=== PATIENT | male | born 1965 | race Caucasian/White ===

== ENCOUNTER → 2018-11-16 09:09 | Outpatient (CLI) | payer OTHER, SELFPAY ==
[2018-03-30 14:26] VITALS: BMI 29.9
[2018-11-16 12:28] LABS: Absolute Lymphocyte Count 1.32 X10^3/uL (0.83-4.51); Absolute Neutrophil Count 2.7 X10^3/uL (2.0-7.7); Basophil# 0.06 X10^3/uL; Basophil% 1.2 % (0-1); Eosinophil# 0.43 X10^3/uL; Eosinophils% 8.7 % (0-5); Hematocrit 48.2 % (40-54); Hemoglobin 16.5 g/dL (13.0-16.5); Lymphocyte # 1.32 X10^3/ul (4.0); Lymphocyte % 26.8 % (19-41); Mean Corp Hgb Conc 34.2 g/dL (32-36); Mean Corpuscular Hgb 32.6 pg (27.0-32.0); Mean Corpuscular Volume 95.3 fL (80-94); Mean Platelet Vol. 9.6 fl (6.2-12.0); Monocyte# 0.44 X10^3/uL; Monocyte% 8.9 % (0-10); NRBC Flagged by Analyzer 0 % (0-5); Neutrophil # 2.66 X10^3/uL (2.7-7.7); Platelet Count 208 K/mm3 (150-450); RBC Distribution Width CV 11.5 % (11.6-14.6); RBC Distribution Width SD 40.2 fl (35.1-43.9); Red Blood Count 5.06 M/mm3 (4.6-6.2); White Blood Count 4.9 K/mm3 (4.4-11.0)
[2018-11-16 12:52] LABS: Microalbumin,Random Urine < 5.0 mg/L (NO RANGE EST.)
[2018-11-16 13:14] LABS: Thyroid Stim Hormone (TSH) 3.45 uIU/mL (0.358-3.74)
[2018-11-16 13:16] LABS: Hemoglobin A1c 5.1 % (4.2-6.3)
[2018-11-18 12:09] LABS: CHOLESTEROL TOTAL 207 mg/dL (100-199); HDL-C 53 mg/dL (>39); HDL-P TOTAL 36.6 umol/L (>=30.5); SMALL LDL-P 1015 nmol/L (<=527); TRIGLYCERIDES 92 mg/dL (0-149)
[2018-11-23 13:03] LABS: INSULIN RESISTANCE SCORE 54 (<=45); LDL SIZE 20.7 nm (>20.5); LDL-C 136 mg/dL (0-99); LDL-P 1866 nmol/L (<1000)
== END ==
PROVIDERS: Family Provider Internal Medicine; PCP Internal Medicine; Referring Provider Internal Medicine; Visit Provider Internal Medicine
DX: R73.01 Impaired fasting glucose (principal)
CPT/HCPCS: 36415; 80061; 82043; 82570; 83036; 83704; 84443; 85025

== ENCOUNTER → 2019-02-22 09:27 | Outpatient (CLI) | payer OTHER, SELFPAY ==
[2018-03-30 14:26] VITALS: BMI 29.9
[2019-02-22 12:43] LABS: Vitamin D,25 Hydroxy 47.4 ng/mL (29.95-100.01)
[2019-02-22 13:06] LABS: PSA,Total - Annual Screen 2.88 ng/mL (0.00-4.00); Phosphorus 2.3 mg/dL (2.5-4.9)
[2019-02-23 16:07] LABS: LDL, Direct 120295 110 mg/dL (0-99)
== END ==
PROVIDERS: Family Provider Internal Medicine; PCP Internal Medicine; Referring Provider Internal Medicine; Visit Provider Internal Medicine
DX: E78.5 Hyperlipidemia, unspecified (principal); E83.30 Disorder of phosphorus metabolism, unspecified; Z12.5 Encounter for screening for malignant neoplasm of prostate
CPT/HCPCS: 36415; 82306; 82330; 83721; 84100; 84153; G0103

== ENCOUNTER → 2019-02-24 07:50 | Outpatient (CLI) | payer OTHER, SELFPAY ==
[2018-03-30 14:26] VITALS: BMI 29.9
== END ==
PROVIDERS: Family Provider Internal Medicine; PCP Internal Medicine; Referring Provider Internal Medicine; Visit Provider Internal Medicine
DX: E78.5 Hyperlipidemia, unspecified (principal); Z12.5 Encounter for screening for malignant neoplasm of prostate; E83.30 Disorder of phosphorus metabolism, unspecified
CPT/HCPCS: 81050

== ENCOUNTER → 2019-02-26 08:46 | Outpatient (CLI) | payer OTHER, SELFPAY ==
[2018-03-30 14:26] VITALS: BMI 29.9
--- NOTE | 2019-02-26 08:47 | CDU_ITS ---
Reason For Study: Dizziness Rt. Velocities/BP Lt. Velocities/BP Prox CCA 94.9/17.6 cm/sec. Prox CCA 92.5/16.3 cm/sec. Mid CCA 109.7/18.8 cm/sec. Mid CCA 119.3/26.1 cm/sec. Dist CCA 104.8/22.5 cm/sec. Dist CCA 110.1/27.9 cm/sec. Prox ICA 68.4/19 cm/sec. Prox ICA 82.7/21.2 cm/sec. Mid ICA 72.8/25.6 cm/sec. Mid ICA 70.4/27.4 cm/sec. Dist ICA 86/31.1 cm/sec. Dist ICA 75.3/32.3 cm/sec. Rt. ICA/CCA = 0.8. Lt. ICA/CCA = 0.8. Prox ECA 114.8/18.2 cm/sec. Prox ECA 102.8/20.6 cm/sec. Rt. Vert. 81.7/14.6 cm/sec. Lt. Vert. 46.6/18.2 cm/sec. Right Extracranial There is intimal thickening but no significant atherosclerotic plaque noted in the right common carotid artery. There is intimal thickening but no significant atherosclerotic plaque noted in the right internal carotid artery. There is no significant atherosclerotic plaque noted in the right external carotid artery. Antegrade flow is noted in the right vertebral artery. Left Extracranial There is intimal thickening but no significant atherosclerotic plaque noted in the left common carotid artery. There is intimal thickening but no significant atherosclerotic plaque noted in the left internal carotid artery. There is no significant atherosclerotic plaque noted in the left external carotid artery. Antegrade flow is noted in the left vertebral artery. Procedure Carotid Duplex [id number]. Exam performed in department. Interpretation Summary No significant atherosclerotic plaque or stenosis noted in the internal carotid arteries bilaterally. Flow within the vertebral arteries is antegrade bilaterally. Ordering Physician: Betty Abarca Referring Physician: Betty Abarca Performed By: Jeimy Cedillo RVT
== END ==
PROVIDERS: Family Provider Internal Medicine; PCP Internal Medicine; Referring Provider Internal Medicine; Visit Provider Internal Medicine
DX: R42 Dizziness and giddiness (principal)
CPT/HCPCS: 93880

== ENCOUNTER 2021-05-07 09:39 | Outpatient (RCR) | payer OTHER, SELFPAY | END 2021-05-07 23:59 | disposition home or self-care (01) | LOC: EMPH 09:39 | PROVIDERS: PCP Internal Medicine; Referring Provider Family Medicine Geriatric Medicine; Visit Provider Family Medicine Geriatric Medicine | DX: Z03.818 Encounter for observation for suspected exposure to other biological agents ruled out (principal) | CPT/HCPCS: 87426 ==

== ENCOUNTER 2022-02-04 08:18 | Day surgery (SDC) | payer OTHER, SELFPAY ==
[2022-02-04] VITALS (7 sets, daily range): BP systolic 90–114; BP diastolic 65–89; PULSE 52–78; RESP 16–17; TEMP 36.2–36.3; O2SAT 93–100; BMI 29.5
--- NOTE | 2022-02-04 08:33 | PCM.HP.STD ---
[facility] - General General Date of Admission: 02/04/22 Date of Service: 02/04/22 Chief Complaint: Screening colonoscopy HPI Narrative KEYLA BREAUX, is a 56 M who presents today for screening colonoscopy. He is not having any problems with his bowels. He is not have any nausea, vomiting or diarrhea. He is not having abdominal pain or bloating. He does not take any medicines on daily basis except for vitamin C, flaxseed oil and lisinopril along with a multivitamin. He has no known drug allergies. He has no bowel surgeries. He denies any chest pain shortness of breath. Overall he is in very good health. [facility] Medical History Alcohol use Back pain Benign prostatic hyperplasia without lower urinary tract symptoms Chronic neck and back pain Colon polyp Essential (primary) hypertension Heartburn Hyperlipidemia, unspecified Non-smoker Raynauds syndrome Right orbital fracture Home Medications Flaxseed Oil [place]-3 Liquid 1 dose PO DAILY 02/05/16 [History Last Taken 03/08/15 08:00] ascorbic acid (vitamin C) 1,000 mg tablet 1,000 mg PO DAILY 02/05/16 [History Last Taken 03/08/15 08:00] multivitamin with folic acid 400 mcg tablet 1 tab PO DAILY 02/05/16 [History Last Taken 03/08/15 08:00] lisinopril 10 mg tablet 10 mg PO DAILY 07/18/20 [History Last Taken Unknown] Allergy/AdvReac Type Severity Reaction Status Date / Time No Known Allergies Allergy Verified 01/28/22 14:36 Family History (Updated 11/29/21 @ 11:44 by Karla Randall) Mother Hypertension PVD (peripheral vascular disease) Father Cancer of kidney Thyroid cancer Hypertension Surgical History History of Achilles tendon repair History of colonoscopy Hx of elbow surgery Hx of hernia repair Social History (Updated 11/29/21 @ 11:28 by Karla Randall) current occupational status: employed current occupation: Physical Therapist Smoking Status: Never smoker ROS Review of Systems ROS Unobtainable: other Constitutional Constitutional: Denies fatigue, fever(s), poor appetite, weight gain or weight loss ENT HEENT: Denies mouth lesions Cardiovascular Cardiovascular: Denies abdominal bloating, abdominal edema or abdominal pain Respiratory/Chest Respiratory/Chest: Denies change in mental status, change in phlegm color, chest congestion or chest tightness Gastrointestinal Gastrointestinal: Denies belching, bloating, change in bowel habits, change in stool character, chewing difficulty, coffee ground emesis, constipation, cramping, diarrhea, dyspepsia, dysphagia, early satiety, excessive flatus, fecal incontinence, heartburn, hematemesis, hematochezia, hemorrhoids, loose stools, melena, nausea, odynophagia, rectal bleeding, tenesmus, vomiting or weight changes Genitourinary Genitourinary: Denies abdominal discomfort, burning urination or itching Musculoskeletal Musculoskeletal: Reports as per HPI; Denies muscle weakness or myalgias Integumentary Integumentary: Denies jaundice Neurologic Neurologic: Denies lack of coordination or weakness Psychiatric Psychiatric: Denies confusion, depression, memory loss, mood swings, paranoia or suicidal ideation Endocrine Endocrinology: Denies systems reviewed and no addt'l complaints, except as documented Hematologic/Lymphatic Hematologic/Lymphatic: Denies anemia, easy bleeding, easy bruising or lymphadenopathy Allergic/Immunologic Allergic/Immunologic: Denies systems reviewed and no addt'l complaints, except as documented Physical Exam Const alert General Appearance: cooperative Orientation / Consciousness: oriented to person HEENT hearing grossly normal bilaterally Head and Scalp: normal to inspection Face and Sinus: face symmetric Nose: external nose normal Mouth: oral and palatal mucosa normal Eyes conjunctivae normal General Eye: normal appearance of both eyes Neck full ROM General: normal visual inspection Lymph Lymphatic: no lymphadenopathy noted Chest inspection of chest normal and palpation of chest normal Chest: symmetrical chest wall rise Resp normal respiratory effort Effort and Inspection: able to speak in complete sentences Cardio regular rate GI non-distended Percussion: normal to percussion Rectal Exam: deferred Neuro Speech: speech normal Gait (Neuro): normal gait Assessment & Plan Assessment/Plan (1) Encounter for screening for malignant neoplasm of colon: PLAN: 56-year-old gentleman will undergo screening colonoscopy. He was explained alternatives, risk, benefits including not withstanding bleeding, infection, sepsis, perforation, need for emergent turn to . He will have an ASA of 1.
[2022-02-04] MEDS: Lactated Ringers 1,000 ML 15 ML IV (08:35)
--- NOTE | 2022-02-04 09:30 | COLBX_PTH ---
PATIENT: KEYLA BREAUX LOC: [facility] U#:[id number] AGE/SX: 56/M ROOM: RE02/04/[address]: Dr. Artis Renee DO : 1965 BED: DIS: 02/04/2022 SPEC #: [id number] RECD: 02/04/22 11:29 STATUS: SHERRY REArsh #: [id number] SILVANO: 02/04/22 09:[address]: Artis Renee DEPT: SURGICAL PATHOLOGY RECD BY: Chelo Perdomo ENTERED: 02/04/22 12:27 SP TYPE: COLON BX OTHR DR: Dr. Betty Abarca, Tissues: Rectum, NOS Procedures: Surgery Specimen Level IV HEADER OPERATION: Colonoscopy ? open access (MAC) PRE-OP DIAGNOSIS: Screening TISSUE SUBMITTED: Rectum polyp biopsy MICROSCOPIC DIAGNOSIS Rectal polyp, biopsy: Polypoid fragment of benign colonic mucosa. See comment. AM:reggie 02/05/2022 COMMENT Neither hyperplastic nor adenomatous change is identified. Clinical correlation is suggested. MICROSCOPIC DESCRIPTION Slides are reviewed. GROSS DESCRIPTION Received in fixative is one container labeled with the patient's name and designated rectum polyp biopsy. The specimen consists of one irregular fragment of light salmon soft tissue that measures 0.3 x 0.2 x 0.1 cm. The specimen is totally submitted in one cassette. / SJ:reggie 02/04/2022 TC:5 CPT: 66212
--- NOTE | 2022-02-04 09:48 | OP.COLON_ITS ---
Patient Name: Johnnie Gutierrez Procedure Date: 02/04/2022 9:13 AM Date of : 1965 Age: 56 Procedure: Colonoscopy Indications: Screening for colorectal malignant neoplasm Providers: Artis Renee DO Referring MD: Betty Abarca Medicines: Monitored Anesthesia Care Patient Profile: Last Colonoscopy: date unknown. Complications: No immediate complications. Procedure: Pre-Anesthesia Assessment: - Prior to the procedure, a History and Physical was performed, and patient medications and allergies were reviewed. The risks and benefits of the procedure and the sedation options and risks were discussed with the patient. All questions were answered and informed consent was obtained. Patient identification and proposed procedure were verified by the physician in the pre-procedure area. Mental Status Examination: alert and oriented. Airway Examination: normal oropharyngeal airway and neck mobility. Respiratory Examination: clear to auscultation. CV Examination: normal. Prophylactic Antibiotics: The patient does not require prophylactic antibiotics. Prior Anticoagulants: The patient has taken no previous anticoagulant or antiplatelet agents. After reviewing the risks and benefits, the patient was deemed in satisfactory condition to undergo the procedure. The anesthesia plan was to use monitored anesthesia care (MAC). Immediately prior to administration of medications, the patient was re-assessed for adequacy to receive sedatives. The heart rate, respiratory rate, oxygen saturations, blood pressure, adequacy of pulmonary ventilation, and response to care were monitored throughout the procedure. The physical status of the patient was re-assessed after the procedure. After I obtained informed consent, the scope was passed under direct vision. Throughout the procedure, the patient's blood pressure, pulse, and oxygen saturations were monitored continuously. The colonoscope was introduced through the anus and advanced to the cecum, identified by appendiceal orifice and ileocecal valve. The colonoscopy was performed without difficulty. The patient tolerated the procedure well. The quality of the bowel preparation was good. Scope In: 9:28:21 AM Scope Withdrawal Time 0 hours 10 minutes 31 seconds Scope Out: 9:43:00 AM Total Procedure Duration Time 0 hours 14 minutes 39 seconds Findings: Hemorrhoids were found on perianal exam. A 5 mm polyp was found in the rectum. The polyp was sessile. The polyp was removed with a cold biopsy forceps. Resection and retrieval were complete. Verification of patient identification for the specimen was done. Estimated blood loss was minimal. Impression: - Hemorrhoids found on perianal exam. - One 5 mm polyp in the rectum, removed with a cold biopsy forceps. Resected and retrieved. Recommendation: - Repeat colonoscopy in 5 years for surveillance. - Continue present medications. Procedure Code(s): --- Professional --- 31261, Colonoscopy, flexible; with biopsy, single or multiple CPT copyright 2017 [employer]. All rights reserved. The codes documented in this report are preliminary and upon line manager review may be revised to meet current compliance requirements. Artis Renee DO 02/04/2022 9:47:48 AM This report has been signed electronically. Number of Addenda: 0 Note Initiated On: 02/04/2022 9:13 AM
--- NOTE | 2022-02-04 09:49 | OP.CCLET_ITS ---
02/04/2022 Betty Abarca [address] [place] [address] Re : Colonoscopy procedure for Johnnie Gutierrez Dear Dr. Abarca This procedure was performed on Friday, February 04, 2022. My impressions and recommendations are as follows: Impressions : - Hemorrhoids found on perianal exam. - One 5 mm polyp in the rectum, removed with a cold biopsy forceps. Resected and retrieved. Recommendations : - Repeat colonoscopy in 5 years for surveillance. - Continue present medications. My findings are described in the full procedure note, which is enclosed. If I can be of further assistance, please feel free to contact me at . Sincerely, Artis Renee, 02/04/2022 9:47:48 AM This report has been signed electronically.
== END 2022-02-04 10:47 | disposition home or self-care (01) ==
LOC: EN 08:20 → AC 08:20
PROVIDERS: PCP Internal Medicine; Referring Provider Internal Medicine; Visit Provider Internal Medicine Gastroenterology
PROC: 0DJD8ZZ Inspection of Lower Intestinal Tract, Via Natural or Artificial Opening Endoscopic (ICD-10-PCS; CPT 45378; principal; 2022-02-04 09:25)
DX: Z12.11 Encounter for screening for malignant neoplasm of colon (principal); K62.1 Rectal polyp; K64.9 Unspecified hemorrhoids; I10 Essential (primary) hypertension; Z79.899 Other long term (current) drug therapy
CPT/HCPCS: 45380; 88305; J7120; J2405

== ENCOUNTER → 2022-02-14 | Outpatient (CLI) | payer OTHER, SELFPAY ==
[2022-02-14 15:39] LABS: Hemoglobin A1c 5.3 % (3.8-5.6)
[2022-02-14 15:51] LABS: AST(SGOT) 28 U/L (15-37); Alanine Aminotransfer ALT/SGPT 47 U/L (16-61); Alkaline Phosphatase 73 U/L (45-117); Bilirubin, Direct 0.31 mg/dL (0.00-0.30); Globulin 2.8 g/dL (2.2-4.2); Protein, Total 6.8 g/dL (6.4-8.2); Thyroid Stim Hormone (TSH) 2.89 uIU/mL (0.358-3.74)
== END | disposition home or self-care (01) ==
LOC: MTLAB 13:07
PROVIDERS: PCP Internal Medicine; Referring Provider Internal Medicine; Visit Provider Internal Medicine
DX: R79.89 Other specified abnormal findings of blood chemistry (principal); R73.01 Impaired fasting glucose
CPT/HCPCS: 36415; 80076; 83036; 84443

== ENCOUNTER 2022-04-30 11:33 | Emergency (ER) | payer OTHER, SELFPAY ==
[2022-04-30 11:33] VITALS: BP 157/96; PULSE 67; RESP 14; TEMP 36.6; O2SAT 99; BMI 30.5
--- NOTE | 2022-04-30 11:39 | EKG12_ITS ---
Test Reason : HYPERTENSION Blood Pressure : / mmHG Vent. Rate : 065 BPM Atrial Rate : 065 BPM P-R Int : 178 ms QRS Dur : 084 ms QT Int : 386 ms P-R-T Axes : 010 018 -15 degrees QTc Int : 401 ms Normal sinus rhythm Possible Lateral infarct , age undetermined Inferior infarct , age undetermined Abnormal ECG Confirmed by MILLI GRIMES, DARLINE ([id number]), graphic editor RYANN MORAN ([id number]) on 05/01/2022 9:06:03 AM Referred By: DEB Confirmed By:DARLINE MORLEY MD
--- NOTE | 2022-04-30 12:51 | EKG12_ITS ---
Test Reason : HYPERTENSION Blood Pressure : / mmHG Vent. Rate : 061 BPM Atrial Rate : 061 BPM P-R Int : 188 ms QRS Dur : 088 ms QT Int : 384 ms P-R-T Axes : 014 015 -20 degrees QTc Int : 386 ms Normal sinus rhythm Lateral infarct , age undetermined , cannot be excluded Inferior infarct , age undetermined Abnormal ECG Confirmed by ELPIDIO GRIMES, SONJA ([id number]), electronic news gathering editor RYANN MORAN ([id number]) on 05/01/2022 8:48:44 AM Referred By: DEB Confirmed By:SONJA MAGALLANES MD
--- NOTE | 2022-04-30 12:51 | CT_ITS ---
STUDY: CTA HEAD AND NECK WITH CONTRAST REASON FOR EXAM: Male, 56 years old. History of Raynaud''s syndrome. Hypertension. Worsening dizziness. RADIATION DOSAGE (If Supplied By Facility): CTDIvol = ( 28.16 ) mGy, DLP = ( 1445.42 ) mGycm TECHNIQUE: CT angiography was performed with a multi-detector CT scanner. Data acquisition was obtained from the skull base through the vertex following intravenous administration of IV 100mL Isovue-370. MIP images were reconstructed from the axial data set. Post-processing of the angiographic images was performed, with multiplanar reformation and 3D reconstruction. Individualized dose optimization techniques were used for this CT. COMPARISON: No relevant priors. FINDINGS: Normal bilateral petrous carotid arteries. Normal right cavernous carotid artery with a normal supraclinoid bifurcation. Normal left cavernous carotid artery with a normal supraclinoid bifurcation. Normal right A1 segments of the anterior cerebral artery. Normal left A1 segments of the anterior cerebral artery. Normal intact anterior communicating artery (ACOM). Normal bilateral A2 segments of the anterior cerebral arteries. Normal right M1 and M2 segments of the middle cerebral arteries, with a normal M1 bifurcation. Normal left M1 and M2 segments of the middle cerebral arteries, with a normal M1 bifurcation. Normal right posterior communicating artery (PCOM). Normal left posterior communicating artery (PCOM). Normal bilateral vertebral arteries. Normal basilar artery with a normal basilar bifurcation. The visualized bilateral superior cerebellar (SCA) arteries are normal. Normal bilateral P1, P2 and visualized P3 segments of the posterior cerebral arteries. There is no demonstrated aneurysm of the [place] of [place]. There is no demonstrated abnormality of the visualized brain. AORTIC ARCH: Normal visualized aortic arch. Normal origins of the brachiocephalic, left common carotid, and left subclavian arteries. RIGHT CAROTID ARTERIES: Normal right common carotid artery (CCA). Normal right common carotid bulb. Normal origin of the right internal carotid (ICA) artery without a hemodynamically significant stenosis. Normal visualized cervical portion of the right internal carotid artery. Normal origin of the right external carotid artery (ECA). LEFT CAROTID ARTERIES: Normal left common carotid artery (CCA). Normal left common carotid bulb. Normal origin of the left internal carotid (ICA) artery without a hemodynamically significant stenosis. Normal visualized cervical portion of the left internal carotid artery. Normal origin of the left external carotid artery (ECA). VERTEBRAL ARTERIES: Normal bilateral vertebral arteries. CT/CTA Head AND Neck W/ Contrast IMPRESSION: Normal CTA Head and neck with contrast. Electronically Signed: Ryan Tavera MD at 14:45 EST ,
--- NOTE | 2022-04-30 12:53 | EDS_ITS ---
HPI History of Present Illness Chief Complaint: Dizziness Narrative Narrative: Patient presents with 2-day history of vertiginous symptoms, he gets paroxysms of vertigo when he turns his head a certain way. These paroxysms lasts just a few seconds. No vision changes, he does not feel off balance, no fever or chills. No cough or congestion. He does not have a headache. [facility] Medical History Alcohol use Back pain Benign prostatic hyperplasia without lower urinary tract symptoms Chronic neck and back pain Colon polyp Essential (primary) hypertension Heartburn Hyperlipidemia, unspecified Non-smoker Raynauds syndrome Right orbital fracture Home Medications Flaxseed Oil [place]-3 Liquid 1 dose PO DAILY 02/05/16 [History Last Taken 03/08/15 08:00] ascorbic acid (vitamin C) 1,000 mg tablet 1,000 mg PO DAILY 02/05/16 [History Last Taken 03/08/15 08:00] multivitamin with folic acid 400 mcg tablet 1 tab PO DAILY 02/05/16 [History Last Taken 03/08/15 08:00] lisinopril 10 mg tablet 10 mg PO DAILY 07/18/20 [History Last Taken Unknown] meclizine 25 mg tablet 25 mg PO 4X/DAY PRN PRN Dizziness #20 tabs 04/30/22 [Rx Last Taken Unknown] Allergy/AdvReac Type Severity Reaction Status Date / Time No Known Allergies Allergy Verified 01/28/22 14:36 Family History Mother Hypertension PVD (peripheral vascular disease) Father Cancer of kidney Thyroid cancer Hypertension Surgical History History of Achilles tendon repair History of colonoscopy Hx of elbow surgery Hx of hernia repair Social History current occupational status: employed current occupation: Physical Therapist Smoking Status: Never smoker ROS ROS ED ROS Narrative Past medical history: Reviewed Medications: Reviewed Social history: Noncontributory Review of systems: All systems negative except as indicated General: No fever Eyes: No visual changes ENT: No upper airway congestion, normal voice Neck: No neck pain Cardiovascular: No chest pain Respiratory: No shortness of breath or cough Gastrointestinal: No abdominal pain, nausea vomiting or diarrhea Genitourinary: No dysuria Musculoskeletal: Denies myalgias no difficulty with ambulation Skin: No rash Neurological: No memory loss, confusion or any focal weakness. Vertigo as in HPI EXAM Physical Exam Narrative Exam Narrative: Physical exam General: Well nourished, Well developed, No Acute Distress Head: Normocephalic, Atraumatic Eyes: Conjunctiva not pale. Pupils are 3 mm and reactive. He has bilateral nystagmus slightly worse on the right. He also has rightward saccade. ENT: Moist mucous membranes Neck: Supple, Nontender, No lymphadenopathy Cardiovascular: Regular rate, Regular rhythm Respiratory: No distress, CTA bilaterally Abdomen: Soft, Nontender, Nondistended Back: Nontender, Normal Inspection. Negative for: CVA tenderness Extremities: Nontender, No edema Skin: Normal color, No rash Neurological: Alert, Normal Strength, Normal Sensation. Normal cerebellar. Normal Romberg. Psychological: Normal affect Const Vital Signs: 04/30/22 11:33 04/30/22 12:45 04/30/22 14:00 Temperature 98 F Temperature Source Temporal Pulse Rate 67 67 Respiratory Rate 14 15 Respiratory Effort Normal Respiratory Pattern Normal Blood Pressure 157/96 H 121/72 H Blood Pressure Mean 116 88 Pulse Ox 99 100 Oxygen Delivery Method Room Air Room Air [facility] Lab Data Labs: Laboratory Results - last 24 hr 04/30/22 04/30/22 13:00 13:00 WBC 6.0 RBC 5.01 Hgb 16.2 Hct 48.0 MCV 95.8 H MCH 32.3 H MCHC 33.8 RDW Std Deviation 39.9 RDW Coeff of Pia 11.4 L Plt Count 236 MPV 9.1 Immature Gran % (Auto) 0.300 Neut % (Auto) 59.8 Lymph % (Auto) 24.7 Haines % (Auto) 9.6 Eos % (Auto) 4.6 Baso % (Auto) 1.0 Absolute Neuts (auto) 3.6 Absolute Lymphs (auto) 1.49 Nucleated RBC % 0 Sodium 138 Potassium 4.5 Chloride 106 Carbon Dioxide 27.0 Anion Gap 5 BUN 19 H Creatinine 1.08 Estim Creat Clear Calc 68.10 Est GFR (MDRD) Af Amer 91 Est GFR (MDRD) Non-Af 75 BUN/Creatinine Ratio 17.6 Glucose 108 H Calcium 9.7 Total Bilirubin 0.90 AST 23 ALT 45 Alkaline Phosphatase 83 Total Protein 7.6 Albumin 4.2 Globulin 3.4 Albumin/Globulin Ratio 1.2 Radiography Diagnostic Testing: Clinical Impression(s) from Imaging Studies Head/Neck CTA 04/30/22 12:51 IMPRESSION: Normal CTA Head and neck with contrast. Electronically Signed: Ryan Tavera MD at 14:45 EST , EKG Initial EKG: Comments: Sinus rhythm with a rate of 61. Normal ME interval. Normal QTc interval. Nonspecific ST changes throughout but no acute ischemic events. Interpreted by emergency doctor. Treatment and Re-Evaluation Narrative: A. Problems addressed My worry is for this for a possible central etiology of the vertigo, however based on physical and CT results I believe this is likely BPPV. He was given meclizine with improvement. He has a physical therapist at this hospital and has access to vertebral rehab. He can follow-up with that. Otherwise if anything changes patient is to return. Patient did improve with meclizine and I will give him some meclizine for home. B. Amount and/or complexity of the data 1. CBC and CMP were unremarkable 2. Independent interpretation of test Telemetry: Sinus rhythm with a rate in the 60s without ectopy C. Risk of complications and/or morbidity Differential diagnosis: Stroke, vertebrobasilar insufficiency, intracranial mass, meningitis,or found on physical and/or blood work or CT. Discharge Plan Triage Chief Complaint: Dizziness ED Provider: Sohan Santos Dx/Rx/DC Orders Clinical Impression: Vertigo, Benign paroxysmal positional vertigo Instructions: BPPV Prescriptions: New meclizine 25 mg tablet 25 mg PO 4X/DAY PRN PRN (Reason: Dizziness) Qty: 20 0RF No Action lisinopril 10 mg tablet 10 mg PO DAILY ascorbic acid (vitamin C) 1,000 MG tablet 1,000 mg PO DAILY multivitamin with folic acid 1 TABLET tablet 1 tab PO DAILY Flaxseed Oil [place]-3 Liquid 1 dose PO DAILY Primary Care Provider: Betty Abarca Referrals: Tevin,Betty, DO [Primary Care Provider] - 3-5 Days Disposition Disposition: Home, Self Care
[2022-04-30 13:07] LABS: Absolute Lymphocyte Count 1.49 X10^3/uL (0.83-4.51); Absolute Neutrophil Count 3.6 X10^3/uL (2.0-7.7); Basophil# 0.06 X10^3/uL; Eosinophil# 0.28 X10^3/uL; Eosinophils% 4.6 % (0-5); Hemoglobin 16.2 g/dL (13.0-16.5); Lymphocyte # 1.49 X10^3/ul (0.83-4.51); Lymphocyte % 24.7 % (19-41); Mean Corp Hgb Conc 33.8 g/dL (32-36); Mean Corpuscular Hgb 32.3 pg (27.0-32.0); Mean Corpuscular Volume 95.8 fL (80-94); Mean Platelet Vol. 9.1 fl (6.2-12.0); Monocyte# 0.58 X10^3/uL; Monocyte% 9.6 % (0-10); NRBC Flagged by Analyzer 0 % (0-5); Neutrophil % 59.8 % (47-70); Platelet Count 236 K/mm3 (150-450); RBC Distribution Width CV 11.4 % (11.6-14.6); RBC Distribution Width SD 39.9 fl (35.1-43.9); Red Blood Count 5.01 M/mm3 (4.6-6.2)
[2022-04-30] MEDS: Meclizine HCl 25 MG Tablet PO (13:08)
[2022-04-30 13:24] LABS: ALB/GLOB Ratio 1.2 RATIO (0.9-2.4); AST(SGOT) 23 U/L (15-37); Alanine Aminotransfer ALT/SGPT 45 U/L (16-61); Albumin, Serum 4.2 g/dL (3.2-5.0); Alkaline Phosphatase 83 U/L (45-117); Anion Gap 5 (5-15); BUN 19 mg/dL (7-18); BUN/Creat Ratio 17.6 RATIO (10-20); Calcium,Total 9.7 mg/dL (8.5-10.1); Chloride 106 mmol/L (98-107); Creatinine, Serum 1.08 mg/dL (0.70-1.30); EST Glomerular Filtration Rate 75 mL/min (>60); Est Glom Filt Rate - Afr Amer 91 mL/min (>60); Globulin 3.4 g/dL (2.2-4.2); Glucose 108 mg/dL (74-106); Potassium 4.5 mmol/L (3.5-5.1); Protein, Total 7.6 g/dL (6.4-8.2); Sodium Level 138 mmol/L (136-145)
[2022-04-30 14:00] VITALS: BP 121/72; PULSE 67; RESP 15; O2SAT 100
[2022-04-30 15:10] VITALS: BP 110/82; PULSE 69; RESP 15; O2SAT 99
== END 2022-04-30 15:38 | disposition home or self-care (01) ==
PROVIDERS: Emergency Provider Emergency Medicine; PCP Internal Medicine; Visit Provider Emergency Medicine
DX: H81.10 Benign paroxysmal vertigo, unspecified ear (principal); E78.5 Hyperlipidemia, unspecified; I10 Essential (primary) hypertension
CPT/HCPCS: 70496; 70498; 80053; 85025; 93005; 99284; Q9967; A4216

== ENCOUNTER → 2022-11-15 | Outpatient (CLI) | payer OTHER, SELFPAY ==
[2022-11-15 11:30] LABS: Bacteria 0 SEEN /hpf (None Seen); Mucous, Urine 0 SEEN /hpf (<or=2+); Red Blood Cells-Urine 0 SEEN /hpf (0-5); Squamous Epithelial Cells - UA 0 SEEN /hpf (0-5); White Blood Cells 0 SEEN /hpf (0-5)
[2022-11-15 12:14] LABS: Absolute Lymphocyte Count 1.44 X10^3/uL (0.83-4.51); Basophil# 0.06 X10^3/uL; Basophil% 1.1 % (0-1); Eosinophil# 0.35 X10^3/uL; Eosinophils% 6.5 % (0-5); Hematocrit 46.1 % (40-54); Hemoglobin 15.8 g/dL (13.0-16.5); Lymphocyte # 1.44 X10^3/ul (0.83-4.51); Lymphocyte % 26.7 % (19-41); Mean Corp Hgb Conc 34.3 g/dL (32-36); Mean Corpuscular Hgb 32.6 pg (27.0-32.0); Mean Corpuscular Volume 95.2 fL (80-94); Mean Platelet Vol. 9.7 fl (6.2-12.0); Monocyte# 0.51 X10^3/uL; Monocyte% 9.4 % (0-10); NRBC Flagged by Analyzer 0 % (0-5); Neutrophil # 3.02 X10^3/uL (2.7-7.7); Neutrophil % 55.9 % (47-70); Platelet Count 245 K/mm3 (150-450); RBC Distribution Width CV 11.4 % (11.6-14.6); RBC Distribution Width SD 39.3 fl (35.1-43.9); Red Blood Count 4.84 M/mm3 (4.6-6.2); White Blood Count 5.4 K/mm3 (4.4-11.0)
[2022-11-15 12:58] LABS: Microalbumin,Random Urine 6.8 mg/L (NO RANGE EST.); Microalbumin:Creatinine Ratio 4.4 mg/g CRE (<30 mg/g CRE)
[2022-11-15 13:04] LABS: Cholesterol 172 mg/dL (200); High Density Lipoprotein 57 mg/dL; PSA,Total - Annual Screen 2.35 ng/mL (0.00-4.00); Triglycerides 92 mg/dL; Very Low Density Lipoprotein 18 mg/dL (5-40)
[2022-11-15 18:34] LABS: Color, Urine Yellow (Yellow); Glucose, Dipstick Normal (Normal); Ketone-Dipstick Negative (Negative); Leukocyte Esterase-Dipstick Negative /ul (Negative); Nitrite-Dipstick Negative (Negative); Occult Blood-Urine Negative /ul (Negative); Protein-Dipstick Negative (Negative); Urine Bilirubin Dipstick Negative (Negative); Urine Clarity Clear (Clear); Urine Urobilinogen Normal (Normal)
== END | disposition home or self-care (01) ==
LOC: MTLAB 11:17
PROVIDERS: PCP Internal Medicine; Referring Provider Internal Medicine; Visit Provider Internal Medicine
DX: I10 Essential (primary) hypertension (principal); E78.5 Hyperlipidemia, unspecified; R73.01 Impaired fasting glucose; Z12.5 Encounter for screening for malignant neoplasm of prostate
CPT/HCPCS: 36415; 80061; 81001; 82043; 82570; 83036; 84153; 84443; 85025; G0103

== ENCOUNTER → 2024-05-19 | Outpatient (CLI) | payer OTHER, SELFPAY ==
[2024-05-19 12:27] LABS: Erythrocyte Sedimentation Rate < 1 mm/hr (0-20)
[2024-05-19 13:13] LABS: PSA,Total - Annual Screen 1.96 ng/mL (0.02-4.00); Vitamin B12 562 pg/mL (180-914)
[2024-05-19 13:24] LABS: CRP < 3.00 mg/L (0.0-3.0)
[2024-05-19 13:43] LABS: Hemoglobin A1c 5.5 % (<=5.6)
[2024-05-20 10:08] LABS: ANTINUCLEAR ANTIBODIES DIRECT Negative (Negative)
== END | disposition home or self-care (01) ==
LOC: MTLAB 10:12
PROVIDERS: PCP Internal Medicine; Referring Provider Internal Medicine; Visit Provider Internal Medicine
DX: R53.83 Other fatigue (principal); Z12.5 Encounter for screening for malignant neoplasm of prostate
CPT/HCPCS: 36415; 82607; 82746; 83036; 84153; 84443; 85652; 86038; 86140; G0103

== ENCOUNTER → 2024-05-28 | Outpatient (CLI) | payer OTHER, SELFPAY ==
--- NOTE | 2024-05-28 16:27 | US_ITS ---
PROCEDURE: THYROID 05/28/2024 REASON FOR EXAM: THYROMEGALY, IODINE-DEFICIENCY RELATED DIFFUSE (ENDEMIC) GOITER TECHNIQUE: Thyroid ultrasound FINDINGS: Right thyroid lobe measures 4.0 x 1.1 x 1.8 cm Left thyroid lobe measures 3.2 x 1.3 x 1 cm. Isthmus thickness is2.2 mm. The right and left lobes of the thyroid appear homogeneous and isoechoic. No nodule or focal lesion identified. No lymphadenopathy identified. US/Thyroid IMPRESSION: Thyroid ultrasound as above Reading Location: [id number]
== END | disposition home or self-care (01) ==
LOC: OPUS 16:20
PROVIDERS: PCP Internal Medicine; Referring Provider Internal Medicine; Visit Provider Internal Medicine
DX: E01.0 Iodine-deficiency related diffuse (endemic) goiter (principal)
CPT/HCPCS: 76536

== ENCOUNTER → 2024-07-02 | Outpatient (CLI) | payer OTHER, SELFPAY ==
[2024-07-02 18:25] LABS: Thyroid Stim Hormone (TSH) 0.143 uIU/mL (0.300-4.200)
== END | disposition home or self-care (01) ==
LOC: MTLAB 16:12
PROVIDERS: PCP Internal Medicine; Referring Provider Internal Medicine; Visit Provider Internal Medicine
DX: R79.89 Other specified abnormal findings of blood chemistry (principal)
CPT/HCPCS: 36415; 84443

== ENCOUNTER → 2024-08-23 | Outpatient (CLI) | payer OTHER, SELFPAY ==
--- NOTE | 2024-08-23 06:49 | CT_ITS ---
PROCEDURE: LIMITED CHEST CT CARDIAC ONLY 08/23/2024 REASON FOR EXAM: CAD SCREENING TECHNIQUE: LIMITED CHEST CT CARDIAC ONLY One or more dose reduction techniques were used (e.g., Automated exposure control, adjustment of the mA and/or kV according to patient size, use of iterative reconstruction technique). RADIATION DOSE SUMMARY: CTDlvol: 12.19 mGy DLP: 195.04 mGycm COMPARISON: None FINDINGS: There is evidence of coronary artery calcification. The heart is nonenlarged. Minimal linear scarring at the lung bases. CT/Limited Chest CT Cardiac Only IMPRESSION: Coronary artery calcification. Reading Location: [facility]
--- OUTSIDE RECORDS SUMMARY | 2024-08-23 06:49 | XMS RPT_ITS | CCD ---
Author Organization [facility] CliniSymo Care Team Providers Care Student Ambassador Name Role Phone Betty Abarca Unavailable Howard Steele Unavailable Marisol Alberto Unavailable Unavailable Gravius, Enedina Unavailable Unavailable Carlos Ceja Unavailable Unavailable Barbara Saenz L Unavailable Unavailable Gena Valdes Unavailable Gravius, Enedina Unavailable Unavailable Messenger, Marisol Unavailable Unavailable Barbara Saenz L Unavailable Unavailable Unavailable Unavailable Betty Abarca DO Unavailable Dr. Howard Steele Unavailable Gravius THU, Enedina Unavailable Unavailable Messenger RNMarisol Unavailable Unavailable Barbara Saenz RN Unavailable Unavailable Unavailable Unavailable Mell Shannon MA Unavailable Unavailable Betty Abarca DO Unavailable [phone] Friend, Dr. Wisdom Unavailable Dr. Betty Abarca Primary Care Provider [phone] Karla Randall Attending Provider Unavailable Dr. Betty Abarca Referring Provider [phone] FriendDr[address] Wisdom Attending Provider FriendDr. Wisdom Other Provider [phone] Betty Abarca Primary Care Provider Lily ANDINO, Kayela Unavailable Unavailable Tran Ackerman MA Unavailable Unavailable Betty Abarca DO Attending Unavailable Gena Valdes MD Referring Unavailable Betty Aabrca DO Consulting Unavailable Dick Reynolds MD Unavailable Markos BLOCK PRESS OPERATOR, Cristian Unavailable Unavailable TIFFANIE Ochoa LPN Unavailable Unavailable Dr. Betty Abarca DO Primary Care Provider Tevin PRATT, Dr. Hernández Attending Provider [phone] Tevin PRATT, Dr. Hernández Referring Provider [phone] Betty Abarca Primary Care Unavailable Assessment, Health Risk Attending Unavaila ble Assessment, Health Risk Referring Unavaila ble Tevin, Betty Primary Care Unavailable Tevin, Betty Attending Unavailable Tevin, Betty Referring Unavailable Tevin, Betty Primary Care Unavailable Tevin, Betty Attending Unavailable Tevin, Betty Referring Unavailable Tevin, Betty Primary Care Unavailable Tevin, Betty Attending Unavailable Tevin, Betty Referring Unavailable Tevin, Betty Referring Unavailable Tevin, Betty Primary Care Unavailable Ronan Liu Attending Unavailable Medications Current Medications Medication Drug Class(es) Dates Sig (Normalized) Sig (Original) ascorbic acid 1000 mg oral tablet (20 sources) Vitamin C Start: 02-05-2016 take 1 tablet by mouth once daily Ascorbic Acid (Vitamin C) 1,000 MG tablet Active 1000 mg PO DAILY February 05, 2016 1:00am VITAMIN C (PO Ta b) for 0 days Refills: 0 Ordered: 12-Dec-2008 TIFFANIE Ochoa LPN Active VITAMIN C (PO Ta b) for 0 days Refills: 0 Ordered: 12-Dec-2008 TIFFANIE Ochoa Active doxycycline monohydrate 100 mg oral capsule (3 sources) Tetracycline-class Drug Start: 08-05-2023 take 2 capsules by mouth once Doxycycline Monohydrate 100 mg capsule Active 200 mg PO ONCE 2 August 05, 2023 12:00am Flaxseed Oil Gipsy-3 Liquid (7 sources) Start: 02-05-2016 Flaxseed Oil Gipsy-3 Liquid Active 1 NMA PO DAILY February 05, 2016 1:00am Start: 02-05-2016 take 1 dose by mouth once neal y Flaxseed Oil Gipsy-3 Liquid Active 1 DOSE PO DAILY February 05, 2016 1:00am Start: 02-05-2016 take 1 dose by mouth once neal y Flaxseed Oil Gipsy-3 Liquid Active 1 DOSE PO DAILY February 05, 2016 12:00am meclizine hydrochloride 25 mg oral tablet (5 sources) Antiemetic Start: 04-30-2022 take 1 tablet by mouth four times daily as needed for dizziness Meclizine 25 mg tablet Active 25 mg PO 4 TIMES DAILY NEEDED as needed for Dizziness April 30, 2022 1:00am Multivitamin With Folic Acid (4 sources) Start: 02-05-2016 take 1 tablet by mouth once daily Multivitamin With Folic Acid Active 1 TABLET PO DAILY February 05, 2016 1:00am Start: 02-05-2016 take 1 tablet by paddy th once daily Multivitamin With Folic Acid Active 1 TABLET PO DAILY February 05, 2016 12:00am Multivitamin With Folic Acid 1 TABLET tablet (3 sources) Start: 02-05-2016 take 1 tablet by mouth once daily Multivitamin With Folic Acid 1 TABLET tablet Active 1 {tbl} PO DAILY February 05, 2016 1:00am Completed/Discontinued Medications Medication Drug Class(es) Dates Sig (Normalized) Sig (Original) amLODIPine 5 mg oral tablet (20 sources) Dihydropyridine Calcium Channel Zohra Start: 04-01-2019 End: 04-01-2019 take 1 tablet by mouth once daily Norvasc 5 MG Oral Tablet 1 (one) Tablet qd for 0 days Quantity: 30 {Tablet} Refills: 2 Ordered: 01-Apr-2019 Betty Abarca DO, DO, Kathleen Start : 01-Apr-2019 End : 01-Apr-2019 Discontinued Comments: would rather just take one med Comment on above: would rather just ta ke one med azithromycin 250 mg oral tablet (20 sources) Macrolide Antimicrobial Start: 02-15-2016 End: 10-28-2016 take 1 tablet by mouth once daily Zithromax Z-John 250 MG Oral Tablet tad Tablet qd for 0 days Quantity: 1 {Package} Refills: 0 Ordered: 28-Oct-2016 Marisol Alberto RN Start : 15-Feb-2016 End : 28-Oct-2016 Inactive chondroitin sulfates 400 mg / glucosamine hydrochloride 500 mg oral capsule (20 sources) End: 11-27-2018 GLUCOSAMINE CHONDROITIN (PO Tab) for 0 days Refills: 0 Ordered: 27-Nov-2018 Barbara Saenz RN End : 27-Nov-2018 Discontinued Comments: This order discontinued per [facility]. End: 11-27-2018 GLUCOSAMINE CHONDROITIN (PO Tab) for 0 days Refills: 0 Ordered: 27-Nov-2018 Barbara Saenz RN End : 27-Nov-2018 Discontinued Comments: This order discontinued per [facility]. End: 11-27-2018 GLUCOSAMINE CHONDROITIN (PO Tab) for 0 days Refills: 0 Ordered: 27-Nov-2018 Dany JUÁREZaBrbara End : 27-Nov-2018 Discontinued Comments: This order discontinued per [facility]. GLUCOSAMINE EVIE DROITIN (PO Tab) for 0 days Refills: 0 Ordered: 12-Dec-2008 TIFFANIE Ochoa Active Comment on above: This order discontin ued per [facility]. Fish Oils (20 sources) FISH OIL (Oil) f or 0 days Refills: 0 Ordered: 12-Dec-2008 TIFFANIE Ochoa LPN Active FISH OIL (Oil) f or 0 days Refills: 0 Ordered: 12-Dec-2008 TIFFANIE Ochoa Active linseed oil 1000 mg oral capsule (20 sources) FLAX SEED OIL, 1000MG (Oral Capsule) for 0 days Refills: 0 Ordered: 12-Dec-2008 TIFFANIE Ochoa LPN Active lisinopril 10 mg oral tablet (20 sources) Angiotensin Converting Enzyme Inhibitor Start: 12-12-2022 take 1 tablet by mouth once daily lisinopriL 10 mg oral tablet 1 (one) Tablet qd for 0 days Quantity: 90 {Tablet} Refills: 3 Ordered: 12-Dec-2022 Betty Abarca DO, DO, Kathleen Start : 12-Dec-2022 Active Start: 09-19-2022 take 1 tablet by paddy th once daily lisinopriL 10 mg oral tablet 1 (one) Tablet qd for 0 days Quantity: 30 {Tablet} Refills: 6 Ordered: 19-Sep-2022 Betty Abarca DO, DO, Kathleen Start : 19-Sep-2022 Active Start: 05-29-2022 take 1 tablet by paddy th once daily lisinopriL 10 mg oral tablet 1 (one) Tablet qd for 0 days Quantity: 30 {Tablet} Refills: 6 Ordered: 29-May-2022 Betty Abarca DO, DO, Kathleen Start : 29-May-2022 Active Start: 07-05-2020 take 1 tablet by paddy th once daily Lisinopril 10 mg tablet Active 10 mg PO DAILY July 18, 2020 12:00am Start: 02-23-2020 take 1 tablet by paddy th once daily Lisinopril 10 MG Oral Tablet 1 (one) Tablet qd for 0 days Quantity: 30 {Tablet} Refills: 3 Ordered: 23-Feb-2020 Tevin PRATT Betty Abarca DO Betty Start : 23-Feb-2020 Active Start: 05-31-2019 take 1 tablet by paddy th once daily Lisinopril 10 MG Oral Tablet 1 (one) Tablet qd for 0 days Quantity: 30 {Tablet} Refills: 3 Ordered: 31-May-2019 Tevin PRATT Betty Tevin PRATT Betty Start : 31-May-2019 Active Multivitamin preparation (20 sources) MULTIVITAMIN (Or al Liquid) for 0 days Refills: 0 Ordered: 29-Nov-2021 Gravius SLIDE FASTENERS INSPECTOR, Enedina Active MULTIVITAMIN (Or al Liquid) for 0 days Refills: 0 Ordered: 08-Dec-2020 Mell Shannon MA Active MULTIVITAMIN (Or al Liquid) for 0 days Refills: 0 Ordered: 25-Oct-2019 Gravius THU, Enedina Active MULTIVITAMIN (Or al Liquid) for 0 days Refills: 0 Ordered: 27-Nov-2018 Barbara Saenz LPN Active MULTIVITAMIN (Or al Liquid) for 0 days Refills: 0 Ordered: 07-May-2018 Carlos Ceja Active MULTIVITAMIN (Or al Liquid) for 0 days Refills: 0 Ordered: 24-Nov-2017 Marisol Alberto LPN Active vitamin b12 0.25 mg oral tablet (20 sources) Vitamin B12 End: 11-23-2012 B-12, 250MCG (Oral Tablet) for 0 days Refills: 0 Ordered: 23-Nov-2012 TIFFANIE Ochoa LPN End : 23-Nov-2012 Inactive Problems Active Problems Problem Classification Problem Date Documented Date Episodic/Chronic Adjustment disorders (14 sources) Grief finding; Translations: [Grieving] 09-19-2022 Chronic Comment on above: support and enc give n Blindness and vision defects (20 sources) Visual disturbance; Translations: [Unspecified visual disturbance] Onset: 03-10-2008 Resolved: 10-28-2016 10-28-2016 Episodic Comment on above: Torn Left retina at 9 yo.saw retinal specialit then. Conditions associated with dizziness or vertigo (20 sources) Dizziness; Translations: [Dizzy] 10-25-2019 Episodic Coronary atherosclerosis and other heart disease (20 sources) Coronary atherosclerosis and other heart disease Diabetes mellitus without complication (20 sources) Impaired fasting glucose; Translations: [Impaired fasting glycaemia] 11-24-2017 Episodic Diseases of white blood cells (20 sources) Leukopenia; Translations: [Eosinophilia] Resolved: 11-20-2015 11-24-2017 Chronic Comment on above: HAD COLONOSCOPY 2017 - REPEAT 5YR POLYPNO DIARRHEA NO H/O ASTHMA OR SX ADDISIONS-- LAST YR ELEVATED AND REPEAT PRACTIVALLY NORMALIZED Disorders of lipid metabolism (20 sources) Hyperlipidemia; Translations: [Mild hyperlipidemia] 11-27-2018 Chronic Comment on above: reveiwed with patien t and ldl drawn at same time not equall will look into. but NMR show small LDL and he is eating more red meat so will decrease and check direct LDL E Codes: Natural/environment (3 sources) Tick bite; Translations: [Bitten or stung by nonvenomous insect and other nonvenomous arthropods, initial encounter] 08-05-2023 Episodic Esophageal disorders (14 sources) Gastroesophageal reflux disease; Translations: [Chronic GERD] 09-19-2022 Chronic Comment on above: stop energy drinks a nd caffeine- stop eating 4hr before bedpepcid prn Essential hypertension (20 sources) Benign hypertension; Translations: [HTN (hypertension), benign] 10-25-2019 Chronic Comment on above: new dx Headache; including migraine (20 sources) Headache; Translations: [Headache] 10-25-2019 Episodic Hyperplasia of prostate (20 sources) Benign prostatic hypertrophy without outflow obstruction; Translations: [BPH without urinary obstruction] 11-24-2017 Chronic Comment on above: on saw [employer] drink alot wtih work out. drink alot at night. talk about limit because up at night Immunizations and screening for infectious disease (20 sources) Patient encounter status; Translations: [Encounter for hepatitis C virus screening test for high risk patient] Resolved: 11-24-2017 10-25-2019 Episodic Comment on above: filledout paper Influenza (7 sources) Influenza due to Influenza A virus; Translations: [Influenza due to other identified influenza virus with other respiratory manifestations] 03-30-2018 Episodic Malaise and fatigue (1 source) Other fatigue; Translations: [Other fatigue] Onset: 05-28-2024 Episodic Other circulatory disease (20 sources) Raynaud's phenomenon ; Translations: [Raynaud's syndrome] 11-24-2017 Chronic Comment on above: talk about no other signs and symptoms Other circulatory disease (20 sources) Raynaud's syndrome Chronic Other hematologic conditions (12 sources) Macrocytosis; Translations: [Macrocytosis] 12-12-2022 Chronic Other hematologic conditions (20 sources) Other abnormality of red blood cells; Translations: [NONSPECIFIC FINDINGS ON EXAMINATION OF BLOOD, OTHER ABNORMALITY OF RED BLOOD CELLS] 11-24-2017 Episodic Comment on above: macrocytosis-- will recheck thyroid and detailed breakdown. 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] 10-25-2019 Chronic Comment on above: taking phosphorus beavers pplement Other nutritional; endocrine; and metabolic disorders (12 sources) Body mass index 25-29 - overweight; Translations: [BMI 27.0-27.9,adult] Resolved: 05-31-2019 10-25-2019 Chronic Other nutritional; endocrine; and metabolic disorders (20 sources) Body mass index 30+ - obesity; Translations: [Body mass index 30.0-30.9, adult] Resolved: 12-12-2022 11-29-2021 Chronic Other nutritional; endocrine; and metabolic disorders (20 sources) Body mass index 25-29 - overweight; Translations: [BMI 27.0-27.9,adult] Resolved: 11-29-2021 10-25-2019 Episodic Other nutritional; endocrine; and metabolic disorders (20 sources) Weight gain; Translations: [Weight gain] Resolved: 12-12-2022 11-29-2021 Episodic Comment on above: had surgery so didnt exercise for awhile Other nutritional; endocrine; and metabolic disorders (20 sources) Overweight in adulthood with body mass index of 25 or more but less than 30; Translations: [BMI 29.0-29.9,adult] Resolved: 11-29-2021 11-29-2021 Episodic Other screening for suspected conditions (not mental disorders or infectious disease) (20 sources) Viral screening status; Translations: [Full blood count abnormal] Onset: 07-06-2024 11-24-2017 Episodic Other upper respiratory disease (15 sources) Pain in throat Episodic Other upper respiratory infections (20 sources) Sore throat symptom; Translations: [Sore throat] 11-24-2017 Episodic Residual codes; unclassified (20 sources) Requires diphtheria, tetanus and pertussis vaccination; Translations: [Need for Tdap vaccination (Renamed from Need for goeoblajna-lqtfyij-lgj tussis (Tdap) vaccine, adult/adolescent)] 11-27-2018 Episodic Residual codes; unclassified (20 sources) FH: Cardiac disorder; Translations: [Family history of heart disease] 10-25-2019 Episodic Comment on above: mom at age 70 needin g cabg Residual codes; unclassified (20 sources) Requires varicella vaccination; Translations: [Need for shingles vaccine] 04-22-2019 Episodic Residual codes; unclassified (20 sources) Family history of malignant neoplasm of thyroid; Translations: [Family history of thyroid cancer] 10-25-2019 Episodic Residual codes; unclassified (20 sources) Non-smoker; Translations: [Non-smoker] 10-25-2019 Episodic Thyroid disorders (1 source) Iodine-deficiency related diffuse (endemic) goiter; Translations: [Iodine-deficiency related diffuse (endemic) goiter] Onset: 06-04-2024 Chronic Unclassified (20 sources) Unclassified (20 sources) Patient encounter status; Translations: [Encounter for general adult medical examination with abnormal findings] Resolved: 11-24-2017 11-24-2017 Comment on above: filledout paper rectal psa 10-10 use evan quintanilla had colnoscopy at 50 polyp removed due 5 years. talk about vaccine tetanus due talk about shingles vaccine Unclassified (20 sources) Non-smoker; Translations: [Non-smoker] 05-07-2018 Unclassified (20 sources) Disorder, phosphorus metabolism (275.3) Unclassified (20 sources) BMI 29.0-29.9,adult Unclassified (20 sources) Screening for prostate cancer Unclassified (20 sources) BPH without urinary obstruction Unclassified (12 sources) Need for Tdap vaccination (Renamed from Need for vrerwrhfxd-hbclisf-ola tussis (Tdap) vaccine, adult/adolescent) Unclassified (20 sources) HTN (hypertension), benign Unclassified (17 sources) BMI 27.0-27.9,adult Past or Other Problems Problem Classification Problem Date Documented Da te Episodic/Chronic Headache; including migraine (20 sources) Headache; including migraine Residual codes; unclassified (7 sources) Increased body mass index; Translations: [BMI 29.0-29.9,adult] 05-07-2018 Episodic Unclassified (20 sources) Abnormal CBC Unclassified (20 sources) Well Male Exam (V70.0) Unclassified (20 sources) BPH without Urin. Obst (600.00) Unclassified (20 sources) NONSPECIFIC FINDINGS ON EXAMINATION OF BLOOD, OTHER ABNORMALITY OF RED BLOOD CELLS (790.09) Unclassified (20 sources) Screening status; Translations: [Encounter for screening for malignant neoplasm of colon (Renamed from Special screening for malignant neoplasms, colon)] 11-24-2017 Unclassified (20 sources) Work Physical (V70.5) Unclassified (15 sources) Encounter for hepatitis C virus screening test for high risk patient Unclassified (15 sources) Annual physical exam Unclassified (15 sources) Encounter for well adult exam with abnormal findings (Renamed from Encounter for general adult medical examination with abnormal findings) Unclassified (15 sources) SCREENING FOR CANCER OF THE PROSTATE (V76.44) Unclassified (8 sources) Physical exam WITHOUT abnormal findings (Renamed from Encounter for routine adult health examination without abnormal findings) Unclassified (8 sources) Family history of heart disease Unclassified (16 sources) Need for shingles vaccine Unclassified (8 sources) BMI 28.0-28.9,adult Unclassified (8 sources) Phosphorus metabolic disorder Unclassified (8 sources) Dizzy Unclassified (8 sources) Family history of thyroid cancer Unclassified (1 source) Encounter for general adult medical examination without abnormal findings Results Test Name Value Interpretation Reference Range Facility TSH DL <= 0.005 mIU/L QnOrde red By: Betty Abarca on 07-02-2024 Thyroid Stimulating Hormone (TSH) 0.143 uIU/mL Low 0.300-4.20 0 [facility] Thyroid Stim Hormone (TSH)on 07-02-2024 TSH 0.143 uIU/mL Low 0.300-4.20 0 [facility] Comment on above: Performed By: #### L 943.0773 #### [facility] [address] [place], [address] Thyroidon 05-28-[address] [facility] Imaging Services [address] [place] [address] Thyroid MR#: [id number] Acct: [id number] Name: KEYLA BREAUX Rep #: [id number] : 1965 M 58 From: Darek Duffy MD PCP: Dr. Betty Abarca DO Status: REG CLI Study: Thyroid Date of Exam: 05/28/24 Exam# [id number] Ordering Dr: Betty Abarca DO PROCEDURE: THYROID 05/28/2024 REASON FOR EXAM: THYROMEGALY, IODINE-DEFICIENCY RELATED DIFFUSE (ENDEMIC) GOITER TECHNIQUE: Thyroid ultrasound FINDINGS: Right thyroid lobe measures 4.0 x 1.1 x 1.8 cm Left thyroid lobe measures 3.2 x 1.3 x 1 cm. Isthmus thickness is2.2 mm. The right and left lobes of the thyroid appear homogeneous and isoechoic. No nodule or focal lesion identified. No lymphadenopathy identified. US/Thyroid IMPRESSION: Thyroid ultrasound as above Reading Location: [facility] CC: Dr. Betty Abarca DO Silk Screen Printing Racker: Signed Normal [facility] ANTINUCLEAR ANTIBODIES DIREC Ton 05-20-2024 DESMOND,DIRECT Negative Normal Negative [facility] Comment on above: Result Comment: Perf ormed at: - [facility] [address] [id number] Web Pressman: Howard Ramesh PhD, Phone: [phone] Performed By: #### L 503.0106, L3100.3601, L501.9910, L506.0200, L101.9900, L501.8810, L501.1585, L501.6153 #### [facility] [address] [place], [place], [id number] DESMOND serumOrdered By: Jeanne Abarca on 05-19-2024 Anti-Nuclear Antibody Screen Negative Negative [facility] Comment on above: Performed at: [facility], [place] [id number] Director: Howard Ramesh PhD, Phone: [phone] CRPon 05-19-2024 C-REACTIVE PROT < 3.00 Normal 0.0-3.0 [facility] Comment on above: Performed By: #### L 503.0106, L3100.5475, L501.9910, L506.0200, L101.9900, L501.6710, L501.9985, L501.9520 #### [facility] [address] [place], [address] CRP [Mass/Vol]Ordered By: Jimmie Abarca on 05-19-2024 C-Reactive Protein Extended Range < 3.00 mg/L 0.0-3.0 [facility] Erythrocyte Sed Rateon 05-19 SED RATE < 1 Normal 0-20 [facility] Comment on above: Performed By: #### L 503.0106, L3100.5475, L501.9910, L506.0200, L101.9900, L501.6710, L501.9985, L501.9520 #### [facility] [address] [place], [address] Erythrocyte sedimentation ra teOrdered By: Betty Abarca on 05-19-2024 ESR (Bld) [Velocity] mm/h 0-20 [facility] FOLATES,SERUM (FOLIC ACID)on 05-19-2024 FOLATES,SERUM 35.20 ng/mL High 4.60-34.80 [facility] Comment on above: Order Comment: N Result Comment: Hemo lysis, Results will be affected, Requires Recollection. Performed By: #### L 503.0106, L3100.5475, L501.9910, L506.0200, L101.9900, L501.6710, L501.9985, L501.9520 #### [facility] [address] [place], [address] Folate [Mass/Vol]Ordered By: Betty Abarca on 05-19-2024 Serum Folate 35.20 ng/mL High 4.60-34.80 [facility] Comment on above: Hemolysis, Results w ill be affected, Requires Recollection. Hemoglobin A1con 05-19-2024 HbA1c (Bld) [Mass fraction] 5.5 % Low <=5.6 [facility] Comment on above: Performed By: #### L 503.0106, L3100.5475, L501.9910, L506.0200, L101.9900, L501.6710, L501.9985, L501.9520 #### [facility] [address] [place], [address] Hemoglobin A1c percentageOrd ered By: Betty Abarca on 05-19-2024 HbA1c (Bld) [Mass fraction] 5.5 % Low >5.7 [facility] L503.0106on 05-19-2024 Cobalamin (Vitamin B12) [Mass/Vol] 562 pg/mL Normal 180-914 [facility] Comment on above: Performed By: #### L 503.0106, L3100.5475, L501.9910, L506.0200, L101.9900, L501.6710, L501.9985, L501.9520 #### [facility] [address] [place], [address] PSA, total screeningOrdered By: Betty Abarca on 05-19-2024 Prostate Specific Antigen Screen 1.96 ng/mL 0.02-4.00 [facility] Comment on above: This test was perfor med using the [employer] tPSA method. Measured values of a patient sample can vary depending on the testing procedure used. PSA values determined on patient samples by different testing procedures cannot be used interchangeably. If there is a change in PSA assays while monitoring therapy, sequential testing should be performed to confirm baseline values. PSA,Total - Annual Screenon 05-19-2024 PSA,TOT SCREEN 1.96 ng/mL Normal 0.02-4.00 [facility] Comment on above: Result Comment: This test was performed using the [employer] tPSA method. Measured values of a patient??sample can vary depending on the testing procedure used. PSA values determined on patient samples by different testing procedures cannot be used interchangeably. If there is a change in PSA assays while monitoring therapy, sequential testing should be performed to confirm baseline values. Performed By: #### L 503.0106, L3100.5475, L501.9910, L506.0200, L101.9900, L501.6710, L501.9985, L501.9520 #### [facility] [address] [place], [place], [id number] TSH DL <= 0.005 mIU/L QnOrde red By: Betty Abarca on 05-19-2024 Thyroid Stimulating Hormone (TSH) 5.010 uIU/mL High 0.300-4.20 0 [facility] Thyroid Stim Hormone (TSH)on 05-19-2024 TSH 5.010 uIU/mL High 0.300-4.20 0 [facility] Comment on above: Performed By: #### L 503.0106, L3100.5475, L501.9910, L506.0200, L101.9900, L501.6710, L501.9985, L501.9520 #### [facility] [address] [place], [place], [id number] Vitamin B12 ser/plasOrdered By: Betty Abarca on 05-19-2024 Cobalamin (Vitamin B12) [Mass/Vol] 562 pg/mL 180-914 [facility] CBC, Employeeon 12-08-2023 Absolute Lymph 1.38 X10 3/uL Normal 0.83-4.51 [facility] Comment on above: Performed By: #### L 503.0106, L3100.5475, L501.9910, L506.0200, L101.9900, L501.6710, L501.9985, L501.9520 #### [facility] [address] [place], [place], [id number] (589) Absolute Neut 3.5 X10 3/uL Normal 2.0-7.7 [facility] Comment on above: Performed By: #### L 503.0106, L3100.5475, L501.9910, L506.0200, L101.9900, L501.6710, L501.9985, L501.9520 #### [facility] [address] [place], [address] Basophils/100 WBC (Bld) 1.3 % High 0-1 [facility] Comment on above: Performed By: #### L 503.0106, L3100.5475, L501.9910, L506.0200, L101.9900, L501.6710, L501.9985, L501.9520 #### [facility] [address] [place], [address] Eosinophils/100 WBC (Bld) 6.0 % High 0-5 [facility] Comment on above: Performed By: #### L 503.0106, L3100.5475, L501.9910, L506.0200, L101.9900, L501.6710, L501.9985, L501.9520 #### [facility] [address] [place], [address] Erythrocyte distribution width (RBC) [Ratio] 11.5 % Low 11.6-14.6 [facility] Comment on above: Performed By: #### L 503.0106, L3100.5475, L501.9910, L506.0200, L101.9900, L501.6710, L501.9985, L501.9520 #### [facility] [address] [place], [address] Hematocrit (Bld) [Volume fraction] 45.5 % Normal 40-54 [facility] Comment on above: Performed By: #### L 503.0106, L3100.5475, L501.9910, L506.0200, L101.9900, L501.6710, L501.9985, L501.9520 #### [facility] [address] [place], [address] Hemoglobin (Bld) [Mass/Vol] 15.9 g/dL Normal 13.0-16.5 [facility] Comment on above: Performed By: #### L 503.0106, L3100.5475, L501.9910, L506.0200, L101.9900, L501.6710, L501.9985, L501.9520 #### [facility] [address] [place], [address] Lymphocytes/100 WBC (Bld) 22.8 % Normal 19-41 [facility] Comment on above: Performed By: #### L 503.0106, L3100.5475, L501.9910, L506.0200, L101.9900, L501.6710, L501.9985, L501.9520 #### [facility] [address] [place], [address] MCH (RBC) [Entitic mass] 31.8 pg Normal 27.0-32.0 [facility] Comment on above: Performed By: #### L 503.0106, L3100.5475, L501.9910, L506.0200, L101.9900, L501.6710, L501.9985, L501.9520 #### [facility] [address] [place], [address] MCHC (RBC) [Mass/Vol] 34.9 g/dL Normal 32-36 [facility] Comment on above: Performed By: #### L 503.0106, L3100.5475, L501.9910, L506.0200, L101.9900, L501.6710, L501.9985, L501.9520 #### [facility] [address] [place], [address] MCV (RBC) [Entitic vol] 91.0 fL Normal 80-94 [facility] Comment on above: Performed By: #### L 503.0106, L3100.5475, L501.9910, L506.0200, L101.9900, L501.6710, L501.9985, L501.9520 #### [facility] [address] [place], [address] Monocytes/100 WBC (Bld) 11.7 % High 0-10 [facility] Comment on above: Performed By: #### L 503.0106, L3100.5475, L501.9910, L506.0200, L101.9900, L501.6710, L501.9985, L501.9520 #### [facility] [address] [place], [address] Neutrophils/100 WBC (Bld) 57.7 % Normal 47-70 [facility] Comment on above: Performed By: #### L 503.0106, L3100.5475, L501.9910, L506.0200, L101.9900, L501.6710, L501.9985, L501.9520 #### [facility] [address] [place], [address] NRBC # 0.00 10 3/uL Normal 0-5 [facility] Comment on above: Performed By: #### L 503.0106, L3100.5475, L501.9910, L506.0200, L101.9900, L501.6710, L501.9985, L501.9520 #### [facility] [address] [place], [address] Nucleated RBC (Bld) [#/Vol] 0 10*3/uL Normal 0-5 [facility] Comment on above: Performed By: #### L 503.0106, L3100.5475, L501.9910, L506.0200, L101.9900, L501.6710, L501.9985, L501.9520 #### [facility] [address] [place], [address] Platelet mean volume (Bld) [Entitic vol] 9.1 fL Normal 6.2-12.0 [facility] Comment on above: Performed By: #### L 503.0106, L3100.5475, L501.9910, L506.0200, L101.9900, L501.6710, L501.9985, L501.9520 #### [facility] [address] [place], [address] Platelets (Bld) [#/Vol] 260 10*3/uL Normal 150-450 [facility] Comment on above: Performed By: #### L 503.0106, L3100.5475, L501.9910, L506.0200, L101.9900, L501.6710, L501.9985, L501.9520 #### [facility] [address] [place], [address] RBC (Bld) [#/Vol] 5.00 10*6/uL Normal 4.6-6.2 [facility] Comment on above: Performed By: #### L 503.0106, L3100.5475, L501.9910, L506.0200, L101.9900, L501.6710, L501.9985, L501.9520 #### [facility] [address] [place], [address] RDW SD 38.1 fl Normal 35.1-43.9 [facility] Comment on above: Performed By: #### L 503.0106, L3100.5475, L501.9910, L506.0200, L101.9900, L501.6710, L501.9985, L501.9520 #### [facility] [address] [place], [address] WBC (Bld) [#/Vol] 6.1 10*3/uL Normal 4.4-11.0 [facility] Comment on above: Performed By: #### L 503.0106, L3100.5475, L501.9910, L506.0200, L101.9900, L501.6710, L501.9985, L501.9520 #### [facility] [address] [place], [address] [employer] 4 Albumin [Mass/Vol] 3.9 g/dL Normal 3.2-5.0 [facility] Comment on above: Performed By: #### L 503.0106, L3100.5475, L501.9910, L506.0200, L101.9900, L501.6710, L501.9985, L501.9520 #### [facility] [address] [place], [address] Albumin/Globulin [Mass ratio] 1.1 {ratio} Normal 0.9-2.4 [facility] Comment on above: Performed By: #### L 503.0106, L3100.5475, L501.9910, L506.0200, L101.9900, L501.6710, L501.9985, L501.9520 #### [facility] [address] [place], [address] ALK P 93 U/L Normal 45-117 [facility] Comment on above: Performed By: #### L 503.0106, L3100.5475, L501.9910, L506.0200, L101.9900, L501.6710, L501.9985, L501.9520 #### [facility] [address] [place], [address] ALT [Catalytic activity/Vol] 40 U/L Normal 16-61 [facility] Comment on above: Performed By: #### L 503.0106, L3100.5475, L501.9910, L506.0200, L101.9900, L501.6710, L501.9985, L501.9520 #### [facility] [address] [place], [address] AST [Catalytic activity/Vol] 24 U/L Normal 15-37 [facility] Comment on above: Performed By: #### L 503.0106, L3100.5475, L501.9910, L506.0200, L101.9900, L501.6710, L501.9985, L501.9520 #### [facility] [address] [place], [address] Bilirubin [Mass/Vol] 1.20 mg/dL High 0.20-1.00 [facility] Comment on above: Result Comment: For patients on eltrombopag therapy, use of Dimension [place] TBIL is not recommended. Performed By: #### L 503.0106, L3100.5475, L501.9910, L506.0200, L101.9900, L501.6710, L501.9985, L501.9520 #### [facility] [address] [place], [address] Bilirubin.direct [Mass/Vol] 0.20 mg/dL Normal 0.00-0.30 [facility] Comment on above: Performed By: #### L 503.0106, L3100.5475, L501.9910, L506.0200, L101.9900, L501.6710, L501.9985, L501.9520 #### [facility] [address] [place], [address] BUN/CRE 14.4 RATIO Normal 10-20 [facility] Comment on above: Performed By: #### L 503.0106, L3100.5475, L501.9910, L506.0200, L101.9900, L501.6710, L501.9985, L501.9520 #### [facility] [address] [place], [address] CA,Total 9.2 mg/dL Normal 8.5-10.1 [facility] Comment on above: Performed By: #### L 503.0106, L3100.5475, L501.9910, L506.0200, L101.9900, L501.6710, L501.9985, L501.9520 #### [facility] [address] [place], [address] Chloride [Moles/Vol] 103 mmol/L Normal 98-107 [facility] Comment on above: Performed By: #### L 503.0106, L3100.5475, L501.9910, L506.0200, L101.9900, L501.6710, L501.9985, L501.9520 #### [facility] [address] [place], [address] CHOL:HDL 3.10 Normal [facility] Comment on above: Performed By: #### L 503.0106, L3100.5475, L501.9910, L506.0200, L101.9900, L501.6710, L501.9985, L501.9520 #### [facility] [address] [place], [address] Cholesterol [Mass/Vol] 169 mg/dL Normal 200 [facility] Comment on above: Result Comment: <200 mg/dL Desirable 200-240 mg/dL Borderline >240 mg/dL High Risk Performed By: #### L 503.0106, L3100.5475, L501.9910, L506.0200, L101.9900, L501.6710, L501.9985, L501.9520 #### [facility] [address] [place], [address] Cholesterol in HDL [Mass/Vol] 54 mg/dL Normal [facility] Comment on above: Result Comment: The drugs N-Acetylcysteine and Metamizole may falsely depress this assay. Reference Range HDL <40 mg/dL Low HDL Cholesterol HDL >or= 60 mg/dL High HDL Cholesterol Performed By: #### L 503.0106, L3100.5475, L501.9910, L506.0200, L101.9900, L501.6710, L501.9985, L501.9520 #### [facility] [address] [place], [address] Cholesterol in LDL [Mass/Vol] 103 mg/dL Normal 0-130 [facility] Comment on above: Performed By: #### L 503.0106, L3100.5475, L501.9910, L506.0200, L101.9900, L501.6710, L501.9985, L501.9520 #### [facility] [address] [place], [address] Cholesterol in VLDL [Mass/Vol] 12 mg/dL Normal 5-40 [facility] Comment on above: Performed By: #### L 503.0106, L3100.5475, L501.9910, L506.0200, L101.9900, L501.6710, L501.9985, L501.9520 #### [facility] [address] [place], [address] CO2 [Moles/Vol] 25.0 mmol/L Normal 21.0-32.0 [facility] Comment on above: Performed By: #### L 503.0106, L3100.5475, L501.9910, L506.0200, L101.9900, L501.6710, L501.9985, L501.9520 #### [facility] [address] [place], [address] Creatinine [Mass/Vol] 1.11 mg/dL Normal 0.70-1.30 [facility] Comment on above: Result Comment: The validity of the calculated GFR GFRAA in patients over 70 years has not been determined. Clinical correlation is essential. Performed By: #### L 503.0106, L3100.5475, L501.9910, L506.0200, L101.9900, L501.6710, L501.9985, L501.9520 #### [facility] [address] [place], [place], [id number] (148) EST GFR - AA 87 mL/min Normal >60 [facility] Comment on above: Result Comment: Afri can Faroese GFR Calc Performed By: #### L 503.0106, L3100.5475, L501.9910, L506.0200, L101.9900, L501.6710, L501.9985, L501.9520 #### [facility] [address] [place], [place], [phone] (342) GAP 7 Normal 5-15 [facility] Comment on above: Performed By: #### L 503.0106, L3100.5475, L501.9910, L506.0200, L101.9900, L501.6710, L501.9985, L501.9520 #### [facility] [address] [place], [place], [phone] (978 GFR/1.73 sq M.predicted among non-blacks MDRD (S/P/Bld) [Vol rate/Area] 72 mL/min/{1.73_m2} Normal >60 [facility] Comment on above: Result Comment: Non- GFR Calc Performed By: #### L 503.0106, L3100.5475, L501.9910, L506.0200, L101.9900, L501.6710, L501.9985, L501.9520 #### [facility] [address] [place], [place], [phone] (367) Globulin (S) [Mass/Vol] 3.5 g/dL Normal 2.2-4.2 [facility] Comment on above: Performed By: #### L 503.0106, L3100.5475, L501.9910, L506.0200, L101.9900, L501.6710, L501.9985, L501.9520 #### [facility] [address] [place], [address] Glucose [Mass/Vol] 94 mg/dL Normal 74-106 [facility] Comment on above: Performed By: #### L 503.0106, L3100.5475, L501.9910, L506.0200, L101.9900, L501.6710, L501.9985, L501.9520 #### [facility] [address] [place], [address] LDH 186 U/L Normal 87-241 [facility] Comment on above: Performed By: #### L 503.0106, L3100.5475, L501.9910, L506.0200, L101.9900, L501.6710, L501.9985, L501.9520 #### [facility] [address] [place], [address] Phosphate [Mass/Vol] 2.5 mg/dL Normal 2.5-4.9 [facility] Comment on above: Performed By: #### L 503.0106, L3100.5475, L501.9910, L506.0200, L101.9900, L501.6710, L501.9985, L501.9520 #### [facility] [address] [place], [address] Potassium [Moles/Vol] 4.3 mmol/L Normal 3.5-5.1 [facility] Comment on above: Performed By: #### L 503.0106, L3100.5475, L501.9910, L506.0200, L101.9900, L501.6710, L501.9985, L501.9520 #### [facility] [address] [place], [place], [address] Sodium [Moles/Vol] 135 mmol/L Low 136-145 [facility] Comment on above: Performed By: #### L 503.0106, L3100.5475, L501.9910, L506.0200, L101.9900, L501.6710, L501.9985, L501.9520 #### [facility] [address] [place], [place], [phone] (606) T PROT 7.4 g/dL Normal 6.4-8.2 [facility] Comment on above: Performed By: #### L 503.0106, L3100.5475, L501.9910, L506.0200, L101.9900, L501.6710, L501.9985, L501.9520 #### [facility] [address] [place], [place], [address] Triglyceride [Mass/Vol] 60 mg/dL Normal [facility] Comment on above: Result Comment: The drugs N-Acetylcysteine and Metamizole may falsely depress this assay. Serum Triglycerides Reference Interval Normal <150 mg/dL Borderline high 150 - 199 mg/dL High 200 - 499 mg/dL Very High > or = 500 mg/dL Performed By: #### L 503.0106, L3100.5475, L501.9910, L506.0200, L101.9900, L501.6710, L501.9985, L501.9520 #### [facility] [address] [place], [place], [id number] Urea nitrogen [Mass/Vol] 16 mg/dL Normal 7-18 [facility] Comment on above: Performed By: #### L 503.0106, L3100.5475, L501.9910, L506.0200, L101.9900, L501.6710, L501.9985, L501.9520 #### [facility] [address] [place], [place], [id number] URIC 5.2 mg/dL Normal 3.5-7.2 [facility] Comment on above: Result Comment: The drugs N-Acetylcysteine and Metamizole may falsely depress this assay. Performed By: #### L 503.0106, L3100.5475, L501.9910, L506.0200, L101.9900, L501.6710, L501.9985, L501.9520 #### [facility] [address] [place], [place], [address] Urinalysis, Employeeon 12-07 BILIRUBIN URINE Negative Normal Negative [facility] Comment on above: Order Comment: CLEAN CATCH Performed By: #### L 503.0106, L3100.5475, L501.9910, L506.0200, L101.9900, L501.6710, L501.9985, L501.9520 #### [facility] [address] [place], [place], [id number] Clarity (U) Clear Normal Clear [facility] Comment on above: Order Comment: CLEAN CATCH Performed By: #### L 503.0106, L3100.5475, L501.9910, L506.0200, L101.9900, L501.6710, L501.9985, L501.9520 #### [facility] [address] [place], [place], [address] Color (U) Yellow Normal Yellow [facility] Comment on above: Order Comment: CLEAN CATCH Performed By: #### L 503.0106, L3100.5475, L501.9910, L506.0200, L101.9900, L501.6710, L501.9985, L501.9520 #### [facility] [address] [place], [place], [id number] GLUCOSE, UR Normal Normal Normal [facility] Comment on above: Order Comment: CLEAN CATCH Performed By: #### L 503.0106, L3100.5475, L501.9910, L506.0200, L101.9900, L501.6710, L501.9985, L501.9520 #### [facility] [address] [place], [address] KETONE UR Negative Normal Negative [facility] Comment on above: Order Comment: CLEAN CATCH Performed By: #### L 503.0106, L3100.5475, L501.9910, L506.0200, L101.9900, L501.6710, L501.9985, L501.9520 #### [facility] [address] [place], [place], [address] LEUK ESTERASE Negative Normal Negative [facility] Comment on above: Order Comment: CLEAN CATCH Performed By: #### L 503.0106, L3100.5475, L501.9910, L506.0200, L101.9900, L501.6710, L501.9985, L501.9520 #### [facility] [address] [place], [place], [id number] Nitrite Ql (U) Negative Normal Negative [facility] Comment on above: Order Comment: CLEAN CATCH Performed By: #### L 503.0106, L3100.5475, L501.9910, L506.0200, L101.9900, L501.6710, L501.9985, L501.9520 #### [facility] [address] [place], [place], [id number] OCCULT BLOOD-UR Negative Normal Negative [facility] Comment on above: Order Comment: CLEAN CATCH Performed By: #### L 503.0106, L3100.5475, L501.9910, L506.0200, L101.9900, L501.6710, L501.9985, L501.9520 #### [facility] [address] [place], [place], [id number] pH UR 7.0 Normal 5.0 - 8.0 [facility] Comment on above: Order Comment: CLEAN CATCH Performed By: #### L 503.0106, L3100.5475, L501.9910, L506.0200, L101.9900, L501.6710, L501.9985, L501.9520 #### [facility] [address] [place], [place], [id number] PROT DIPSTX Negative Normal Negative [facility] Comment on above: Order Comment: CLEAN CATCH Performed By: #### L 503.0106, L3100.5475, L501.9910, L506.0200, L101.9900, L501.6710, L501.9985, L501.9520 #### [facility] [address] [place], [place], [id number] SP.GR. DIPSTX 1.010 Normal 1.002-1.03 0 [facility] Comment on above: Order Comment: CLEAN CATCH Performed By: #### L 503.0106, L3100.5475, L501.9910, L506.0200, L101.9900, L501.6710, L501.9985, L501.9520 #### [facility] [address] [place], [place], [id number] UROBILI Normal Normal Normal [facility] Comment on above: Order Comment: CLEAN CATCH Performed By: #### L 503.0106, L3100.5475, L501.9910, L506.0200, L101.9900, L501.6710, L501.9985, L501.9520 #### [facility] [address] [place], [place], [id number] Urgent Care Visit Reporton 0 08-05-2023 Urgent Care Visit Report [facility] [address], [address] [place], [place] [address] OFFICE VISIT Date of Service: 08/05/23 MR#: [id number] Acct: [id number] Name: ANDKEYLA AWAD Rep #: [id number] : 1965 Provider: MADELIN Hdez Age/Sex: 57/M Location: [facility] Status: Signed Intake Vital Signs 04/30/22 11:33 08/05/23 11:24 Height 5 ft 6 in BP 134/82 H Blood Pressure Location Lt brachial Position Sitting Pulse 98 Pulse Source Monitor Temp 98.2 F Temp Source Temporal Pulse Oximetry (%) 96 Oxygen Delivery Method room air 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 Radiology Required: No Accompanied by: Self Is patient in pain?: No Allergies No Known Allergies Allergy (Verified 08/05/23 11:25) Medications ???Medication ???Instructions ???Recorded ???Confirmed ???Type Flaxseed Oil Gipsy-3 Liquid 1 dose PO DAILY 02/05/16 08/05/23 History ascorbic acid (vitamin C) 1,000 mg 1,000 mg PO DAILY 02/05/16 08/05/23 History tablet multivitamin with folic acid 400 1 tab PO DAILY 02/05/16 08/05/23 History mcg tablet lisinopril 10 mg tablet 10 mg PO DAILY 07/18/20 08/05/23 History meclizine 25 mg tablet 25 mg PO 4X/DAY PRN PRN Dizziness 04/30/22 08/05/23 Rx #20 tabs doxycycline monohydrate 100 mg 200 mg (2 x 100 mg) PO ONCE #2 caps 08/05/23 08/05/23 Rx capsule PFSH Medical History (Updated 08/05/23 @ 11:56 by Ronan YUSUF, MADELIN) Tick bite Alcohol use Back pain Heartburn Non-smoker Colon polyp Right orbital fracture Hyperlipidemia, unspecified Essential (primary) hypertension Raynauds syndrome Benign prostatic hyperplasia without lower urinary tract symptoms Chronic neck and back pain Surgical History Hx of elbow surgery History of colonoscopy History of Achilles tendon repair Hx of hernia repair Family History Mother Hypertension PVD (peripheral vascular disease) Father Cancer of kidney Thyroid cancer Hypertension Social History current occupational status: employed current occupation: Physical Therapist Smoking Status: Never smoker HPI HPI Details: KEYLA BREAUX, is a 57 M who presents to the office today for initial evaluation here at the now clinic status post tick bite to left medial thigh appreciated on 07/29/2023. Patient notes upon discovering the tick he removed manually with his fingers and applied Neosporin ointment and dressing to the same thereafter. Localized pinpoint erythema circumferential to the wound site appreciated therefore here for initial evaluation. No complaints of fever, chills, sweats, lightheadedness/dizziness , nausea/vomiting. No complaints of chest pain/shortness of breath/dyspnea on exertion. No hxot-boi-vjsgjpe products taken to assist. No other associated symptoms and no other alleviating/aggravating factors. ROS Const Constitutional: No other (as above) Exam Const General: cooperative, healthy appearing and no acute distress Orientation: alert and awake Resp Effort Inspection: normal respiratory effort and able to speak in complete sentences Cardio Rate: regular rate Pulses: radial pulses present Skin General: no rashes or lesions noted Other: Left medial thigh puncture wound site with eschar with trace circumferential erythema; no erythema migrans appreciated upon inspection. Pinpoint eschar lifted with 18-gauge needle revealing no foreign body retention or deep structural damage therefore site recleansed and bacitracin ointment/2 x 2/Band-Aid applied to the same which patient tolerated well. Neuro General: patient alert and patient awake Cognition: normal cognition Speech: speech normal Extrem General: normal to inspection (Except as noted in skin exam above) Psych Appearance: grossly normal Mental Status: mental status grossly normal Mood: congruent mood Affect: normal affect Speech and Movement: speech and movement normal Attitude: cooperative Coding Level of Care Code Off vis,new,level 3 Diagnoses Tick bite W57.XXXA Assessment and Plan Assessment and Plan (1) Tick bite: Status: Acute Plan: - by history Doxycycline 200 mg p.o. x 1 as prescribed today. Wound care as instructed today. Supportive measures as instructed today, including continuing to monitor for erythema migrans tomorrow 1 month post tick bite. Follow-up with PCP with any further concerns. Patient states acknowledging understanding all the above. This note was generated with [employer] software. It may contain incorrect words, spelling, and punctuation that were not noted in checking the note before signing. Medications: New (more content not included)... Normal [facility] Absolute lymphocyte countOrd ered By: Betty Abarca on 11-15-2022 Lymphocytes Auto (Unsp spec) [#/Vol] 1.44 10*3/uL 0.83-4.51 [facility] Basophil percentageOrdered B y: Betty Abarca on 11-15-2022 Basophil percentage 0 SEEN /hpf 0-5 [facility] Basophils/100 WBC (Bld) 1.1 % 0-1 [facility] Cholesterol [Mass/Vol] 172 mg/dL <200 [facility] Comment on above: <200 mg/dL Desirable 200-240 mg/dL Borderline >240 mg/dL High Risk Eosinophils/100 WBC (Bld) 6.5 % 0-5 [facility] Neutrophils (Bld) [#/Vol] 3.0 10*3/uL 2.0-7.7 [facility] Neutrophils/100 WBC (Bld) 55.9 % 47-70 [facility] Triglyceride [Mass/Vol] 92 mg/dL <199 [facility] Comment on above: The drugs N-Acetylcy steine and Metamizole may falsely depress this assay.Serum Triglycerides Reference Interval Normal <150 mg/dL Borderline high 150 - 199 mg/dL High 200 - 499 mg/dL Very High > or = 500 mg/dL WBC (Bld) [#/Vol] 5.4 10*3/uL 4.4-11.0 [facility] Bilirubin Test strip Ql (U)O rdered By: Betty Abarca on 11-15-2022 Bilirubin Ql (U) Negative Negative [facility] Blood erythrocytes count (nu mber/volume)Ordered By: Betty Abarca on 11-15-2022 RBC (Bld) [#/Vol] 4.84 10*6/uL 4.6-6.2 [facility] Blood hemoglobin measurement (mass/volume)Ordered By: Betty Abarca on 11-15-2022 Hemoglobin (Bld) [Mass/Vol] 15.8 g/dL 13.0-16.5 [facility] [facility] Blood lymphocytes/100 leukoc ytesOrdered By: Betty Abarca on 11-15-2022 Lymphocytes/100 WBC (Bld) 26.7 % 19-41 [facility] Blood monocytes/100 leukocyt esOrdered By: Betty Abarca on 11-15-2022 Monocytes/100 WBC (Bld) 9.4 % 0-10 [facility] Blood platelet mean volumeOr dered By: Betty Abarca on 11-15-2022 Platelet mean volume (Bld) [Entitic vol] 9.7 fL 6.2-12.0 [facility] Determination of erythrocyte mean corpuscular volume (MCV)Ordered By: Betty Abarca on 11-15-2022 MCV (RBC) [Entitic vol] 95.2 fL 80-94 [facility] Hematocrit Auto (Bld) [Volum e fraction]Ordered By: Betty Abarca on 11-15-2022 Hematocrit (Bld) [Volume fraction] 46.1 % 40-54 [facility] Ketones Test strip Ql (U)Ord ered By: Betty Abarca on 11-15-2022 Ketones Ql (U) Negative Negative [facility] Laboratory - Hematology and Cell countsOrdered By: Betty Abarca on 11-15-2022 Erythrocyte distribution width (RBC) [Entitic vol] 39.3 fL 35.1-43.9 [facility] Erythrocyte distribution width (RBC) [Ratio] 11.4 % 11.6-14.6 [facility] Immature granulocytes/100 WBC (Bld) 0.400 % 0.0-0.9 [facility] Comment on above: IG% - Immature Granu locytes (promyelocytes, myelocytes and metamyelocytes) > 1% indicates that a LEFT SHIFT is Present. MCH (RBC) [Entitic mass] 32.6 pg 27.0-32.0 [facility] Nucleated RBC/100 WBC (Bld) [Ratio] 0 % 0-5 [facility] MCHC Auto (RBC) [Mass/Vol]Or dered By: Betty Abarca on 11-15-2022 MCHC (RBC) [Mass/Vol] 34.3 g/dL 32-36 [facility] Mucus LM Ql (Urine sed)Order ed By: Betty Abarca on 11-15-2022 Mucus Ql (Urine sed) 0 SEEN /hpf [facility] Nitrite Test strip Ql (U)Ord ered By: Betty Abarca on 11-15-2022 Nitrite Ql (U) Negative Negative [facility] No Panel InformationOrdered By: Betty Abarca on 11-15-2022 Prostate Specific Antigen Screen 2.35 ng/mL 0.00-4.00 [facility] Comment on above: This test was perfor med using the TPSA assay method for theiSpecimen chemistry system. Values obtained with differentassay methods cannot be used interchangably.When changing PSA assays in the course of monitoring apatient, additional sequential testing should be carriedout to confirm baseline values. Thyroid Stimulating Hormone (TSH) 3.60 uIU/mL 0.358-3.74 [facility] Urine Microalbumin/Creatini ne Ratio 4.4 mg/g CRE <30 [facility] Platelets bldOrdered By: Shelly Abarca on 11-15-2022 Platelets (Bld) [#/Vol] 245 10*3/uL 150-450 [facility] Protein Test strip Ql (U)Ord ered By: Betty Abarca on 11-15-2022 Protein Ql (U) Negative Negative [facility] Serum or plasma cholesterol in HDL measurement (mass/volume)Ordered By: Betty Abarca on 11-15-2022 Cholesterol in HDL [Mass/Vol] 57 mg/dL >40 [facility] Comment on above: The drugs N-Acetylcy steine and Metamizole may falsely depress this assay. Reference Range HDL <40 mg/dL Low HDL Cholesterol HDL >or= 60 mg/dL High HDL Cholesterol Serum or plasma cholesterol in VLDL measurement (mass/volume)Ordered By: Betty Abarca on 11-15-2022 Cholesterol in VLDL [Mass/Vol] 18 mg/dL 5-40 [facility] Serum or plasma low density lipoprotein (LDL) cholesterol measurement (mass/volume)Ordered By: Betty Abarca on 11-15-2022 Cholesterol in LDL [Mass/Vol] 97 mg/dL 0-130 [facility] Squamous epithelial cells de tection in urine sediment by light microscopyOrdered By: Betty Abarca on 11-15-2022 Epithelial cells.squamous LM Ql (Urine sed) 0 SEEN /hpf 0-5 [facility] Thin prep Papanicolaou smear with manual screeningOrdered By: Betty Abarca on 11-15-2022 Thin prep Papanicolaou smear with manual screening 6.8 mg/L NO RANGE EST. [facility] Urine blood detectionOrdered By: Betty Abarca on 11-15-2022 RBC Ql (U) Negative Negative [facility] RBC Ql (U) 0 SEEN /hpf 0-5 [facility] Urine clarityOrdered By: Shelly Abarca on 11-15-2022 Clarity (U) Clear Clear [facility] Urine color determinationOrd ered By: Betty Abarca on 11-15-2022 Color (U) Yellow Yellow [facility] Urine creatinine measurement (mass/volume)Ordered By: Betty Abarca on 11-15-2022 Creatinine (U) [Mass/Vol] 153.00 mg/dL NO RANGE EST. [facility] Urine glucose detectionOrder ed By: Betty Abarca on 11-15-2022 Glucose Ql (U) Normal mg/dl Normal [facility] Urine leukocyte esterase det ection by dipstickOrdered By: Betty Abarca on 11-15-2022 Leukocyte esterase Test strip Ql (U) Negative Negative [facility] Urine pHOrdered By: Betty Abarca on 11-15-2022 pH (U) 5.0 [pH] 5.0 - 8.0 [facility] Urine sediment bacteria coun t by microscopy (number/high power field)Ordered By: eBtty Abarca on 11-15-2022 Bacteria LM.HPF (Urine sed) [#/Area] 0 /[HPF] None Seen [facility] Urine specific gravity measu rementOrdered By: Betty Abarca on 11-15-2022 Specific gravity (U) [Rel density] 1.020 1.002-1.03 0 [facility] Urobilinogen Auto test strip Ql (U)Ordered By: Betty Abarca on 11-15-2022 Urobilinogen Ql (U) Normal mg/dl Normal [facility] Whole blood hemoglobin A1c/t otal hemoglobin ratio (mass fraction)Ordered By: Betty Aabrca on 11-15-2022 HbA1c (Bld) [Mass fraction] 5.0 % 3.8-5.6 [facility] Comment on above: Normal < 5.7 % Predi abetic 5.7 - 6.4 % Diabetic >or= 6.5 % Please note range changes. Absolute lymphocyte countOrd ered By: Dr. Santos on 04-30-2022 Lymphocytes Auto (Unsp spec) [#/Vol] 1.49 10*3/uL 0.83-4.51 [facility] Basophil percentageOrdered B y: Dr. Santos on 04-30-2022 Basophils/100 WBC (Bld) 1.0 % 0-1 [facility] Bilirubin [Mass/Vol] 0.90 mg/dL 0.20-1.00 [facility] Comment on above: For patients on eltr ombopag therapy, use of Dimension [place] TBIL is not recommended. Chloride [Moles/Vol] 106 mmol/L 98-107 [facility] Eosinophils/100 WBC (Bld) 4.6 % 0-5 [facility] Glucose [Mass/Vol] 108 mg/dL 74-106 [facility] Comment on above: Fasting Glucose resu lt from 100 to 125 mg/dL suggests IMPAIRED HOMEOSTASIS per A.D.A. criteria. Neutrophils (Bld) [#/Vol] 3.6 10*3/uL 2.0-7.7 [facility] Neutrophils/100 WBC (Bld) 59.8 % 47-70 [facility] Potassium [Moles/Vol] 4.5 mmol/L 3.5-5.1 [facility] Protein [Mass/Vol] 7.6 g/dL 6.4-8.2 [facility] Sodium [Moles/Vol] 138 mmol/L 136-145 [facility] WBC (Bld) [#/Vol] 6.0 10*3/uL 4.4-11.0 [facility] Blood erythrocytes count (nu mber/volume)Ordered By: Dr. Santos on 04-30-2022 RBC (Bld) [#/Vol] 5.01 10*6/uL 4.6-6.2 [facility] Blood hemoglobin measurement (mass/volume)Ordered By: Dr. Santos on 04-30-2022 Hemoglobin (Bld) [Mass/Vol] 16.2 g/dL 13.0-16.5 [facility] Blood lymphocytes/100 leukoc ytesOrdered By: Dr. Santos on 04-30-2022 Lymphocytes/100 WBC (Bld) 24.7 % 19-41 [facility] Blood monocytes/100 leukocyt esOrdered By: Dr. Santos on 04-30-2022 Monocytes/100 WBC (Bld) 9.6 % 0-10 [facility] Blood platelet mean volumeOr dered By: Dr. Santos on 04-30-2022 Platelet mean volume (Bld) [Entitic vol] 9.1 fL 6.2-12.0 [facility] Determination of erythrocyte mean corpuscular volume (MCV)Ordered By: Dr. Santos on 04-30-2022 MCV (RBC) [Entitic vol] 95.8 fL 80-94 [facility] Hematocrit Auto (Bld) [Volum e fraction]Ordered By: Dr. Santos on 04-30-2022 Hematocrit (Bld) [Volume fraction] 48.0 % 40-54 [facility] Laboratory - Chemistry and C hemistry - challengeOrdered By: Dr. Santos on 04-30-2022 ALP [Catalytic activity/Vol] 83 U/L 45-117 [facility] ALT [Catalytic activity/Vol] 45 U/L 16-61 [facility] CO2 [Moles/Vol] 27.0 mmol/L 21.0-32.0 [facility] Globulin (S) [Mass/Vol] 3.4 g/dL 2.2-4.2 [facility] Urea nitrogen/Creatinine [Mass ratio] 17.6 mg/mg 10-20 [facility] Laboratory - Hematology and Cell countsOrdered By: Dr. Santos on 04-30-2022 Erythrocyte distribution width (RBC) [Entitic vol] 39.9 fL 35.1-43.9 [facility] Erythrocyte distribution width (RBC) [Ratio] 11.4 % 11.6-14.6 [facility] Immature granulocytes/100 WBC (Bld) 0.300 % 0.0-0.9 [facility] Comment on above: IG% - Immature Granu locytes (promyelocytes, myelocytes and metamyelocytes) > 1% indicates that a LEFT SHIFT is Present. MCH (RBC) [Entitic mass] 32.3 pg 27.0-32.0 [facility] Nucleated RBC/100 WBC (Bld) [Ratio] 0 % 0-5 [facility] [Mass/Vol]Or dered By: Dr. Santos on 04-30-2022 MCHC (RBC) [Mass/Vol] 33.8 g/dL 32-36 [facility] No Panel InformationOrdered By: Dr. Santos on 04-30-2022 Estimated Creatinine Clearance Calc 68.10 ml/min [facility] Estimated GFR (MDRD) Amer 91 mL/min >60 [facility] Comment on above: GFR Calc Estimated GFR (MDRD) Non-Af Amer 75 mL/min >60 [facility] Comment on above: Non- GFR Calc Platelets bldOrdered By: Dr. Santos on 04-30-2022 Platelets (Bld) [#/Vol] 236 10*3/uL 150-450 [facility] Serum or plasma albumin francisco j urement (mass/volume)Ordered By: Dr. Santos on 04-30-2022 Albumin [Mass/Vol] 4.2 g/dL 3.2-5.0 [facility] Serum or plasma albumin/glob ulin mass ratioOrdered By: Dr. Santos on 04-30-2022 Albumin/Globulin [Mass ratio] 1.2 {ratio} 0.9-2.4 [facility] Serum or plasma calcium francisco j urement (mass/volume)Ordered By: Dr. Santos on 04-30-2022 Calcium [Mass/Vol] 9.7 mg/dL 8.5-10.1 [facility] Serum or plasma creatinine m easurement (mass/volume)Ordered By: Dr. Santos on 04-30-2022 Creatinine [Mass/Vol] 1.08 mg/dL 0.70-1.30 [facility] Comment on above: The validity of the calculated GFR & GFRAA in patients over 70 years has not been determined. Clinical correlation is essential. Serum or plasma urea nitroge n measurement (mass/volume)Ordered By: Dr. Santos on 04-30-2022 Urea nitrogen [Mass/Vol] 19 mg/dL 7-18 [facility] Thin prep Papanicolaou smear with manual screeningOrdered By: Dr. Santos on 04-30-2022 Thin prep Papanicolaou smear with manual screening 23 U/L 15-37 [facility] Thin prep Papanicolaou smear with manual screening 5 5-15 [facility] Basophil percentageOrdered B y: Dr. Abarca on 02-14-2022 Bilirubin [Mass/Vol] 1.10 mg/dL 0.20-1.00 [facility] Comment on above: For patients on eltr ombopag therapy, use of Dimension [place] TBIL is not recommended. Protein [Mass/Vol] 6.8 g/dL 6.4-8.2 [facility] Direct bilirubinOrdered By: Dr. Abarca on 02-14-2022 Bilirubin.direct [Mass/Vol] 0.31 mg/dL 0.00-0.30 [facility] Laboratory - Chemistry and C hemistry - challengeOrdered By: Dr. Abarca on 02-14-2022 ALP [Catalytic activity/Vol] 73 U/L 45-117 [facility] ALT [Catalytic activity/Vol] 47 U/L 16-61 [facility] Globulin (S) [Mass/Vol] 2.8 g/dL 2.2-4.2 [facility] No Panel InformationOrdered By: Dr. Abarca on 02-14-2022 Thyroid Stimulating Hormone (TSH) 2.89 uIU/mL 0.358-3.74 [facility] Serum or plasma albumin francisco j urement (mass/volume)Ordered By: Dr. Abarca on 02-14-2022 Albumin [Mass/Vol] 4.0 g/dL 3.2-5.0 [facility] Thin prep Papanicolaou smear with manual screeningOrdered By: Dr. Abarca on 02-14-2022 Thin prep Papanicolaou smear with manual screening 28 U/L 1537 [facility] Whole blood hemoglobin A1c/t otal hemoglobin ratio (mass fraction)Ordered By: Dr. Abarca on 02-14-2022 HbA1c (Bld) [Mass fraction] 5.3 % 3.8-5.6 [facility] Comment on above: Normal < 5.7 % Predi abetic 5.7 - 6.4 % Diabetic >or= 6.5 % Please note range changes. Absolute lymphocyte counton 11-26-2021 Lymphocytes Auto (Unsp spec) [#/Vol] 1.39 10*3/uL 0.83-4.51 [facility] Work Phone: Absolute reticulocyte counto n 11-26-2021 Reticulocytes (Bld) [#/Vol] 0.00 10*3/uL 0-5 [facility] Work Phone: Basophil percentageon 2021 Basophil percentage 3.0 mg/dL 2.5-4.9 [facility] Work Phone: Bilirubin [Mass/Vol] 0.80 mg/dL 0.20-1.00 [facility] Work Phone: Comment on above: For patients on eltr ombopag therapy, use of Dimension [place] TBIL is not recommended. Chloride [Moles/Vol] 102 mmol/L 98-107 [facility] Work Phone: Cholesterol [Mass/Vol] 182 mg/dL <200 [facility] Work Phone: Comment on above: <200 mg/dL Desirable 200-240 mg/dL Borderline >240 mg/dL High Risk Glucose [Mass/Vol] 95 mg/dL 74-106 [facility] Work Phone: Neutrophils (Bld) [#/Vol] 3.8 10*3/uL 2.0-7.7 [facility] Work Phone: Potassium [Moles/Vol] 3.9 mmol/L 3.5-5.1 [facility] Work Phone: Protein [Mass/Vol] 7.2 g/dL 6.4-8.2 [facility] Work Phone: Sodium [Moles/Vol] 136 mmol/L 136-145 [facility] Work Phone: Triglyceride [Mass/Vol] 76 mg/dL <199 [facility] Work Phone: Comment on above: The drugs N-Acetylcy steine and Metamizole may falsely depress this assay.Serum Triglycerides Reference Interval Normal <150 mg/dL Borderline high 150 - 199 mg/dL High 200 - 499 mg/dL Very High > or = 500 mg/dL WBC (Bld) [#/Vol] 6.4 10*3/uL 4.4-11.0 [facility] Work Phone: Bilirubin Test strip Ql (U)o n 11-26-2021 Bilirubin Ql (U) Negative Negative [facility] Work Phone: Blood erythrocytes count (nu mber/volume)on 11-26-2021 RBC (Bld) [#/Vol] 4.87 10*6/uL 4.6-6.2 [facility] Work Phone: Blood hemoglobin measurement (mass/volume)on 11-26-2021 Hemoglobin (Bld) [Mass/Vol] 16.2 g/dL 13.0-16.5 [facility] Work Phone: Blood platelet mean volumeon 11-26-2021 Platelet mean volume (Bld) [Entitic vol] 9.3 fL 6.2-12.0 [facility] Work Phone: Determination of erythrocyte mean corpuscular volume (MCV)on 11-26-2021 MCV (RBC) [Entitic vol] 95.1 fL 80-94 [facility] Work Phone: Direct bilirubinon Bilirubin.direct [Mass/Vol] 0.22 mg/dL 0.00-0.30 [facility] Work Phone: Hematocrit Auto (Bld) [Volum e fraction]on 11-26-2021 Hematocrit (Bld) [Volume fraction] 46.3 % 40-54 [facility] Work Phone: Ketones Test strip Ql (U)on 11-26-2021 Ketones Ql (U) Negative Negative [facility] Work Phone: Laboratory - Chemistry and C hemistry - challengeon 11-26-2021 ALP [Catalytic activity/Vol] 89 U/L 45-117 [facility] Work Phone: ALT [Catalytic activity/Vol] 65 U/L 16-61 [facility] Work Phone: Cholesterol.total/Cho lesterol in HDL [Mass ratio] 3.00 {ratio} [facility] Work Phone: CO2 [Moles/Vol] 26.0 mmol/L 21.0-32.0 [facility] Work Phone: Globulin (S) [Mass/Vol] 3.4 g/dL 2.2-4.2 [facility] Work Phone: Urea nitrogen/Creatinine [Mass ratio] 16.7 mg/mg 10-20 [facility] Work Phone: Laboratory - Hematology and Cell countson 11-26-2021 Erythrocyte distribution width (RBC) [Entitic vol] 39.9 fL 35.1-43.9 [facility] Work Phone: Erythrocyte distribution width (RBC) [Ratio] 11.5 % 11.6-14.6 [facility] Work Phone: MCH (RBC) [Entitic mass] 33.3 pg 27.0-32.0 [facility] Work Phone: Nucleated RBC/100 WBC (Bld) [Ratio] 0 % 0-5 [facility] Work Phone: MCHC Auto (RBC) [Mass/Vol]on 11-26-2021 MCHC (RBC) [Mass/Vol] 35.0 g/dL 32-[address] [facility] Work Phone: Nitrite Test strip Ql (U)on 11-26-2021 Nitrite Ql (U) Negative Negative [facility] Work Phone: No Panel Informationon 11-26 Estimated GFR (MDRD) Amer 97 mL/min >60 [facility] Work Phone: Comment on above: GFR Calc Estimated GFR (MDRD) Non-Af Amer 80 mL/min >60 [facility] Work Phone: Comment on above: Non- GFR Calc Platelets bldon 11-26-2021 Platelets (Bld) [#/Vol] 255 10*3/uL 150-450 [facility] Work Phone: Protein Test strip Ql (U)on 11-26-2021 Protein Ql (U) Negative Negative [facility] Work Phone: Segmented neutrophils/100 WB C Auto (Bld)on 11-26-2021 Segmented neutrophils/100 WBC (Bld) 60.3 % 47-70 [facility] Work Phone: Serum or plasma albumin francisco j urement (mass/volume)on 11-26-2021 Albumin [Mass/Vol] 3.8 g/dL 3.2-5.0 [facility] Work Phone: Serum or plasma albumin/glob ulin mass ratioon 11-26-2021 Albumin/Globulin [Mass ratio] 1.1 {ratio} 0.9-2.4 [facility] Work Phone: Serum or plasma calcium francisco j urement (mass/volume)on 11-26-2021 Calcium [Mass/Vol] 9.5 mg/dL 8.5-10.1 [facility] Work Phone: Serum or plasma cholesterol in HDL measurement (mass/volume)on 11-26-2021 Cholesterol in HDL [Mass/Vol] 60 mg/dL >40 [facility] Work Phone: Comment on above: The drugs N-Acetylcy steine and Metamizole may falsely depress this assay. Reference Range HDL <40 mg/dL Low HDL Cholesterol HDL >or= 60 mg/dL High HDL Cholesterol Serum or plasma cholesterol in VLDL measurement (mass/volume)on 11-26-2021 Cholesterol in VLDL [Mass/Vol] 15 mg/dL 5-40 [facility] Work Phone: Serum or plasma creatinine m easurement (mass/volume)on 11-26-2021 Creatinine [Mass/Vol] 1.02 mg/dL 0.70-1.30 [facility] Work Phone: Comment on above: The validity of the calculated GFR & GFRAA in patients over 70 years has not been determined. Clinical correlation is essential. Serum or plasma low density lipoprotein (LDL) cholesterol measurement (mass/volume)on 11-26-2021 Cholesterol in LDL [Mass/Vol] 107 mg/dL 0-130 [facility] Work Phone: Serum or plasma urea nitroge n measurement (mass/volume)on 11-26-2021 Urea nitrogen [Mass/Vol] 17 mg/dL 7-18 [facility] Work Phone: Serum or plasma uric acid me asurement (mass/volume)on 11-26-2021 Urate [Mass/Vol] 4.6 mg/dL 3.5-7.2 [facility] Work Phone: Comment on above: The drugs N-Acetylcy steine and Metamizole may falsely depress this assay. Thin prep Papanicolaou smear with manual screeningon 11-26-2021 Thin prep Papanicolaou smear with manual screening 60 U/L 15-37 [facility] Work Phone: Thin prep Papanicolaou smear with manual screening 8 5-15 [facility] Work Phone: Thin prep Papanicolaou smear with manual screening 218 U/L 87-241 [facility] Work Phone: Urine blood detectionon 11-08 RBC Ql (U) Negative Negative [facility] Work Phone: Urine clarityon 11-26-2021 Clarity (U) Clear Clear [facility] Work Phone: Urine color determinationon 11-26-2021 Color (U) Yellow Yellow [facility] Work Phone: Urine glucose detectionon Glucose Ql (U) Normal mg/dl Normal [facility] Work Phone: Urine leukocyte esterase det ection by dipstickon 11-26-2021 Leukocyte esterase Test strip Ql (U) Negative Negative [facility] Work Phone: Urine pHon 11-26-2021 pH (U) 6.0 [pH] 5.0 - 8.0 [facility] Work Phone: Urine specific gravity measu rementon 11-26-2021 Specific gravity (U) [Rel density] 1.015 1.002-1.03 0 [facility] Work Phone: Urobilinogen Auto test strip Ql (U)on 11-26-2021 Urobilinogen Ql (U) Normal mg/dl Normal [facility] Work Phone: ELBOW COMP MIN 3 VWS RTon ELBOW COMP MIN 3 VWS RT ELBOW COMP MIN 3 VWS RT Ordering Physician: Rodrick Carreon MD 07/15/2020 7:19 PM LEFT ELBOW FOUR VIEWS Clinical Statement: Pain status post injury. FINDINGS: There is an avulsion fracture of olecranon enthesophyte with approximately 13 mm distraction. Associated soft tissue swelling. No other fracture or dislocation identified. Mineralization at the medial and lateral epicondylar region appears chronic. IMPRESSION: Avulsion fracture olecranon enthesophyte with moderate distraction and associated soft tissue swelling. ---- Electronic Signature on File ---- Signed By: Rusty Paul MD [email or web address] Dictated: 07/16/2020 7:37 AM Signed: 07/16/2020 7:39 AM Reported By: RUSTY PAUL M.D. Signed By: RUSTY PAUL M.D. [facility] 07-15-2020 [facility] [place] [facility] [place]: 07/15/2020 CHIEF COMPLAINT: Right elbow pain. HISTORY OF PRESENT ILLNESS: A 54-year-old male patient presenting here. He was at the gym doing workout, was doing pullups and felt a pop in his right elbow. Since then it had been hurting. DRUG ALLERGIES: None. MEDICATIONS: 1. Lisinopril. 2. Aleve. PHYSICAL EXAMINATION: Blood pressure is 121/63, pulse is 80, respiratory rate is 20, temperature 97.7, pulse oximetry 98%. Pain is 2/10. Exam of the right elbow shows swelling, pain at the olecranon. Flexion and extension cause pain in the triceps. X-ray done shows an avulsion fracture at the olecranon. ASSESSMENT: Right elbow avulsion fracture at the olecranon. PLAN: Discussed with patient treatments and plan. I referred him to orthopaedics. Tylenol or Motrin as needed for pain. Ice for the swelling. [facility] PATIENT NAME: KEYLA BREAUX [address] MEDICAL REC #: [id number] [place] [address] [facility] Treatments and plan thoroughly discussed. Rodrick Carreon MD [id number] [employer] File#: [id number] END OF DOCUMENT / CHANGE LOG FOLLOWS Last Edited By Elec. Signed By Rodrick Carreon MD, Thang N MD #DANTH on 07/19/2020 16:27 ET on 07/19/2020 16:27 ET Revision Number - 2 Verified/Reviewed by 07/19/20 1627 [facility] PATIENT NAME: KEYLA BREAUX [address] [facility] [address] [place] MEDICAL REC #: [id number] [place] [address] [facility] Normal [facility] CBC W/AUTO DIFF WBC (34365)O rdered By: Erp Project Manager on 05-26-2019 Basophils (Bld) [#/Vol] 0.1 {x10E3/uL} Normal 0.0-0.2 [facility] Work Phone: Comment on above: Test(s) [id number]-RBU-F ; 098495-GYS-C; 530915-DSW-I; [id number]-Jbkcsmfmdgzaq; 869706-Dzohaalpmil, Total; 719004-RZQ-F (Total);556646-Rsvwf LDL-P; 689949-BXY Size; 473599-YR-CY Scorewas developed and its performance characteristics determinedby [employer]. It has not been cleared or approved by the Foodand Drug Administration.PATIENT WAS FASTINGPERFORMED BY: [employer] [facility] [id number] BY: [employer] [place] [id number] Basophils (Bld) [#/Vol] 0.1 10*3/uL Normal 0.0-0.2 [facility]; [facility] Work Phone: Comment on above: Test(s) [id number]-BFW-X ; 142391-EYD-X; 707864-ONG-T; 370720-Iipkyjvgmvqqs; 005595-Gnivmhcdnik, Total; 028570-ELT-X (Total);355898-Niuqh LDL-P; 395366-NSA Size; 148403-CF-MG Scorewas developed and its performance characteristics determinedby [employer]. It has not been cleared or approved by the Foodand Drug Administration.PATIENT WAS FASTINGPERFORMED BY: [employer] [facility] [id number] BY: [employer] [facility] [id number] Basophils/100 WBC (Bld) 1 % Normal [facility] Work Phone: Comment on above: Test(s) [id number]-LUD-M ; 459050-TEO-R; 142937-MWI-L; 694028-Mypwehvaiscwn; 398960-Ltyxyquqisw, Total; 382350-UFN-S (Total);254849-Yfgdv LDL-P; 387793-EKN Size; 616156-DY-VE Scorewas developed and its performance characteristics determinedby [employer]. It has not been cleared or approved by the Foodand Drug Administration.PATIENT WAS FASTINGPERFORMED BY: [employer] [address] [id number] BY: [employer]70 [facility] [id number] Eosinophils (Bld) [#/Vol] 0.5 {x10E3/uL} Abnormal 0.0-0.4 [facility] Work Phone: Comment on above: Test(s) 607159-GAM-X ; 897004-DQW-K; 521122-OVW-S; 886129-Omaewdbysogcd; 015165-Xbtkslzilhx, Total; 083953-AED-B (Total);526166-Kzmni LDL-P; 459420-CNC Size; 312732-UF-EW Scorewas developed and its performance characteristics determinedby [employer]. It has not been cleared or approved by the Foodand Drug Administration.PATIENT WAS FASTINGPERFORMED BY: [employer] [address] [id number] BY: [employer]6370 [facility] [id number] Eosinophils (Bld) [#/Vol] 0.5 10*3/uL Abnormal 0.0-0.4 [facility]; [facility] Work Phone: Comment on above: Test(s) 221094-FRE-V ; 588380-BHQ-O; 195173-BHC-P; 296116-Bpzakpxcdyqat; 205577-Jnseocchvqu, Total; 016435-GNJ-I (Total);043756-Udqqg LDL-P; 566428-BNF Size; 547975-RC-RI Scorewas developed and its performance characteristics determinedby [employer]. It has not been cleared or approved by the Foodand Drug Administration.PATIENT WAS FASTINGPERFORMED BY: [employer] [address] [id number] BY: [facility] Micro DevicesHoly Cross HospitalFddenc4015 [facility] [id number] Eosinophils/100 WBC (Bld) 10 % Normal [facility] Work Phone: Comment on above: Test(s) 047015-ALB-D ; 060390-UDD-H; 212828-QXH-M; 135235-Epinhwfwlzaxl; 977045-Zfxubewtvhu, Total; 008246-YLT-T (Total);677021-Olybl LDL-P; 653361-EBV Size; 649187-XX-GG Scorewas developed and its performance characteristics determinedby [employer]. It has not been cleared or approved by the Foodand Drug Administration.PATIENT WAS FASTINGPERFORMED BY: [employer] [address] [id number] BY: [employer]6370 [facility] [id number] Erythrocyte distribution width (RBC) [Ratio] 11.9 % Normal 11.6-15.4 [facility] Work Phone: Comment on above: Test(s) 593327-PAU-H ; 127080-SZD-D; 237526-IQP-L; 245213-Mjvaaqaexmwac; 626276-Ffgwausyhuw, Total; 591025-ANO-M (Total);405441-Wolyy LDL-P; 004070-RSL Size; 995852-YY-XC Scorewas developed and its performance characteristics determinedby [employer]. It has not been cleared or approved by the Foodand Drug Administration.PATIENT WAS FASTINGPERFORMED BY: [employer] [address] [id number] BY: [employer] Kbgkhu5632 [facility] [id number] Hematocrit (Bld) [Volume fraction] 46.5 % Normal 37.5-51.0 [facility] Work Phone: Comment on above: Test(s) 485296-SLX-E ; 024197-TEN-D; 469570-QGD-J; 688840-Fkpieukytuwun; 519534-Raxaasjyjyx, Total; 852177-BXS-G (Total);944807-Tqmft LDL-P; 427063-HWM Size; 171150-UP-LR Scorewas developed and its performance characteristics determinedby [employer]. It has not been cleared or approved by the Foodand Drug Administration.PATIENT WAS FASTINGPERFORMED BY: [employer] [address] [id number] BY: [employer]70 [facility] [id number] Hemoglobin (Bld) [Mass/Vol] 15.8 g/dL Normal 13.0-17.7 [facility] Work Phone: Comment on above: Test(s) 691371-AHP-F ; 419598-BSV-T; 833132-UHC-G; 100087-Dulsmcgepqwlq; 626435-Gvyzunqxpcq, Total; 960586-SRM-H (Total);381717-Zgdqb LDL-P; 619703-AXD Size; 060188-RL-CX Scorewas developed and its performance characteristics determinedby [employer]. It has not been cleared or approved by the Foodand Drug Administration.PATIENT WAS FASTINGPERFORMED BY: [employer] [address] [id number] BY: [employer] Jzcttf7669 [facility] [id number] Immature granulocytes (Bld) [#/Vol] 0.0 {x10E3/uL} Normal 0.0-0.1 [facility] Work Phone: Comment on above: Test(s) 226790-QIQ-I ; 279804-OJI-B; 066297-RYE-G; 658848-Qoazssgkoszdr; 128366-Jjeqwgmkbae, Total; 977869-EBY-Q (Total);011422-Aofgo LDL-P; 848079-AFN Size; 995190-PK-TW Scorewas developed and its performance characteristics determinedby [employer]. It has not been cleared or approved by the Foodand Drug Administration.PATIENT WAS FASTINGPERFORMED BY: [employer] [id number] BY: [facility] Micro DevicesHoly Cross HospitalFgdsjj3449 [facility] [id number] Immature granulocytes (Bld) [#/Vol] 0.0 10*3/uL Normal 0.0-0.1 [facility]; [facility] Work Phone: Comment on above: Test(s) 490401-GGI-K ; 872473-DCE-K; 295784-EUV-P; 661492-Bttiwhhupaumq; 048429-Kyjdjkketvp, Total; 203841-TRS-W (Total);731725-Muxsp LDL-P; 622878-YRM Size; 352227-MY-VR Scorewas developed and its performance characteristics determinedby [employer]. It has not been cleared or approved by the Foodand Drug Administration.PATIENT WAS FASTINGPERFORMED BY: [employer] [id number] BY: [employer] Jkedzg5746 [facility] [id number] Immature granulocytes/100 WBC (Bld) 0 % Normal [facility] Internal Medicine Work Phone: Comment on above: Test(s) 002922-QUB-L ; 151519-FTZ-O; 600979-SNE-N; 103586-Xxtcubafamxlu; 979032-Gsrepkuehys, Total; 254234-WHH-C (Total);904991-Mlego LDL-P; 305034-EUF Size; 041477-NV-KB Scorewas developed and its performance characteristics determinedby [employer]. It has not been cleared or approved by the Foodand Drug Administration.PATIENT WAS FASTINGPERFORMED BY: [employer] [id number] BY: [employer] Micro DevicesAtlantic Rehabilitation InstituteGylwvc0241 [facility] [id number] Lymphocytes (Bld) [#/Vol] 1.5 {x10E3/uL} Normal 0.7-3.1 [facility] Work Phone: Comment on above: Test(s) 616871-ECC-A ; 436324-YZY-Y; 591996-WTQ-H; 543369-Rpqsqkrlgjqhn; 141844-Qzngltjxnjm, Total; 980680-DEB-L (Total);958374-Yodqs LDL-P; 299223-DXX Size; 954897-VB-KG Scorewas developed and its performance characteristics determinedby [employer]. It has not been cleared or approved by the Foodand Drug Administration.PATIENT WAS FASTINGPERFORMED BY: Tid[employer]DotCo[address] [id number] BY: Enuygun.comDuke Health [id number] Lymphocytes (Bld) [#/Vol] 1.5 10*3/uL Normal 0.7-3.1 [facility]; [facility] Work Phone: Comment on above: Test(s) 145225-IVJ-R ; 765394-QFC-P; 323863-PVE-T; 770328-Lpjcnuarzgmie; 971821-Lupzzmtkfsj, Total; 081491-GPT-P (Total);105276-Cicur LDL-P; 407974-ZAP Size; 323110-BI-GZ Scorewas developed and its performance characteristics determinedby [employer]. It has not been cleared or approved by the Foodand Drug Administration.PATIENT WAS FASTINGPERFORMED BY: TidbitDotCo[address] [id number] BY: [employer]6[address] [place] On[facility] TechnologiesDuke Health [id number] Lymphocytes/100 WBC (Bld) 30 % Normal [facility] Work Phone: Comment on above: Test(s) 208399-NKA-G ; 120940-EIB-Z; 960515-ZPZ-U; 078463-Akeskxnwzeidf; 171341-Euoocmbokfi, Total; 407661-GDT-O (Total);819007-Nbolw LDL-P; 525237-YEC Size; 210207-IV-BY Scorewas developed and its performance characteristics determinedby [employer]. It has not been cleared or approved by the Foodand Drug Administration.PATIENT WAS FASTINGPERFORMED BY: [employer] [address] [id number] BY: [employer] Zgllyy2647 [facility] [id number] MCH (RBC) [Entitic mass] 32.7 pg Normal 26.6-33.0 [facility] Internal Medicine Work Phone: Comment on above: Test(s) 578105-VEY-I ; 317620-DGR-Q; 952625-LXH-U; 298495-Alszepylfjndk; 153780-Ligqyuyxbyh, Total; 384085-TJU-G (Total);452369-Nkeji LDL-P; 032154-BDY Size; 577293-DO-UQ Scorewas developed and its performance characteristics determinedby [employer]. It has not been cleared or approved by the Foodand Drug Administration.PATIENT WAS FASTINGPERFORMED BY: [employer] [address] [id number] BY: [employer]6370 [facility] [id number] MCHC (RBC) [Mass/Vol] 34.0 g/dL Normal 31.5-35.7 [facility] Internal Medicine Work Phone: Comment on above: Test(s) 215145-VAD-M ; 494058-HPD-V; 052245-CTS-V; 547202-Zzeuylaxngbmb; 065985-Mqqpweazfqd, Total; 200292-HRQ-M (Total);142016-Nfngw LDL-P; 359395-PCP Size; 181016-FJ-AI Scorewas developed and its performance characteristics determinedby [employer]. It has not been cleared or approved by the Foodand Drug Administration.PATIENT WAS FASTINGPERFORMED BY: [employer] [address] [id number] BY: [employer] Kbrwkn6326 [facility] [id number] MCV (RBC) [Entitic vol] 96 fL Normal 79-97 [facility] Internal Medicine Work Phone: Comment on above: Test(s) 323621-NUR-B ; 597785-XVM-R; 031970-APM-V; 815389-Nvthfcecsdlhr; 432802-Alvtjnjugfm, Total; 060943-EJP-M (Total);661911-Lqrew LDL-P; 418757-HMW Size; 699373-QJ-SF Scorewas developed and its performance characteristics determinedby [employer]. It has not been cleared or approved by the Foodand Drug Administration.PATIENT WAS FASTINGPERFORMED BY: [employer] [address] [id number] BY: [employer] Bpheuz2398 [facility] [id number] Monocytes (Bld) [#/Vol] 0.5 {x10E3/uL} Normal 0.1-0.9 [facility] Work Phone: Comment on above: Test(s) 396729-CWA-Z ; 605559-RPT-V; 199550-XHC-Q; 189129-Rmugsssmfaziy; 018708-Nyvbaqmxdjj, Total; 199639-IRU-L (Total);775434-Oznec LDL-P; 898779-QXN Size; 968869-IF-YC Scorewas developed and its performance characteristics determinedby [employer]. It has not been cleared or approved by the Foodand Drug Administration.PATIENT WAS FASTINGPERFORMED BY: [employer] [address] [id number] BY: [employer] Gagpxu5255 [facility] [id number] Monocytes (Bld) [#/Vol] 0.5 10*3/uL Normal 0.1-0.9 [facility]; [facility] Work Phone: Comment on above: Test(s) 870988-PDH-K ; 108933-DSG-C; 958486-WKP-J; 248975-Hotywjhdbbpaz; 856313-Xafdfpkmsgs, Total; 101811-SUR-H (Total);835025-Mnnwq LDL-P; 841965-BBC Size; 010867-LZ-KN Scorewas developed and its performance characteristics determinedby [employer]. It has not been cleared or approved by the Foodand Drug Administration.PATIENT WAS FASTINGPERFORMED BY: [employer] [address] [id number] BY: [facility] Micro DevicesHoly Cross HospitalNknokn3938 [facility] [id number] Monocytes/100 WBC (Bld) 10 % Normal [facility] Work Phone: Comment on above: Test(s) 833647-KWE-S ; 414188-EBT-A; 144230-QPW-G; 462293-Uypqgwpfrygtg; 418364-Nzucoqdrdbc, Total; 727432-GGX-Z (Total);800167-Dipuo LDL-P; 973624-VSJ Size; 424892-YR-PF Scorewas developed and its performance characteristics determinedby [employer]. It has not been cleared or approved by the Foodand Drug Administration.PATIENT WAS FASTINGPERFORMED BY: [employer] [address] [id number] BY: [employer] Pidith4263 [facility] [id number] Neutrophils (Bld) [#/Vol] 2.4 {x10E3/uL} Normal 1.4-7.0 [facility] Internal Medicine Work Phone: Comment on above: Test(s) 375744-PTV-V ; 875926-HES-O; 285071-SUN-G; 662539-Jomdiarlprczm; 530398-Cukpwbgqrvh, Total; 905089-CSF-I (Total);212979-Genuc LDL-P; 449569-UBD Size; 849477-LM-KC Scorewas developed and its performance characteristics determinedby [employer]. It has not been cleared or approved by the Foodand Drug Administration.PATIENT WAS FASTINGPERFORMED BY: [employer] [address] [id number] BY: [facility] Micro DevicesAtlantic Rehabilitation InstituteOwxgce3460 [facility] [id number] Neutrophils (Bld) [#/Vol] 2.4 10*3/uL Normal 1.4-7.0 [facility]; [facility] Internal Medicine Work Phone: Comment on above: Test(s) 581455-RLD-H ; 625079-DLJ-C; 012863-NWB-N; 883328-Oedapafmbkheh; 613563-Cyjsdyngkou, Total; 094370-PVO-T (Total);939530-Suurj LDL-P; 631786-RCD Size; 771160-QS-DP Scorewas developed and its performance characteristics determinedby [employer]. It has not been cleared or approved by the Foodand Drug Administration.PATIENT WAS FASTINGPERFORMED BY: [employer] [address] [id number] BY: JobsterDuke Health [id number] Neutrophils/100 WBC (Bld) 49 % Normal [facility] Work Phone: Comment on above: Test(s) 960339-QLT-A ; 678250-BPK-M; 635633-SKU-X; 300281-Rqtfxafnkqzhb; 065325-Yfivwmavaoe, Total; 123261-SWV-D (Total);567394-Ahlpf LDL-P; 416412-LXF Size; 285955-ZD-ZF Scorewas developed and its performance characteristics determinedby [employer]. It has not been cleared or approved by the Foodand Drug Administration.PATIENT WAS FASTINGPERFORMED BY: [employer] [address] [id number] BY: [employer]70 [facility] [id number] Platelets (Bld) [#/Vol] 224 {x10E3/uL} Normal 150-450 [facility] Work Phone: Comment on above: Test(s) 220823-KZA-B ; 050859-TIE-A; 236627-TNN-Y; 676210-Lcjsobcjkwltp; 525398-Oecrkzuwxga, Total; 789660-JUB-F (Total);522786-Vgxkj LDL-P; 137962-ITI Size; 794759-RA-VB Scorewas developed and its performance characteristics determinedby [facility]. It has not been cleared or approved by the Foodand Drug Administration.PATIENT WAS FASTINGPERFORMED BY: [employer] [facility] [address] [id number] BY: [facility] Mixztd7113 [facility] [id number] Platelets (Bld) [#/Vol] 224 10*3/uL Normal 150-450 [facility]; [facility] Internal Medicine Work Phone: Comment on above: Test(s) 723727-ZJA-P ; 768034-IJX-M; 522541-UYD-L; 649778-Orerpxwqmgcoi; 010525-Nypvhdbevzb, Total; 045222-OTO-V (Total);648600-Mupiv LDL-P; 530373-TZG Size; 501867-XN-ML Scorewas developed and its performance characteristics determinedby [facility]. It has not been cleared or approved by the Foodand Drug Administration.PATIENT WAS FASTINGPERFORMED BY: [employer] [facility] Venamlasjx[address] [id number] BY: LabToolmeetrp Asgaxl0488 [facility] [id number] RBC (Bld) [#/Vol] 4.83 {x10E6/uL} Normal 4.14-5.80 [facility] Internal Medicine Work Phone: Comment on above: Test(s) 943624-HCF-R ; 214420-AIQ-N; 299977-NLO-J; 546772-Ysycnymdggzej; 027120-Htblnkcahia, Total; 027383-YQP-Q (Total);721640-Ffjfj LDL-P; 146313-FNS Size; 684036-LV-VV Scorewas developed and its performance characteristics determinedby [facility]. It has not been cleared or approved by the Foodand Drug Administration.PATIENT WAS FASTINGPERFORMED BY: [employer] [facility] [address] [id number] BY: [facility] Eqsxly8504 [facility] [id number] RBC (Bld) [#/Vol] 4.83 10*6/uL Normal 4.14-5.80 [facility]; [facility] Work Phone: Comment on above: Test(s) 518201-UKQ-T ; 748477-LCN-Q; 952288-RRD-R; 263903-Apmbvdecfipfr; 121085-Rzeqtnkscoo, Total; 763449-ZPL-T (Total);102363-Nielb LDL-P; 823768-VLO Size; 564060-EL-TL Scorewas developed and its performance characteristics determinedby [employer]. It has not been cleared or approved by the Foodand Drug Administration.PATIENT WAS FASTINGPERFORMED BY: [employer] [id number] BY: [employer]70 [facility] [id number] WBC (Bld) [#/Vol] 5.0 {x10E3/uL} Normal 3.4-10.8 [facility] Internal Medicine Work Phone: Comment on above: Test(s) 977510-HHG-W ; 976058-SIW-S; 059056-CRS-M; 307519-Owhxswdtwultv; 687276-Xwuzyohqojn, Total; 048684-FZV-U (Total);637678-Yqgct LDL-P; 589081-IHT Size; 872814-VU-WX Scorewas developed and its performance characteristics determinedby [employer]. It has not been cleared or approved by the Foodand Drug Administration.PATIENT WAS FASTINGPERFORMED BY: [employer] [id number] BY: [employer]6370 [facility] [id number] WBC (Bld) [#/Vol] 5.0 10*3/uL Normal 3.4-10.8 [facility] Internal Medicine; [facility] Work Phone: Comment on above: Test(s) 415982-IWQ-L ; 933459-MVT-G; 076019-JZG-M; 541284-Jiuudvpkaphfb; 471526-Ysvkkwnivdn, Total; 409553-ORX-E (Total);899051-Ozmjw LDL-P; 422238-YQK Size; 335526-KQ-PT Scorewas developed and its performance characteristics determinedby [employer]. It has not been cleared or approved by the Foodand Drug Administration.PATIENT WAS FASTINGPERFORMED BY: [employer] [address] [id number] BY: [employer] Jocjxi7116 [facility] [id number] HGB A1C (01324)Ordered By: S ystem Director Cardiac on 05-26-2019 HbA1c (Bld) [Mass fraction] 5.1 % Normal 4.8-5.6 [facility] Work Phone: Comment on above: . Prediabetes: 5.7 - 6.4 Diabetes: >6.4 Glycemic control for adults with diabetes: <7.0 Test(s) 295011-CQK-C ; 744839-UTM-X; 480691-JNJ-P; 581216-Vdibuqssjbptx; 249342-Lxrxpkatliw, Total; 687233-LII-E (Total);179145-Qzvso LDL-P; 808110-PLG Size; 047911-HC-NN Scorewas developed and its performance characteristics determinedby [employer]. It has not been cleared or approved by the Foodand Drug Administration.PATIENT WAS FASTINGPERFORMED BY: [employer] [address] [id number] BY: [employer] Kyonau7836 [facility] [id number] METABOLIC PANEL, COMPREHENSI VE (20529)Ordered By: Erp Project Manager on 05-26-2019 Albumin [Mass/Vol] 4.9 g/dL Normal 3.8-4.9 [facility] Internal Medicine Work Phone: Comment on above: Test(s) 474219-CNU-Q ; 494774-LKQ-Z; 713266-WRM-Z; 896950-Cbbkhqmznrauv; 214100-Ulaijjdatxp, Total; 211153-EST-C (Total);898289-Yduto LDL-P; 172881-JNB Size; 776402-FJ-BW Scorewas developed and its performance characteristics determinedby [employer]. It has not been cleared or approved by the Foodand Drug Administration.PATIENT WAS FASTINGPERFORMED BY: [employer] [address] [id number] BY: [facility] Micro DevicesAtlantic Rehabilitation InstituteCggtcd0441 [facility] [id number] Albumin/Globulin [Mass ratio] 2.3 {ratio} Abnormal 1.2-2.2 [facility] Work Phone: Comment on above: Test(s) 754859-BNG-J ; 111424-ZXV-O; 265351-ZXB-Y; 508634-Ucgqozbkhjiiz; 641241-Esnxomjojid, Total; 519353-PKY-S (Total);264920-Kslgu LDL-P; 241959-NUZ Size; 235107-DQ-UH Scorewas developed and its performance characteristics determinedby [employer]. It has not been cleared or approved by the Foodand Drug Administration.PATIENT WAS FASTINGPERFORMED BY: [employer] [address] [id number] BY: FireHostHoly Cross HospitalYnqavw2306 [facility] [id number] ALP [Catalytic activity/Vol] 94 [iU]/L Normal 39-117 [facility] Work Phone: Comment on above: Test(s) 332156-CUB-U ; 434378-YYL-W; 792954-GTV-Q; 244775-Nihkeoeckukbf; 909247-Llhvxvwdahe, Total; 015100-FXY-Y (Total);812962-Uivih LDL-P; 390062-UHW Size; 959356-KU-ED Scorewas developed and its performance characteristics determinedby [employer]. It has not been cleared or approved by the Foodand Drug Administration.PATIENT WAS FASTINGPERFORMED BY: streamOnce[address] [id number] BY: [facility] Micro DevicesAtlantic Rehabilitation InstituteYibxhv1197 [facility] [id number] ALP [Catalytic activity/Vol] 94 U/L Normal 39-117 [facility]; [facility] Work Phone: Comment on above: Test(s) 898866-LPV-H ; 944384-ZKA-Q; 940492-OGO-D; 599330-Zuvheexuiuwhr; 579877-Nxbpvexsifn, Total; 378468-TZD-F (Total);729877-Kwjwq LDL-P; 987080-KJQ Size; 229346-QO-IS Scorewas developed and its performance characteristics determinedby [employer]. It has not been cleared or approved by the Foodand Drug Administration.PATIENT WAS FASTINGPERFORMED BY: [employer] [id number] BY: [facility] Micro DevicesAtlantic Rehabilitation InstituteKotrme1059 [facility] [id number] ALT [Catalytic activity/Vol] 26 [iU]/L Normal 0-44 [facility] Internal Medicine Work Phone: Comment on above: Test(s) 973297-DWW-H ; 181794-LFC-K; 866540-KNI-I; 008779-Toebbwaiiiuko; 273226-Mvrulqkdrxu, Total; 203658-ITY-C (Total);468102-Lwfnv LDL-P; 204274-TOP Size; 040243-ED-RY Scorewas developed and its performance characteristics determinedby [employer]. It has not been cleared or approved by the Foodand Drug Administration.PATIENT WAS FASTINGPERFORMED BY: [employer] [id number] BY: [facility] DevicesAtlantic Rehabilitation InstituteIowgbn3470 [facility] [id number] ALT [Catalytic activity/Vol] 26 U/L Normal 0-44 [facility]; [facility] Work Phone: Comment on above: Test(s) 648036-SEP-P ; 157629-IMM-Z; 447928-XIO-I; 241654-Wliyceyqfugjz; 509797-Djkisqqrfkg, Total; 468097-NNE-H (Total);886196-Iyqrt LDL-P; 453739-NEL Size; 987097-QA-MQ Scorewas developed and its performance characteristics determinedby [employer]. It has not been cleared or approved by the Foodand Drug Administration.PATIENT WAS FASTINGPERFORMED BY: streamOnce[address] [id number] BY: [employer] Vwsbsn6792 [facility] [id number] AST [Catalytic activity/Vol] 25 [iU]/L Normal 0-40 [facility] Work Phone: Comment on above: Test(s) 151649-JOL-F ; 983702-BZG-Q; 375166-IHS-J; 476390-Vhwsjkwfrytwu; 429939-Gnrqclputzd, Total; 055366-XWD-B (Total);921945-Tdaqb LDL-P; 881793-PUI Size; 691787-GK-IH Scorewas developed and its performance characteristics determinedby [employer]. It has not been cleared or approved by the Foodand Drug Administration.PATIENT WAS FASTINGPERFORMED BY: [employer] [address] [id number] BY: [employer]6370 [facility] [id number] AST [Catalytic activity/Vol] 25 U/L Normal 0-40 [facility]; [facility] Work Phone: Comment on above: Test(s) 181730-GUM-B ; 897257-YTS-G; 383855-FPY-H; 798289-Wffufyenflqwl; 944711-Qprzttqtvlv, Total; 740923-IXI-J (Total);054428-Qvzqn LDL-P; 357323-QRB Size; 003438-EW-OV Scorewas developed and its performance characteristics determinedby [employer]. It has not been cleared or approved by the Foodand Drug Administration.PATIENT WAS FASTINGPERFORMED BY: streamOnce[address] [id number] BY: FireHostAtlantic Rehabilitation InstituteVozelz1288 [facility] [id number] Bilirubin [Mass/Vol] 0.9 mg/dL Normal 0.0-1.2 [facility] Internal Medicine Work Phone: Comment on above: Test(s) 426838-IWX-V ; 871035-UHL-A; 258238-MBS-T; 338930-Makdwigwssncm; 126884-Tyhalghjlzj, Total; 636734-SYE-I (Total);500485-Vlplb LDL-P; 217780-PVK Size; 901443-YU-LX Scorewas developed and its performance characteristics determinedby [employer]. It has not been cleared or approved by the Foodand Drug Administration.PATIENT WAS FASTINGPERFORMED BY: TidbitDotCo[address] [id number] BY: [employer]70 [facility] [id number] Calcium [Mass/Vol] 9.5 mg/dL Normal 8.7-10.2 [facility] Internal Medicine Work Phone: Comment on above: Test(s) 363246-LBK-M ; 483363-SEW-I; 245715-GBJ-B; 689657-Kdwkesneevhzt; 644843-Wcgdbvytzhk, Total; 298160-JLM-X (Total);537257-Zilpl LDL-P; 844406-RYJ Size; 641268-FZ-PW Scorewas developed and its performance characteristics determinedby [employer]. It has not been cleared or approved by the Foodand Drug Administration.PATIENT WAS FASTINGPERFORMED BY: [employer] [address] [id number] BY: [employer] Iootpw9140 [facility] [id number] Chloride [Moles/Vol] 99 mmol/L Normal 96-106 [facility] Internal Medicine Work Phone: Comment on above: Test(s) 318278-DIB-Z ; 360097-EWP-V; 166705-IAM-M; 210962-Mrgybqfoalpcw; 333576-Qedlmaoxcfw, Total; 802151-DXT-K (Total);685219-Tjbha LDL-P; 291763-OHU Size; 042993-KB-GF Scorewas developed and its performance characteristics determinedby [employer]. It has not been cleared or approved by the Foodand Drug Administration.PATIENT WAS FASTINGPERFORMED BY: TidbitDotCo[address] [id number] BY: [employer]6370 [facility] [id number] CO2 [Moles/Vol] 23 mmol/L Normal 20-29 [facility] Internal Medicine Work Phone: Comment on above: Test(s) 490223-HGQ-F ; 696341-JCK-A; 679251-CAF-K; 784482-Qqkdtfusaigsa; 299092-Rabhvhclpkg, Total; 913837-VES-O (Total);248356-Oishf LDL-P; 397189-CKJ Size; 626050-TT-OJ Scorewas developed and its performance characteristics determinedby [employer]. It has not been cleared or approved by the Foodand Drug Administration.PATIENT WAS FASTINGPERFORMED BY: TidbitDotCo[address] [id number] BY: [employer]6370 [facility] [id number] Creatinine [Mass/Vol] 1.08 mg/dL Normal 0.76-1.27 [facility] Internal Medicine Work Phone: Comment on above: Test(s) 269333-JHM-O ; 445601-KGB-F; 517924-ITQ-W; 825640-Rfpjavvguslns; 133261-Ozsxakwfpdp, Total; 310075-IWE-R (Total);931111-Ydufs LDL-P; 243837-ASP Size; 999464-YD-JQ Scorewas developed and its performance characteristics determinedby [employer]. It has not been cleared or approved by the Foodand Drug Administration.PATIENT WAS FASTINGPERFORMED BY: [employer] [address] [id number] BY: [employer]6370 [facility] [id number] GFR/1.73 sq M predicted among blacks CKD-EPI (S/P/Bld) [Vol rate/Area] 89 mL/min/1.73 Normal [facility] Internal Medicine Work Phone: Comment on above: Test(s) 021894-VFA-M ; 983235-EPD-U; 531754-UMC-B; 254970-Nmgixjmdoxlwx; 184362-Ezuodjoduch, Total; 607926-XDZ-M (Total);809302-Scthu LDL-P; 588433-VVO Size; 137839-RE-UB Scorewas developed and its performance characteristics determinedby [employer]. It has not been cleared or approved by the Foodand Drug Administration.PATIENT WAS FASTINGPERFORMED BY: [employer] [id number] BY: [employer] Uhfpld5270 [facility] [id number] GFR/1.73 sq M predicted among non-blacks CKD-EPI (S/P/Bld) [Vol rate/Area] 77 mL/min/1.73 Normal [facility] Work Phone: Comment on above: Test(s) 736598-GZS-D ; 876280-RCV-Y; 978448-WCB-N; 105322-Zmghfsedduhix; 507319-Zntuysdhzif, Total; 882059-IZK-D (Total);109540-Eqzyw LDL-P; 071541-NSK Size; 079808-NS-YK Scorewas developed and its performance characteristics determinedby [employer]. It has not been cleared or approved by the Foodand Drug Administration.PATIENT WAS FASTINGPERFORMED BY: [employer] [id number] BY: [employer] DevicesAtlantic Rehabilitation InstituteBxeoxw2408 [facility] [id number] Globulin (S) [Mass/Vol] 2.1 g/dL Normal 1.5-4.5 [facility] Work Phone: Comment on above: Test(s) 446128-HHK-U ; 026948-YMD-B; 004983-UJG-U; 012318-Tvswkjsiyxkln; 254848-Qlqxnzzdczu, Total; 893419-ZLC-P (Total);628040-Rqlxe LDL-P; 041622-WRY Size; 862367-AD-SV Scorewas developed and its performance characteristics determinedby [employer]. It has not been cleared or approved by the Foodand Drug Administration.PATIENT WAS FASTINGPERFORMED BY: [employer] [address] [id number] BY: [employer] Egojij8655 [facility]kLodgeD[facility] [id number] Glucose [Mass/Vol] 85 mg/dL Normal 65-99 [facility] Internal Medicine Work Phone: Comment on above: Test(s) 930879-XPD-S ; 645762-CBY-N; 623422-RDC-J; 073046-Vrutephwvjwld; 904237-Vhyinbtvdhx, Total; 570523-KMS-I (Total);072444-Ajuva LDL-P; 305667-KMS Size; 815053-GS-PU Scorewas developed and its performance characteristics determinedby [employer]. It has not been cleared or approved by the Foodand Drug Administration.PATIENT WAS FASTINGPERFORMED BY: TidbitDotCo[address] [id number] BY: [employer]70 [place] MelbossD[facility] [id number] Potassium [Moles/Vol] 4.1 mmol/L Normal 3.5-5.2 [facility] Internal Medicine Work Phone: Comment on above: Test(s) 317063-XRE-X ; 992933-HWA-G; 641831-ZNL-C; 848568-Inyohcgzfcjkv; 415515-Sgeiwmpyics, Total; 618048-CGL-X (Total);866417-Yfgzc LDL-P; 113925-KTA Size; 543042-EI-GD Scorewas developed and its performance characteristics determinedby [employer]. It has not been cleared or approved by the Foodand Drug Administration.PATIENT WAS FASTINGPERFORMED BY: [employer] [address] [id number] BY: [employer]6370 [facility] [id number] Protein [Mass/Vol] 7.0 g/dL Normal 6.0-8.5 [facility] Internal Medicine Work Phone: Comment on above: Test(s) 214320-YFZ-L ; 939023-TGP-Y; 920160-VJV-S; 795793-Itgkbxrfwlibq; 818047-Geinlkfnnqz, Total; 217097-QHB-F (Total);574141-Sgtaf LDL-P; 456582-DBY Size; 207570-JR-VM Scorewas developed and its performance characteristics determinedby [employer]. It has not been cleared or approved by the Foodand Drug Administration.PATIENT WAS FASTINGPERFORMED BY: [employer] [address] [id number] BY: [employer] Iwxueg5784 [facility] [id number] Sodium [Moles/Vol] 138 mmol/L Normal 134-144 [facility] Internal Medicine Work Phone: Comment on above: Test(s) 517178-TZJ-Z ; 323221-MQX-G; 815570-PWS-U; 629257-Xcniznxyqxsks; 472400-Hzyytldzewl, Total; 577587-LIZ-H (Total);725179-Cbqgu LDL-P; 732924-YHO Size; 097798-MP-NJ Scorewas developed and its performance characteristics determinedby [employer]. It has not been cleared or approved by the Foodand Drug Administration.PATIENT WAS FASTINGPERFORMED BY: [employer] [address] [id number] BY: [employer]6370 [facility] [id number] Urea nitrogen [Mass/Vol] 18 mg/dL Normal 6-24 [facility] Internal Medicine Work Phone: Comment on above: Test(s) 949757-WOA-A ; 377027-NFR-K; 610200-GQA-J; 684111-Zxnxdlmbbipzx; 960537-Czywcmvbzdn, Total; 102349-AQL-L (Total);212252-Hhknz LDL-P; 622884-KIA Size; 210844-FA-XQ Scorewas developed and its performance characteristics determinedby [employer]. It has not been cleared or approved by the Foodand Drug Administration.PATIENT WAS FASTINGPERFORMED BY: [employer] [address] [id number] BY: [employer]6370 DeskLodgeD[facility] [id number] Urea nitrogen/Creatinine [Mass ratio] 17 mg/mg Normal 9-20 [facility] Work Phone: Comment on above: Test(s) 992052-HKL-B ; 607224-GXE-M; 574755-OOO-G; 768324-Gnorinwqnmgay; 431199-Vgjtlemaast, Total; 719109-YSH-J (Total);975290-Pmfyy LDL-P; 176650-LNK Size; 780947-XT-FV Scorewas developed and its performance characteristics determinedby [employer]. It has not been cleared or approved by the Foodand Drug Administration.PATIENT WAS FASTINGPERFORMED BY: [employer] [address] [id number] BY: [employer]70 DeskLodgeDuke Health [id number] MICROALBUMINOrdered By: Syst em Director Cardiac on 05-26-2019 Albumin DL <= 20 mg/L (U) [Mass/Vol] mg/dL Normal [facility] Work Phone: Comment on above: Test(s) 327515-RMX-I ; 492861-NWO-R; 974384-MDO-S; 202095-Vrwstncrzjvds; 455984-Wgncqkpoeeb, Total; 254315-CAR-H (Total);279129-Mrqqa LDL-P; 871612-KZV Size; 949184-JY-TH Scorewas developed and its performance characteristics determinedby [employer]. It has not been cleared or approved by the Foodand Drug Administration.PATIENT WAS FASTINGPERFORMED BY: [employer] [address] [id number] BY: [employer]70 Cooking.comDuke Health [id number] Albumin DL <= 20 mg/L (U) [Mass/Vol] mg/dL Normal [facility]; [facility] Work Phone: Comment on above: Test(s) 252452-HVY-H ; 404549-QEJ-T; 604315-BAH-J; 523608-Ynecklqdmyyeg; 490038-Oasbqnufalu, Total; 163996-FVQ-T (Total);418780-Kdqhz LDL-P; 472819-KZD Size; 501338-UU-BB Scorewas developed and its performance characteristics determinedby [employer]. It has not been cleared or approved by the Foodand Drug Administration.PATIENT WAS FASTINGPERFORMED BY: [employer] [address] [id number] BY: [employer] Lmuyen1205 [facility] [id number] Albumin/Creatinine (U) [Mass ratio] <3 Normal 0-29 [facility] Work Phone: Comment on above: Normal: 0 - 29 Moder ately increased: 30 - 300 Severely increased: >300 Please note reference interval change Test(s) 133547-AYS-G ; 769745-GPC-R; 243232-OGA-V; 742883-Llncuvqpnmxay; 483376-Emzfajtxztg, Total; 658035-NIK-E (Total);316064-Mpooh LDL-P; 040965-OCE Size; 125078-QU-UN Scorewas developed and its performance characteristics determinedby [employer]. It has not been cleared or approved by the [address]Edgewood [address] Drug Administration.PATIENT WAS FASTINGPERFORMED BY: [employer] [address] [id number] BY: [employer]6370 [facility] [id number] Creatinine (U) [Mass/Vol] 93.1 mg/dL Normal [facility] Work Phone: Comment on above: Test(s) 815277-RYR-Y ; 606636-WBN-Z; 060228-RBY-Z; 276264-Tyokllyshrgaw; 166156-Rzjegvoywjn, Total; 877891-MYD-D (Total);582687-Hnsfe LDL-P; 228999-QOV Size; 515922-YQ-XE Scorewas developed and its performance characteristics determinedby [employer]. It has not been cleared or approved by the Foodand Drug Administration.PATIENT WAS FASTINGPERFORMED BY: TidbitDotCo[address] [id number] BY: [employer] Aiqezt5178 [place] OnPath TechnologiesDuke Health [id number] NMR Profile (14759)Ordered B y: Erp Project Manager on 05-26-2019 Cholesterol [Mass/Vol] 147 mg/dL Normal 100-199 [facility] Work Phone: Comment on above: Test(s) 676990-RQO-Y ; 742811-WML-O; 212744-PUD-Y; 994171-Dlkjqmguaxujt; 030038-Cjyekzrqfqo, Total; 202066-LBK-J (Total);455889-Ipmmt LDL-P; 187369-NUY Size; 903273-TE-EP Scorewas developed and its performance characteristics determinedby [employer]. It has not been cleared or approved by the Foodand Drug Administration.PATIENT WAS FASTINGPERFORMED BY: TidbitDotCo[address] [id number] BY: [employer]70 [place] OnPath TechnologiesDuke Health [id number] Lipoprotein.alpha [Moles/Vol] 33.9 umol/L Normal [facility] Work Phone: Comment on above: Test(s) 814740-AZU-J ; 195527-ZKJ-N; 073195-TXK-I; 124565-Pcvcirmeflphp; 504640-Uwxonvbsnhq, Total; 553178-SIM-R (Total);727079-Vziis LDL-P; 172995-CMF Size; 969463-XR-VQ Scorewas developed and its performance characteristics determinedby [employer]. It has not been cleared or approved by the Foodand Drug Administration.PATIENT WAS FASTINGPERFORMED BY: TidbitDotCo[address] [id number] BY: [employer] Solutionslin6370 [facility] [id number] Lipoprotein.beta.subp article [Entitic length] 20.4 nm Abnormal [facility] Work Phone: Comment on above: INTERPRETATIVE INFORMATION PARTICLE CONCENTRATION AND SIZE <--Lower CVD Risk Higher CVD Risk--> LDL AND HDL PARTICLES Percentile in Reference Population HDL-P (total) High 75th 50th 25th Low >34.9 34.9 30.5 26.7 <26.7 . Small LDL-P Low 25th 50th 75th High <117 117 527 839 >839 . LDL Size <-Large (Pattern A)-> <-Small (Pattern B)-> 23.0 20.6 20.5 19.0 Small LDL-P and LDL Size are associated with CVD risk, but not afterLDL-P is taken into account. Test(s) 930191-PPQ-B ; 918617-WYO-T; 622985-MGD-Z; 873021-Yqlkebizydmcq; 721371-Uefatxkpuyp, Total; 360160-HTL-V (Total);575663-Xliqa LDL-P; 926822-LPJ Size; 305327-TJ-VY Scorewas developed and its performance characteristics determinedby [employer]. It has not been cleared or approved by the Foodand Drug Administration.PATIENT WAS FASTINGPERFORMED BY: [employer] [id number] BY: LabCoAtlantic Rehabilitation InstituteGalalt1187 [facility] [id number] Lipoprotein.beta.subp article [Moles/Vol] 1090 nmol/L Abnormal Comprehensiv e Internal Medicine Work Phone: Comment on above: Low < 1000 Moderate 1000 - 1299 Borderline-High 1300 - 1599 High 1600 - 2000 Very High > 2000 Test(s) 605949-GFA-W ; 834571-VWE-C; 817163-OGH-Q; 033444-Mhmcbdfakiyxc; 057901-Nvpxrmyccnx, Total; 260246-KGG-O (Total);558634-Mxcoy LDL-P; 609926-VVT Size; 603810-AT-MH Scorewas developed and its performance characteristics determinedby [employer]. It has not been cleared or approved by the Foodand Drug Administration.PATIENT WAS FASTINGPERFORMED BY: [employer] [address] [id number] BY: [employer]70 [facility] [id number] Lipoprotein.beta.subp article.small [Moles/Vol] 646 nmol/L Abnormal [facility] Work Phone: Comment on above: Test(s) 638494-PNZ-Q ; 389196-MLL-P; 056544-YKR-Y; 817536-Uqxthuzgtxrng; 167768-Olsdvupzboz, Total; 809938-XXR-Q (Total);374052-Nzula LDL-P; 877429-UFD Size; 708204-BC-XG Scorewas developed and its performance characteristics determinedby [employer]. It has not been cleared or approved by the [address] Drug Administration.PATIENT WAS FASTINGPERFORMED BY: [employer] [address] [id number] BY: [employer]70 [facility] [id number] Triglyceride [Mass/Vol] 53 mg/dL Normal 0-149 [facility] Work Phone: Comment on above: Test(s) 943502-NYC-I ; 017527-KCP-S; 795747-UAB-W; 150486-Esxcuqjxjjlyc; 586766-Bzfexfzwohh, Total; 050594-YZD-C (Total);015910-Zjeut LDL-P; 311565-KGI Size; 089097-MN-PA Scorewas developed and its performance characteristics determinedby [employer]. It has not been cleared or approved by the Foodand Drug Administration.PATIENT WAS FASTINGPERFORMED BY: [employer] [address] [id number] BY: [employer]70 DeskLodgeDuke Health [id number] NMR Profile (98098) 54 mg/dL Normal [facility] Internal Medicine Work Phone: Comment on above: Test(s) 877791-QSO-L ; 218894-NNU-S; 123248-QKG-C; 491338-Dixlflocoyrfn; 209218-Ptnoaoyeleo, Total; 957405-COZ-N (Total);421293-Vdibk LDL-P; 265221-MBY Size; 922300-WC-OM Scorewas developed and its performance characteristics determinedby [employer]. It has not been cleared or approved by the Foodand Drug Administration.PATIENT WAS FASTINGPERFORMED BY: [employer] [address] [id number] BY: [employer]6370 DeskLodgeDuke Health [id number] NMR Profile (77137) 82 mg/dL Normal 0-99 [facility] Internal Medicine Work Phone: Comment on above: . Optimal < 100 Abov e optimal 100 - 129 Borderline 130 - 159 High 160 - 189 Very high > 189 .LDL-C is inaccurate if patient is non-fasting. Test(s) 087626-RQE-H ; 543496-LCD-N; 604841-SPW-B; 226266-Mnpayudgfcsmy; 484120-Eswbovnjvrk, Total; 829971-ADX-U (Total);386035-Jvret LDL-P; 608025-PDW Size; 556422-JS-GG Scorewas developed and its performance characteristics determinedby [employer]. It has not been cleared or approved by the [address] Drug Administration.PATIENT WAS FASTINGPERFORMED BY: [employer] [address] [id number] BY: [employer]70 DeskLodgeDuke Health [id number] URINALYSIS, W/ MICRO (35379) Ordered By: Erp Project Manager on 05-26-2019 Appearance (U) Clear Normal Comprehens estevan Internal Medicine Work Phone: Comment on above: Test(s) 573827-VJN-Y ; 070926-SZV-S; 819935-NHW-X; 895824-Ilvgpexbklgwg; 275007-Hjngljxagxd, Total; 248613-WCS-K (Total);305864-Bodxw LDL-P; 267189-ZZS Size; 394084-SO-JV Scorewas developed and its performance characteristics determinedby [employer]. It has not been cleared or approved by the Foodand Drug Administration.PATIENT WAS FASTINGPERFORMED BY: [employer] [address] [id number] BY: [employer] Deaocj7892 [facility] [id number] Bilirubin Ql (U) Negative Normal Comprehe nsive Internal Medicine Work Phone: Comment on above: Test(s) 423018-IWS-T ; 675189-RLU-N; 463577-NQX-W; 653821-Ttigzwboraers; 448529-Habedmgxjsf, Total; 840264-MWR-P (Total);274256-Ojrpr LDL-P; 937404-HMC Size; 831445-XU-OL Scorewas developed and its performance characteristics determinedby [employer]. It has not been cleared or approved by the Foodand Drug Administration.PATIENT WAS FASTINGPERFORMED BY: [employer] [address] [id number] BY: [employer] Giuhhy3993 [facility] [id number] Bilirubin Ql (U) Negative Normal Comprehe nsive Internal Medicine; [facility] Work Phone: Comment on above: Test(s) 710625-PBG-G ; 450790-NMM-O; 976716-QAL-W; 611759-Nuiwmxgogpgmq; 971330-Nawznprniaz, Total; 380555-VRU-A (Total);989621-Lxgme LDL-P; 891680-MAJ Size; 564819-LD-TC Scorewas developed and its performance characteristics determinedby [employer]. It has not been cleared or approved by the Foodand Drug Administration.PATIENT WAS FASTINGPERFORMED BY: [employer] [address] [id number] BY: [employer] Erkyrb4330 [facility] [id number] Color (U) Yellow Normal [facility] Work Phone: Comment on above: Test(s) 196468-YBS-Y ; 391545-AAC-M; 594158-OYE-U; 372185-Afsikdwjhqscp; 857337-Vgieoprvpyt, Total; 654598-CWU-D (Total);443239-Popbz LDL-P; 361623-LAR Size; 019277-IB-UQ Scorewas developed and its performance characteristics determinedby [employer]. It has not been cleared or approved by the Foodand Drug Administration.PATIENT WAS FASTINGPERFORMED BY: TidbitDotCo[address] [id number] BY: [employer]6370 [facility] [id number] Glucose Ql (U) Negative Normal Comprehens estevan Internal Medicine Work Phone: Comment on above: Test(s) 729694-UKG-G ; 599625-LUE-A; 690665-PJD-J; 762575-Doxkvuwbkgxeh; 798725-Dlcxmwnfmwf, Total; 076996-SWO-Y (Total);565020-Rvqpm LDL-P; 511679-JUZ Size; 535439-MN-QR Scorewas developed and its performance characteristics determinedby [employer]. It has not been cleared or approved by the Foodand Drug Administration.PATIENT WAS FASTINGPERFORMED BY: [employer] [address] [id number] BY: FireHostAtlantic Rehabilitation InstituteIvtcjg3768 [facility] [id number] Glucose Ql (U) Negative Normal Comprehens estevan Internal Medicine; [facility] Work Phone: Comment on above: Test(s) 569000-JYP-J ; 424415-WYJ-Q; 575459-WQA-O; 067999-Dvmvuirowjoyv; 652368-Fqkmqnzbxbc, Total; 506719-ORV-R (Total);455094-Unqxz LDL-P; 613686-TDJ Size; 531725-HR-LG Scorewas developed and its performance characteristics determinedby [employer]. It has not been cleared or approved by the Foodand Drug Administration.PATIENT WAS FASTINGPERFORMED BY: streamOnce[address] [id number] BY: [employer] Micro DevicesAtlantic Rehabilitation InstitutePpctgn1054 [facility] [id number] Hemoglobin Ql (U) Negative Normal Compreh ensive Internal Medicine Work Phone: Comment on above: Test(s) 149727-UMV-J ; 864886-DHY-T; 619371-EDI-B; 503338-Ldvepjgpcekjr; 458704-Mpvsbslohnk, Total; 862640-CMY-Q (Total);403995-Yxgza LDL-P; 291057-ACG Size; 252202-VB-BS Scorewas developed and its performance characteristics determinedby [employer]. It has not been cleared or approved by the Foodand Drug Administration.PATIENT WAS FASTINGPERFORMED BY: [employer] [address] [id number] BY: [employer] Ryuifx4730 [facility] [id number] Hemoglobin Ql (U) Negative Normal Compreh ensive Internal Medicine; [facility] Work Phone: Comment on above: Test(s) 168226-EDD-W ; 532111-NVS-F; 954380-RKN-G; 703655-Vcskhvkeovsqb; 575911-Okmaolgmhqd, Total; 297930-HPV-W (Total);575179-Gccni LDL-P; 171773-BCN Size; 434040-WZ-PQ Scorewas developed and its performance characteristics determinedby [employer]. It has not been cleared or approved by the Foodand Drug Administration.PATIENT WAS FASTINGPERFORMED BY: [employer] [address] [id number] BY: [employer] Micro DevicesAtlantic Rehabilitation InstituteNqarxi4216 [facility] [id number] Ketones Ql (U) Negative Normal Comprehens estevan Internal Medicine Work Phone: Comment on above: Test(s) 382456-BZA-X ; 886804-XDR-H; 753763-SYV-C; 126473-Ekxwzlsepfcbm; 938516-Mphxktmegih, Total; 973713-PFS-Z (Total);875132-Wogot LDL-P; 952911-NEL Size; 612650-HT-QK Scorewas developed and its performance characteristics determinedby [employer]. It has not been cleared or approved by the Foodand Drug Administration.PATIENT WAS FASTINGPERFORMED BY: TidbitDotCo[address] [id number] BY: [employer]70 [facility] [id number] Ketones Ql (U) Negative Normal [facility] Internal [facility]; [facility] Work Phone: Comment on above: Test(s) 838478-AAY-T ; 862424-IRU-B; 838985-FHV-A; 464430-Celearjjbwmgh; 083725-Bpwofjndopg, Total; 043970-VPG-H (Total);052923-Ybene LDL-P; 986533-JDN Size; 464494-OV-WH Scorewas developed and its performance characteristics determinedby [employer]. It has not been cleared or approved by the Foodand Drug Administration.PATIENT WAS FASTINGPERFORMED BY: TidbitDotCo[address] [id number] BY: [employer]6370 [facility] [id number] Leukocyte esterase Test strip Ql (U) Negative Normal [facility] Work Phone: Comment on above: Test(s) 287929-GGP-B ; 014667-SLB-N; 987996-VPQ-T; 907459-Qljnvabnkuqho; 662940-Alfgzrwykuz, Total; 322033-USO-T (Total);213748-Bwpfm LDL-P; 193229-OZA Size; 993630-VH-DD Scorewas developed and its performance characteristics determinedby [employer]. It has not been cleared or approved by the Foodand Drug Administration.PATIENT WAS FASTINGPERFORMED BY: TidbitDotCoton1447 [facility] [id number] BY: [employer]6370 [facility] [id number] Leukocyte esterase Test strip Ql (U) Negative Normal [facility]; [facility] Work Phone: Comment on above: Test(s) 782561-IWA-C ; 164502-FJJ-U; 065759-VGJ-N; 221065-Gtvqdiyaouiws; 421337-Udoxqyupyom, Total; 345727-LGI-I (Total);919200-Oxdlk LDL-P; 922959-ZMH Size; 646414-AM-OS Scorewas developed and its performance characteristics determinedby [employer]. It has not been cleared or approved by the Foodand Drug Administration.PATIENT WAS FASTINGPERFORMED BY: TidbitDotCo[address] [id number] BY: [employer]6370 DeskLodgeDuke Health [id number] Microscopic observation LM Nom (Urine sed) MICRON Normal [facility] Work Phone: Comment on above: Microscopic follows if indicated. Test(s) 924311-PTJ-A ; 125411-WZY-J; 498621-DSD-J; 492255-Obkkwjekqzlni; 149162-Jhfmnsuvzen, Total; 405774-NUC-G (Total);767572-Ihvef LDL-P; 911969-IJZ Size; 293716-EN-NM Scorewas developed and its performance characteristics determinedby [employer]. It has not been cleared or approved by the Foodand Drug Administration.PATIENT WAS FASTINGPERFORMED BY: [employer] [address] [id number] BY: Unique Solutionslin6370 [facility] [id number] Microscopic observation LM Nom (Urine sed) See below: Normal [facility] Work Phone: Comment on above: Microscopic was jessy cated and was performed. Test(s) 243299-ZQT-E ; 194424-WJO-P; 171086-PDH-R; 988394-Hilqpkmqkqdqe; 982528-Pzgmiikaslt, Total; 693209-SYV-X (Total);795201-Bcwro LDL-P; 260230-LBK Size; 403197-RK-WT Scorewas developed and its performance characteristics determinedby [employer]. It has not been cleared or approved by the Foodand Drug Administration.PATIENT WAS FASTINGPERFORMED BY: streamOnce[address] [id number] BY: [employer] Panivd[address] MelbossDuke Health [id number] Nitrite Ql (U) Negative Normal Comprehens estevan Internal Medicine Work Phone: Comment on above: Test(s) 732257-FLV-P ; 421687-CJY-U; 753987-SZG-M; 138349-Ptyccnkwlicqz; 563250-Sugtcwagqjk, Total; 555686-WVF-K (Total);328589-Nawcg LDL-P; 991782-RZU Size; 932758-DN-LJ Scorewas developed and its performance characteristics determinedby [employer]. It has not been cleared or approved by the Foodand Drug Administration.PATIENT WAS FASTINGPERFORMED BY: [employer] [address] [id number] BY: [employer]70 Cooking.comDuke Health [id number] Nitrite Ql (U) Negative Normal Comprehens estevan Internal Medicine; [facility] Work Phone: Comment on above: Test(s) 915074-PDJ-I ; 668003-YJK-D; 235791-RIF-W; 042851-Jczjqoxkkpuvd; 017413-Lozyczkfilk, Total; 570658-XCW-U (Total);024519-Iycek LDL-P; 409307-YDZ Size; 754337-LZ-AW Scorewas developed and its performance characteristics determinedby [employer]. It has not been cleared or approved by the Foodand Drug Administration.PATIENT WAS FASTINGPERFORMED BY: [employer] [address] [id number] BY: [employer] Mnbnsc1995 Cooking.comDuke Health [id number] pH (U) 5.5 [pH] Normal 5.0-7.5 [facility] Work Phone: Comment on above: Test(s) 396880-YKX-S ; 242697-KSG-L; 791233-CXB-T; 237248-Norstpisvvwbm; 765021-Knmfgpnrbis, Total; 908410-CVP-U (Total);087896-Rrrov LDL-P; 185964-RAT Size; 056426-RD-PZ Scorewas developed and its performance characteristics determinedby [employer]. It has not been cleared or approved by the Foodand Drug Administration.PATIENT WAS FASTINGPERFORMED BY: [employer] [address] [id number] BY: [employer]70 [facility]aco[facility] [id number] Protein Ql (U) Negative Normal Comprehens [facility] Internal Medicine Work Phone: Comment on above: Test(s) 416166-WIX-O ; 688631-AQX-L; 935375-XPE-J; 749898-Mxetbohxaymuu; 845572-Fekoytxwypz, Total; 351693-WYO-J (Total);805808-Pefso LDL-P; 867677-XLN Size; 407483-PU-GC Scorewas developed and its performance characteristics determinedby [employer]. It has not been cleared or approved by the Foodand Drug Administration.PATIENT WAS FASTINGPERFORMED BY: [employer] [address] [id number] BY: [employer] Trmejd2102 [facility] [id number] Protein Ql (U) Negative Normal Comprehens estevan Internal Medicine; [facility] Work Phone: Comment on above: Test(s) 589257-XSV-O ; 817325-PSZ-R; 585859-WPQ-A; 783428-Qhcrrrcrlqxow; 892094-Kwrnntczmpj, Total; 570416-CLQ-U (Total);081520-Gbvtj LDL-P; 748578-YHX Size; 898599-RR-EN Scorewas developed and its performance characteristics determinedby [employer]. It has not been cleared or approved by the Foodand Drug Administration.PATIENT WAS FASTINGPERFORMED BY: TidbitDotCo[address] [id number] BY: [employer]70 DeskLodgeDuke Health [id number] Specific gravity (U) [Rel density] 1.015 1 Normal 1.005-1.03 0 [facility] Internal Medicine Work Phone: Comment on above: Test(s) 507337-QNX-P ; 326828-DPM-H; 529371-KRG-C; 958911-Hjdkfkfresiju; 728348-Ekhmrrikstv, Total; 342283-FJK-O (Total);679015-Mbsey LDL-P; 365547-CAD Size; 008304-JG-MH Scorewas developed and its performance characteristics determinedby [employer]. It has not been cleared or approved by the Foodand Drug Administration.PATIENT WAS FASTINGPERFORMED BY: TidbitDotCo[address] [id number] BY: [employer]70 DeskLodgeDuke Health [id number] Urobilinogen (U) [Mass/Vol] 0.2 mg/dL Normal 0.2-1.0 [facility] Work Phone: Comment on above: Test(s) 307256-MNT-U ; 105395-IDF-U; 995525-ZWC-B; 341473-Pouqancmbsvgc; 666072-Stujeuvdimc, Total; 083517-RFT-G (Total);684538-Cprtq LDL-P; 331868-VRR Size; 300424-CG-OL Scorewas developed and its performance characteristics determinedby [employer]. It has not been cleared or approved by the Foodand Drug Administration.PATIENT WAS FASTINGPERFORMED BY: TidbitDotCo[address] [id number] BY: [employer] OnPath TechnologiesDuke Health [id number] Urobilinogen Test strip (U) [Mass/Vol] 0.2 mg/dL Normal 0.2-1.0 [facility] Internal Medicine Work Phone: Comment on above: Test(s) 731592-GOO-O ; 395866-MEF-V; 471311-ASK-H; 452422-Tamidsrzwvupy; 914251-Yfyxihjgxls, Total; 417064-XKW-L (Total);363480-Ibfcy LDL-P; 983948-CZO Size; 124712-HW-UF Scorewas developed and its performance characteristics determinedby USIS HOLDINGSI[facility]. It has not been cleared or approved by the Foodand Drug Administration.PATIENT WAS FASTINGPERFORMED BY: [address] [id number] BY: [address] [id number] PHOSPHORUS ([id number])Ordered By : Erp Project Manager on 03-01-2019 Phosphate [Mass/Vol] 3.0 mg/dL Normal 2.5-4.5 Comp rehensive Internal Medicine Work Phone: Comment on above: PATIENT NOT FASTINGP ERFORMED BY: [place] 5[address]3070 [facility] [id number] Request Problemon 05-07-2018 Request Problem Comprehen [facility] Internal Medicine Work Phone: Comment on above: A duplicate report h as been generated due to demographic updates.PATIENT NOT FASTINGPERFORMED BY: [address] [id number] Information: SRC:UR [id number] TV=RANDOM Request Problem Comprehen [facility] Internal Medicine Work Phone: Comment on above: A duplicate report h as been generated due to demographic updates.PATIENT NOT FASTINGPERFORMED BY: [facility]6370 [facility] [id number] Information: SRC:UR [id number] TV=RANDOM CBC W/AUTO DIFF WBC (19956)O rdered By: Erp Project Manager on 11-24-2017 Basophils #/vol (Bld) 0.0 {x10E3/uL} Normal 0.0-0.2 [facility] Work Phone: Comment on above: PATIENT NOT FASTINGP ERFORMED BY: MERNA [facility] Lntmld80[address] RoadFormerly [facility] Hospitalin [place] [id number] Basophils (Bld) [#/Vol] 0.0 10*3/uL Normal 0.0-0.2 [facility]; [facility] Work Phone: Comment on above: PATIENT NOT FASTINGP ERFORMED BY: CB [facility] Pedxtt6710 [address] RoadFormerly [facility]in [place] [id number] Basophils/100 WBC (Bld) 1 % Normal [facility] Work Phone: Comment on above: PATIENT NOT FASTINGP ERFORMED BY: CB [facility] Wnyfco2660 [address] RoadFormerly [facility] Hospitalin [place] [id number] Eosinophils #/vol (Bld) 0.5 {x10E3/uL} Abnormal 0.0-0.4 [facility] Work Phone: Comment on above: PATIENT NOT FASTINGP ERFORMED BY: MERNA [facility] Spdawe9097 [address] RoadDuke Health [id number] Eosinophils (Bld) [#/Vol] 0.5 10*3/uL Abnormal 0.0-0.4 [facility]; [facility] Work Phone: Comment on above: PATIENT NOT FASTINGP ERFORMED BY: MERNA [facility] Liywjz9743 [address] [facility] [id number] Eosinophils/100 WBC (Bld) 10 % Normal [facility] Work Phone: Comment on above: PATIENT NOT FASTINGP ERFORMED BY: MERNA [facility] Ijhgol6563 [address] [facility] [id number] Erythrocyte distribution width Ratio (RBC) 12.7 % Normal 12.3-15.4 [facility] Work Phone: Comment on above: PATIENT NOT FASTINGP ERFORMED BY: CB [facility] Fktwsf3916 [address] [facility] [id number] Hematocrit Volume Fraction (Bld) 46.8 % Normal 37.5-51.0 [facility] Work Phone: Comment on above: PATIENT NOT FASTINGP ERFORMED BY: MERNA [facility] Kukhei1598 [address] RoadDublin [place] [id number] Hemoglobin mass conc (Bld) 15.9 g/dL Normal 13.0-17.7 [facility] Work Phone: Comment on above: PATIENT NOT FASTINGP ERFORMED BY: MERNA Carr Wrkmhl1643 [facility] [id number] Immature granulocytes #/vol (Bld) 0.0 {x10E3/uL} Normal 0.0-0.1 [facility] Work Phone: Comment on above: PATIENT NOT FASTINGP ERFORMED BY: [address] [id number] Immature granulocytes (Bld) [#/Vol] 0.0 10*3/uL Normal 0.0-0.1 [facility]; [facility] Work Phone: Comment on above: PATIENT NOT FASTINGP ERFORMED BY: [facility] Dnnnty[address] [id number] Immature granulocytes/100 WBC (Bld) 0 % Normal [facility] Work Phone: Comment on above: PATIENT NOT FASTINGP ERFORMED BY: [facility] Qvzkwf5142 [facility] [id number] Lymphocytes #/vol (Bld) 1.6 {x10E3/uL} Normal 0.7-3.1 [facility] Work Phone: Comment on above: PATIENT NOT FASTINGP ERFORMED BY: [place] 5823070 [facility] [id number] Lymphocytes (Bld) [#/Vol] 1.6 10*3/uL Normal 0.7-3.1 [facility]; [facility] Work Phone: Comment on above: PATIENT NOT FASTINGP ERFORMED BY: [facility] Thufni1473 [facility] [id number] Lymphocytes/100 WBC (Bld) 34 % Normal [facility] Work Phone: Comment on above: PATIENT NOT FASTINGP ERFORMED BY: MERNA LabJohn Ville 1860370 [place] [place] [id number] MCH Entitic mass (RBC) 31.8 pg Normal 26.6-33.0 [facility] Work Phone: Comment on above: PATIENT NOT FASTINGP ERFORMED BY: MERNA Gileslin6370 [address] Roadblin [place] [id number] MCHC mass conc (RBC) 34.0 g/dL Normal 31.5-35.7 [facility] Internal Medicine Work Phone: Comment on above: PATIENT NOT FASTINGP ERFORMED BY: MERNA [facility] Zybqbg1766 [address] [facility] [id number] MCV Entitic volume (RBC) 94 fL Normal 79-97 [facility] Work Phone: Comment on above: PATIENT NOT FASTINGP ERFORMED BY: MERNA [employer]iCo Jsrfta5994 [address] [facility] [id number] Monocytes #/vol (Bld) 0.4 {x10E3/uL} Normal 0.1-0.9 [facility] Work Phone: Comment on above: PATIENT NOT FASTINGP ERFORMED BY: MERNA [facility] Exhgxd0689 [address] [facility] [place] [id number] Monocytes (Bld) [#/Vol] 0.4 10*3/uL Normal 0.1-0.9 [facility]; [facility] Work Phone: Comment on above: PATIENT NOT FASTINGP ERFORMED BY: CB [facility] Avutlu7418 [address] [facility] [place] [id number] Monocytes/100 WBC (Bld) 8 % Normal [facility] Work Phone: Comment on above: PATIENT NOT FASTINGP ERFORMED BY: MERNA [facility] Aqhzhy8753 [address] [facility] Centerblin [place] [id number] Neutrophils #/vol (Bld) 2.1 {x10E3/uL} Normal 1.4-7.0 [facility] Work Phone: Comment on above: PATIENT NOT FASTINGP ERFORMED BY: CB [facility] Arpqzl5129 [address] [facility] [id number] Neutrophils (Bld) [#/Vol] 2.1 10*3/uL Normal 1.4-7.0 [facility]; [facility] Work Phone: Comment on above: PATIENT NOT FASTINGP ERFORMED BY: MERNA KrauseCoandry FranciscoYcchqx1617 [address] RoadDublin [place] [id number] Neutrophils/100 WBC (Bld) 47 % Normal [facility] Work Phone: Comment on above: PATIENT NOT FASTINGP ERFORMED BY: CB [facility] Uomrcq9315 [address] RoadDublin [place] [id number] Platelets #/vol (Bld) 250 {x10E3/uL} Normal 150-379 [facility] Work Phone: Comment on above: PATIENT NOT FASTINGP ERFORMED BY: MERNA JimiCoandry FranciscoOqfcmc8036 [address] RoadDublin [place] [id number] Platelets (Bld) [#/Vol] 250 10*3/uL Normal 150-379 [facility]; [facility] Work Phone: Comment on above: PATIENT NOT FASTINGP ERFORMED BY: CB [facility] Sjvqch0991 [address] RoadCiprianoblin [place] [id number] RBC #/vol (Bld) 5.00 {x10E6/uL} Normal 4.14-5.80 Comp [facility] hospitalensive [facility] Work Phone: Comment on above: PATIENT NOT FASTINGP ERFORMED BY: CB [facility] Jlidsc5506 [address] Roadblin [place] [id number] RBC (Bld) [#/Vol] 5.00 10*6/uL Normal 4.14-5.80 Compr ensive Internal Medicine; [facility] Work Phone: Comment on above: PATIENT NOT FASTINGP ERFORMED BY: CB [facility] Ekipsi8089 [address] RoadDublin [place] [id number] WBC #/vol (Bld) 4.6 {x10E3/uL} Normal 3.4-10.8 Compr ensive Internal Medicine Work Phone: Comment on above: PATIENT NOT FASTINGP ERFORMED BY: CB LabAsp[facility]tonagon Hospital6370 [facility] [id number] WBC (Bld) [#/Vol] 4.6 10*3/uL Normal 3.4-10.8 [facility] Internal Medicine; [facility] Work Phone: Comment on above: PATIENT NOT FASTINGP ERFORMED BY: USIS HOLDINGSAspirus Ontonagon Hospital6370 [facility] [id number] HEPATITIS C ANTIBODY (48395) Ordered By: Erp Project Manager on 11-24-2017 HCV Ab Signal/Cutoff [place] [Rel units/Vol] {ratio} Normal 0.0-0.9 [facility]; [facility] Work Phone: Comment on above: Negative: < 0.8 Inde terminate: 0.8 - 0.9 Positive: > 0.9 . The CDC recommends that a positive HCV antibody result be followed up with a HCV Nucleic Acid Amplification test (284306). PATIENT NOT FASTINGP ERFORMED BY: USIS HOLDINGSAspirus Ontonagon Hospital6370 [facility] [id number] HCV Ab Signal/Cutoff [place] RelACnc {ratio} Normal 0.0-0.9 [facility] Work Phone: Comment on above: Negative: < 0.8 Inde terminate: 0.8 - 0.9 Positive: > 0.9 . The CDC recommends that a positive HCV antibody result be followed up with a HCV Nucleic Acid Amplification test (483023). PATIENT NOT FASTINGP ERFORMED BY: USIS HOLDINGSAspirus [facility]tonagon Hospital6370 [facility] [id number] PSA (PROSTATE SPECIFIC ANTIG EN) (V76.44)Ordered By: Erp Project Manager on 11-24-2017 Prostate specific Ag mass conc 1.3 ng/mL Normal 0.0-4.0 [facility] Work Phone: Comment on above: Cecil ECLIA methodol ogy. .According to the [place] [employer], Serum PSA shoulddecrease and remain at undetectable levels after radicalprostatectomy. The AUA defines biochemical recurrence as an initialPSA value 0.2 ng/mL or greater followed by a subsequent confirmatoryPSA value 0.2 ng/mL or greater.Values obtained with different assay methods or kits cannot be usedinterchangeably. Results cannot be interpreted as absolute evidenceof the presence or absence of malignant disease. PATIENT NOT FASTINGP ERFORMED BY: LabCoHoly Cross HospitalTcngrg8889 [place] [id number] CBC, EmployeeOrdered By: Abril tem Director Cardiac on 11-17-2017 Basophils/100 WBC (Bld) 1.0 % Normal 0-1 [facility] Work Phone: Comment on above: [facility] [address]ls[address] [place], [address] Eosinophils/100 WBC (Bld) 16.5 % Abnormal 0-5 [facility] Work Phone: Comment on above: [facility] [address]jlmec[address] [place], [place], [phone]) Erythrocyte distribution width Ratio (RBC) 12.2 % Normal 11.6-14.6 [facility] Work Phone: Comment on above: [facility] J[address]oksxalid[address] [place], [place], [phone]) Hematocrit Volume Fraction (Bld) 47.6 % Normal 40-54 [facility] Work Phone: Comment on above: [facility] J[address]dfvtv[address] [place], [address] Hemoglobin mass conc (Bld) 15.8 g/dL Normal 13.0-16.5 [facility] Work Phone: Comment on above: [facility] Id[address]jfn[address] [place], [address] Lymphocytes/100 WBC (Bld) 22.1 % Normal 19-41 [facility] Work Phone: Comment on above: [facility] A[address]elle[address] [place], [address] MCH Entitic mass (RBC) 32.0 pg Normal 27.0-32.0 [facility] Work Phone: Comment on above: [facility] [address]urdlyfd[address] [place], [address] MCHC mass conc (RBC) 33.2 {g/gl} Normal 32-36 Com [facility] Internal [facility] Work Phone: Comment on above: [facility] [address] [place], [address] MCV Entitic volume (RBC) 96.4 fL Abnormal 80-94 [facility] Work Phone: Comment on above: [facility] [address] [place], [address] Monocytes/100 WBC (Bld) 12.3 % Abnormal 0-10 [facility] Work Phone: Comment on above: [facility] [address]ty[address] [place], [address] Neutrophils/100 WBC (Bld) 47.9 % Normal 47-70 [facility] Work Phone: Comment on above: [facility] [address] [place], [address] Platelet mean volume Entitic volume (Bld) 9.6 fL Normal 6.2-12.0 Comprehensi Internal Medicine Work Phone: Comment on above: [facility] [address] [place], [address] Platelets #/vol (Bld) 177 10*3/uL Normal 150-450 [facility] Internal Medicine Work Phone: Comment on above: [facility] [address]uc[address] [place], [address] RBC #/vol (Bld) 4.94 {M/mm3} Normal 4.6-6.2 Compreh ensive Internal Medicine Work Phone: Comment on above: [facility] [address]hrj[address] [place], [place], [address] WBC #/vol (Bld) 4.8 10*3/uL Normal 4.4-11.0 Comprehe nsive Internal Medicine Work Phone: Comment on above: [facility] F[address] [place], [place], [phone] CBC, Employee 42.5 fL Normal 35.1-43.9 Comprehensi ve Internal Medicine Work Phone: Comment on above: [facility] [address] [place], [place], [phone] CBC, Employee 2.3 {X10_3/uL} Normal 2.0-7.7 Compreh ensive Internal Medicine Work Phone: Comment on above: [facility] I[address] [place], [address] CBC, Employee 1.06 {X10_3/ul} Normal 0.83-4.51 Compre hensive Internal Medicine Work Phone: Comment on above: [facility] A[address]rec[address] [place], [address] Employee ProfileOrdered By: Erp Project Manager on 11-17-2017 Albumin mass conc 3.8 g/dL Normal 3.2-5.0 Compreh ensive Internal Medicine Work Phone: Comment on above: [facility] Pam[address]rxsh[address] [place], [address] Albumin/Globulin mass ratio 1.1 {RATIO} Normal 0.9-2.4 [facility] Work Phone: Comment on above: [facility] [address] [place], [address] ALT enzyme act/vol 51 U/L Normal 16-61 Compre hensive Internal Medicine Work Phone: Comment on above: [facility] N[address] [place], [address] AST enzyme act/vol 30 U/L Normal 15-37 Compre [facility] Internal Medicine Work Phone: Comment on above: [facility] Ly[address] [place], [place], [phone]) Bilirubin mass conc 0.50 mg/dL Normal 0.20-1.00 Compr ensive Internal Medicine Work Phone: Comment on above: [facility] [address] [place], [address] Bilirubin.direct mass conc 0.14 mg/dL Normal 0.00-0.30 [facility] Work Phone: Comment on above: [facility] [address] [place], [place], [phone] Calcium mass conc 8.8 mg/dL Normal 8.5-10.1 [facility] Internal Medicine Work Phone: Comment on above: [place] [address] [place], [address] Chloride molar conc 104 mmol/L Normal 98-107 [facility] Internal Medicine Work Phone: Comment on above: [facility] [address] [place], [address] Cholesterol in HDL mass conc 55 mg/dL Normal [facility] Work Phone: Comment on above: The drugs N-Acetylcy steine and Metamizole may falselydepress this assay. Reference Range HDL <40 mg/dL Low HDL Cholesterol HDL >or= 60 mg/dL High HDL Cholesterol [facility] [address] [place], [place], [phone]) Cholesterol in LDL mass conc 99 mg/dL Normal 0-130 [facility] Work Phone: Comment on above: [facility] [address] [place], [place], [phone] Cholesterol mass conc 170 mg/dL Normal [facility] Work Phone: Comment on above: <200 mg/dL Desirable 200-240 mg/dL Borderline >240 mg/dL High Risk [facility] [address] [place], [address] CO2 molar conc 26.0 mmol/L Normal 21.0-32.0 Comprehen sive Internal Medicine Work Phone: Comment on above: [facility] [address] [place], [address] Creatinine mass conc 1.11 mg/dL Normal 0.70-1.30 Comp rehensive Internal Medicine Work Phone: Comment on above: The validity of the calculated GFR AND GFRAA in patients over70 years has not been determined. Clinical correlation isessential. [facility] [address] [place], [place], [phone] GFR/1.73 sq M predicted among non-blacks MDRD vol rate/area (S/P/Bld) 74 mL/min/{1.73_m2} Normal Comprehe nsive Internal Medicine Work Phone: Comment on above: Non- GFR Calc [facility] [address] [place], [address] Glucose mass conc 91 mg/dL Normal 74-106 Compreh ensive Internal Medicine Work Phone: Comment on above: Please note revised GLUCOSE reference range uezzovdsy55/02/2018. [facility] [address] [place], [address] Potassium molar conc 4.5 mmol/L Normal 3.5-5.1 Comp rehensive Internal Medicine Work Phone: Comment on above: [facility] [address] [place], [address] Protein mass conc 7.3 g/dL Normal 6.4-8.2 Compreh ensive Internal Medicine Work Phone: Comment on above: [facility] [address] [place], [place], [address] Sodium molar conc 141 mmol/L Normal 136-145 Compreh ensive Internal Medicine Work Phone: Comment on above: [facility] [address] [place], [place], [phone] Triglyceride mass conc 81 mg/dL Normal [facility] Work Phone: Comment on above: The drugs N-Acetylcy steine and Metamizole may falselydepress this assay.Serum Triglycerides Reference Interval Normal <150 mg/dL Borderline high 150 - 199 mg/dL High 200 - 499 mg/dL Very High > or = 500 mg/dL [facility] [address] [place], [place], [phone] Urea nitrogen mass conc 18 mg/dL Normal 7-18 [facility] Work Phone: Comment on above: [facility] [address] [place], [place], [phone] Employee Profile 11 1 Normal 5-15 Comprehe nsive Internal Medicine Work Phone: Comment on above: [facility] [address] [place], [place], [address] Employee Profile 93 U/L Normal 45-117 Comprehe nsive Internal Medicine Work Phone: Comment on above: [facility] [address] [place], [place], [address] Employee Profile 2.5 mg/dL Normal 2.5-4.9 Comprehe nsive Internal Medicine Work Phone: Comment on above: [facility] [address] [place], [place], [address] Employee Profile 3.5 g/dL Normal 2.2-4.2 Comprehe nsive Internal Medicine Work Phone: Comment on above: [facility] [address] [place], [place], [address] Employee Profile 3.10 1 Normal Comprehe nsive Internal Medicine Work Phone: Comment on above: [facility] [address] [place], [place], [address] Employee Profile 3.7 mg/dL Normal 3.5-7.2 Comprehe nsive Internal Medicine Work Phone: Comment on above: The drugs N-Acetylcy steine and Metamizole may falselydepress this assay. [facility] [address] [place], [place], [address] Employee Profile 16.2 {RATIO} Normal 10-20 Compre hensive Internal Medicine Work Phone: Comment on above: [place] [address] [place], [place], [address] Employee Profile 89 mL/min Normal Comprehe nsive Internal Medicine Work Phone: Comment on above: GFR Calc [place] [address] [place], [place], [address] Employee Profile 16 mg/dL Normal 5-40 Comprehe nsive Internal Medicine Work Phone: Comment on above: [place] [address] [place], [place], [address] Employee Profile 187 U/L Normal 87-241 Comprehe nsive Internal Medicine Work Phone: Comment on above: [place] [address] [place], [place], [address] Employee Profile 7.3 g/dL Normal 6.4-8.2 Comprehe nsive Internal Medicine Work Phone: Comment on above: [place] [address] [place], [place], [phone] Nicotine Urine Drug ScreenOr dered By: Erp Project Manager on 11-17-2017 Nicotine Urine Drug Screen Negative Normal [facility] Work Phone: Comment on above: Cotinine is the firs t-stage metabolite of Nicotine. [place] [address] [place], [place], [address] Nicotine Urine Drug Screen Normal [facility] Work Phone: Comment on above: CONFIRMATORY TESTING FOR ALL POSITIVE URINE DRUG SCREENRESULTS WILL ONLY BE SENT OUT UPON PHYSICIAN ORDER.The results of Urine Drug Screen methods provide onlypreliminary analytical test results. A more specificalternate chemical method must be used in order to obtain aconfirmed analytical result. Gas chromatography/massspectrometery (GC/MS) is the preferred confirmatory method.Clinical consideration and professional judgement should beapplied to any drug of abuse test result, particularly whenpreliminary positive results are used. [facility] [address] [place], [place], [address] Urinalysis, EmployeeOrdered By: Erp Project Manager on 11-17-2017 Clarity Nom (U) Clear Normal Comprehen sive Internal Medicine Work Phone: Comment on above: [facility] [address] [place], [place], [address] Color Nom (U) Yellow Normal Comprehensi ve Internal Medicine Work Phone: Comment on above: [facility] [address] [place], [place], [address] Urinalysis, Employee Normal Normal Comp rehensive Internal Medicine Work Phone: Comment on above: [facility] [address] [place], [place], [address] Urinalysis, Employee 6.0 1 Normal 5.0 - 8.0 Comp rehensive Internal Medicine Work Phone: Comment on above: [facility] [address] [place], [place], [address] Urinalysis, Employee 1.015 1 Normal 1.002-1 .03 0 [facility] Work Phone: Comment on above: [facility] [address] [place], [place], [address] CBC WITH MANUAL DIFF ([id number]) Ordered By: Erp Project Manager on 11-18-2016 Basophils #/vol (Bld) 0.1 {x10E3/uL} Normal 0.0-0.2 [facility] Work Phone: Comment on above: PATIENT NOT FASTINGP ERFORMED BY: [facility] [address] [place] [id number] Basophils (Bld) [#/Vol] 0.1 10*3/uL Normal 0.0-0.2 [facility]; [facility] Work Phone: Comment on above: PATIENT NOT FASTINGP ERFORMED BY: [facility] Gbgclw[address]87 [address] [facility] [place] [id number] Basophils/100 WBC (Bld) 1 % Normal [facility] Work Phone: Comment on above: PATIENT NOT FASTINGP ERFORMED BY: [facility]Co[facility] Cross HospitalNlrelq6615 [address] [facility] [id number] Eosinophils #/vol (Bld) 0.6 {x10E3/uL} Abnormal 0.0-0.4 [facility] Work Phone: Comment on above: PATIENT NOT FASTINGP ERFORMED BY: [facility]CoHoly Cross HospitalDovako9747 [address] [facility] [id number] Eosinophils (Bld) [#/Vol] 0.6 10*3/uL Abnormal 0.0-0.4 [facility]; [facility] Work Phone: Comment on above: PATIENT NOT FASTINGP ERFORMED BY: CB [facility] Cbxhje0296 [address] [facility] [id number] Eosinophils/100 WBC (Bld) 10 % Normal [facility] Work Phone: Comment on above: PATIENT NOT FASTINGP ERFORMED BY: CB [facility] Uorzog[address]97 [address] [facility] [id number] Erythrocyte distribution width Ratio (RBC) 12.6 % Normal 12.3-15.4 [facility] Work Phone: Comment on above: PATIENT NOT FASTINGP ERFORMED BY: CB [facility] Vxgtwz5817 [address] [facility] [id number] Hematocrit Volume Fraction (Bld) 44.3 % Normal 37.5-51.0 [facility] Work Phone: Comment on above: PATIENT NOT FASTINGP ERFORMED BY: MERNA Francisco6370 [facility] [id number] Hemoglobin mass conc (Bld) 15.0 g/dL Normal 12.6-17.7 [facility] Work Phone: Comment on above: PATIENT NOT FASTINGP ERFORMED BY: MERNA Bruno Lmhfbe5790 [facility] [id number] Immature granulocytes #/vol (Bld) 0.0 {x10E3/uL} Normal 0.0-0.1 [facility] Work Phone: Comment on above: PATIENT NOT FASTINGP ERFORMED BY: MERNA Brunoandry GilesVjapxo8159 [facility] [id number] Immature granulocytes (Bld) [#/Vol] 0.0 10*3/uL Normal 0.0-0.1 [facility]; [facility] Work Phone: Comment on above: PATIENT NOT FASTINGP ERFORMED BY: MERNA Javon Gileslin6370 [facility] [id number] Immature granulocytes/100 WBC (Bld) 0 % Normal [facility] Work Phone: Comment on above: PATIENT NOT FASTINGP ERFORMED BY: MERNA Bruno Gvxnao6569 [facility] [id number] Lymphocytes #/vol (Bld) 1.7 {x10E3/uL} Normal 0.7-3.1 [facility] Work Phone: Comment on above: PATIENT NOT FASTINGP ERFORMED BY: MERNA Bruno Oqxyou8731 [facility] [id number] Lymphocytes (Bld) [#/Vol] 1.7 10*3/uL Normal 0.7-3.1 [facility]; [facility] Work Phone: Comment on above: PATIENT NOT FASTINGP ERFORMED BY: MERNA [facility] Kavrhf0306 [address] RoadDublin [place] [id number] Lymphocytes/100 WBC (Bld) 30 % Normal [facility] Work Phone: Comment on above: PATIENT NOT FASTINGP ERFORMED BY: CB [facility] Wadcja4971 [address] [place] [id number] MCH Entitic mass (RBC) 32.3 pg Normal 26.6-33.0 [facility] Work Phone: Comment on above: PATIENT NOT FASTINGP ERFORMED BY: [facility] Qotvtj5419 [address] RoadFormerly [facility]in [place] [id number] MCHC mass conc (RBC) 33.9 g/dL Normal 31.5-35.7 [facility] Internal Medicine Work Phone: Comment on above: PATIENT NOT FASTINGP ERFORMED BY: [facility] Ermwui1431 [address] [facility] [id number] MCV Entitic volume (RBC) 95 fL Normal 79-97 [facility] Work Phone: Comment on above: PATIENT NOT FASTINGP ERFORMED BY: [facility] Ebzukl3360 [address] RoadFormerly [facility]in [place] [id number] Monocytes #/vol (Bld) 0.5 {x10E3/uL} Normal 0.1-0.9 [facility] Work Phone: Comment on above: PATIENT NOT FASTINGP ERFORMED BY: [facility] Maloxe9425 [address]Formerly [facility]in [place] [id number] Monocytes (Bld) [#/Vol] 0.5 10*3/uL Normal 0.1-0.9 [facility]; [facility] Work Phone: Comment on above: PATIENT NOT FASTINGP ERFORMED BY: CB [facility] Yejjny3692 [address] [place] [id number] Monocytes/100 WBC (Bld) 8 % Normal [facility] Work Phone: Comment on above: PATIENT NOT FASTINGP ERFORMED BY: CB [facility] Pxpgxp3637 [address] RoadDublin [place] [id number] Neutrophils #/vol (Bld) 2.8 {x10E3/uL} Normal 1.4-7.0 [facility] Work Phone: Comment on above: PATIENT NOT FASTINGP ERFORMED BY: CB [facility] Itajic4154 [address] RoadDublin [place] [id number] Neutrophils (Bld) [#/Vol] 2.8 10*3/uL Normal 1.4-7.0 [facility]; [facility] Work Phone: Comment on above: PATIENT NOT FASTINGP ERFORMED BY: CB [facility] Cdenlh6238 [address] RoadDublin [place] [id number] Neutrophils/100 WBC (Bld) 51 % Normal [facility] Work Phone: Comment on above: PATIENT NOT FASTINGP ERFORMED BY: CB [facility] Uojthc9201 [address] RoadDublin [place] [id number] Platelets #/vol (Bld) 252 {x10E3/uL} Normal 150-379 [facility] Work Phone: Comment on above: PATIENT NOT FASTINGP ERFORMED BY: CB [facility] Wpmscz3603 [address] RoadDublin [place] [id number] Platelets (Bld) [#/Vol] 252 10*3/uL Normal 150-379 [facility]; [facility] Work Phone: Comment on above: PATIENT NOT FASTINGP ERFORMED BY: CB [facility] Jzwclg9231 [address] RoadDublin [place] [id number] RBC #/vol (Bld) 4.65 {x10E6/uL} Normal 4.14-5.80 Comp [facility] Internal [facility] Work Phone: Comment on above: PATIENT NOT FASTINGP ERFORMED BY: CB [facility] Ldbfyb3596 [address] RoadDublin [place] [id number] RBC (Bld) [#/Vol] 4.65 10*6/uL Normal 4.14-5.80 Compr ehensive Internal Medicine; [facility] Work Phone: Comment on above: PATIENT NOT FASTINGP ERFORMED BY: CB [facility] Igytut8958 [address] RoadDublin [place] [id number] WBC #/vol (Bld) 5.5 {x10E3/uL} Normal 3.4-10.8 Compr [facility] Internal Medicine Work Phone: Comment on above: PATIENT NOT FASTINGP ERFORMED BY: [facility]6370 [facility] [id number] WBC (Bld) [#/Vol] 5.5 10*3/uL Normal 3.4-10.8 Compre [facility] Internal Medicine; [facility] Work Phone: Comment on above: PATIENT NOT FASTINGP ERFORMED BY: [facility]6370 [facility] [id number] PSA (PROSTATE SPECIFIC ANTIG EN) ([id number])Ordered By: Erp Project Manager on 11-18-2016 Prostate specific Ag mass conc 1.5 ng/mL Normal 0.0-4.0 [facility] Work Phone: Comment on above: [employer] ECLIA methodol ogy. .According to the [place] [employer], Serum PSA shoulddecrease and remain at undetectable levels after radicalprostatectomy. The AUA defines biochemical recurrence as an initialPSA value 0.2 ng/mL or greater followed by a subsequent confirmatoryPSA value 0.2 ng/mL or greater.Values obtained with different assay methods or kits cannot be usedinterchangeably. Results cannot be interpreted as absolute evidenceof the presence or absence of malignant disease. PATIENT NOT FASTINGP ERFORMED BY: [facility]6370 [facility] [id number] CBC, EmployeeOrdered By: Sys tem Director Cardiac on 10-22-2016 Basophils/100 WBC (Bld) 1.0 % Normal 0-1 [facility] Work Phone: Comment on above: [facility] [address] [place], [address] Eosinophils/100 WBC (Bld) 16.8 % Abnormal 0-5 [facility] Work Phone: Comment on above: [facility] [address] [place], [place], [phone] Erythrocyte distribution width Ratio (RBC) 11.8 % Normal 11.6-14.6 [facility] Work Phone: Comment on above: [facility] [address] [place], [address] Hematocrit Volume Fraction (Bld) 44.3 % Normal 40-54 [facility] Work Phone: Comment on above: [facility] [address] [place], [address] Hemoglobin mass conc (Bld) 15.7 g/dL Normal 13.0-16.5 [facility] Work Phone: Comment on above: [facility] [address] [place], [address] Lymphocytes/100 WBC (Bld) 26.9 % Normal 19-41 [facility] Work Phone: Comment on above: [facility] [address] [place], [address] MCH Entitic mass (RBC) 33.5 pg Abnormal 27.0-32.0 [facility] Work Phone: Comment on above: [facility] [address] [place], [address] MCHC mass conc (RBC) 35.4 {g/gl} Normal 32-36 [facility] prehensive Internal Medicine Work Phone: Comment on above: [facility] [address] [place], [address] MCV Entitic volume (RBC) 94.5 fL Abnormal 80-94 [facility] Work Phone: Comment on above: [facility] [address] [place], [address] Monocytes/100 WBC (Bld) 9.6 % Normal 0-10 [facility] Work Phone: Comment on above: [facility] [address] [place], [place], [phone] Neutrophils/100 WBC (Bld) 45.5 % Abnormal 47-70 [facility] Work Phone: Comment on above: [facility] [address] [place], [place], [address] Platelet mean volume Entitic volume (Bld) 10.1 fL Normal 6.2-12.0 Comprehensi ve Internal Medicine Work Phone: Comment on above: [facility] [address] [place], [place], [address] Platelets #/vol (Bld) 217 10*3/uL Normal 150-450 Co mprehensive Internal Medicine Work Phone: Comment on above: [facility] [address] [place], [address] RBC #/vol (Bld) 4.69 {M/mm3} Normal 4.6-6.2 Compreh ensive Internal Medicine Work Phone: Comment on above: [facility] [address] [place], [address] WBC #/vol (Bld) 5.9 10*3/uL Normal 4.4-11.0 Comprehe nsive Internal Medicine Work Phone: Comment on above: [facility] [address] [place], [place], [address] CBC, Employee 1.59 {X10_3/ul} Normal 0.83-4.51 Compre hensive Internal Medicine Work Phone: Comment on above: [facility] [address] [place], [place], [address] CBC, Employee 39.8 fL Normal 35.1-43.9 Comprehensi ve Internal Medicine Work Phone: Comment on above: [facility] [address] [place], [place], [address] CBC, Employee 2.7 {X10_3/uL} Normal 2.0-7.7 Compreh ensive Internal Medicine Work Phone: Comment on above: [facility] [address] [place], [place], [address] Employee ProfileOrdered By: Erp Project Manager on 10-22-2016 Albumin mass conc 4.0 g/dL Normal 3.4-5.0 Compreh ensive Internal Medicine Work Phone: Comment on above: [facility] [address] [place], [place], [phone] Albumin/Globulin mass ratio 1.2 {RATIO} Normal 0.9-2.4 [facility] Work Phone: Comment on above: [facility] [address] [place], [address] ALT enzyme act/vol 47 U/L Normal 12-78 Compre [facility] Internal Medicine Work Phone: Comment on above: [facility] [address] [place], [address] AST enzyme act/vol 34 U/L Normal 15-37 Compre [facility] Internal Medicine Work Phone: Comment on above: [facility] [address] [place], [address] Bilirubin mass conc 1.00 mg/dL Normal 0.20-1.00 Compr [facility] Internal Medicine Work Phone: Comment on above: [facility] [address] [place], [place], [address] Bilirubin.direct mass conc 0.16 mg/dL Normal 0.00-0.30 [facility] Work Phone: Comment on above: [facility] [address] [place], [place], [phone] Calcium mass conc 8.9 mg/dL Normal 8.5-10.1 Compreh ensive Internal Medicine Work Phone: Comment on above: [facility] [address] [place], [address] Chloride molar conc 100 mmol/L Normal 98-107 Compr ensive Internal Medicine Work Phone: Comment on above: [facility] [address] [place], [address] Cholesterol in HDL mass conc 57 mg/dL Normal [facility] Work Phone: Comment on above: The drugs N-Acetylcy steine and Metamizole may falsely deressthis assay. Reference Range HDL <40 mg/dL Low HDL Cholesterol HDL >or= 60 mg/dL High HDL Cholesterol [facility] [address] [place], [place], [phone] Cholesterol in LDL mass conc 90 mg/dL Normal 0-130 [facility] Work Phone: Comment on above: [facility] [address] [place], [place], [phone] Cholesterol mass conc 163 mg/dL Normal [facility] Internal Medicine Work Phone: Comment on above: <200 mg/dL Desirable 200-240 mg/dL Borderline >240 mg/dL High Risk [facility] [address] [place], [address] CO2 molar conc 29.0 mmol/L Normal 21.0-32.0 Comprehen [facility] Internal Medicine Work Phone: Comment on above: [facility] [address] [place], [address] Creatinine mass conc 1.23 mg/dL Normal 0.70-1.30 [facility] Internal [facility] Work Phone: Comment on above: The validity of the calculated GFR AND GFRAA in patients over70 years has not been determined. Clinical correlation isessential. [facility] [address] [place], [address] GFR/1.73 sq M predicted among non-blacks MDRD vol rate/area (S/P/Bld) 66 mL/min/{1.73_m2} Normal Comprehe nsive Internal Medicine Work Phone: Comment on above: Non- GFR Calc [facility] [address] [place], [address] Globulin mass conc (S) 3.3 g/dL Normal 2.3-3.5 [facility] Work Phone: Comment on above: [facility] [address] [place], [place], [phone] Glucose mass conc 85 mg/dL Normal 70-110 Compreh ensive Internal Medicine Work Phone: Comment on above: [facility] [address] [place], [place], [address] Potassium molar conc 3.9 mmol/L Normal 3.5-5.1 Comp rehensive Internal Medicine Work Phone: Comment on above: [facility] [address] [place], [address] Protein mass conc 7.3 g/dL Normal 6.4-8.2 Compreh ensive Internal Medicine Work Phone: Comment on above: [facility] [address] [place], [address] Sodium molar conc 137 mmol/L Normal 136-145 Compreh ensive Internal Medicine Work Phone: Comment on above: [facility] [address] [place], [address] Triglyceride mass conc 79 mg/dL Normal [facility] Work Phone: Comment on above: The drugs N-Acetylcy steine and Metamizole may falsely deressthis assay.Serum Triglycerides Reference Interval Normal <150 mg/dL Borderline high 150 - 199 mg/dL High 200 - 499 mg/dL Very High > or = 500 mg/dL [facility] [address] [place], [address] Urea nitrogen mass conc 16 mg/dL Normal 7-18 [facility] Work Phone: Comment on above: [facility] [address] [place], [address] Employee Profile 4.8 mg/dL Normal 3.5-7.2 Comprehe nsive Internal Medicine Work Phone: Comment on above: The drugs N-Acetylcy steine and Metamizole may falsely deressthis assay. [facility] [address] [place], [place], [address] Employee Profile 216 U/L Normal 87-241 Comprehe nsive Internal Medicine Work Phone: Comment on above: [facility] [address] [place], [address] Employee Profile 16 mg/dL Normal 5-40 Comprehe nsive Internal Medicine Work Phone: Comment on above: [facility] [address] [place], [address] Employee Profile 2.90 1 Normal Comprehe nsive Internal Medicine Work Phone: Comment on above: [facility] [address] [place], [address] Employee Profile 8 1 Normal 5-15 Comprehe nsive Internal Medicine Work Phone: Comment on above: [facility] [address] [place], [place], [phone] Employee Profile 105 U/L Normal 45-117 Comprehe nsive Internal Medicine Work Phone: Comment on above: [facility] [address] [place], [address] Employee Profile 2.8 mg/dL Normal 2.5-4.9 Comprehe nsive Internal Medicine Work Phone: Comment on above: [facility] [address] [place], [place], [phone] Employee Profile 13.0 {RATIO} Normal 10-20 Compre hensive Internal Medicine Work Phone: Comment on above: [facility] [address] [place], [place], [id number] Employee Profile 80 mL/min Normal Comprehe nsive Internal Medicine Work Phone: Comment on above: GFR Calc [facility] [address] [place], [place], [address] Employee Profile 7.3 g/dL Normal 6.4-8.2 Comprehe nsive Internal Medicine Work Phone: Comment on above: [facility] [address] [place], [address] Employee Profile 3.3 g/dL Normal 2.3-3.5 Comprehe nsive Internal Medicine Work Phone: Comment on above: [facility] [address] [place], [address] Nicotine Urine Drug ScreenOr dered By: Erp Project Manager on 10-22-2016 Nicotine Urine Drug Screen Normal [facility] Work Phone: Comment on above: CONFIRMATORY TESTING FOR ALL POSITIVE URINE DRUG SCREENRESULTS WILL ONLY BE SENT OUT UPON PHYSICIAN ORDER.The results of Urine Drug Screen methods provide onlypreliminary analytical test results. A more specificalternate chemical method must be used in order to obtain aconfirmed analytical result. Gas chromatography/massspectrometery (GC/MS) is the preferred confirmatory method.Clinical consideration and professional judgement should beapplied to any drug of abuse test result, particularly whenpreliminary positive results are used. [facility] [address] [place], [place], [address] Urinalysis, EmployeeOrdered By: Erp Project Manager on 10-22-2016 Clarity Nom (U) Clear Normal Comprehen sive Internal Medicine Work Phone: Comment on above: [facility] [address] [place], [place], [phone] Color Nom (U) Yellow Normal Comprehensi ve Internal Medicine Work Phone: Comment on above: [facility] [address] [place], [place], [address] Urinalysis, Employee Normal Normal Comp rehensive Internal Medicine Work Phone: Comment on above: [facility] [address] [place], [place], [address] Urinalysis, Employee Negative Normal Comp rehensive Internal Medicine Work Phone: Comment on above: [facility] [address] [place], [place], [address] Cotinine is the firs t-stage metabolite of Nicotine. Urinalysis, Employee 7.0 1 Normal 5.0 - 8.0 Comp rehensive Internal Medicine Work Phone: Comment on above: [facility] [address] [place], [place], [address] Urinalysis, Employee 1.010 1 Normal 1.002-1 .03 0 [facility] Work Phone: Comment on above: [facility] [address] [place], [place], [address] Rapid Strep Test, Office ([phone])on 02-15-2016 S. pyogenes Ag EIA Ql (Throat) Negative Normal [facility]; [facility] Work Phone: Rapid Strep Test, Office [phone])Ordered By: Dustin Lama on 02-15-2016 S. pyogenes Ag IA Ql (Unsp spec) Negative Normal [facility] Work Phone: COLON BIOPSY (CHOOSE SITE)Or dered By: Erp Project Manager on 02-07-2016 COLON BIOPSY (CHOOSE SITE) See Note Normal [facility] Work Phone: Comment on above: Patient: ANDROSIK,JA MES : 1965 (50/M) Acct Num: [id number] Phys: Howard Steele Unit Num: [id number] Loc: EN Specimen: [id number] Received: 02/08/16917 Spec Type: COLON BX TISSUES TISSUES: GROSS DESCRIPTION Received is one container labeled with the patient's name and designated polyp,right colon. The specimen consists of one irregular fragment of light salmon softtissue that measures 0.8 x 0.2 x 0.2 cm. The specimen is totally submitted in one cassette. / AM: 02/08/16 TC:5 CPT: 69007 HEADER OPERATION: Colonoscopy with polypectomy PRE-OP DIAGNOSIS: Screening TISSUE SUBMITTED: Polyp right colon MICROSCOPIC DESCRIPTION Slides are reviewed. MICROSCOPIC DIAGNOSIS Right colon polyp, biopsy: Tubular adenoma. AM: 02/12/16 Signed [facility] 02/12/16 [facility] [address] [place], [address] CBC, EmployeeOrdered By: Abril tem Director Cardiac on 11-09-2015 Basophils/100 WBC (Bld) 0.8 % Normal 0-1 [facility] Work Phone: Comment on above: [facility] [address] [place], [address] Eosinophils/100 WBC (Bld) 8.7 % Abnormal 0-5 [facility] Work Phone: Comment on above: [facility] [address] [place], [address] Erythrocyte distribution width Ratio (RBC) 12.1 % Normal 11.6-14.6 [facility] Work Phone: Comment on above: [facility] [address] [place], [address] Hematocrit Volume Fraction (Bld) 45.1 % Normal 40-54 [facility] Work Phone: Comment on above: [facility] [address] [place], [address] Hemoglobin mass conc (Bld) 15.6 g/dL Normal 13.0-16.5 [facility] Work Phone: Comment on above: [facility] [address] [place], [address] Lymphocytes/100 WBC (Bld) 25.3 % Normal 19-41 [facility] Work Phone: Comment on above: [facility] [address] [place], [address] MCH Entitic mass (RBC) 32.7 pg Abnormal 27.0-32.0 [facility] Work Phone: Comment on above: [facility] [address] [place], [address] MCHC mass conc (RBC) 34.6 {g/gl} Normal 32-36 [facility] prehensive Internal Medicine Work Phone: Comment on above: [facility] [address] [place], [address] MCV Entitic volume (RBC) 94.5 fL Abnormal 80-94 [facility] Work Phone: Comment on above: [facility] [address] [place], [address] Monocytes/100 WBC (Bld) 10.7 % Abnormal 0-10 [facility] Work Phone: Comment on above: [facility] [address] [place], [address] Neutrophils/100 WBC (Bld) 54.3 % Normal 47-70 [facility] Work Phone: Comment on above: [facility] [address] [place], [address] Platelet mean volume Entitic volume (Bld) 9.9 fL Normal 6.2-12.0 Comprehensi ve Internal Medicine Work Phone: Comment on above: [facility] [address] [place], [place], [address] Platelets #/vol (Bld) 213 10*3/uL Normal 150-450 Co mprehensive Internal Medicine Work Phone: Comment on above: [facility] [address] [place], [place], [address] RBC #/vol (Bld) 4.77 {M/mm3} Normal 4.6-6.2 Compreh ensive Internal Medicine Work Phone: Comment on above: [facility] [address] [place], [address] WBC #/vol (Bld) 5.0 10*3/uL Normal 4.4-11.0 Comprehe nsive Internal Medicine Work Phone: Comment on above: [facility] [address] [place], [place], [address] CBC, Employee 1.25 {X10_3/ul} Normal 0.83-4.51 Compre hensive Internal Medicine Work Phone: Comment on above: [facility] [address] [place], [place], [address] CBC, Employee 41.6 fL Normal 35.1-43.9 Comprehensi ve Internal Medicine Work Phone: Comment on above: [facility] [address] [place], [address] CBC, Employee 2.7 {X10_3/uL} Normal 2.0-7.7 Compreh ensive Internal Medicine Work Phone: Comment on above: [facility] [address] [place], [address] Employee ProfileOrdered By: Erp Project Manager on 11-09-2015 Albumin mass conc 4.0 g/dL Normal 3.4-5.0 Compreh ensive Internal Medicine Work Phone: Comment on above: [facility] [address] [place], [place], [address] Albumin/Globulin mass ratio 1.3 {RATIO} Normal 0.9-2.4 [facility] Work Phone: Comment on above: [facility] [address] [place], [place], [phone] ALT enzyme act/vol 32 U/L Normal 12-78 Compre [facility] Internal Medicine Work Phone: Comment on above: [facility] [address] [place], [place], [phone] AST enzyme act/vol 21 U/L Normal 15-37 Compre [facility] Internal Medicine Work Phone: Comment on above: [facility] [address] [place], [place], [address] Bilirubin mass conc 1.10 mg/dL Abnormal 0.20-1.00 Compr ensive Internal Medicine Work Phone: Comment on above: [facility] [address] [place], [place], [phone] Bilirubin.direct mass conc 0.27 mg/dL Normal 0.00-0.30 [facility] Work Phone: Comment on above: [facility] [address] [place], [place], [address] Calcium mass conc 8.3 mg/dL Abnormal 8.5-10.1 Compreh ensive Internal Medicine Work Phone: Comment on above: [facility] [address] [place], [place], [phone] Chloride molar conc 104 mmol/L Normal 98-107 Compr ensive Internal Medicine Work Phone: Comment on above: [facility] [address] [place], [address] Cholesterol in HDL mass conc 59 mg/dL Normal [facility] Work Phone: Comment on above: The drugs N-Acetylcy steine and Metamizole may falsely deressthis assay. Reference Range HDL <40 mg/dL Low HDL Cholesterol HDL >or= 60 mg/dL High HDL Cholesterol [facility] [address] [place], [place], [phone] Cholesterol in LDL mass conc 76 mg/dL Normal 0-130 [facility] Work Phone: Comment on above: [facility] [address] [place], [place], [address] Cholesterol mass conc 147 mg/dL Normal Com prehensive Internal Medicine Work Phone: Comment on above: <200 mg/dL Desirable 200-240 mg/dL Borderline >240 mg/dL High Risk [facility] [address] [place], [place], [address] CO2 molar conc 29.0 mmol/L Normal 21.0-32.0 Comprehen [facility] Internal Medicine Work Phone: Comment on above: [place] [address] [place], [place], [address] Creatinine mass conc 1.04 mg/dL Normal 0.70-1.30 Comp rehensive Internal Medicine Work Phone: Comment on above: The validity of the calculated GFR AND GFRAA in patients over70 years has not been determined. Clinical correlation isessential. [facility] [address] [place], [place], [address] GFR/1.73 sq M predicted among non-blacks MDRD vol rate/area (S/P/Bld) 80 mL/min/{1.73_m2} Normal Comprehe [facility] Internal Medicine Work Phone: Comment on above: Non- GFR Calc [facility] [address] [place], [address] Globulin mass conc (S) 3.0 g/dL Normal 2.3-3.5 [facility] Work Phone: Comment on above: [facility] [address] [place], [address] Glucose mass conc 91 mg/dL Normal 70-110 Compreh ensive Internal Medicine Work Phone: Comment on above: [facility] [address] [place], [address] Potassium molar conc 3.7 mmol/L Normal 3.5-5.1 Comp rehensive Internal Medicine Work Phone: Comment on above: [place] [address] [place], [place], [phone] Protein mass conc 7.0 g/dL Normal 6.4-8.2 Compreh ensive Internal Medicine Work Phone: Comment on above: [place] [address] [place], [address] Sodium molar conc 137 mmol/L Normal 136-145 Compreh ensive Internal Medicine Work Phone: Comment on above: [place] [address] [place], [place], [phone] Triglyceride mass conc 62 mg/dL Normal [facility] Work Phone: Comment on above: The drugs N-Acetylcy steine and Metamizole may falsely deressthis assay.Serum Triglycerides Reference Interval Normal <150 mg/dL Borderline high 150 - 199 mg/dL High 200 - 499 mg/dL Very High > or = 500 mg/dL [facility] [address] [place], [address] Urea nitrogen mass conc 18 mg/dL Normal 7-18 [facility] Work Phone: Comment on above: [place] [address] [place], [place], [address] Employee Profile 2.1 mg/dL Abnormal 2.5-4.9 Comprehe nsive Internal Medicine Work Phone: Comment on above: [facility] [place], [place], [address] Employee Profile 83 U/L Normal 50-136 Comprehe nsive Internal Medicine Work Phone: Comment on above: [facility] [address] [place], [place], [address] Employee Profile 4 1 Abnormal 5-15 Comprehe nsive Internal Medicine Work Phone: Comment on above: [place] [address] [place], [place], [address] Employee Profile 2.50 1 Normal Comprehe nsive Internal Medicine Work Phone: Comment on above: [place] [address] [place], [place], [address] Employee Profile 164 U/L Normal 87-241 Comprehe nsive Internal Medicine Work Phone: Comment on above: [place] [address] [place], [place], [address] Employee Profile 97 mL/min Normal Comprehe nsive Internal Medicine Work Phone: Comment on above: GFR Calc [place] [address] [place], [place], [address] Employee Profile 17.3 {RATIO} Normal 10-20 Compre hensive Internal Medicine Work Phone: Comment on above: [place] [address] [place], [place], [address] Employee Profile 4.4 mg/dL Normal 3.5-7.2 Comprehe nsive Internal Medicine Work Phone: Comment on above: The drugs N-Acetylcy steine and Metamizole may falsely deressthis assay. [facility] [address] [place], [place], [address] Employee Profile 12 mg/dL Normal 5-40 Comprehe nsive Internal Medicine Work Phone: Comment on above: [facility] [address] [place], [place], [address] Employee Profile 3.0 g/dL Normal 2.3-3.5 Comprehe nsive Internal Medicine Work Phone: Comment on above: [facility] [address] [place], [place], [address] Employee Profile 7.0 g/dL Normal 6.4-8.2 Comprehe nsive Internal Medicine Work Phone: Comment on above: [facility] [address] [place], [place], [address] Nicotine Urine Drug ScreenOr dered By: Erp Project Manager on 11-09-2015 Nicotine Urine Drug Screen Normal [facility] Work Phone: Comment on above: CONFIRMATORY TESTING FOR ALL POSITIVE URINE DRUG SCREENRESULTS WILL ONLY BE SENT OUT UPON PHYSICIAN ORDER.The results of Urine Drug Screen methods provide onlypreliminary analytical test results. A more specificalternate chemical method must be used in order to obtain aconfirmed analytical result. Gas chromatography/massspectrometery (GC/MS) is the preferred confirmatory method.Clinical consideration and professional judgement should beapplied to any drug of abuse test result, particularly whenpreliminary positive results are used. [facility] [address] [place], [place], [address] Urinalysis, EmployeeOrdered By: Erp Project Manager on 11-09-2015 Clarity Nom (U) Clear Normal Comprehen sive Internal Medicine Work Phone: Comment on above: How was Urine Obtain ed? [facility]AN [facility] [address] [place], [place], [phone] Color Nom (U) Yellow Normal Comprehensi ve Internal Medicine Work Phone: Comment on above: How was Urine Obtain ed? CLEAN [facility] [address] [place], [place], [address] Urinalysis, Employee Normal Normal Comp rehensive Internal Medicine Work Phone: Comment on above: How was Urine Obtain ed? [facility] [address] [place], [place], [address] Urinalysis, Employee 7.0 1 Normal 5.0 - 8.0 Comp rehensive Internal Medicine Work Phone: Comment on above: How was Urine Obtain ed? [facility] [address] [place], [place], [address] Urinalysis, Employee Negative Normal Comp rehensive Internal Medicine Work Phone: Comment on above: How was Urine Obtain ed? [facility] [address] [place], [place], [address] Cotinine is the firs t-stage metabolite of Nicotine. [facility] [address] [place], [place], [address] Urinalysis, Employee 1.010 1 Normal 1.002-1 .03 0 [facility] Work Phone: Comment on above: How was Urine Obtain ed? [facility] [address] [place], [place], [address] HgA1C , Office ([phone])Ordere d By: Belgica Butler on 12-01-2014 Hemoglobin A1c/Hemoglobin.total mass fraction (Bld) 5.3 % Normal 4.6 - 7.1 Comprehensiv e Internal Medicine Work Phone: CBC, EmployeeOrdered By: Abril reyes Director Cardiac on 11-25-2014 Basophils/100 WBC (Bld) 1.5 % Abnormal 0-1 [facility] Work Phone: Comment on above: Test performed at:[facility] [address] [place], [place] [address] ; [address] Eosinophils/100 WBC (Bld) 12.2 % Abnormal 0-5 [facility] Work Phone: Comment on above: Test performed at:[facility] [address] [place] [phone] ; [address] Erythrocyte distribution width Ratio (RBC) 11.9 % Normal 11.6-14.6 [facility] Work Phone: Comment on above: Test performed at:[facility] [address] [place], [place] [address] ; [address] Hematocrit Volume Fraction (Bld) 44.3 % Normal 40-54 [facility] Work Phone: Comment on above: Test performed at:[facility] [address] [place], [place] [address] ; [address]15 Hemoglobin mass conc (Bld) 15.3 g/dL Normal 13.0-16.5 [facility] Work Phone: Comment on above: Test performed at:[facility] [address] [place], [place] [address] ; [address]15 Lymphocytes/100 WBC (Bld) 30.6 % Normal 19-41 [facility] Work Phone: Comment on above: Test performed at:[facility] [address] [place] [address] ; [address]15 MCH Entitic mass (RBC) 32.3 pg Abnormal 27.0-32.0 [facility] Work Phone: Comment on above: Test performed at:[facility] [address] [place], [place] [address] ; [address]-15 MCHC mass conc (RBC) 34.5 {g/gl} Normal 32-36 [facility] prehensive Internal Medicine Work Phone: Comment on above: Test performed at:[facility] [address] [place] [address] ; [address]15 MCV Entitic volume (RBC) 93.7 fL Normal 80-94 [facility] Work Phone: Comment on above: Test performed at:[facility] [address] [place] [address] ; [address]-15 Monocytes/100 WBC (Bld) 12.2 % Abnormal 0-10 [facility] Work Phone: Comment on above: Test performed at:[facility] [address] [place] [address] ; [address]15 Neutrophils/100 WBC (Bld) 43.2 % Abnormal 47-70 [facility] Work Phone: Comment on above: Test performed at:[facility] [address] [place] [address] ; [address]-15 Platelet mean volume Entitic volume (Bld) 9.6 fL Normal 6.2-12.0 Comprehensi ve Internal Medicine Work Phone: Comment on above: Test performed at:[facility] [address] [place] [address] ; [address] Platelets #/vol (Bld) 225 10*3/uL Normal 150-450 Co mprehensive Internal Medicine Work Phone: Comment on above: Test performed at:[facility] [address] [place] [address] ; [address] RBC #/vol (Bld) 4.73 {M/mm3} Normal 4.6-6.2 Compreh ensive Internal Medicine Work Phone: Comment on above: Test performed at:[facility] [address] [place] [address] ; [address] WBC #/vol (Bld) 4.0 10*3/uL Abnormal 4.4-11.0 Comprehe nsive Internal Medicine Work Phone: Comment on above: Test performed at:[facility] [address] [place] [address] ; [address] CBC, Employee 1.7 {X10_3/uL} Abnormal 2.0-7.7 Compreh ensive Internal Medicine Work Phone: Comment on above: Test performed at:[facility] [address] [place] [address] ; [address] CBC, Employee 1.21 {X10_3/ul} Normal 0.83-4.51 Compre hensive Internal Medicine Work Phone: Comment on above: Test performed at:[facility] [address] [place] [address] ; [address] 12-01-14 CBC, Employee 39.9 fL Normal 35.1-43.9 Comprehensi ve Internal Medicine Work Phone: Comment on above: Test performed at:[facility] [address] [place] [address] ; [address] Employee ProfileOrdered By: Erp Project Manager on 11-25-2014 Albumin mass conc 4.1 g/dL Normal 3.4-5.0 Compreh ensive Internal Medicine Work Phone: Comment on above: Test performed at:[facility] [address] [place] [address] Albumin/Globulin mass ratio 1.5 {RATIO} Normal 0.9-2.4 [facility] Work Phone: Comment on above: Test performed at:[facility] [address] [place] [address] ALT enzyme act/vol 35 U/L Normal 12-78 Compre hensive Internal Medicine Work Phone: Comment on above: Test performed at:[facility] [address] [place] [address] AST enzyme act/vol 18 U/L Normal 15-37 Comprssm [facility] Internal Medicine Work Phone: Comment on above: Test performed at:[facility] [address] [place] [address] Bilirubin mass conc 0.80 mg/dL Normal 0.20-1.00 Compr [facility] Internal Medicine Work Phone: Comment on above: Test performed at:[facility] [address] [place] [address] Bilirubin.direct mass conc 0.18 mg/dL Normal 0.00-0.30 [facility] Internal Medicine Work Phone: Comment on above: Test performed at:[facility] [address] [place] [address] Calcium mass conc 8.9 mg/dL Normal 8.5-10.1 Compre[facility] Internal Medicine Work Phone: Comment on above: Test performed at:[facility] [address] [place] [address] Chloride molar conc 104 mmol/L Normal 98-107 Compr [facility] Internal Medicine Work Phone: Comment on above: Test performed at:[facility] [address] [place] [address] Cholesterol in HDL mass conc 51 mg/dL Normal [facility] Work Phone: Comment on above: Reference Range HDL <40 mg/dL Low HDL Cholesterol HDL >or= 60 mg/dL High HDL Cholesterol Test performed at:[facility] [address] [place] [address] Cholesterol in LDL mass conc 90 mg/dL Normal 0-130 [facility] Work Phone: Comment on above: Test performed at:[facility] [address] [place] [address] Cholesterol mass conc 155 mg/dL Normal Com prehensive Internal Medicine Work Phone: Comment on above: <200 mg/dL Desirable 200-240 mg/dL Borderline >240 mg/dL High Risk Test performed at:[facility] [address] [place] [address] CO2 molar conc 28.0 mmol/L Normal 21.0-32.0 Comprehen sive Internal Medicine Work Phone: Comment on above: Test performed at:[facility] [address] [place] [address] Creatinine mass conc 1.11 mg/dL Normal 0.70-1.30 Comp rehensive Internal Medicine Work Phone: Comment on above: The validity of the calculated GFR AND GFRAA in patients over70 years has not been determined. Clinical correlation isessential. Test performed at:[facility] [address] [place] [address] GFR/1.73 sq M predicted among non-blacks MDRD vol rate/area (S/P/Bld) 75 mL/min/{1.73_m2} Normal Comprehe nsive Internal Medicine Work Phone: Comment on above: Test performed at:[facility] [address] [place] [address] Globulin mass conc (S) 2.8 g/dL Normal 2.3-3.5 [facility] Work Phone: Comment on above: Test performed at:[facility] [address] [place] [address] Glucose mass conc 100 mg/dL Normal 70-110 Compreh ensive Internal Medicine Work Phone: Comment on above: Test performed at:[facility] [address] [place] [address] Potassium molar conc 4.2 mmol/L Normal 3.5-5.1 Comp rehensive Internal Medicine Work Phone: Comment on above: Test performed at:[facility] [address] [place], [place] [id number] Protein mass conc 6.9 g/dL Normal 6.4-8.2 Compreh ensive Internal Medicine Work Phone: Comment on above: Test performed at:[facility] [address] [place] [address] Sodium molar conc 137 mmol/L Normal 136-145 Compreh ensive Internal Medicine Work Phone: Comment on above: Test performed at:[facility] [address] [place] [address] Triglyceride mass conc 69 mg/dL Normal [facility] Work Phone: Comment on above: Serum Triglycerides Reference Interval Normal <150 mg/dL Borderline high 150 - 199 mg/dL High 200 - 499 mg/dL Very High > or = 500 mg/dL Test performed at:[facility] [address] [place] [address] Urea nitrogen mass conc 17 mg/dL Normal 7-18 [facility] Work Phone: Comment on above: Test performed at:[facility] [address] [place] [address] Employee Profile 2.0 mg/dL Abnormal 2.5-4.9 Comprehe nsive Internal Medicine Work Phone: Comment on above: Test performed at:[facility] [address] [place] [address] Employee Profile 4.5 mg/dL Normal 3.5-7.2 Comprehe nsive Internal Medicine Work Phone: Comment on above: Test performed at:[facility] [address] [place] [address] Employee Profile 15.3 {RATIO} Normal 10-20 Compre hensive Internal Medicine Work Phone: Comment on above: Test performed at:[facility] [address] [place], [place] [id number] Employee Profile 91 mL/min Normal Comprehe nsive Internal Medicine Work Phone: Comment on above: Test performed at:[facility] [address] [place] [address] Employee Profile 179 U/L Normal 87-241 Comprehe nsive Internal Medicine Work Phone: Comment on above: Test performed at:[facility] [address] [place] [address] Employee Profile 14 mg/dL Normal 5-40 Comprehe nsive Internal Medicine Work Phone: Comment on above: Test performed at:[facility] [address] [place], [place] [id number] Employee Profile 51 mg/dL Normal Comprehe nsive Internal Medicine Work Phone: Comment on above: Reference Range HDL <40 mg/dL Low HDL Cholesterol HDL >or= 60 mg/dL High HDL Cholesterol Test performed at:[facility] [address] [place], [place] [id number] Employee Profile 5 1 Normal 5-15 Comprehe nsive Internal Medicine Work Phone: Comment on above: Test performed at:[facility] [address] [place] [address] Employee Profile 72 U/L Normal 50-136 Comprehe nsive Internal Medicine Work Phone: Comment on above: Test performed at:[facility] [address] [place] [address] Employee Profile 2.8 g/dL Normal 2.3-3.5 Comprehe nsive Internal Medicine Work Phone: Comment on above: Test performed at:[facility] [address] [place] [address] Employee Profile 6.9 g/dL Normal 6.4-8.2 Comprehe nsive Internal Medicine Work Phone: Comment on above: Test performed at:[facility] [address] [place], [place] [id number] Urinalysis, EmployeeOrdered By: Erp Project Manager on 11-25-2014 Clarity Nom (U) Clear Normal Comprehen sive Internal Medicine Work Phone: Comment on above: Test performed at:[facility] [address] [place] [address] Color Nom (U) Yellow Normal Comprehensi ve Internal Medicine Work Phone: Comment on above: Test performed at:[facility] [address] [place] [address] Urinalysis, Employee Normal Normal Comp rehensive Internal Medicine Work Phone: Comment on above: Test performed at:[facility] [address] [place] [address] Urinalysis, Employee Negative Normal Comp rehensive Internal Medicine Work Phone: Comment on above: Test performed at:[facility] [address] [place] [address] Urinalysis, Employee 7.0 1 Normal 5.0 - 8.0 Comp rehensive Internal Medicine Work Phone: Comment on above: Test performed at:[facility] [address] [place] [address] Urinalysis, Employee 1.005 1 Normal 1.002-1 .03 0 [facility] Work Phone: Comment on above: Test performed at:[facility] [address] [place] [address] CBCEMOrdered By: John flores on 11-01-2013 Erythrocyte distribution width Ratio (RBC) 11.6 % Normal 11.6-14.6 [facility] Work Phone: Hematocrit Volume Fraction (Bld) 44.3 % Normal 40-54 [facility] Work Phone: Hemoglobin mass conc (Bld) 15.6 g/dL Normal 13.0-16.5 [facility] Work Phone: MCH Entitic mass (RBC) 33.1 pg Abnormal 27.0-32.0 [facility] Work Phone: MCHC mass conc (RBC) 35.2 {g/gl} Normal 32-36 Com prehensive Internal Medicine Work Phone: MCV Entitic volume (RBC) 94.1 fL Abnormal 80-94 [facility] Work Phone: Platelet mean volume Entitic volume (Bld) 9.8 fL Normal 6.2-12.0 Comprehensi ve Internal Medicine Work Phone: Platelets #/vol (Bld) 212 10*3/uL Normal 150-450 Co mprehensive Internal Medicine Work Phone: RBC #/vol (Bld) 4.71 {M/mm3} Normal 4.6-6.2 Compreh ensive Internal Medicine Work Phone: WBC #/vol (Bld) 5.5 10*3/uL Normal 4.4-11.0 Comprehe nsive Internal Medicine Work Phone: CBCEM 10.5 % Abnormal 0-10 [facility] Work Phone: CBCEM 39.4 fL Normal 35.1-43.9 [facility] Work Phone: CBCEM 61.5 % Normal 47-70 [facility] Work Phone: CBCEM 22.2 % Normal 19-41 [facility] Work Phone: CBCEM 5.1 % Abnormal 0-5 [facility] Work Phone: CBCEM 1.22 {X10_3/ul} Normal 0.83-4.51 Comprehen sive Internal Medicine Work Phone: CBCEM 3.4 {X10_3/uL} Normal 2.0-7.7 Comprehens estevan Internal Medicine Work Phone: CBCEM 0.5 % Normal 0-1 [facility] Work Phone: EMPOrdered By: System Manage r on 11-01-2013 Albumin mass conc 3.9 g/dL Normal 3.4-5.0 Compreh ensive Internal Medicine Work Phone: Albumin/Globulin mass ratio 1.2 {RATIO} Normal 0.9-2.4 [facility] Work Phone: ALT enzyme act/vol 34 U/L Normal 12-78 Compre hensive Internal Medicine Work Phone: AST enzyme act/vol 25 U/L Normal 15-37 Compre hensive Internal Medicine Work Phone: Calcium mass conc 8.8 mg/dL Normal 8.5-10.1 Compreh ensive Internal Medicine Work Phone: Chloride molar conc 103 mmol/L Normal 98-107 Compr ehensive Internal Medicine Work Phone: Cholesterol in HDL mass conc 67 mg/dL Normal [facility] Work Phone: Comment on above: Reference RangeHDL < 40 mg/dL Low HDL CholesterolHDL >or= 60 mg/dL High HDL Cholesterol Cholesterol in LDL mass conc 86 mg/dL Normal 0-130 [facility] Work Phone: Cholesterol mass conc 165 mg/dL Normal Com prehensive Internal Medicine Work Phone: Comment on above: <200 mg/dL Desirable 200-240 mg/dL Borderline>240 mg/dL High Risk CO2 molar conc 27.0 mmol/L Normal 21.0-32.0 Comprehen sive Internal Medicine Work Phone: Creatinine mass conc 1.0 mg/dL Normal 0.8-1.3 Comp rehensive Internal Medicine Work Phone: GFR/1.73 sq M predicted among non-blacks MDRD vol rate/area (S/P/Bld) 85 mL/min/{1.73_m2} Normal Comprehe nsive Internal Medicine Work Phone: Globulin mass conc (S) 3.2 g/dL Normal 2.7-4.2 [facility] Work Phone: Glucose mass conc 94 mg/dL Normal 70-110 Compreh ensive Internal Medicine Work Phone: Potassium molar conc 4.1 mmol/L Normal 3.5-5.1 Comp rehensive Internal Medicine Work Phone: Protein mass conc 7.1 g/dL Normal 6.4-8.2 Compreh ensive Internal Medicine Work Phone: Sodium molar conc 135 mmol/L Abnormal 136-145 Compreh ensive Internal Medicine Work Phone: Triglyceride mass conc 61 mg/dL Normal 0-199 [facility] Work Phone: Comment on above: Serum Triglycerides Reference IntervalNormal <150 mg/dLBorderline high 150 - 199 mg/dLHigh 200 - 499 mg/dLVery High > or = 500 mg/dL Urea nitrogen mass conc 20 mg/dL Abnormal 7-18 [facility] Work Phone: EMP 0.17 mg/dL Normal 0.00-0.30 [facility] Work Phone: EMP 5 1 Normal 5-15 [facility] Work Phone: EMP 92 U/L Normal 45-117 [facility] Work Phone: EMP 12 mg/dL Normal 5-40 [facility] Work Phone: EMP 2.2 mg/dL Abnormal 2.5-4.9 [facility] Work Phone: EMP 215 U/L Normal 84-246 [facility] Work Phone: EMP 3.1 mg/dL Abnormal 3.5-7.2 [facility] Work Phone: EMP 20.0 {RATIO} Normal 10-20 Comprehensiv e Internal Medicine Work Phone: EMP 103 mL/min Normal [facility] Work Phone: EMP 0.70 mg/dL Normal 0.00-1.00 [facility] Work Phone: EMP 3.2 g/dL Normal 2.7-4.2 [facility] Work Phone: EMP 7.1 g/dL Normal 6.4-8.2 [facility] Work Phone: UAEMOrdered By: System Manag er on 11-01-2013 UAEM Negative Normal [facility] Work Phone: UAEM Normal Normal [facility] Work Phone: UAEM 7.0 1 Normal 5.0 - 8.0 [facility] Work Phone: UAEM 1.005 1 Normal 1.002-1.03 0 [facility] Work Phone: UAEM Clear Normal [facility] Work Phone: UAEM Yellow Normal [facility] Work Phone: CALCIFIDIOL (20645) VIT D 25 Ordered By: Erp Project Manager on 12-02-2011 25-Hydroxyvitamin D2+25-Hydroxyvitamin D3 mass conc 43.6 ng/mL Normal 30.0-100.0 [facility] Work Phone: Comment on above: Vitamin D deficiency has been defined by the [place] of[employer]icine and an Endocrine Society practice guideline as alevel of serum 25-OH vitamin D less than 20 ng/mL (1,2).The Endocrine Society went on to further define vitamin Dinsufficiency as a level between 21 and 29 ng/mL (2).1. IOM ([place] of Medicine). 2010. Dietary reference intakes for calcium and D. [place]: The National Academies Press.2. Tammy MF, Xander NC, Demetrius BERGMAN, et al. Evaluation, treatment, and prevention of vitamin D deficiency: an Endocrine Society clinical practice guideline. JCEM. 2010; 96(7):1911-30. PATIENT NOT FASTINGP ERFORMED BY: [facility] Epalup[address] RoadDublin [place] [id number] Magnesium (63343)Ordered By: Erp Project Manager on 12-02-2011 Magnesium mass conc 2.1 mg/dL Normal 1.6-2.6 Compr [facility] Internal Medicine Work Phone: Comment on above: PATIENT NOT FASTINGP ERFORMED BY: [employer] [address] RoadDublin [place] [id number] PARATHORMONE ([id number])Ordered By: Erp Project Manager on 12-02-2011 Parathyrin.intact mass conc 31 pg/mL Normal 15-65 [facility] Work Phone: Comment on above: PATIENT NOT FASTINGP ERFORMED BY: MERNA [employer] Bntbeb[address] [facility] [place] [id number] PHOSPHATE URINE ([id number])Order ed By: Erp Project Manager on 12-02-2011 PHOSPHATE URINE (05113) NTV Normal 400.0-1300 .0 [facility] Work Phone: Comment on above: No total volume subm itted. Unable to calculate 24 hour result. 24 hour; A duplicate report has been generated due to demographic updates.PATIENT NOT FASTINGPERFORMED BY: MERNA [facility] Ifuget2422 [facility] [id number] Information: SRC:UR Q36495 TV=RANDOM PHOSPHATE URINE (80834) 81.3 mg/dL Normal [facility] Work Phone: Comment on above: 24 hour; A duplicate report has been generated due to demographic updates.PATIENT NOT FASTINGPERFORMED BY: MERNA [employer] Ipxijn1933 [facility] [id number] Information: SRC:UR V77470 TV=RANDOM PHOSPHORUS (32790)Ordered By : Erp Project Manager on 12-02-2011 Phosphate mass conc 3.2 mg/dL Normal 2.5-4.5 Compr [facility] Internal Medicine Work Phone: Comment on above: PATIENT NOT FASTINGP ERFORMED BY: MERNA [employer] Xixofd9850 [facility] [id number] T4, FREE (THYROXINE) (71467) Ordered By: Erp Project Manager on 12-02-2011 T4 free mass conc 0.99 ng/dL Normal 0.82-1.77 [facility] Internal Medicine Work Phone: Comment on above: PATIENT NOT FASTINGP ERFORMED BY: [employer] Cbcqvh2847 [facility] [id number] Information: [id number], [id number] TSH (21566)Ordered By: Horace m Director Cardiac on 12-02-2011 Thyrotropin Qn 2.620 {uIU/mL} Normal 0.450-4.50 0 [facility] Work Phone: Comment on above: PATIENT NOT FASTINGP ERFORMED BY: [employer] HOLDINGSCo Nquuaw4331 [facility] [id number] URIC ACID OTHER SOURCE (8456 0)Ordered By: Erp Project Manager on 12-02-2011 Urate mass conc (U) 64.1 mg/dL Normal Compr ehensive Internal Medicine Work Phone: Comment on above: urine; A duplicate r eport has been generated due to demographic updates.PATIENT NOT FASTINGPERFORMED BY: [facility] Otvuua3908 [facility] [id number] Urate mass/time (24H U) NTV Normal 250.0-750. 0 [facility] Work Phone: Comment on above: No total volume subm itted. Unable to calculate 24 hour result. urine; A duplicate r eport has been generated due to demographic updates.PATIENT NOT FASTINGPERFORMED BY: [facility] Ixzpmf8715 [facility] [id number] Uric Acid Blood (98406)Order ed By: Erp Project Manager on 12-02-2011 Urate mass conc 3.9 mg/dL Normal 3.7-8.6 Comprehen sive Internal Medicine Work Phone: Comment on above: Therapeutic target f or gout patients: <6.0 PATIENT NOT FASTINGP ERFORMED BY: [facility] Tluakl0169 [facility] [id number] DESMOND (ANTINUCLEAR ANTIBODY) ( 21275)Ordered By: Erp Project Manager on 11-20-2009 Nuclear Ab Ql (S) Negative Normal Compreh ensive Internal Medicine Work Phone: Comment on above: PATIENT NOT FASTINGP ERFORMED BY: [facility] Mpcnyn4502 [facility] [id number] BY: [address] [id number] Nuclear Ab Ql (S) Negative Normal Compreh ensive Internal Medicine; [facility] Work Phone: Comment on above: PATIENT NOT FASTINGP ERFORMED BY: [facility] Fvevzv[address]88 [address] [facility] [id number] BY: [employer] [id number] Anti-TPO Antibody (11322)Ord ered By: Erp Project Manager on 11-20-2009 Thyroperoxidase Ab Qn 10 {IU/mL} Normal 0-34 [facility] prehensive Internal Medicine Work Phone: Comment on above: PATIENT NOT FASTINGP ERFORMED BY: [facility] Bdhjyq6044 [place] [facility] [id number] BY: streamOnce[address] [id number] TPO Ab Qn 10 [IU]/mL Normal 0-34 [facility]; [facility] Work Phone: Comment on above: PATIENT NOT FASTINGP ERFORMED BY: [employer] Raqgqy6780 [facility] [id number] BY: streamOnce[address] [id number] Methylmalonic acid, serum 83 921Ordered By: Erp Project Manager on 11-20-2009 Methylmalonate Ql (U) 109 nmol/L Normal 73-376 [facility] prehensive Internal Medicine Work Phone: Comment on above: The reference range for methylmalonic acid has been set at +3sd abovethe mean for healthy blood bank donors. In the clinical assessment ofpatients with megaloblastic anemias a cutoff of +3sd provides greaterspecificity in the diagnosis of the vitamin deficiency states,despite the sacrifice of some sensitivity. PATIENT NOT FASTINGP ERFORMED BY: [facility] LabToolmeetrp Hwuxdc6718 [place] [facility] [id number] BY: [employer] [id number] RETICULOCYTE COUNT ([id number])Or dered By: Erp Project Manager on 11-20-2009 Reticulocytes/100 RBC (Bld) 1.5 % Normal 0.5-3.0 [facility] Work Phone: Comment on above: PATIENT NOT FASTINGP ERFORMED BY: MERNA [facility] Wyleiq8005 [facility] [id number] BY: [employer] [id number] T3, FREE (TRIDOTHYRONINE) (3 0301)Ordered By: Erp Project Manager on 11-20-2009 T3 free mass conc 3.1 pg/mL Normal 2.0-4.4 Compreh ensive Internal Medicine Work Phone: Comment on above: PATIENT NOT FASTINGP ERFORMED BY: MERNA LabToolmeetrp Usbtsn5814 [facility] [id number] BY: [employer] [id number] T4, FREE (THYROXINE) (00851) Ordered By: Erp Project Manager on 11-20-2009 T4 free mass conc 0.94 ng/dL Normal 0.82-1.77 Compreh ensive Internal Medicine Work Phone: Comment on above: PATIENT NOT FASTINGP ERFORMED BY: MERNA [employer] Mecsam0129 [facility] [id number] BY: [employer] [id number] TSH ([id number])Ordered By: Horace eGenerations Director Cardiac on 11-20-2009 Thyrotropin Qn 2.840 {uIU/mL} Normal 0.450-4.50 0 [facility] Work Phone: Comment on above: PATIENT NOT FASTINGP ERFORMED BY: [facility] Svzmsv8131 [facility] [id number] BY: [employer] [id number] Information: [id number] Vitamin B-12 (cyanocobalamin ) (99435)Ordered By: Erp Project Manager on 11-20-2009 Cobalamin (Vitamin B12) mass conc 795 pg/mL Normal 211-946 [facility] Work Phone: Comment on above: PATIENT NOT FASTINGP ERFORMED BY: [facility]6370 [facility] [id number] BY: [facility]1447 [facility] [id number] DESMOND (ANTINUCLEAR ANTIBODY) ( 09015)Ordered By: Gena Valdes on 12-12-2008 Nuclear Ab Ql (S) Negative Normal Compreh ensive Internal Medicine Work Phone: Comment on above: PATIENT WAS FASTINGP ERFORMED BY: [facility]6370 [place] [facility] [id number] Nuclear Ab Ql (S) Negative Normal Compreh ensive Internal Medicine; [facility] Work Phone: Comment on above: PATIENT WAS FASTINGP ERFORMED BY: [facility]6370 [facility] [id number] CBC (Auto) (16467)Ordered By : Gena Valdes on 12-12-2008 Erythrocyte distribution width Ratio (RBC) 12.7 % Normal 11.7-15.0 [facility] Work Phone: Comment on above: PATIENT WAS FASTINGP ERFORMED BY: [facility]6370 [facility] [id number] Hematocrit Volume Fraction (Bld) 46.6 % Normal 36.0-50.0 [facility] Work Phone: Comment on above: PATIENT WAS FASTINGP ERFORMED BY: [facility]6370 [facility] [id number] Hemoglobin mass conc (Bld) 16.1 g/dL Normal 12.5-17.0 [facility] Work Phone: Comment on above: PATIENT WAS FASTINGP ERFORMED BY: [facility]6370 [facility] [id number] MCH Entitic mass (RBC) 34.1 pg Abnormal 27.0-34.0 [facility] Work Phone: Comment on above: PATIENT WAS FASTINGP ERFORMED BY: [facility]6370 [facility] [id number] MCHC mass conc (RBC) 34.6 g/dL Normal 32.0-36.0 [facility] Work Phone: Comment on above: PATIENT WAS FASTINGP ERFORMED BY: MERNA Javon Francisco[address] [facility] [place] [id number] MCV Entitic volume (RBC) 99 fL Abnormal 80-98 [facility] Work Phone: Comment on above: PATIENT WAS FASTINGP ERFORMED BY: MERNA Javon Francisco6[address] RoadFormerly [facility]in [place] [id number] Platelets #/vol (Bld) 191 {x10E3/uL} Normal 140-415 [facility] Work Phone: Comment on above: PATIENT WAS FASTINGP ERFORMED BY: MERNA Javon Francisco6370 [place] [facility] [id number] Platelets (Bld) [#/Vol] 191 10*3/uL Normal 140-415 [facility]; [facility] Internal Medicine Work Phone: Comment on above: PATIENT WAS FASTINGP ERFORMED BY: MERNA Javon Gileslin[address] [facility] [place] [id number] RBC #/vol (Bld) 4.73 {x10E6/uL} Normal 4.10-5.60 [facility] Work Phone: Comment on above: PATIENT WAS FASTINGP ERFORMED BY: MERNA Javon Gileslin6370 [facility] [id number] RBC (Bld) [#/Vol] 4.73 10*6/uL Normal 4.10-5.60 [facility] Internal Medicine; [facility] Work Phone: Comment on above: PATIENT WAS FASTINGP ERFORMED BY: MERNA [facility] Vzbzya3816 [place] [facility] [place] [id number] WBC #/vol (Bld) 5.1 {x10E3/uL} Normal 4.0-10.5 [facility] Internal Medicine Work Phone: Comment on above: PATIENT WAS FASTINGP ERFORMED BY: MERNA [facility] Tdolja6226 [place] [facility] [place] [id number] WBC (Bld) [#/Vol] 5.1 10*3/uL Normal 4.0-10.5 [facility] Internal Medicine; [facility] Work Phone: Comment on above: PATIENT WAS FASTINGP ERFORMED BY: [employer]6370 [facility] [id number] HEPATITIS B SURFACE ANTIBODY ([id number])Ordered By: Genasamina Valdes on 12-12-2008 HBV surface Ab Radioimmunoassay (BELÉN) Qn (S) 33.69 {Index_Value} Abnormal 0.00-0.99 Comprehensiv e Internal Medicine Work Phone: Comment on above: Status of Immunity A nti-HBs Level Inconsistent with Immunity 0.00 - 0.99 Consistent with Immunity >0.99 . An Index Value of 1.00 is equivalent to 10 mIU/mL. However the magnitude of the Index Value is not indicative of the total amount of antibody present. PATIENT WAS FASTINGP ERFORMED BY: [employer]6370 [facility] [id number] Lipid Panel ([id number])Ordered B y: Gena Valeds on 12-12-2008 Cholesterol in HDL mass conc 77 mg/dL Normal [facility] Work Phone: Comment on above: According to ATP-III Guidelines, HDL-C >59 mg/dL is considered anegative risk factor for CHD. PATIENT WAS FASTINGP ERFORMED BY: [employer]6370 [facility] [id number] Cholesterol in LDL mass conc 85 mg/dL Normal 0-99 [facility] Work Phone: Comment on above: PATIENT WAS FASTINGP ERFORMED BY: [employer] [facility] [id number] Cholesterol in LDL/Cholesterol in HDL mass ratio 1.1 {ratio_units} Normal 0.0-3.6 [facility] Work Phone: Comment on above: PATIENT WAS FASTINGP ERFORMED BY: [facility]6370 [facility] [id number] Cholesterol in VLDL mass conc 12 mg/dL Normal 5-40 [facility] Work Phone: Comment on above: PATIENT WAS FASTINGP ERFORMED BY: [facility]6370 [facility] [id number] Cholesterol mass conc 174 mg/dL Normal 100-199 Com prehensive Internal Medicine Work Phone: Comment on above: PATIENT WAS FASTINGP ERFORMED BY: [place] [id number] [facility] [id number] Triglyceride mass conc 59 mg/dL Normal 0-149 [facility] Work Phone: Comment on above: PATIENT WAS FASTINGP ERFORMED BY: [facility]6370 [facility] [id number] Metabolic Panel, Comprehensi ve ([id number])Ordered By: Gena Valdes on 12-12-2008 Albumin mass conc 5.0 g/dL Normal 3.5-5.5 Compreh ensive [facility] Medicine Work Phone: Comment on above: PATIENT WAS FASTINGC linical Information: ADD [id number] PERFORMED BY: MERNA [place] [id number] [facility] [id number] Albumin/Globulin mass ratio 1.8 {ratio} Normal 1.1-2.5 [facility] Work Phone: Comment on above: PATIENT WAS FASTINGC linical Information: ADD [id number] PERFORMED BY: [facility]6370 [facility] [id number] ALP [Catalytic activity/Vol] 97 U/L Normal 25-150 [facility]; [facility] Work Phone: Comment on above: PATIENT WAS FASTINGC linical Information: ADD [id number] PERFORMED BY: [facility]6370 [facility] [id number] ALP enzyme act/vol 97 [iU]/L Normal 25-150 Compre hensive [facility] Medicine Work Phone: Comment on above: PATIENT WAS FASTINGC linical Information: ADD [id number] PERFORMED BY: MERNA [employer] Mnclnn8763 [place] [facility] [place] [id number] ALT [Catalytic activity/Vol] 29 U/L Normal 0-55 [facility]; [facility] Internal Medicine Work Phone: Comment on above: PATIENT WAS FASTINGC linical Information: ADD [id number] PERFORMED BY: MERNA [employer] [id number] [place] [facility] [place] [id number] ALT enzyme act/vol 29 [iU]/L Normal 0-55 [facility] Internal Medicine Work Phone: Comment on above: PATIENT WAS FASTINGC linical Information: ADD [id number] PERFORMED BY: MERNA [facility] [id number] [place] [facility] [place] [id number] AST [Catalytic activity/Vol] 27 U/L Normal 0-40 [facility] Internal Medicine; [facility] Medicine Work Phone: Comment on above: PATIENT WAS FASTINGC linical Information: ADD [id number] PERFORMED BY: MERNA [employer] Smwxht1221 [place] [facility] [id number] AST enzyme act/vol 27 [iU]/L Normal 0-40 [facility] Internal Medicine Work Phone: Comment on above: PATIENT WAS FASTINGC linical Information: ADD [id number] PERFORMED BY: MERNA [employer] Vnpylw2725 [facility] [id number] Bilirubin mass conc 0.9 mg/dL Normal 0.1-1.2 [facility] Internal Medicine Work Phone: Comment on above: PATIENT WAS FASTINGC linical Information: ADD [id number] PERFORMED BY: [facility] Rskglr1135 [place] [facility] [place] [id number] Calcium mass conc 9.8 mg/dL Normal 8.5-10.6 [facility] Internal Medicine Work Phone: Comment on above: PATIENT WAS FASTINGC linical Information: ADD [id number] PERFORMED BY: [employer] Jythqj5708 [place] [facility] [id number] Chloride molar conc 100 mmol/L Normal 97-108 Compr ehensive [facility] Medicine Work Phone: Comment on above: PATIENT WAS FASTINGC linical Information: ADD [id number] PERFORMED BY: [facility] [id number] [place] [facility] [id number] CO2 molar conc 24 mmol/L Normal 20-32 Comprehens estevan Internal Medicine Work Phone: Comment on above: PATIENT WAS FASTINGC linical Information: ADD [id number] PERFORMED BY: [employer]6370 [place] [facility] [id number] Creatinine mass conc 1.21 mg/dL Normal 0.76-1.27 Comp [facility] Internal Medicine Work Phone: Comment on above: PATIENT WAS FASTINGC linical Information: ADD [id number] PERFORMED BY: [employer]6370 [facility] [id number] GFR/1.73 sq M predicted among blacks MDRD vol rate/area (S/P/Bld) mL/min/{1.73_m2} Normal [facility] Work Phone: Comment on above: Note: Persistent red uction for 3 months or more in an eGFR<60 mL/min/1.73 m2 defines CKD. Patients with eGFR values>/=60 mL/min/1.73 m2 may also have CKD if evidence of persistentproteinuria is present. Additional information may be found [email or web address]. PATIENT WAS FASTINGC linical Information: ADD [id number] PERFORMED BY: [facility] [facility] Zllepu2370 [facility] [id number] GFR/1.73 sq M.predicted MDRD (S/P/Bld) [Vol rate/Area] mL/min/{1.73_m2} Normal [facility] Work Phone: Comment on above: PATIENT WAS FASTINGC linical Information: ADD [id number] PERFORMED BY: [facility] Oicvwa8470 [facility] [id number] GFR/1.73 sq M.predicted MDRD vol rate/area mL/min/{1.73_m2} Normal [facility] Work Phone: Comment on above: PATIENT WAS FASTINGC linical Information: ADD [id number] PERFORMED BY: [employer] Ethbbs5361 [facility] [id number] Globulin mass conc (S) 2.8 g/dL Normal 1.5-4.5 [facility] Work Phone: Comment on above: PATIENT WAS FASTINGC linical Information: ADD [id number] PERFORMED BY: [facility]6370 [facility] [id number] Glucose mass conc 87 mg/dL Normal 65-99 Compreh ensive Internal Medicine Work Phone: Comment on above: PATIENT WAS FASTINGC linical Information: ADD [id number] PERFORMED BY: [facility]6370 [facility] [id number] Potassium molar conc 4.2 mmol/L Normal 3.5-5.2 Comp rehensive Internal Medicine Work Phone: Comment on above: PATIENT WAS FASTINGC linical Information: ADD [id number] PERFORMED BY: [facility] Dkioav7902 [facility] [id number] Protein mass conc 7.8 g/dL Normal 6.0-8.5 Compreh ensive [facility] Medicine Work Phone: Comment on above: PATIENT WAS FASTINGC linical Information: ADD [id number] PERFORMED BY: [facility] Wwuyub1877 [facility] [id number] Sodium molar conc 139 mmol/L Normal 135-145 Compreh ensive [facility] Medicine Work Phone: Comment on above: PATIENT WAS FASTINGC linical Information: ADD [id number] PERFORMED BY: [facility]6370 [facility] [id number] Urea nitrogen mass conc 14 mg/dL Normal 5-26 [facility] Work Phone: Comment on above: PATIENT WAS FASTINGC linical Information: ADD [id number] PERFORMED BY: USIS HOLDINGSAspirus [facility]6370 [facility] [id number] Urea nitrogen/Creatinine mass ratio 12 mg/mg Normal 8-27 [facility] Work Phone: Comment on above: PATIENT WAS FASTINGC linical Information: ADD [id number] PERFORMED BY: [facility] Pgxhfp0567 [facility] [id number] PSA (PROSTATE SPECIFIC ANTIG EN) (V76.44)Ordered By: Gena Valdes on 12-12-2008 Prostate specific Ag mass conc 1.0 ng/mL Normal 0.0-4.0 [facility] Work Phone: Comment on above: Cecil ECLIA methodol ogy. .According to the [place] [employer], PSA should beundetectable after radical prostatectomy. A PSA of less than0.5 ng/mL (or undetectable) is not likely to be associated withdisease recurrence within five years of treatment.Values obtained with different assay methods or kits cannot be usedinterchangeably. Results cannot be interpreted as absolute evidenceof the presence or absence of malignant disease. PATIENT WAS FASTINGP ERFORMED BY: [employer]6370 [place] [facility] [id number] Sed Rate Erythrocyte ([id number]) Ordered By: Gena Valdes on 12-12-2008 ESR Velocity (Bld) 2 mm/h Normal 0-15 [facility] Internal Medicine Work Phone: Comment on above: PATIENT WAS FASTINGP ERFORMED BY: [employer] [id number] [facility] [id number] TSH ([id number])Ordered By: Gena Valdes on 12-12-2008 Thyrotropin Qn 4.370 {uIU/mL} Normal 0.450-4.50 0 [facility] Work Phone: Comment on above: PATIENT WAS FASTINGP ERFORMED BY: [facility] [employer] [facility] [id number] Vitamin B-12 (cyanocobalamin ) ([id number])Ordered By: Gena Valdes on 12-12-2008 Cobalamin (Vitamin B12) mass conc 830 pg/mL Normal 211-911 [facility] Work Phone: Comment on above: PATIENT WAS FASTINGP ERFORMED BY: MERNA [facility] Kipqcn0637 [facility] [id number] Vital Signs Date Time Vital Sign Value Performing Clinician Facility 12-12-2022 07:21-0400 Body height 168.91 cm TIFFANIE Ochoa LPN [facility]; [facility] Work Phone: 12-12-2022 07:21-0400 Body mass index (BMI) [Ratio] 29.41 kg/m2 TIFFANIE Ochoa LPN [facility]; [facility] Work Phone: 12-12-2022 07:0400 Body surface area Derived from formula 1.95 m2 TIFFANIE Ochoa LPN [facility]; [facility] Work Phone: 12-12-2022 07:0400 Body temperature 97.8 [degF] TIFFANIE Ochoa LPN [facility]; [facility] Work Phone: Comment on above: Method: Temporal 12-12-2022 07:21-0400 Body weight 83.92 kg TIFFANIE Ochoa LPN [facility]; [facility] Work Phone: 12-12-2022 07:21-0400 Diastolic blood pressure 84 mm[Hg] TIFFANIE Ochoa LPN [facility]; [facility] Work Phone: Comment on above: Patient Position: Sitting; Cuff Location : Left Arm; Cuff Size: Large 12-12-2022 07:21-0400 Heart rate 68 /min TIFFANIE Ochoa LPN [facility]; [facility] Work Phone: Comment on above: Pattern: Regular 12-12-2022 07:21-0400 Respiratory rate 18 /min TIFFANIE Ochoa LPN [facility]; [facility] Work Phone: Comment on above: Pattern: Unlabored 12-12-2022 07:21-0400 SaO2% (BldA) [Mass fraction] 97 % TIFFANIE Ochoa [facility]; [facility] Work Phone: Comment on above: Room air 12-12-2022 07:21-0400 Systolic blood pressure 110 mm[Hg] TIFFANIE Ochoa [facility]; [facility] Work Phone: Comment on above: Patient Position: Sitting; Cuff Location : Left Arm; Cuff Size: Large 09-19-2022 07:47-0400 Body height 168.91 cm [facility]; [facility] Work Phone: 09-19-2022 07:47-0400 Body mass index (BMI) [Ratio] 29.97 kg/m2 [facility]; [facility] Work Phone: 09-19-2022 07:47-0400 Body surface area Derived from formula 1.96 m2 [facility]; [facility] Work Phone: 09-19-2022 07:47-0400 Body temperature 97 [degF] [facility]; [facility] Work Phone: 09-19-2022 07:47-0400 Body weight 85.5 kg [facility]; [facility] Work Phone: 09-19-2022 07:47-0400 Diastolic blood pressure 80 mm[Hg] [facility]; [facility] Work Phone: Comment on above: Patient Position: Sitting; Cuff Location : Left Arm; Cuff Size: Standard 09-19-2022 07:47-0400 Heart rate 59 /min [facility]; [facility] Work Phone: Comment on above: Pattern: Regular 09-19-2022 07:47-0400 Respiratory rate 18 /min [facility]; [facility] Work Phone: Comment on above: Pattern: Unlabored 09-19-2022 07:47-0400 SaO2% (BldA) [Mass fraction] 95 % [facility]; [facility] Work Phone: Comment on above: Room air 09-19-2022 07:47-0400 Systolic blood pressure 120 mm[Hg] [facility]; [facility] Work Phone: Comment on above: Patient Position: Sitting; Cuff Location : Left Arm; Cuff Size: Standard 05-16-2022 07:47-0500 Body height 168.91 cm Betty Tevin DO Work Phone: [facility]; [facility] Work Phone: 05-16-2022 07:47-0500 Body mass index (BMI) [Ratio] 30.84 kg/m2 Betty Tevin DO Work Phone: [facility]; [facility] Work Phone: 05-16-2022 07:47-0500 Body surface area Derived from formula 1.99 m2 Betty Tevin DO Work Phone: [facility]; [facility] Work Phone: 05-16-2022 07:47-0500 Body temperature 96 [degF] Betty Tevin DO Work Phone: [facility]; [facility] Work Phone: Comment on above: Method: Oral 05-16-2022 07:47-0500 Body weight 88 kg Betty Tevin DO Work Phone: [facility]; [facility] Work Phone: 05-16-2022 07:47-0500 Diastolic blood pressure 80 mm[Hg] Betty Tevin DO Work Phone: [facility]; [facility] Work Phone: Comment on above: Patient Position: Sitting; Cuff Location : Left Arm; Cuff Size: Standard 05-16-2022 07:47-0500 Heart rate 63 /min Betty Wilsonon DO Work Phone: [facility]; [facility] Work Phone: Comment on above: Pattern: Regular 05-16-2022 07:47-0500 Respiratory rate 18 /min Betty Wilsonon DO Work Phone: [facility]; [facility] Work Phone: Comment on above: Pattern: Unlabored 05-16-2022 07:47-0500 SaO2% (BldA) [Mass fraction] 97 % Betty Wilsonon DO Work Phone: [facility]; [facility] Work Phone: Comment on above: Room air 05-16-2022 07:47-0500 Systolic blood pressure 110 mm[Hg] Betty Abarca DO Work Phone: [facility]; [facility] Work Phone: Comment on above: Patient Position: Sitting; Cuff Location : Left Arm; Cuff Size: Standard 04-30-2022 15:10-0500 Diastolic blood pressure 82 mm[Hg] Dr. Betty Abarca Work Phone: [facility] 04-30-2022 15:10-0500 Heart rate 69 /min Dr. Betty Abarca Work Phone: [facility] 04-30-2022 15:10-0500 Respiratory rate 15 /min Dr. Betty Abarca Work Phone: [facility] 04-30-2022 15:10-0500 SaO2% (BldA) [Mass fraction] 99 % Dr. Betty Abarca Work Phone: [facility] 04-30-2022 15:10-0500 Systolic blood pressure 110 mm[Hg] Dr. Betty Abarca Work Phone: [facility] 04-30-2022 11:33-0500 Body height 167.[address] Betty Abarca Work Phone: [facility] 04-30-2022 11:33-0500 Body mass index (BMI) [Ratio] 30.5 kg/m2 Dr. Betty Abarca Work Phone: [facility] 04-30-2022 11:33-0500 Body temperature 98 [degF] Dr. Betty Abarca Work Phone: [facility] 04-30-2022 11:33-0500 Body weight 85.[address] Betty Abarca Work Phone: [facility] 02-04-2022 10:05-0500 Body temperature 97.3 [degF] Dr. Betty Abarca Work Phone: [facility] 02-04-2022 10:05-0500 Diastolic blood pressure 65 mm[Hg] Dr. Betty Abarca Work Phone: [facility] 02-04-2022 10:05-0500 Heart rate 69 /min Dr. Betty Abarca Work Phone: [facility] 02-04-2022 10:05-0500 Respiratory rate 16 /min Dr. Betty Abarca Work Phone: [facility] 02-04-2022 10:05-0500 SaO2% (BldA) [Mass fraction] 98 % Dr. Betty Abarca Work Phone: [facility] 02-04-2022 10:05-0500 Systolic blood pressure 99 mm[Hg] Dr. Betty Abarca Work Phone: [facility] 02-04-2022 08:52-0500 Body height 170.[address] Betty Abarca Work Phone: [facility] Work Phone: 02-04-2022 08:52-0500 Body mass index (BMI) [Ratio] 29.5 kg/m2 Dr. Betty Abarca Work Phone: [facility] 02-04-2022 08:52-0500 Body weight 85.[address] Betty Abarca Work Phone: [facility] 11-29-2021 11:50-0400 Body mass index (BMI) [Ratio] 30.7 kg/m2 Dr. Betty Abarca Work Phone: [facility] Work Phone: 11-29-2021 11:50-0400 Body weight 86.[address] Betty Abarca Work Phone: [facility] Work Phone: 11-29-2021 07:08-0400 Body height 168.91 cm Betty Abarca DO Work Phone: [facility]; [facility] Work Phone: 11-29-2021 07:08-0400 Body mass index (BMI) [Ratio] 30.84 kg/m2 Betty Abarca DO Work Phone: [facility]; [facility] Work Phone: 11-29-2021 07:08-0400 Body surface area Derived from formula 1.99 m2 eBtty Abarca DO Work Phone: [facility]; [facility] Work Phone: 11-29-2021 07:08-0400 Body weight 88 kg Betty Abarca DO Work Phone: [facility]; [facility] Work Phone: 12-08-2020 14:45-0400 Body height 168.91 cm Mell Shannon MA [facility]; [facility] Work Phone: 12-08-2020 14:45-0400 Body mass index (BMI) [Ratio] 29.09 kg/m2 Mell Shannon MA [facility]; [facility] Work Phone: 12-08-2020 14:45-0400 Body surface area Derived from formula 1.94 m2 Mell Shannon MA [facility]; [facility] Work Phone: 12-08-2020 14:45-0400 Body temperature 97.1 [degF] Mell Shannon MA [facility]; [facility] Work Phone: 12-08-2020 14:45-0400 Body weight 83.01 kg Mell Shannon MA [facility]; [facility] Work Phone: 12-08-2020 14:45-0400 Diastolic blood pressure 78 mm[Hg] Mell Shannon MA [facility]; [facility] Work Phone: Comment on above: Patient Position: Sitting; Cuff Location : Left Arm; Cuff Size: Standard 12-08-2020 14:45-0400 Heart rate 97 /min Mell Shannon MA [facility]; [facility] Work Phone: Comment on above: Pattern: Regular 12-08-2020 14:45-0400 SaO2% (BldA) [Mass fraction] 97 % Mell Shannon MA [facility]; [facility] Work Phone: Comment on above: Room air 12-08-2020 14:45-0400 Systolic blood pressure 121 mm[Hg] Mell Shannon MA [facility]; [facility] Work Phone: Comment on above: Patient Position: Sitting; Cuff Location : Left Arm; Cuff Size: Standard 10-25-2019 08:41-0400 BMI (Body Mass Index) 27.98 kg/m2 Enedina Farfan [facility] Work Phone: 10-25-2019 08:41-0400 Body Temperature 97.1 [degF] Enedina Farfan [facility] Work Phone: Comment on above: Method: Infrared 10-25-2019 08:41-0400 Body weight 79.83 kg Enedina Farfan [facility] Work Phone: 10-25-2019 08:41-0400 BP Diastolic 70 mm[Hg] Enedina Farfan [facility] Work Phone: Comment on above: Patient Position: Sitting; Cuff Location : Left Arm; Cuff Size: Standard 10-25-2019 08:41-0400 BP Systolic 120 mm[Hg] Enedina Farfan [employer] [facility] Work Phone: Comment on above: Patient Position: Sitting; Cuff Location : Left Arm; Cuff Size: Standard 10-25-2019 08:41-0400 BSA (Body Surface Area) 1.9 m2 Enedina Farfan [facility] Work Phone: 10-25-2019 08:41-0400 Height 168.91 cm Enedina Farfan [facility] Work Phone: 10-25-2019 08:41-0400 Pulse (Heart Rate) 68 /min Enedina Farfan [facility] Internal [facility] Work Phone: Comment on above: Pattern: Regular 10-25-2019 08:41-0400 Pulse Oximetry 97 % Betty Abarca [facility] Internal Medicine Work Phone: Comment on above: Room air 10-25-2019 08:41-0400 Respiratory Rate 16 /min Enedina Farfan [facility] Internal [facility] Work Phone: Comment on above: Pattern: Unlabored 10-25-2019 08:41-0400 SaO2% (BldA) [Mass fraction] 97 % Enedina Farfan [facility]; [facility] Work Phone: Comment on above: Room air 05-31-2019 08:43-0400 BMI (Body Mass Index) 27.98 kg/m2 Licha Slarb BLOCK PRESS OPERATOR [facility] Internal Medicine Work Phone: 05-31-2019 08:43-0400 Body Temperature 97.6 [degF] Licha Slarb BLOCK PRESS OPERATOR [facility] Internal Medicine Work Phone: 05-31-2019 08:43-0400 Body weight 79.83 kg Licha Slarb BLOCK PRESS OPERATOR [facility] Medicine Work Phone: 05-31-2019 08:43-0400 BP Diastolic 82 mm[Hg] Licha Slarb BLOCK PRESS OPERATOR [facility] Internal Medicine Work Phone: Comment on above: Patient Position: Sitting; Cuff Location : Left Arm; Cuff Size: Standard 05-31-2019 08:43-0400 BP Systolic 124 mm[Hg] Licha Slarb BLOCK PRESS OPERATOR [facility] Internal Medicine Work Phone: Comment on above: Patient Position: Sitting; Cuff Location : Left Arm; Cuff Size: Standard 05-31-2019 08:43-0400 BSA (Body Surface Area) 1.9 m2 Licha Guillen BLOCK PRESS OPERATOR [facility] Internal Medicine Work Phone: 05-31-2019 08:43-0400 Height 168.91 cm Licha Braymariangel JUÁREZ [facility] Work Phone: 05-31-2019 08:43-0400 Pulse (Heart Rate) 73 /min Licha Guillen BLOCK PRESS OPERATOR [employer] Work Phone: Comment on above: Pattern: Regular 05-31-2019 08:43-0400 Pulse Oximetry 97 % Betty Abarca [facility] Internal Medicine Work Phone: Comment on above: Room air 05-31-2019 08:43-0400 Respiratory Rate 16 /min Licha Braymariangel JUÁREZ [facility] Internal Medicine Work Phone: Comment on above: Pattern: Unlabored 05-31-2019 08:43-0400 SaO2% (BldA) [Mass fraction] 97 % Licha Braymariangel BLOCK PRESS OPERATOR [facility]; [facility] Work Phone: Comment on above: Room air 04-22-2019 07:44-0500 BMI (Body Mass Index) 28.68 kg/m2 Enedina Farfan [facility] [place] Work Phone: 04-22-2019 07:44-0500 Body Temperature 95.5 [degF] Enedina Farfan [facility] [place] Work Phone: Comment on above: Method: Temporal 04-22-2019 07:44-0500 Body weight 81.82 kg Enedina Farfan [facility] [place] Internal [facility] Work Phone: 04-22-2019 07:44-0500 BP Diastolic 81 mm[Hg] Enedina Farfan [facility] [place] Internal [facility] Work Phone: Comment on above: Patient Position: Sitting; Cuff Location : Left Arm; Cuff Size: Standard 04-22-2019 07:44-0500 BP Systolic 118 mm[Hg] Enedina Farfan [facility] [place] Internal [facility] Work Phone: Comment on above: Patient Position: Sitting; Cuff Location : Left Arm; Cuff Size: Standard 04-22-2019 07:44-0500 BSA (Body Surface Area) 1.92 m2 Enedina Farfan [facility] [place] [facility] Work Phone: 04-22-2019 07:44-0500 Height 168.91 cm Enedina Farfan [facility] [place] [facility] Work Phone: 04-22-2019 07:44-0500 Pulse (Heart Rate) 61 /min Enedina Farfan [facility] [place] Internal [facility] Work Phone: Comment on above: Pattern: Regular 04-22-2019 07:44-0500 Pulse Oximetry 97 % Betty Abarca [facility] Internal Medicine Work Phone: Comment on above: Room air 04-22-2019 07:44-0500 Respiratory Rate 18 /min Enedina Farfan [facility] [place] Internal [facility] Work Phone: Comment on above: Pattern: Unlabored 04-22-2019 07:44-0500 SaO2% (BldA) [Mass fraction] 97 % Enedina Farfan [facility] [place] [facility]; [facility] Internal Medicine Work Phone: Comment on above: Room air 04-01-2019 07:55-0500 BMI (Body Mass Index) 29.95 kg/m2 Enedina Farfan [facility] [place] Internal [facility] Work Phone: 04-01-2019 07:55-0500 Body Temperature 98.1 [degF] Enedina Farfan [facility] [place] Internal [facility] Work Phone: Comment on above: Method: Temporal 04-01-2019 07:55-0500 Body weight 85.45 kg Enedina Farfan [facility] [place] [facility] Work Phone: 04-01-2019 07:55-0500 BP Diastolic 78 mm[Hg] Enedina Farfan [facility] [place] Internal [facility] Work Phone: Comment on above: Patient Position: Sitting; Cuff Location : Left Arm; Cuff Size: Standard 04-01-2019 07:55-0500 BP Systolic 128 mm[Hg] Enedina Farfan [facility] [place] Internal [facility] Work Phone: Comment on above: Patient Position: Sitting; Cuff Location : Left Arm; Cuff Size: Standard 04-01-2019 07:55-0500 BSA (Body Surface Area) 1.96 m2 Enedina Farfan [facility] [place] Internal [facility] Work Phone: 04-01-2019 07:55-0500 Height 168.91 cm Enedina Farfan [facility] [place] Internal [facility] Work Phone: 04-01-2019 07:55-0500 Pulse (Heart Rate) 65 /min Enedina Farfan [facility] [place] Internal Medicine Work Phone: Comment on above: Pattern: Regular 04-01-2019 07:55-0500 Pulse Oximetry 98 % Betty Abarca [facility] Internal Medicine Work Phone: Comment on above: Room air 04-01-2019 07:55-0500 Respiratory Rate 18 /min Enedina Farfan [facility] [place] Internal Medicine Work Phone: Comment on above: Pattern: Unlabored 04-01-2019 07:55-0500 SaO2% (BldA) [Mass fraction] 98 % Enedina Farfan [facility] [place] [facility]; [facility] Internal Medicine Work Phone: Comment on above: Room air 03-22-2019 10:47-0500 BMI (Body Mass Index) 29.47 kg/m2 Licha Slarb BLOCK PRESS OPERATOR [facility] Internal Medicine Work Phone: 03-22-2019 10:47-0500 Body weight 84.09 kg Licha Slarb BLOCK PRESS OPERATOR [facility] Internal Medicine Work Phone: 03-22-2019 10:47-0500 BP Diastolic 80 mm[Hg] Licha Slarb BLOCK PRESS OPERATOR [facility] Internal Medicine Work Phone: Comment on above: Patient Position: Sitting; Cuff Location : Left Arm; Cuff Size: Standard 03-22-2019 10:47-0500 BP Systolic 130 mm[Hg] Licha Slarb BLOCK PRESS OPERATOR [facility] Internal Medicine Work Phone: Comment on above: Patient Position: Sitting; Cuff Location : Left Arm; Cuff Size: Standard 03-22-2019 10:47-0500 BSA (Body Surface Area) 1.95 m2 Licha Slarb BLOCK PRESS OPERATOR [facility] Internal Medicine Work Phone: 03-22-2019 10:47-0500 Height 168.91 cm Licha Guillen LPN [facility] Work Phone: 03-22-2019 10:47-0500 Pulse (Heart Rate) 88 /min Licha Guillen LPN [facility] Work Phone: Comment on above: Pattern: Regular 03-22-2019 10:47-0500 Pulse Oximetry 98 % Betty Abarca [facility] Internal Medicine Work Phone: Comment on above: Room air 03-22-2019 10:47-0500 Respiratory Rate 18 /min Licha Guillen LPN [facility] Internal Medicine Work Phone: Comment on above: Pattern: Unlabored 03-22-2019 10:47-0500 SaO2% (BldA) [Mass fraction] 98 % Licha Guillen LPN [facility]; [facility] Work Phone: Comment on above: Room air 03-01-2019 08:42-0500 BMI (Body Mass Index) 29.47 kg/m2 Enedina Farfan [facility] [place] [facility] Work Phone: 03-01-2019 08:42-0500 Body Temperature 97 [degF] Enedina Farfan [facility] [place] Internal [facility] Work Phone: Comment on above: Method: Temporal 03-01-2019 08:42-0500 Body weight 84.09 kg Enedina Farfan [facility] [place] [facility] Work Phone: 03-01-2019 08:42-0500 BP Diastolic 86 mm[Hg] Enedina Farfan [facility] [place] Internal [facility] Work Phone: Comment on above: Patient Position: Sitting; Cuff Location : Left Arm; Cuff Size: Standard 03-01-2019 08:42-0500 BP Systolic 148 mm[Hg] Enedina Farfan [facility] [place] [facility] Work Phone: Comment on above: Patient Position: Sitting; Cuff Location : Left Arm; Cuff Size: Standard 03-01-2019 08:42-0500 BSA (Body Surface Area) 1.95 m2 Enedina Farfan [employer] [facility] Work Phone: 03-01-2019 08:42-0500 Height 168.91 cm Enedina Farfan [facility] Work Phone: 03-01-2019 08:42-0500 Pulse (Heart Rate) 72 /min Enedina Farfan [facility] Work Phone: Comment on above: Pattern: Regular 03-01-2019 08:42-0500 Pulse Oximetry 96 % Betty Abarca [facility] Work Phone: Comment on above: Room air 03-01-2019 08:42-0500 Respiratory Rate 18 /min Enedina Farfan [facility] Work Phone: Comment on above: Pattern: Unlabored 03-01-2019 08:42-0500 SaO2% (BldA) [Mass fraction] 96 % Enedina Farfan [facility]; [facility] Work Phone: Comment on above: Room air 02-12-2019 10:45-0500 BMI (Body Mass Index) 29.95 kg/m2 [facility] Work Phone: 02-12-2019 10:45-0500 Body Temperature 97.2 [degF] Rosa Rivas BLOCK PRESS OPERATOR [facility] Work Phone: Comment on above: Method: Temporal 02-12-2019 10:45-0500 Body weight 85.45 kg Rosa Rivas LPN [facility] Work Phone: 02-12-2019 10:45-0500 BP Diastolic 90 mm[Hg] Rosa Rivas LPN [facility] Work Phone: Comment on above: Patient Position: Sitting; Cuff Location : Left Arm; Cuff Size: Standard 02-12-2019 10:45-0500 BP Systolic 140 mm[Hg] Rosa Rivas LPN [facility] Work Phone: Comment on above: Patient Position: Sitting; Cuff Location : Left Arm; Cuff Size: Standard 02-12-2019 10:45-0500 BSA (Body Surface Area) 1.96 m2 Rosa Rivas BLOCK PRESS OPERATOR [facility] Work Phone: 02-12-2019 10:45-0500 Height 168.91 cm Rosa Evelyn LPN [facility] Work Phone: 02-12-2019 10:45-0500 Pulse (Heart Rate) 66 /min Rosagiovanny Rivas FRANCK [facility] Work Phone: Comment on above: Pattern: Regular 02-12-2019 10:45-0500 Pulse Oximetry 99 % Betty Abarca [facility] Work Phone: Comment on above: Room air 02-12-2019 10:45-0500 Respiratory Rate 16 /min Rosa Evelyn FRANCK [facility] Work Phone: Comment on above: Pattern: Unlabored 02-12-2019 10:45-0500 SaO2% (BldA) [Mass fraction] 99 % Rosa Rivas LPN [facility]; [facility] Work Phone: Comment on above: Room air 02-02-2019 11:27-0500 BMI (Body Mass Index) 29.06 kg/m2 Barbara Saenz RN [facility] Work Phone: 02-02-2019 11:27-0500 Body weight 82.92 kg Barbara Saenz RN [facility] Work Phone: 02-02-2019 11:27-0500 BSA (Body Surface Area) 1.94 m2 Barbara Saenz RN [facility] Work Phone: 02-02-2019 11:27-0500 Height 168.91 cm Barbara Saenz RN [facility] Work Phone: 11-27-2018 08:24-0400 BMI (Body Mass Index) 29.06 kg/m2 Barbara Saenz RN [facility] Work Phone: 11-27-2018 08:24-0400 Body weight 82.92 kg Barbara Saenz RN [facility] Work Phone: 11-27-2018 08:24-0400 BP Diastolic 80 mm[Hg] Barbara Saenz RN [facility] Work Phone: Comment on above: Patient Position: Sitting; Cuff Location : Left Arm; Cuff Size: Standard 11-27-2018 08:24-0400 BP Systolic 128 mm[Hg] Barbara Saenz RN [facility] Work Phone: Comment on above: Patient Position: Sitting; Cuff Location : Left Arm; Cuff Size: Standard 11-27-2018 08:24-0400 BSA (Body Surface Area) 1.94 m2 Barbara Saenz RN [facility] Work Phone: 11-27-2018 08:24-0400 Height 168.91 cm Barbara Saenz RN [facility] Work Phone: 11-27-2018 08:24-0400 Pulse (Heart Rate) 57 /min Barbara Saenz RN [facility] Work Phone: Comment on above: Pattern: Regular 11-27-2018 08:24-0400 Pulse Oximetry 97 % Betty Abarca [facility] Work Phone: Comment on above: Room air 11-27-2018 08:24-0400 Respiratory Rate 18 /min Barbara Saenz RN [facility] Work Phone: Comment on above: Pattern: Unlabored 11-27-2018 08:24-0400 SaO2% (BldA) [Mass fraction] 97 % Barbara Saenz RN [facility]; [facility] Work Phone: Comment on above: Room air 05-07-2018 07:55-0500 BMI (Body Mass Index) 29.27 kg/m2 Enedina Farfan [facility] Work Phone: 05-07-2018 07:55-0500 Body Temperature 98.1 [degF] Enedina Farfan [facility] Work Phone: Comment on above: Method: Temporal 05-07-2018 07:55-0500 Body weight 83.52 kg Enedina Farfan [facility] Work Phone: 05-07-2018 07:55-0500 BP Diastolic 80 mm[Hg] Enednia Farfan [facility] Work Phone: Comment on above: Patient Position: Sitting; Cuff Location : Left Arm; Cuff Size: Standard 05-07-2018 07:55-0500 BP Systolic 105 mm[Hg] Enedina Farfan [facility] [place] [facility] Work Phone: Comment on above: Patient Position: Sitting; Cuff Location : Left Arm; Cuff Size: Standard 05-07-2018 07:55-0500 BSA (Body Surface Area) 1.94 m2 Enedina Farfan [facility] [place] [facility] Work Phone: 05-07-2018 07:55-0500 Height 168.91 cm Enedina Farfan [facility] [place] [facility] Work Phone: 05-07-2018 07:55-0500 Pulse (Heart Rate) 80 /min Enedina Farfan [facility] [place] [facility] Work Phone: Comment on above: Pattern: Regular 05-07-2018 07:55-0500 Pulse Oximetry 95 % Bettyzenia Abarca [facility] Internal Medicine Work Phone: Comment on above: Room air 05-07-2018 07:55-0500 Respiratory Rate 18 /min Enedina Farfan [facility] [place] [facility] Work Phone: Comment on above: Pattern: Unlabored 05-07-2018 07:55-0500 SaO2% (BldA) [Mass fraction] 95 % Enedina Farfan [facility] [place] [facility]; [facility] Work Phone: Comment on above: Room air 05-07-2018 07:55-0500 Weight 83.52 kg Betty Tevin [facility] Internal Medicine Work Phone: 05-07-2018 07:35-0500 BMI (Body Mass Index) 29.43 kg/m2 Carlos Barnett LPN [facility] Internal Medicine Work Phone: 05-07-2018 07:35-0500 Body weight 83.97 kg Carlos Barnett LPN [facility] Internal Medicine Work Phone: 05-07-2018 07:35-0500 BSA (Body Surface Area) 1.95 m2 Carlos Barnett LPN [facility] Internal Medicine Work Phone: 05-07-2018 07:35-0500 Height 168.91 cm Carlos Barnett LPN [facility] Work Phone: 05-07-2018 07:35-0500 Weight 83.97 kg Betty Abarca [facility] Work Phone: 11-24-2017 08:31-0400 BMI (Body Mass Index) 29.43 kg/m2 Marisol Alberto RN [facility] Work Phone: 11-24-2017 08:31-0400 Body weight 83.97 kg Marisol Alberto RN [facility] Work Phone: 11-24-2017 08:31-0400 BP Diastolic 82 mm[Hg] Marisol Alberto RN [facility] Work Phone: Comment on above: Patient Position: Sitting; Cuff Location : Left Arm; Cuff Size: Large 11-24-2017 08:31-0400 BP Systolic 124 mm[Hg] Marisol Alberto RN [facility] Work Phone: Comment on above: Patient Position: Sitting; Cuff Location : Left Arm; Cuff Size: Large 11-24-2017 08:31-0400 BSA (Body Surface Area) 1.95 m2 Marisol Alberto RN [facility] Work Phone: 11-24-2017 08:31-0400 Height 168.91 cm Marisol Alberto RN [facility] Work Phone: 11-24-2017 08:31-0400 Pulse (Heart Rate) 68 /min Marisol Alberto RN [facility] Work Phone: Comment on above: Pattern: Regular 11-24-2017 08:31-0400 Pulse Oximetry 97 % Betty Abarca [facility] Work Phone: Comment on above: Room air 11-24-2017 08:31-0400 SaO2% (BldA) [Mass fraction] 97 % Marisol Alberto RN [facility]; [facility] Work Phone: Comment on above: Room air 11-24-2017 08:31-0400 Weight 83.97 kg Betty Wilsonon [facility] Work Phone: 10-28-2016 09:00-0400 BMI (Body Mass Index) 29.65 kg/m2 Marisol Alberto RN [facility] Work Phone: 10-28-2016 09:00-0400 Body weight 84.6 kg Marisol Alberto RN [facility] Work Phone: 10-28-2016 09:00-0400 BP Diastolic 76 mm[Hg] Marisol Alberto RN [facility] Work Phone: Comment on above: Patient Position: Sitting; Cuff Location : Left Arm; Cuff Size: Standard 10-28-2016 09:00-0400 BP Systolic 118 mm[Hg] Marisol Alberto RN [facility] Work Phone: Comment on above: Patient Position: Sitting; Cuff Location : Left Arm; Cuff Size: Standard 10-28-2016 09:00-0400 BSA (Body Surface Area) 1.95 m2 Marisol Alberto RN [facility] Work Phone: 10-28-2016 09:00-0400 Height 168.91 cm Marisol Alberto RN [facility] Work Phone: 10-28-2016 09:00-0400 Pulse (Heart Rate) 60 /min Marisol Alberto RN [facility] Work Phone: Comment on above: Pattern: Regular 10-28-2016 09:00-0400 Pulse Oximetry 98 % Betty Abarca [facility] Work Phone: Comment on above: Room air 10-28-2016 09:00-0400 Respiratory Rate 18 /min Marisol Alberto RN [facility] Work Phone: Comment on above: Pattern: Unlabored 10-28-2016 09:00-0400 SaO2% (BldA) [Mass fraction] 98 % Marisol Alberto RN [facility]; [facility] Work Phone: Comment on above: Room air 10-28-2016 09:00-0400 Weight 84.6 kg Betty Abarca [facility] Work Phone: 02-15-2016 13:25-0500 BMI (Body Mass Index) 27.98 kg/m2 Marisol Alberto RN [facility] Work Phone: 02-15-2016 13:25-0500 Body weight 79.83 kg Marisol Alberto RN [facility] Work Phone: 02-15-2016 13:25-0500 BP Diastolic 88 mm[Hg] Marisol Alberto RN [facility] Work Phone: Comment on above: Patient Position: Sitting; Cuff Location : Left Arm; Cuff Size: Large 02-15-2016 13:25-0500 BP Systolic 138 mm[Hg] Marisol Alberto RN [facility] Work Phone: Comment on above: Patient Position: Sitting; Cuff Location : Left Arm; Cuff Size: Large 02-15-2016 13:25-0500 BSA (Body Surface Area) 1.9 m2 Marisol Alberto RN [facility] Work Phone: 02-15-2016 13:25-0500 Height 168.91 cm Marisol Alberto RN [facility] Work Phone: 02-15-2016 13:25-0500 Pulse (Heart Rate) 81 /min Marisol Alberto RN [facility] Work Phone: Comment on above: Pattern: Regular 02-15-2016 13:25-0500 Pulse Oximetry 93 % Betty Abarca [facility] Work Phone: Comment on above: Room air 02-15-2016 13:25-0500 Respiratory Rate 18 /min Marisol Alberto RN [facility] Work Phone: Comment on above: Pattern: Unlabored 02-15-2016 13:25-0500 SaO2% (BldA) [Mass fraction] 93 % Marisol Alberto RN [facility]; [facility] Work Phone: Comment on above: Room air 02-15-2016 13:25-0500 Weight 79.83 kg Bettychristopher Abarca [facility] Work Phone: 11-20-2015 08:35-0400 BMI (Body Mass Index) 27.98 kg/m2 Marisol Alberto RN [facility] Work Phone: 11-20-2015 08:35-0400 Body Temperature 97.2 [degF] Marisol Alberto RN [facility] Work Phone: 11-20-2015 08:35-0400 Body weight 79.83 kg Marisol Alberto RN [facility] Work Phone: 11-20-2015 08:35-0400 BP Diastolic 78 mm[Hg] Marisol Alberto RN [facility] Work Phone: Comment on above: Patient Position: Sitting; Cuff Location : Left Arm; Cuff Size: Standard 11-20-2015 08:35-0400 BP Systolic 118 mm[Hg] Marisol Alberto RN [facility] Work Phone: Comment on above: Patient Position: Sitting; Cuff Location : Left Arm; Cuff Size: Standard 11-20-2015 08:35-0400 BSA (Body Surface Area) 1.9 m2 Marisol Alberto RN [facility] Work Phone: 11-20-2015 08:35-0400 Height 168.91 cm Marisol Alberto RN [facility] Work Phone: 11-20-2015 08:35-0400 Pulse (Heart Rate) 70 /min Marislo Alberto RN [facility] Work Phone: Comment on above: Pattern: Regular 11-20-2015 08:35-0400 Pulse Oximetry 98 % Betty Abarca [facility] Work Phone: Comment on above: Room air 11-20-2015 08:35-0400 Respiratory Rate 16 /min Marisol Alberto RN [facility] Work Phone: Comment on above: Pattern: Unlabored 11-20-2015 08:35-0400 SaO2% (BldA) [Mass fraction] 98 % Marisol Alberto RN [facility]; [facility] Work Phone: Comment on above: Room air 11-20-2015 08:35-0400 Weight 79.83 kg Betty Abarca [facility] Work Phone: 12-01-2014 08:43-0400 BMI (Body Mass Index) 28.62 kg/m2 Barbara Saenz RN [facility] Work Phone: 12-01-2014 08:43-0400 Body Temperature 97.6 [degF] Barbara Saenz RN [facility] Work Phone: Comment on above: Method: Temporal 12-01-2014 08:43-0400 Body weight 81.65 kg Barbara Saenz RN [facility] Work Phone: 12-01-2014 08:43-0400 BP Diastolic 72 mm[Hg] Barbara Saenz RN [facility] Work Phone: Comment on above: Patient Position: Sitting; Cuff Location : Left Arm; Cuff Size: Standard 12-01-2014 08:43-0400 BP Systolic 120 mm[Hg] Barbara Saenz RN [facility] Work Phone: Comment on above: Patient Position: Sitting; Cuff Location : Left Arm; Cuff Size: Standard 12-01-2014 08:43-0400 BSA (Body Surface Area) 1.92 m2 Barbara Saenz RN [facility] Work Phone: 12-01-2014 08:43-0400 Height 168.91 cm Barbara Saenz RN [facility] Work Phone: 12-01-2014 08:43-0400 Pulse (Heart Rate) 72 /min Barbara Saenz RN [facility] Work Phone: Comment on above: Pattern: Regular 12-01-2014 08:43-0400 Pulse Oximetry 98 % Betty Abarca [facility] Work Phone: Comment on above: Room air 12-01-2014 08:43-0400 Respiratory Rate 16 /min Barbara Seanz RN [facility] Work Phone: Comment on above: Pattern: Unlabored 12-01-2014 08:43-0400 SaO2% (BldA) [Mass fraction] 98 % Barbara Saenz RN [facility]; [facility] Work Phone: Comment on above: Room air 12-01-2014 08:43-0400 Weight 81.65 kg Betty Tevin [facility] Work Phone: 11-22-2013 09:13-0400 BMI (Body Mass Index) 27.03 kg/m2 TIFFANIE Ochoa LPN [facility] Work Phone: 11-22-2013 09:13-0400 Body Temperature 97.9 [degF] TIFFANIE Ochoa LPN [facility] Medicine Work Phone: Comment on above: Method: Oral 11-22-2013 09:13-0400 Body weight 77.11 kg TIFFANIE Ochoa LPN [facility] Medicine Work Phone: 11-22-2013 09:13-0400 BP Diastolic 76 mm[Hg] TIFFANIE Ochoa LPN [facility] Work Phone: Comment on above: Patient Position: Sitting; Cuff Location : Left Arm; Cuff Size: Standard 11-22-2013 09:13-0400 BP Systolic 116 mm[Hg] TIFFANIE Ochoa LPN [facility] Medicine Work Phone: Comment on above: Patient Position: Sitting; Cuff Location : Left Arm; Cuff Size: Standard 11-22-2013 09:130400 BSA (Body Surface Area) 1.88 m2 TIFFANIE Ochoa LPN [facility] Medicine Work Phone: 11-22-2013 09:13-0400 Height 168.91 cm TIFFANIE Ochoa LPN [facility] Medicine Work Phone: 11-22-2013 09:13-0400 Pulse (Heart Rate) 68 /min TIFFANIE Ochoa LPN [facility] Medicine Work Phone: Comment on above: Pattern: Regular 11-22-2013 09:13-0400 Respiratory Rate 20 /min TIFFANIE Ochoa LPN [facility] Medicine Work Phone: Comment on above: Pattern: Unlabored 11-22-2013 09:13-0400 Weight 77.11 kg Betty Abarca [facility] Work Phone: 11-23-2012 15:10-0400 BMI (Body Mass Index) 27.66 kg/m2 TIFFANIE Ochoa LPN [facility] Medicine Work Phone: 11-23-2012 15:10-0400 Body Temperature 97.6 [degF] TIFFANIE Ochoa LPN [facility] Medicine Work Phone: Comment on above: Method: Oral 11-23-2012 15:10-0400 Body weight 78.93 kg TIFFANIE Ochoa LPN [facility] Work Phone: 11-23-2012 15:10-0400 BP Diastolic 80 mm[Hg] TIFFANIE Ochoa LPN [facility] Work Phone: Comment on above: Patient Position: Sitting; Cuff Location : Left Arm; Cuff Size: Standard 11-23-2012 15:10-0400 BP Systolic 120 mm[Hg] TIFFANIE Ochoa LPN [facility] Medicine Work Phone: Comment on above: Patient Position: Sitting; Cuff Location : Left Arm; Cuff Size: Standard 11-23-2012 15:10-0400 BSA (Body Surface Area) 1.9 m2 TIFFANIE Ochoa LPN [facility] Medicine Work Phone: 11-23-2012 15:10-0400 Height 168.91 cm TIFFANIE Ochoa BLOCK PRESS OPERATOR [facility] Medicine Work Phone: 11-23-2012 15:10-0400 Pulse (Heart Rate) 70 /min TIFFANIE Ochoa [facility] Internal Medicine Work Phone: Comment on above: Pattern: Regular 11-23-2012 15:10-0400 Respiratory Rate 20 /[facility] Work Phone: Comment on above: Pattern: Unlabored 11-23-2012 15:10-0400 Weight 78.93 kg Betty Abarca [facility] Work Phone: 12-02-2011 10:04-0400 BMI (Body Mass Index) 26.71 kg/m2 TIFFANIE Ochoa LPN [facility] Internal Medicine Work Phone: 12-02-2011 10:04-0400 Body Temperature 97.8 [degF] TIFFANIE Ochoa BLOCK PRESS OPERATOR [facility] Medicine Work Phone: Comment on above: Method: Oral 12-02-2011 10:04-0400 Body weight 76.2 kg TIFFANIE Ochoa LPN [facility] Internal Medicine Work Phone: 12-02-2011 10:04-0400 BP Diastolic 80 mm[Hg] TIFFANIE Ochoa LPN [facility] Internal Medicine Work Phone: Comment on above: Patient Position: Sitting; Cuff Location : Left Arm; Cuff Size: Standard 12-02-2011 10:04-0400 BP Systolic 120 mm[Hg] TIFFANIE Ochoa LPN [facility] Work Phone: Comment on above: Patient Position: Sitting; Cuff Location : Left Arm; Cuff Size: Standard 12-02-2011 10:04-0400 BSA (Body Surface Area) 1.87 m2 TIFFANIE Ochoa LPN [facility] Work Phone: 12-02-2011 10:04-0400 Height 168.91 cm TIFFANIE Ochoa LPN [facility] Work Phone: 12-02-2011 10:04-0400 Pulse (Heart Rate) 68 /min TIFFANIE Ochoa LPN [facility] Work Phone: Comment on above: Pattern: Regular 12-02-2011 10:04-0400 Respiratory Rate 18 /min TIFFANIE Ochoa LPN [facility] Work Phone: Comment on above: Pattern: Unlabored 12-02-2011 10:04-0400 Weight 76.2 kg Betty Abarca [facility] Work Phone: 11-20-2009 08:43-0400 Body Temperature 98.2 [degF] TIFFANIE Ochoa BLOCK PRESS OPERATOR [facility] Work Phone: Comment on above: Method: Oral 11-20-2009 08:43-0400 Body weight 78.93 kg TIFFANIE Ochoa LPN [facility] Work Phone: 11-20-2009 08:43-0400 BP Diastolic 78 mm[Hg] TIFFANIE Ochoa BLOCK PRESS OPERATOR [facility] Work Phone: Comment on above: Patient Position: Sitting; Cuff Location : Left Arm; Cuff Size: Standard 11-20-2009 08:43-0400 BP Systolic 112 mm[Hg] TIFFANIE Ochoa LPN [facility] Work Phone: Comment on above: Patient Position: Sitting; Cuff Location : Left Arm; Cuff Size: Standard 11-20-2009 08:43-0400 Pulse (Heart Rate) 64 /min TIFFANIE Ochoa LPN [facility] Work Phone: Comment on above: Pattern: Regular 11-20-2009 08:43-0400 Respiratory Rate 18 /min TIFFANIE Ochoa LPN [facility] Work Phone: Comment on above: Pattern: Unlabored 11-20-2009 08:43-0400 Weight 78.93 kg Betty Abarca [facility] Work Phone: 12-12-2008 09:48-0400 BMI (Body Mass Index) 26.71 kg/m2 TIFFANIE Ochoa LPN [facility] Work Phone: 12-12-2008 09:48-0400 Body weight 76.2 kg TIFFANIE Ochoa LPN [facility] Work Phone: 12-12-2008 09:48-0400 BP Diastolic 78 mm[Hg] TIFFANIE Ochoa LPN [facility] Work Phone: Comment on above: Patient Position: Sitting; Cuff Location : Left Arm; Cuff Size: Standard 12-12-2008 09:48-0400 BP Systolic 118 mm[Hg] TIFFANIE Ochoa LPN [facility] Work Phone: Comment on above: Patient Position: Sitting; Cuff Location : Left Arm; Cuff Size: Standard 12-12-2008 09:48-0400 BSA (Body Surface Area) 1.87 m2 TIFFANIE Ochoa LPN [facility] Work Phone: 12-12-2008 09:48-0400 Head Circumference 0 cm Betty Abarca [facility] Work Phone: 12-12-2008 09:48-0400 Head Occipital-frontal circumference 0 cm TIFFANIE Ochoa LPN [facility]; [facility] Work Phone: 12-12-2008 09:48-0400 Height 168.91 cm TIFFANIE Ochoa LPN [facility] Work Phone: 12-12-2008 09:48-0400 Pulse (Heart Rate) 60 /min TIFFANIE Ochoa LPN [facility] Work Phone: Comment on above: Pattern: Regular 12-12-2008 09:48-0400 Respiratory Rate 16 /min TIFFANIE Ochoa LPN [facility] Work Phone: Comment on above: Pattern: Unlabored 12-12-2008 09:48-0400 Weight 76.2 kg Betty Abarca [facility] Work Phone: Encounters Encounter Date Encounter Type Care Provider Facility Start: 07-02-2024 End: 07-02-[address] Betty Abarca DO Work Phone: [facility] Work Phone: Start: 07-02-2024 End: 07-02-[address] Betty Warner, [place] Work Phone: Start: 07-02-2024 End: 07-02-2024 ambulatory Betty Abarca Facility:[facility] Start: 05-28-2024 End: 05-28-[address] Betty Abarca DO Work Phone: [facility] Work Phone: Start: 05-28-2024 End: 05-28-[address] Betty Abarca [facility] Work Phone: Start: 05-28-2024 End: 05-28-2024 ambulatory Betty Abarca Facility:[facility] Start: 05-19-2024 End: 05-19-[address] Betty Abarca DO Work Phone: [facility] Work Phone: Start: 05-19-2024 End: 05-19-[address] Betty Warner, [place] Work Phone: Start: 05-19-2024 End: 05-19-2024 ambulatory Betty Abarca Facility:[facility] Start: 12-08-2023 ambulatory Betty Abarca Facilit y:[facility] Start: 08-05-2023 End: 08-05-2023 ambulatory Betty Abarca Facility:[facility] Start: 12-12-2022 End: 12-12-2022 Patient encounter status Betty Abarca DO Work Phone: [facility]; [facility] Work Phone: Start: 12-12-2022 End: 12-12-2022 Periodic preventive med est patient 40-64yrs Betty Abarca DO Work Phone: [facility] Start: 11-15-2022 End: 11-15-2022 ambulatory [facility] Work Phone: Start: 11-15-2022 End: 11-15-2022 Patient encounter procedure [facility] Work Phone: Start: 09-19-2022 End: 09-19-2022 Office outpatient visit 25 minutes Betty Abarca DO Work Phone: [facility] Start: 05-16-2022 ambulatory Betty Abarca DO [facility] Start: 05-16-2022 End: 05-17-2022 Office outpatient visit 15 minutes Betty Abarca DO Work Phone: [facility] Start: 04-30-2022 End: 04-30-2022 Emergency department patient visit Dr. Betty Abarca Work Phone: [facility]-Emergency Department Start: 02-14-2022 End: 02-14-[address] Betty Abarca Work Phone: [facility] Work Phone: Start: 02-14-2022 End: 02-14-[address] Betty Abarca Work Phone: [facility] Start: 02-04-2022 End: 02-04-2022 Phone Encounter Betty Abarca DO Work Phone: [facility] Start: 02-04-2022 Non-patient / Non-visit Dr. Jimmie Abarca Work Phone: [facility] Start: 02-04-2022 End: 02-04-2022 Admission to same day surgery center Dr. Betty Abarca Work Phone: [facility]-Endoscopy Start: 02-04-2022 End: 02-04-[address] Betty Abarca Work Phone: [facility] Work Phone: Start: 11-29-2021 Non-patient / Non-visit Dr. Jimmie Abarca Work Phone: [facility] Start: 11-29-2021 End: 11-29-2021 Office outpatient visit 25 minutes Betty Abarca DO Work Phone: [facility] Start: 11-29-2021 End: 11-29-2021 Patient encounter status Betty Abarca DO Work Phone: [facility]; [facility] Work Phone: Start: 11-26-[address] Cornell Abarca Work Phone: [facility] Start: 12-08-2020 End: 12-08-2020 Patient encounter status Mell Shannon MA [facility]; [facility] Work Phone: Comment on above: had colnoscopy at 50 polyp removed due 5 years. talk about vaccine tetanus due talk about shingles vaccine Start: 12-08-2020 End: 12-08-2020 Periodic preventive med est patient 40-64yrs Betty Abarca DO Work Phone: [facility] Start: 10-25-2019 End: 10-25-2019 Periodic preventive med est patient 40-64yrs Betty Abarca [facility] Start: 10-25-2019 End: 10-25-2019 Physical examination Betty Abarca DO Work Phone: [facility]; [facility] Work Phone: Start: 07-21-2019 End: 07-21-2019 Office outpatient visit 5 minutes Betty Abarca [facility] Start: 05-31-2019 End: 05-31-2019 Office outpatient visit 15 minutes Betty Abarca [facility] Start: 04-22-2019 End: 04-22-2019 Office outpatient visit 15 minutes Betty Abarca [facility] Start: 04-01-2019 End: 04-01-2019 Office outpatient visit 10 minutes Betty Abarca [facility] Start: 03-22-2019 End: 03-24-2019 Office outpatient visit 5 minutes Betty Abarca [facility] Start: 03-05-2019 End: 03-05-2019 Phone Encounter Betty Abarca [facility] Start: 03-01-2019 End: 03-01-2019 Office outpatient visit 25 minutes Betty Wilsonon [facility] Start: 02-26-2019 End: 02-26-2019 Phone Encounter Betty Abarca [facility] Start: 02-12-2019 End: 02-12-2019 Office outpatient visit 15 minutes Betty Tevin [facility] Start: 02-02-2019 End: 02-03-2019 Office outpatient visit 5 minutes Betty Abarca [facility] Start: 11-27-2018 End: 11-27-2018 Office outpatient visit 25 minutes Betty Abarca [facility] Start: 11-27-2018 End: 11-27-2018 Patient encounter status Betty Abarca DO Work Phone: [facility] Start: 11-27-2018 Review Betty Abarca [facility] Start: 05-07-2018 End: 05-07-2018 Office outpatient visit 15 minutes Betty Abarca [facility] Start: 05-07-2018 Review Betty Abarca [facility] Start: 11-24-2017 End: 11-24-2017 Patient encounter status Marisol Alberto RN [facility]; [facility] Work Phone: Start: 11-24-2017 End: 11-24-2017 Periodic preventive med est patient 40-64yrs Betty Abarca [facility] Start: 11-20-2016 End: 11-20-2016 Phone Encounter Betty Abarca [facility] Start: 10-28-2016 End: 10-28-2016 Patient encounter procedure Betty Abarca DO Work Phone: [facility] Start: 10-28-2016 End: 10-28-2016 Periodic preventive med est patient 40-64yrs Betty Tevin [facility] Start: 02-15-2016 End: 02-15-2016 Office outpatient visit 15 minutes Betty Abarca [facility] Start: 11-20-2015 End: 11-20-2015 Patient encounter status Betty Abarca DO Work Phone: [facility] Start: 11-20-2015 End: 11-20-2015 Periodic preventive med est patient 40-64yrs Betty Abarca [facility] Start: 12-01-2014 End: 12-01-2014 Office outpatient visit 10 minutes Betty Abarca [facility] Start: 11-22-2013 End: 11-22-2013 Office outpatient visit 15 minutes Betty Abarca [facility] Start: 11-23-2012 End: 11-23-2012 Patient encounter procedure Betty Abarca [facility] Start: 12-03-2011 End: 12-03-2011 Phone Encounter Betty Abarca [facility] Start: 12-02-2011 End: 12-02-2011 Patient encounter procedure Betty Abarca [facility] Start: 11-20-2009 End: 11-20-2009 Patient encounter procedure Betty Abarca [facility] Start: 11-20-2009 End: 11-20-2009 Patient encounter status Betty Abarca DO Work Phone: [facility] Start: 12-12-2008 End: 12-12-2008 Patient encounter procedure Betty Abarca [facility] Start: 12-12-2008 End: 12-12-2008 Patient encounter status Betty Abarca DO Work Phone: [facility] Start: 12-06-2008 End: 12-06-2008 Historical Summary Betty Abarca [facility] Patient encounter procedure Enedina Farfan [facility] Work Phone: Patient encounter status Marisol Alberto RN [facility]; [facility] Work Phone: Comment on above: had colnoscopy at 50 polyp removed due 5 years. talk about vaccine tetanus due talk about shingles vaccine Patient encounter status Tosha Bautista SLIDE FASTENERS INSPECTOR [facility]; [facility] Work Phone: Patient encounter status Cristian Burrows LPN [facility]; [facility] Work Phone: End: 11-23-2012 Physical examination Erp Project Manager [facility]; [facility] Work Phone: Comment on above: [facility] Physical examination Mell Joaquin [facility]; [facility] Work Phone: Procedures Date Procedure Procedure Detail Performing Clinician Start: 05-28-2024 US scan of thyroid Dr. Betty Abarca DO Work Phone: Start: 04-30-2022 End: 04-30-2022 Emergency Department Summary Procedure Note: See Note; NOTES: [facility] Medical Records Department [address] [place] [address] Emergency Department Summary 04/30/22 MR#: [id number] Acct: [id number] Name: KEYLA BREAUX Rep #: [id number] : 1965 56 From: Sohan Santos MD PCP: Dr. Betty Abarca, Status:REG ER Location: ED HPI History of Present Illness Chief Complaint: Dizziness Narrative Narrative: Patient presents with 2-day history of vertiginous symptoms, he gets paroxysms of vertigo when he turns his head a certain way. These paroxysms lasts just a few seconds. No vision changes, he does not feel off balance, no fever or chills. No cough or congestion. He does not have a headache. [facility] Medical History Alcohol use Back pain Benign prostatic hyperplasia without lower urinary tract symptoms Chronic neck and back pain Colon polyp Essential (primary) hypertension Heartburn Hyperlipidemia, unspecified Non-smoker Raynauds syndrome Right orbital fracture Home Medications Flaxseed Oil Gipsy-3 Liquid 1 dose PO DAILY 02/05/16 [History Last Taken 03/08/15 08:00] ascorbic acid (vitamin C) 1,000 mg tablet 1,000 mg PO DAILY 02/05/16 [History Last Taken 03/08/15 08:00] multivitamin with folic acid 400 mcg tablet 1 tab PO DAILY 02/05/16 [History Last Taken 03/08/15 08:00] lisinopril 10 mg tablet 10 mg PO DAILY 07/18/20 [History Last Taken Unknown] meclizine 25 mg tablet 25 mg PO 4X/DAY PRN PRN Dizziness #20 tabs 04/30/22 [Rx Last Taken Unknown] Allergy/AdvReac Type Severity Reaction Status Date / Time No Known Allergies Allergy Verified 01/28/22 14:36 Family History Mother Hypertension PVD (peripheral vascular disease) Father Cancer of kidney Thyroid cancer Hypertension Surgical History History of Achilles tendon repair History of colonoscopy Hx of elbow surgery Hx of hernia repair Social History current occupational status: employed current occupation: Physical Therapist Smoking Status: Never smoker ROS ROS ED ROS Narrative Past medical history: Reviewed Medications: Reviewed Social history: Noncontributory Review of systems: All systems negative except as indicated General: No fever Eyes: No visual changes ENT: No upper airway congestion, normal voice Neck: No neck pain Cardiovascular: No chest pain Respiratory: No shortness of breath or cough Gastrointestinal: No abdominal pain, nausea vomiting or diarrhea Genitourinary: No dysuria Musculoskeletal: Denies myalgias no difficulty with ambulation Skin: No rash Neurological: No memory loss, confusion or any focal weakness. Vertigo as in HPI EXAM Physical Exam Narrative Exam Narrative: Physical exam General: Well nourished, Well developed, No Acute Distress Head: Normocephalic, Atraumatic Eyes: Conjunctiva not pale. Pupils are 3 mm and reactive. He has bilateral nystagmus slightly worse on the right. He also has rightward saccade. ENT: Moist mucous membranes Neck: Supple, Nontender, No lymphadenopathy Cardiovascular: Regular rate, Regular rhythm Respiratory: No distress, CTA bilaterally Abdomen: Soft, Nontender, Nondistended Back: Nontender, Normal Inspection. Negative for: CVA tenderness Extremities: Nontender, No edema Skin: Normal color, No rash Neurological: Alert, Normal Strength, Normal Sensation. Normal cerebellar. Normal Romberg. Psychological: Normal affect Const Vital Signs: 04/30/22 11:33 04/30/22 12:45 04/30/22 14:00 Temperature 98 F Temperature Source Temporal Pulse Rate 67 67 Respiratory Rate 14 15 Respiratory Effort Normal Respiratory Pattern Normal Blood Pressure 157/96 H 121/72 H Blood Pressure Mean 116 88 Pulse Ox 99 100 Oxygen Delivery Method Room Air Room Air MDM MDM Lab Data Labs: Laboratory Results - last 24 hr 04/30/22 04/30/22 13:00 13:00 WBC 6.0 RBC 5.01 Hgb 16.2 Hct 48.0 MCV 95.8 H MCH 32.3 H MCHC 33.8 RDW Std Deviation 39.9 RDW Coeff of Pia 11.4 L Plt Count 236 MPV 9.1 Immature Gran % (Auto) 0.300 Neut % (Auto) 59.8 Lymph % (Auto) 24.7 Hemphill % (Auto) 9.6 Eos % (Auto) 4.6 Baso % (Auto) 1.0 Absolute Neuts (auto) 3.6 Absolute Lymphs (auto) 1.49 Nucleated RBC % 0 Sodium 138 Potassium 4.5 Chloride 106 Carbon Dioxide 27.0 Anion Gap 5 BUN 19 H Creatinine 1.08 Estim Creat Clear Calc 68.10 Est GFR (MDRD) Af Amer 91 Est GFR (MDRD) Non-Af 75 BUN/Creatinine Ratio 17.6 Glucose 108 H Calcium 9.7 Total Bilirubin 0.90 AST 23 ALT 45 Alkaline Phosphatase 83 Total Protein 7.6 Albumin 4.2 Globulin 3.4 Albumin/Globulin Ratio 1.2 Radiography Diagnostic Testing: Clinical Impression(s) from Imaging Studies Head/Neck CTA 04/30/22 12:51 IMPRESSION: Normal CTA Head and neck with contrast. Electronically Signed: Ryan Tavera MD at 14:45 EST Reading Location ID and State: [address] [place] [address] , Service support , EKG Initial EKG: Comments: Sinus rhythm with a rate of 61. Normal LA interval. Normal QTc interval. Nonspecific ST changes throughout but no acute ischemic events. Interpreted by emergency doctor. Treatment and Re-Evaluation Narrative: A. Problems addressed My worry is for this for a possible central etiology of the vertigo, however based on physical and CT results I believe this is likely BPPV. He was given meclizine with improvement. He has a physical therapist at this hospital and has access to vertebral rehab. He can follow-up with that. Otherwise if anything changes patient is to return. Patient did improve with meclizine and I will give him some meclizine for home. B. Amount and/or complexity of the data 1. CBC and CMP were unremarkable 2. Independent interpretation of test Telemetry: Sinus rhythm with a rate in the 60s without ectopy C. Risk of complications and/or morbidity Differential diagnosis: Stroke, vertebrobasilar insufficiency, intracranial mass, meningitis,or found on physical and/or blood work or CT. Discharge Plan Triage Chief Complaint: Dizziness ED Provider: Sohan Santos Dx/Rx/DC Orders Clinical Impression: Vertigo, Benign paroxysmal positional vertigo Instructions: BPPV Prescriptions: New meclizine 25 mg tablet 25 mg PO 4X/DAY PRN PRN (Reason: Dizziness) Qty: 20 0RF No Action lisinopril 10 mg tablet 10 mg PO DAILY ascorbic acid (vitamin C) 1,000 MG tablet 1,000 mg PO DAILY multivitamin with folic acid 1 TABLET tablet 1 tab PO DAILY Flaxseed Oil Gipsy-3 Liquid 1 dose PO DAILY Primary Care Provider: Betty Abarca Referrals: Betty Abarca DO [Primary Care Provider] - 3-5 Days Disposition Disposition: Home, Self Care What to do if you have Problems For any increased pain, shortness of breath, bleeding, nausea or vomiting, chest pain, or any unexpected problems, contact your Primary Care Provider. Call [facility] ([phone]) or report to the closest Emergency Room. Call 911 if necessary. 04/30/22 1506 <Electronically signed by Sohan Santos MD> Cosigner Signature (if applicable): CC: Dr. Betty Abarca DO Signed Betty Abarca DO Work Phone: Start: 04-30-2022 End: 05-01-2022 12 Lead EKG Procedure Note: See Note; NOTES: [facility] Cardiovascular Services [address] [place] [address] 12 Lead EKG 04/30/22 1313 MR#: [id number] Acct: [id number] Name: KEYLA BREAUX Rep #: [id number] : 1965 56 From: Sohan Layne MD Attending Dr: Status: DEP ER Ordering Dr: Sohan Santos MD Date: 04/30/22 Location: ED Sex: M C Admitted: Test Reason : HYPERTENSION Blood Pressure : / mmHG Vent. Rate : 061 BPM Atrial Rate : 061 BPM P-R Int : 188 ms QRS Dur : 088 ms QT Int : 384 ms P-R-T Axes : 014 015 -20 degrees QTc Int : 386 ms Normal sinus rhythm Lateral infarct , age undetermined , cannot be excluded Inferior infarct , age undetermined Abnormal ECG Confirmed by ELPIDIO GRIMES, SOHAN ([id number]), assignment desk editor RYANN MORAN ([id number]) on 05/01/2022 8:48:44 AM Referred By: PC Confirmed By:SOHAN LAYNE MD 05/01/22 0848 Date Sohan Layne MD CC: Dr. Betty Abarca, DO; Dr. Sohan Santos MD Signed Betty Abarca DO Work Phone: Start: 04-30-2022 CT angiography of he ad and neck Dr. Betty Abarca Work Phone: Start: 04-30-2022 End: 04-30-2022 CTA Head AND Neck W/ Contrast Procedure Note: See Note; NOTES: [facility] Imaging Services [address] [place] [address] CTA Head AND Neck W/ Contrast MR#: [id number] Acct: [id number] Name: KEYLA BREAUX Rep #: [id number] : 1965 M 56 From: Ryan mari MD PCP: Dr. Betty Abarca DO Status: REG ER Study: CTA Head AND Neck W/ Contrast Date of Exam: Exam# [id number] Ordering Dr: Sohan Santos MD STUDY: CTA HEAD AND NECK WITH CONTRAST REASON FOR EXAM: Male, 56 years old. History of Raynaud''s syndrome. Hypertension. Worsening dizziness. RADIATION DOSAGE (If Supplied By Facility): CTDIvol = ( 28.16 ) mGy, DLP = ( 1445.42 ) mGycm TECHNIQUE: CT angiography was performed with a multi-detector CT scanner. Data acquisition was obtained from the skull base through the vertex following intravenous administration of IV 100mL Isovue-370. MIP images were reconstructed from the axial data set. Post-processing of the angiographic images was performed, with multiplanar reformation and 3D reconstruction. Individualized dose optimization techniques were used for this CT. COMPARISON: No relevant priors. FINDINGS: Normal bilateral petrous carotid arteries. Normal right cavernous carotid artery with a normal supraclinoid bifurcation. Normal left cavernous carotid artery with a normal supraclinoid bifurcation. Normal right A1 segments of the anterior cerebral artery. Normal left A1 segments of the anterior cerebral artery. Normal intact anterior communicating artery (ACOM). Normal bilateral A2 segments of the anterior cerebral arteries. Normal right M1 and M2 segments of the middle cerebral arteries, with a normal M1 bifurcation. Normal left M1 and M2 segments of the middle cerebral arteries, with a normal M1 bifurcation. Normal right posterior communicating artery (PCOM). Normal left posterior communicating artery (PCOM). Normal bilateral vertebral arteries. Normal basilar artery with a normal basilar bifurcation. The visualized bilateral superior cerebellar (SCA) arteries are normal. Normal bilateral P1, P2 and visualized P3 segments of the posterior cerebral arteries. There is no demonstrated aneurysm of the zuni of [place]. There is no demonstrated abnormality of the visualized brain. AORTIC ARCH: Normal visualized aortic arch. Normal origins of the brachiocephalic, left common carotid, and left subclavian arteries. RIGHT CAROTID ARTERIES: Normal right common carotid artery (CCA). Normal right common carotid bulb. Normal origin of the right internal carotid (ICA) artery without a hemodynamically significant stenosis. Normal visualized cervical portion of the right internal carotid artery. Normal origin of the right external carotid artery (ECA). LEFT CAROTID ARTERIES: Normal left common carotid artery (CCA). Normal left common carotid bulb. Normal origin of the left internal carotid (ICA) artery without a hemodynamically significant stenosis. Normal visualized cervical portion of the left internal carotid artery. Normal origin of the left external carotid artery (ECA). VERTEBRAL ARTERIES: Normal bilateral vertebral arteries. CT/CTA Head AND Neck W/ Contrast IMPRESSION: Normal CTA Head and neck with contrast. Electronically Signed: Ryan Tavera MD at 14:45 EST Reading Location ID and State: [facility] / [place] , Service support , CC: Dr. Betty Abarca DO; Dr. Sohan Santos MD [employer] Racker: Signed Betty Abarca DO Work Phone: Start: 04-30-2022 End: 05-01-2022 12 Lead EKG Procedure Note: See Note; NOTES: [facility] Cardiovascular Services [address] [place] [address] 12 Lead EKG 04/30/22 1139 MR#: [id number] Acct: [id number] Name: KEYLA BREAUX Rep #: [id number] : 1965 56 From: Vick Redding MD Attending Dr: Status: DEP ER Ordering Dr: Sohan Santos MD Date: 04/30/22 Location: ED Sex: M C Admitted: Test Reason : HYPERTENSION Blood Pressure : / mmHG Vent. Rate : 065 BPM Atrial Rate : 065 BPM P-R Int : 178 ms QRS Dur : 084 ms QT Int : 386 ms P-R-T Axes : 010 018 -15 degrees QTc Int : 401 ms Normal sinus rhythm Possible Lateral infarct , age undetermined Inferior infarct , age undetermined Abnormal ECG Confirmed by VICK REDDING MD ([id number]), assignment desk editor RYANN MORAN ([id number]) on 05/01/2022 9:06:03 AM Referred By: PC Confirmed By:VICK REDDING MD 05/01/22 0906 Date Vick Redding MD CC: Dr. Betty Abarca DO; Dr. Sohan Santos MD Signed Betty Abarca DO Work Phone: Start: 02-04-2022 End: 02-04-2022 Colonoscopy Report Procedure Note: See Note; NOTES: [facility] Medical Records Department [address] [place] [address] Colonoscopy Report MR#: [id number] Acct: [id number] Name: KEYLA BREAUX Rep #: [id number] : 1965 56 From: Artis Renee DO PCP: Dr. Betty Abarca DO Status:REG [facility] Patient Name: Keyla Breaux Procedure Date: 02/04/2022 9:13 AM Date of : 1965 Age: 56 Procedure: Colonoscopy Indications: Screening for colorectal malignant neoplasm Providers: Artis Renee DO Referring MD: Betty Abarca Medicines: Monitored Anesthesia Care Patient Profile: Last Colonoscopy: date unknown. Complications: No immediate complications. Procedure: Pre-Anesthesia Assessment: - Prior to the procedure, a History and Physical was performed, and patient medications and allergies were reviewed. The risks and benefits of the procedure and the sedation options and risks were discussed with the patient. All questions were answered and informed consent was obtained. Patient identification and proposed procedure were verified by the physician in the pre-procedure area. Mental Status Examination: alert and oriented. Airway Examination: normal oropharyngeal airway and neck mobility. Respiratory Examination: clear to auscultation. CV Examination: normal. Prophylactic Antibiotics: The patient does not require prophylactic antibiotics. Prior Anticoagulants: The patient has taken no previous anticoagulant or antiplatelet agents. After reviewing the risks and benefits, the patient was deemed in satisfactory condition to undergo the procedure. The anesthesia plan was to use monitored anesthesia care (MAC). Immediately prior to administration of medications, the patient was re-assessed for adequacy to receive sedatives. The heart rate, respiratory rate, oxygen saturations, blood pressure, adequacy of pulmonary ventilation, and response to care were monitored throughout the procedure. The physical status of the patient was re-assessed after the procedure. After I obtained informed consent, the scope was passed under direct vision. Throughout the procedure, the patient's blood pressure, pulse, and oxygen saturations were monitored continuously. The colonoscope was introduced through the anus and advanced to the cecum, identified by appendiceal orifice and ileocecal valve. The colonoscopy was performed without difficulty. The patient tolerated the procedure well. The quality of the bowel preparation was good. Scope In: 9:28:21 AM Scope Withdrawal Time 0 hours 10 minutes 31 seconds Scope Out: 9:43:00 AM Total Procedure Duration Time 0 hours 14 minutes 39 seconds Findings: Hemorrhoids were found on perianal exam. A 5 mm polyp was found in the rectum. The polyp was sessile. The polyp was removed with a cold biopsy forceps. Resection and retrieval were complete. Verification of patient identification for the specimen was done. Estimated blood loss was minimal. Impression: - Hemorrhoids found on perianal exam. - One 5 mm polyp in the rectum, removed with a cold biopsy forceps. Resected and retrieved. Recommendation: - Repeat colonoscopy in 5 years for surveillance. - Continue present medications. Procedure Code(s): --- Professional --- 62566, Colonoscopy, flexible; with biopsy, single or multiple CPT copyright 2017 [employer]. All rights reserved. The codes documented in this report are preliminary and upon remote coders review may be revised to meet current compliance requirements. Artis Renee DO 02/04/2022 9:47:48 AM This report has been signed electronically. Number of Addenda: 0 Note Initiated On: 02/04/2022 9:13 AM 02/04/22947 Date Artis Renee DO Cosigner Signature: Date (if indicated) CC: Dr. Betty Abarca DO; Artis Renee DO Date Dictated: 02/04/22912 Date Transcribed: [employer] Racker: ELISA Signed Betty Abarca DO Work Phone: Start: 02-04-[address] Cornell Abarca Work Phone: Start: 02-04-2022 End: 02-04-2022 History and Physical Exam Procedure Note: See Note; NOTES: [facility] Medical Records Department [address] [place] [address] History Physical Exam 02/04/22 0833 MR#: [id number] Acct: [id number] Name: KEYLA BREAUX Rep #: [id number] : 1965 56 From: [facility] Friend DO PCP: Dr. Betty Abarca, DO Status:[facility] Location: [place] [address] HPI - General General Date of Admission: 02/04/22 Date of Service: 02/04/22 Chief Complaint: Screening colonoscopy HPI Narrative KEYLA BREAUX, is a 56 M who presents today for screening colonoscopy. He is not having any problems with his bowels. He is not have any nausea, vomiting or diarrhea. He is not having abdominal pain or bloating. He does not take any medicines on daily basis except for vitamin C, flaxseed oil and lisinopril along with a multivitamin. He has no known drug allergies. He has no bowel surgeries. He denies any chest pain shortness of breath. Overall he is in very good health. [facility] Medical History Alcohol use Back pain Benign prostatic hyperplasia without lower urinary tract symptoms Chronic neck and back pain Colon polyp Essential (primary) hypertension Heartburn Hyperlipidemia, unspecified Non-smoker Raynauds syndrome Right orbital fracture Home Medications Flaxseed Oil Gipsy-3 Liquid 1 dose PO DAILY 02/05/16 [History Last Taken 03/08/15 08:00] ascorbic acid (vitamin C) 1,000 mg tablet 1,000 mg PO DAILY 02/05/16 [History Last Taken 03/08/15 08:00] multivitamin with folic acid 400 mcg tablet 1 tab PO DAILY 02/05/16 [History Last Taken 03/08/15 08:00] lisinopril 10 mg tablet 10 mg PO DAILY 07/18/20 [History Last Taken Unknown] Allergy/AdvReac Type Severity Reaction Status Date / Time No Known Allergies Allergy Verified 01/28/22 14:36 Family History (Updated 11/29/21 @ 11:44 by Karla Randall) Mother Hypertension PVD (peripheral vascular disease) Father Cancer of kidney Thyroid cancer Hypertension Surgical History History of Achilles tendon repair History of colonoscopy Hx of elbow surgery Hx of hernia repair Social History (Updated 11/29/21 @ 11:28 by Karla Randall) current occupational status: employed current occupation: Physical Therapist Smoking Status: Never smoker ROS Review of Systems ROS Unobtainable: other Constitutional Constitutional: Denies fatigue, fever(s), poor appetite, weight gain or weight loss ENT HEENT: Denies mouth lesions Cardiovascular Cardiovascular: Denies abdominal bloating, abdominal edema or abdominal pain Respiratory/Chest Respiratory/Chest: Denies change in mental status, change in phlegm color, chest congestion or chest tightness Gastrointestinal Gastrointestinal: Denies belching, bloating, change in bowel habits, change in stool character, chewing difficulty, coffee ground emesis, constipation, cramping, diarrhea, dyspepsia, dysphagia, early satiety, excessive flatus, fecal incontinence, heartburn, hematemesis, hematochezia, hemorrhoids, loose stools, melena, nausea, odynophagia, rectal bleeding, tenesmus, vomiting or weight changes Genitourinary Genitourinary: Denies abdominal discomfort, burning urination or itching Musculoskeletal Musculoskeletal: Reports as per HPI; Denies muscle weakness or myalgias Integumentary Integumentary: Denies jaundice Neurologic Neurologic: Denies lack of coordination or weakness Psychiatric Psychiatric: Denies confusion, depression, memory loss, mood swings, paranoia or suicidal ideation Endocrine Endocrinology: Denies systems reviewed and no addt'l complaints, except as documented Hematologic/Lymphatic Hematologic/Lymphatic: Denies anemia, easy bleeding, easy bruising or lymphadenopathy Allergic/Immunologic Allergic/Immunologic: Denies systems reviewed and no addt'l complaints, except as documented Physical Exam Const alert General Appearance: cooperative Orientation / Consciousness: oriented to person HEENT hearing grossly normal bilaterally Head and Scalp: normal to inspection Face and Sinus: face symmetric Nose: external nose normal Mouth: oral and palatal mucosa normal Eyes conjunctivae normal General Eye: normal appearance of both eyes Neck full ROM General: normal visual inspection Lymph Lymphatic: no lymphadenopathy noted Chest inspection of chest normal and palpation of chest normal Chest: symmetrical chest wall rise Resp normal respiratory effort Effort and Inspection: able to speak in complete sentences Cardio regular rate GI non-distended Percussion: normal to percussion Rectal Exam: deferred Neuro Speech: speech normal Gait (Neuro): normal gait Assessment Plan Assessment/Plan (1) Encounter for screening for malignant neoplasm of colon: PLAN: 56-year-old gentleman will undergo screening colonoscopy. He was explained alternatives, risk, benefits including not withstanding bleeding, infection, sepsis, perforation, need for emergent turn to . He will have an ASA of 1. 02/04/22 0835 <Electronically signed by Artis Renee DO> Cosigner Signature (if applicable): CC: Dr. Betty Abarca DO; Artis Renee DO Signed Betty Abarca DO Work Phone: Start: 07-18-2020 End: 07-18-2020 Urgent Care Visit Report Comments: See Note; NOTES: [facility] [address] [place] [address] [address] [place] [address] OFFICE VISIT Date of Service: 07/18/20 MR#: [id number] Acct: [id number] Name: KEYLA BREAUX Rep #: [id number] : 1965 Provider: MADELIN Marcos Age/Sex: 54/M Location: [facility] Status: Signed Intake Vital Signs 07/18/20 07:37 07/18/20 07:45 BMI 29.9 BP 110/70 Blood Pressure Location Lt brachial Position Sitting Respiration 16 Pulse 68 Pulse Source Monitor Temp 98.1 F Temp Source Temporal Pulse Oximetry (%) 98 Oxygen Delivery Method room air Intake Visit Reasons: COVID TEST FOR SURGERY Chief Complaint: Covid screening Allergies No Known Allergies Allergy (Verified 07/18/20 07:45) Medications Flaxseed Oil Gipsy-3 Liquid 1 dose PO DAILY 02/05/16 [History Confirmed 07/18/20] ascorbic acid (vitamin C) 1,000 mg PO DAILY 02/05/16 [History Confirmed 07/18/20] multivitamin with folic acid 1 tab PO DAILY 02/05/16 [History Confirmed 07/18/20] lisinopril 10 mg tablet 10 mg PO DAILY 07/18/20 [History Confirmed 07/18/20] PFSH Medical History (Updated 07/18/20 @ 07:47 by Citlali Barros RN) Chronic neck and back pain Social History Smoking Status: Never smoker HPI HPI Chief Complaint: Covid screening Details: KEYLA BREAUX, is a 54 M who presents to the office today for Covid screening presurgery. Patient states that he has surgery in 5 days and is required to have a negative Covid test prior to surgery. Patient states he has no symptoms of Covid including no fever, chills, sweats. No nausea, vomiting, diarrhea. No cough, shortness of breath or difficulty breathing. No other associated symptoms or alleviating/aggravating factors. ROS Const Constitutional: Positive for other (6 system ROS completed with pertinent findings in the HPI otherwise normal.) Exam Const General: cooperative and healthy appearing [facility] Head: normocephalic and atraumatic Ears: hearing grossly normal bilaterally Nose: external nose normal Face and sinus: normal facial exam and face symmetric Mouth: oral mucosae normal Throat: posterior oropharynx normal Eyes General: appearance normal, both eyes and all related structures Resp Effort Inspection: normal respiratory effort Auscultation: Bilateral: Clear to Auscultation Cardio Palpation: normal PMI Rate: regular rate Rhythm: regular rhythm Skin General: no rashes or lesions noted Neuro General: patient alert and CN's II-XI intact bilaterally Psych Appearance: grossly normal Mental Status: mental status grossly normal Results POC FARZANA CoV-2 PCR POC FARZANA CoV-2 PCR Not Detected Last Edit by Citlali Barros RN on 07/18/20 08:03 Negative for Influenza A and B Coding Level of Care Code Off vis,est,level 3 Diagnoses Encounter for screening for COVID-19 Z11.52 Assessment and Plan Assessment and Plan (1) Encounter for screening for COVID-19: Status: Acute Plan - MADELIN Bishop: Patient tested negative for COVID-19 as well as influenza using rapid PCR testing in the office today. Patient given a printout of results. Patient verbalized understanding and agreement with all the above. 07/18/20 0910 <Electronically signed by Von YUSUF> Date Von YUSUF Cosigner Signature: Date (if applicable) CC: Betty Abarca DO Work Phone: Start: 02-27-2019 End: 02-27-2019 Carotid Duplex Ultrasound Comments: See Note; NOTES: [facility] [place] [address] Carotid Duplex Ultrasound 02/26/19 0858 MR#: [id number] Acct: [id number] Name: KEYLA BREAUX Rep #: [id number] : 1965 53 From: Virgil Rosas MD Attending Dr: Betty Abarca DO Status: REG CLI Ordering Dr: Betty Abarca DO Date: 02/26/19 Location: [facility] Sex: M C Admitted: Reason For Study: Dizziness Rt. Velocities/BP Lt. Velocities/BP Prox CCA 94.9/17.6 cm/sec. Prox CCA 92.5/16.3 cm/sec. Mid CCA 109.7/18.8 cm/sec. Mid CCA 119.3/26.1 cm/sec. Dist CCA 104.8/22.5 cm/sec. Dist CCA 110.1/27.9 cm/sec. Prox ICA 68.4/19 cm/sec. Prox ICA 82.7/21.2 cm/sec. Mid ICA 72.8/25.6 cm/sec. Mid ICA 70.4/27.4 cm/sec. Dist ICA 86/31.1 cm/sec. Dist ICA 75.3/32.3 cm/sec. Rt. ICA/CCA = 0.8. Lt. ICA/CCA = 0.8. Prox ECA 114.8/18.2 cm/sec. Prox ECA 102.8/20.6 cm/sec. Rt. Vert. 81.7/14.6 cm/sec. Lt. Vert. 46.6/18.2 cm/sec. Right Extracranial There is intimal thickening but no significant atherosclerotic plaque noted in the right common carotid artery. There is intimal thickening but no significant atherosclerotic plaque noted in the right internal carotid artery. There is no significant atherosclerotic plaque noted in the right external carotid artery. Antegrade flow is noted in the right vertebral artery. Left Extracranial There is intimal thickening but no significant atherosclerotic plaque noted in the left common carotid artery. There is intimal thickening but no significant atherosclerotic plaque noted in the left internal carotid artery. There is no significant atherosclerotic plaque noted in the left external carotid artery. Antegrade flow is noted in the left vertebral artery. Procedure Carotid Duplex 03503. Exam performed in department. Interpretation Summary No significant atherosclerotic plaque or stenosis noted in the internal carotid arteries bilaterally. Flow within the vertebral arteries is antegrade bilaterally. Ordering Physician: Betty Abarca Referring Physician: Betty Abarca Performed By: Jeimy Cedillo Lashanda 02/27/19 0909 Date Virgil Rosas MD CC: Betty Abarca DO Date Dictated: 02/26/19 0858 Date Transcribed: 02/27/19908 [employer] Racker: Signed Betty Abarca Work Phone: Start: 03-30-2018 End: 03-30-2018 Urgent Care Visit Report Comments: See Note; NOTES: [facility] [address] [place] [address] [address] [place] [id number] OFFICE VISIT Date of Service: 03/30/18 MR#: [id number] Acct: [id number] Name: KEYLA BREAUX Rep #: [id number] : 1965 Provider: Von YUSUF Age/Sex: 52/M Location: [facility] Status: Signed Intake Vital Signs03/30/18 Height 5 ft 7 in Intake Visit Reasons: COUGH, SORE THROAT/ COLD SYMPTOMS Chief Complaint: Cough Transporter Radiology Required: No Accompanied by: self Is patient in pain?: No Allergies No Known Allergies Allergy (Verified 03/30/18 14:26) Medications Ascorbic Acid [Vitamin C] 1,000 mg PO DAILY 02/05/16 [History Confirmed 03/30/18] Flaxseed Oil Gipsy-3 Liquid 1 dose PO DAILY 02/05/16 [History Confirmed 03/30/18] Multivitamins,Therapeutic [Multivitamin] 1 tab PO DAILY 02/05/16 [History Confirmed 03/30/18] [facility] Medical History Chronic neck and back pain (Chronic) Social History Smoking Status: Never smoker HPI HPI Chief Complaint: Cough Details: KEYLA BREAUX, is a 52 M who presents to the office today for cough, fever, body aches and fatigue for the past 3 days. Patient did not actually take his temperature and therefore does not know the T-max. Patient states that the symptoms came on rapidly and he spent most of the first day sleeping in bed. He describes his cough as dry, nonproductive and denies hemoptysis, shortness of breath or difficulty breathing. He has had no nausea, vomiting, diarrhea. No other associated symptoms or alleviating/aggravating factors. ROS Const Constitutional: Positive for fever(s), body ache, chills and fatigue ENT ENT: Positive for nasal congestion and sore throat; no ear pain Resp Respiratory: Positive for cough Cough: Yes non-productive; no shortness of breath, hemoptysis or pain with cough Cardio Cardiology: No chest pain at rest or shortness of breath Musc Musculoskeletal: No abnormal walking Neuro Neurology: No abnormal walking or behavioral changes Psych Psychiatric: No behavioral changes, No mood swings Endo Endocrine: Positive for fatigue Exam Const General: cooperative, no acute distress [facility] Head: normocephalic, atraumatic Ears: hearing grossly normal bilaterally Nose: external nose normal Mouth: oral mucosae normal Throat: posterior oropharynx abnormal erythema; Negative for no exudates Resp Effort AND Inspection: normal respiratory effort Auscultation: Bilateral: Clear to Auscultation Cardio Palpation: normal PMI Rate: regular rate Rhythm: regular rhythm Heart Sounds: S1 normal, S2 normal Neuro General: alert, oriented x3, CN's II-XI intact bilaterally Psych Appearance: grossly normal Mental Status: mental status grossly normal Mood: congruent mood Results BMSFLUAB Office Flu A AND B Pos FLU A AND Neg FLU B Last Edit by Lillian Kelley on 03/30/18 14:32 Assessment AND Plan Problems 1. Influenza A J10.1 Status Acute Plan Flu test positive for flu a in the office today. Patient advised that since he has been showing symptoms for the past 72 hours Tamiflu is not an option at this time. Encouraged to get plenty of rest, drink lots of clear liquids, and use Tylenol or Ibuprofen (unless contraindicated) for fever and comfort. Patient also educated on other symptomatic management techniques. To be seen in 7-10 days if no improvement; sooner if worsening of symptoms. Patient advised of potential red flags and when appropriate to report to the ED. Patient verbalized understanding and agreement with all the above. Orders Orders: Coding Level of Care Code Off vis,new,level 3 Diagnoses Influenza A J10.1 03/30/18 1527 <Electronically signed by Von YUSUF> Date Von YUSUF Cosigner Signature: Date (if applicable) CC: Betty Abarca Start: 02-13-2016 End: 02-13-2016 Operative Report Comments: See Note; NOTES: [facility] Medical Records Department [address] [place] [address] Operative Report MR#: [id number] Acct: [id number] Name: KEYLA BREAUX Rep #: [id number] : 1965 50 From: Howard Steele MD PCP: Betty Abarca DO Status: [facility] DATE OF SERVICE: PROCEDURE PERFORMED: Colonoscopy to the cecum with snare polypectomy. PREOPERATIVE DIAGNOSIS: The patient for screening colonoscopy. POSTOPERATIVE DIAGNOSES: Sessile polyp removed from the right colon via snare polypectomy and then remaining colon unremarkable. MEDICATIONS GIVEN: Anesthesia via MAC. INSTRUMENT: Olympus adjustable pediatric colonoscope. DESCRIPTION OF PROCEDURE: Informed consent was obtained prior to the procedure. The patient was brought to the procedure room, placed left shoulder down and given the above medications. Anesthesia provided MAC. A rectal exam revealed no palpable masses. The colonoscope was passed in the rectum and rectal mucosa appeared normal. Moving up the left colon, the vascular pedicle was normal. Across the transverse colon, there were no large polyps on the right colon, the cecum was well visualized. The base of the cecum was photographed. The patient had an excellent preparation. Back in the right colon in the proximal ascending colon with sessile polyp on a fold. Using a snare, the polyp was transected. The polyp was sucked up with the colonoscope. Back up across the hepatic flexure, the mucosa was normal. Across the transverse colon, there were no large polyps seen. Below the splenic flexure and down through the left colon, there were no large polyps noted. Down through the sigmoid and rectum, mucosa remained normal. Retroflexion performed in the rectum showed small internal hemorrhoid. The colon was decompressed. The patient tolerated the procedure well. IMPRESSION: Screening colonoscopy, sessile polyp removed from the proximal ascending colon. PLAN: Follow up the pathology of the polyp. Repeat a colonoscopy in 5 years. MD Rocio Dotson C: Betty Abarca DO T: [facility] JOB: [id number] 02/13/16 1324 <Electronically signed by Howard Steele MD> Date Howard Steele MD Cosigner Signature (If Indicated): Date CC: Betty Abarca DO; Howard Steele Date Dictated: 02/08/16802 Date Transcribed: 02/08/16802 [employer] Racker: Signed Betty Abarca Start: 07-19-2014 End: 07-20-2014 Pelvis 1 or 2 Views Comments: See Note; NOTES: [facility] Imaging Services [address] [place], [place] [address] [address] Radiology Report MR#: [id number] Acct: [id number] Name: KEYLA BREAUX Rep #: [id number] : 1965 M 48 From: Theo Galdamez MD PCP: Gena Valdes MD Status: REG CLI Study: Pelvis 1 or 2 Views Date of Exam: 07/19/14 Exam# [id number] Ordering Dr: Stanford Barry MD STUDY: X-RAY - PELVIS REASON FOR EXAM: Male, 48 years old. injury to pubic symphysis years ago, past few months it has been hurting again TECHNIQUE: One view of the pelvis was obtained. COMPARISON: None. FINDINGS: There is a non-specific bowel gas pattern. Normal visualized soft tissue structures. Normal bilateral iliac wings, sacroiliac joints and visualized sacrum. Normal visualized bilateral superior and inferior pubic rami. Normal pubic symphysis. Normal ischial tuberosities. Normal visualized right femoral head. Normal right acetabulum. Normal right hip joint. Normal visualized left femoral head. Normal left acetabulum. Normal left hip joint. IMPRESSION: Normal x-ray examination of the pelvis. Electronically Signed: Theo Galdamez MD at 0:07 EDT , Service support [phone], RAD/Pelvis 1 or 2 Views IMPRESSION: Normal x-ray examination of the pelvis. Electronically Signed: Theo Galdamez MD at 0:07 EDT , Service support [phone], CC: Víctor Barry MD; Gena Valdes MD [employer] Racker: Signed Betty Abarca ACHILLES TENDON Carlos Ceja Comment on above: Left repair ACHILLES TENDON Barbara Saenz Comment on above: Left repair ACHILLES TENDON Enedina Boothe Comment on above: Left repair ACHILLES TENDON Mell lott MA Comment on above: Left repair ACHILLES TENDON Enedina Gravi us SLIDE FASTENERS INSPECTOR Comment on above: Left repair ACHILLES TENDON Kayela Melany rd SLIDE FASTENERS INSPECTOR Comment on above: Left repair ACHILLES TENDON Cristian [place] BLOCK PRESS OPERATOR Comment on above: Left repair HERNIA REPAIR, NOS Carlos Sm ith Comment on above: Right HERNIA REPAIR, NOS Barbara L L iram Comment on above: Right HERNIA REPAIR, NOS Enedina Gr avius Comment on above: Right HERNIA REPAIR, NOS Mell dozier MA Comment on above: Right HERNIA REPAIR, NOS Enedina Gr avius SLIDE FASTENERS INSPECTOR Comment on above: Right HERNIA REPAIR, NOS Tosha Edwards dford SLIDE FASTENERS INSPECTOR Comment on above: Right HERNIA REPAIR, NOS Cristian Pr yor BLOCK PRESS OPERATOR Comment on above: Right right orbital fracture--had plate place Carlos Ceja right orbital fracture--had plate place Barbara L Long right orbital fracture--had plate place Enedina Gravius right orbital fracture--had plate place Mell Shannon MA right orbital fracture--had plate place Enedina Gravius SLIDE FASTENERS INSPECTOR right orbital fracture--had plate place Tosha Bautista CMA right orbital fracture--had plate place Cristian Markos BLOCK PRESS OPERATOR sports hernia on left-mesh and fascial reenforcement 2015 Carlos Ceja sports hernia on left-mesh and fascial reenforcement 2015 Barbara L Long sports hernia on left-mesh and fascial reenforcement 2015 Enedina Gravius sports hernia on left-mesh and fascial reenforcement 2015 Mell Shannon MA sports hernia on left-mesh and fascial reenforcement 2015 Enedina Gravius SLIDE FASTENERS INSPECTOR sports hernia on left-mesh and fascial reenforcement 2014 Tosha Bautista SLIDE FASTENERS INSPECTOR sports hernia on left-mesh and fascial reenforcement 2014 Cristian Hollywood BLOCK PRESS OPERATOR Plan of Treatment Date Care Activity Detail Author Start: 05-28-2024 US scan of thyroid Thyroid [facility] Start: 05-28-2024 US Thyroid gland [facility] Start: 12-12-2022 Procedure Education Eprescribe d prescriptions (G8553) [facility]; [facility] Work Phone: Start: 12-12-2022 Cyanocobalamin vitam in b-12 VITAMIN B-12 (CYANOCOBALAMIN) (68821) [facility]; [facility] Work Phone: Start: 09-19-2022 Procedure Education Eprescribe d prescriptions (G8553) [facility]; [facility] Work Phone: Start: 09-19-2022 Provider Instruction s for Treatment [facility]; [facility] Work Phone: Start: 09-19-2022 Assay of prostate specific antigen total PSA (PROSTATE SPECIFIC ANTIGEN) (V76.44) [facility]; [facility] Work Phone: Start: 09-19-2022 Hemoglobin glycosyla fe a1c HGB A1C (16282) [facility]; [facility] Work Phone: Start: 09-19-2022 Assay of thyroid stimulating hormone tsh TSH (94421) [facility]; [facility] Work Phone: Start: 09-19-2022 Urnls dip stick/tabl et reagent auto microscopy URINALYSIS, W/ MICRO (36939) [facility]; [facility] Work Phone: Start: 09-19-2022 Urine albumin quantitative MICROALBUMIN: CREATININE RATIO (85433) AND (15015) [facility]; [facility] Work Phone: Start: 09-19-2022 Comprehensive metabo lic panel METABOLIC PANEL, COMPREHENSIVE (15485) [facility]; [facility] Work Phone: Start: 09-19-2022 Lipid panel LIPID PANEL (84163) [facility]; [facility] Work Phone: Start: 09-19-2022 Blood count complete auto&auto difrntl wbc CBC W/AUTO DIFF WBC (57630) [facility]; [facility] Work Phone: Start: 05-16-2022 Procedure Education Eprescribe d prescriptions (G8553) [facility]; [facility] Work Phone: Start: 05-16-2022 Provider Instruction s for Treatment [facility]; [facility] Work Phone: Start: 02-04-2022 Colonoscopy w/biopsy single/multiple COLONOSCOPY AND BIOPSY [facility] Start: 02-04-2022 Patient discharge [facility] Start: 11-29-2021 Procedure Education Eprescribe d prescriptions (G8553) [facility]; [facility] Work Phone: Start: 11-29-2021 Provider Instruction s for Treatment [facility]; [facility] Work Phone: Start: 11-29-2021 Hemoglobin glycosyla fe a1c HGB A1C (15897) [facility]; [facility] Work Phone: Start: 11-29-2021 Hepatic function panel HEPATIC FUNCTION PANEL (40919) [facility]; [facility] Work Phone: Start: 11-29-2021 Assay of thyroid stimulating hormone tsh TSH (51045) [facility]; [facility] Work Phone: Start: 12-08-2020 Procedure Education Eprescribe d prescriptions (G8553) [facility]; [facility] Work Phone: Start: 12-08-2020 Provider Instruction s for Treatment Reviewed Lab [facility]; [facility] Work Phone: Start: 10-25-2019 Procedure Education Eprescribe d prescriptions (G8553) [facility] Work Phone: Start: 10-25-2019 Provider Instruction s for Treatment Reviewed Lab [facility] Work Phone: Start: 05-31-2019 Procedure Education Eprescribe d prescriptions (G8553) [facility] Work Phone: Start: 05-31-2019 Provider Instruction s for Treatment [facility] Work Phone: Start: 05-31-2019 HbA1c (Bld) [Mass fraction] HgA1C , Office (35711) [facility] Work Phone: Comment on above: standing orderf ever y 4mo Start: 05-31-2019 Hemoglobin glycosyla fe a1c HgA1C , Office (27909) [facility]; [facility] Work Phone: Comment on above: standing orderf ever y 4mo Start: 04-22-2019 Procedure Education Eprescribe d prescriptions (G8553) [facility] Work Phone: Start: 04-22-2019 Provider Instruction s for Treatment [facility] Work Phone: Start: 04-01-2019 Procedure Education Eprescribe d prescriptions (G8553) [facility] Work Phone: Start: 04-01-2019 Provider Instruction s for Treatment [facility] Work Phone: Start: 03-24-2019 Provider Instruction s for Treatment Continue Current Prescription(s) [facility] Work Phone: Start: 03-01-2019 Procedure Education Eprescribe d prescriptions (G8553) [facility] Work Phone: Start: 03-01-2019 Provider Instruction s for Treatment [facility] Work Phone: Start: 03-01-2019 HbA1c (Bld) [Mass fraction] HGB A1C (54133) [facility] Work Phone: Start: 03-01-2019 Hemoglobin glycosyla fe a1c HGB A1C (87090) [facility]; [facility] Work Phone: Start: 02-26-2019 Assay of phosphorus inorganic PHOSPHORUS (57776) [facility]; [facility] Work Phone: Start: 02-26-2019 Phosphate [Mass/Vol] PHOSPHORUS (841 00) [facility] Work Phone: Start: 02-12-2019 Procedure Education Eprescribe d prescriptions (G8553) [facility] Work Phone: Start: 02-12-2019 Provider Instruction s for Treatment [facility] Work Phone: Start: 11-27-2018 Assay of phosphorus inorganic urine PHOSPHATE URINE (97358) [facility] Work Phone: Comment on above: 24 hour urine phosph ate Start: 11-27-2018 25 hydroxy includes fractions if performed CALCIFEDIOL (13939) [facility] Work Phone: Start: 11-27-2018 Calcium ionized CALCIUM, IONIZ ED (81435) [facility] Work Phone: Start: 11-27-2018 Assay of prostate specific antigen total PSA (PROSTATE SPECIFIC ANTIGEN) (V76.44) [facility] Work Phone: Start: 11-27-2018 Assay of phosphorus inorganic PHOSPHORUS (48804) [facility]; [facility] Work Phone: Start: 11-27-2018 Phosphate [Mass/Vol] PHOSPHORUS (841 00) [facility] Work Phone: Start: 11-27-2018 Lipoprotein direct measurement ldl cholesterol LDL CHOLESTEROL-DIRECT (32169) [facility] Work Phone: Start: 05-07-2018 Procedure Education Eprescribe d prescriptions (G9621) [facility] Work Phone: Start: 05-07-2018 Assay of phosphorus inorganic PHOSPHORUS (77879) [facility]; [facility] Work Phone: Start: 05-07-2018 Phosphate [Mass/Vol] PHOSPHORUS (841 00) [facility] Work Phone: Start: 05-07-2018 Assay of thyroid stimulating hormone tsh TSH (75073) [facility]; [facility] Work Phone: Start: 05-07-2018 TSH Qn TSH (13783) [facility] Work Phone: Start: 05-07-2018 Urine albumin quantitative MICROALBUMIN: CREATININE RATIO (12762) AND (11050) [facility] Work Phone: Start: 05-07-2018 Comprehensive metabo lic panel METABOLIC PANEL, COMPREHENSIVE (66712) [facility] Work Phone: Start: 05-07-2018 Lipoprotein blood qu an numbers & subclasses NMR Profile (80177) [facility] Work Phone: Start: 05-07-2018 Blood count complete auto&auto difrntl wbc CBC with auto diff (15329) [facility] Work Phone: Start: 05-07-2018 HbA1c (Bld) [Mass fraction] HGB A1C (09140) [facility] Work Phone: Start: 05-07-2018 Hemoglobin glycosyla fe a1c HGB A1C (13764) [facility]; [facility] Work Phone: Start: 11-24-2017 Provider Instruction s for Treatment Reviewed Lab [facility] Work Phone: Start: 11-20-2016 Blood count complete auto&auto difrntl wbc CBC, PLATELETS & AUT DIFF (12688) [facility] Work Phone: Start: 10-28-2016 Provider Instruction s for Treatment Reviewed Lab [facility] Work Phone: Start: 02-15-2016 Patient Education Sore Throat *: acute pharyngitis [facility] Work Phone: Start: 02-15-2016 Procedure Education Eprescribe d prescriptions (G8553) [facility] Work Phone: Start: 02-15-2016 Provider Instruction s for Treatment [facility] Work Phone: Start: 02-15-2016 Cul bact xcpt urine blood/stool aerobic isol Throat Culture (92150) [facility] Work Phone: Start: 11-20-2015 Provider Instruction s for Treatment [facility] Work Phone: Start: 11-20-2015 25 hydroxy includes fractions if performed CALCIFIDIOL (85790) VIT D 25 [facility] Work Phone: Start: 11-20-2015 Assay of prostate specific antigen total PSA (PROSTATE SPECIFIC ANTIGEN) (V76.44) [facility] Work Phone: Start: 11-20-2015 Protein mass conc PSA (PROSTAT E SPECIFIC ANTIGEN) (V76.44) [facility] Work Phone: Start: 11-20-2015 Calcium mass conc CALCIUM SERUM (823 10) [facility] Work Phone: Start: 11-20-2015 Calcium total CALCIUM SERUM (85845) [facility]; [facility] Work Phone: Start: 11-20-2015 Assay of phosphorus inorganic PHOSPHORUS (74764) [facility]; [facility] Work Phone: Start: 11-20-2015 Phosphate mass conc PHOSPHORUS (8410 0) [facility] Work Phone: Start: 11-20-2015 Hemoglobin A1c/Hemoglobin.total mass fraction (Bld) HGB A1C (31429) [facility] Work Phone: Start: 11-20-2015 Hemoglobin glycosyla fe a1c HGB A1C (76871) [facility]; [facility] Work Phone: Start: 12-01-2014 Procedure Education Eprescribe d prescriptions (G8553) [facility] Work Phone: Start: 12-01-2014 Calcium ionized CALCIUM, IONIZ ED (68616) [facility] Work Phone: Start: 12-01-2014 25 hydroxy includes fractions if performed CALCIFEDIOL (24679) [facility] Work Phone: Start: 12-01-2014 Assay of phosphorus inorganic PHOSPHORUS (40784) [facility]; [facility] Work Phone: Start: 12-01-2014 Phosphate mass conc PHOSPHORUS (8410 0) [facility] Work Phone: Start: 12-01-2014 Blood count complete auto&auto difrntl wbc CBC, Platelets & Auto Diff (59801) [facility] Work Phone: Start: 12-01-2014 Assay of prostate specific antigen total PSA (PROSTATE SPECIFIC ANTIGEN) (V76.44) [facility] Work Phone: Start: 12-01-2014 Protein mass conc PSA (PROSTAT E SPECIFIC ANTIGEN) (V76.44) [facility] Work Phone: Start: 12-01-2014 Assay of thyroid stimulating hormone tsh TSH (20196) [facility]; [facility] Work Phone: Start: 12-01-2014 Thyrotropin Qn TSH (57681) [facility] Work Phone: Start: 12-01-2014 Assay of free thyroxine T4, FR EE (THYROXINE) (30607) [facility]; [facility] Work Phone: Start: 12-01-2014 T4 free mass conc T4, FREE (TH YROXINE) (20472) [facility] Work Phone: Start: 12-01-2014 Cobalamin (Vitamin B 12) mass conc Vitamin B-12 (cyanocobalamin) (71879) [facility] Work Phone: Start: 12-01-2014 Cyanocobalamin vitam in b-12 Vitamin B-12 (cyanocobalamin) (39419) [facility]; [facility] Work Phone: Start: 12-03-2011 Assay of phosphorus inorganic PHOSPHORUS (21207) [facility]; [facility] Work Phone: Start: 12-03-2011 Phosphate mass conc PHOSPHORUS (8410 0) [facility] Work Phone: Start: 12-02-2011 Patient Education Prostate Spe cific Antigen Screening *: psa screening [facility] Work Phone: Start: 11-20-2009 Blood count reticulo cyte automated RETICULOCYTE COUNT (19452) [facility] Work Phone: Colonoscopy [facility] Work Phone: Patient referral [facility] Work Phone: [facility] Work Phone: [facility] Work Phone[facility] Work Phone: [facility] Work Phone: [facility] Work Phone[facility] Work Phone: [facility] Work Phone: [facility] Work Phone[facility] Work Phone[facility] Work Phone: [facility] Work Phone: Immunizations Immunization Date Immunization Notes Care Provider Liz echavarria 12-18-2023 influenza, seasonal, injectable, preservative free Dr. Betty Abarca DO Work Phone: [facility] 12-20-2022 influenza, injectabl e, quadrivalent, preservative free Dr. Betty Abarca DO Work Phone: [facility] 12-17-2021 influenza, injectabl e, quadrivalent, preservative free [facility] 12-17-2021 influenza, seasonal, injectable Dr. Betty Abarca Work Phone: [facility] 01-10-2021 Covid (Moderna) Dr. Betty Abarca Work Phone: [facility] 12-20-2020 influenza, injectabl e, quadrivalent, preservative free [facility] 12-20-2020 influenza, seasonal, injectable Dr. Betty Abarca Work Phone: [facility] 04-10-2020 Covid (Moderna) Dr. Betty Abarca Work Phone: [facility] 03-13-2020 Covid (Moderna) Dr. Betty Abarca Work Phone: [facility] 01-13-2020 influenza, injectabl e, quadrivalent, preservative free [facility] 01-13-2020 influenza, seasonal, injectable Dr. Betty Abarca Work Phone: [facility] 12-23-2018 influenza, injectabl e, quadrivalent, preservative free [facility] 12-23-2018 influenza, seasonal, injectable Dr. Betty Abarca Work Phone: [facility] 03-10-2018 influenza, seasonal, injectable Betty Abarca [facility] Work Phone: 12-17-2017 influenza, injectabl e, quadrivalent, preservative free [facility] 12-17-2017 influenza, seasonal, injectable Dr. Betty Abarca Work Phone: [facility] 12-25-2016 influenza, injectabl e, quadrivalent, preservative free [facility] 12-25-2016 influenza, seasonal, injectable Dr. Betty Abarca Work Phone: [facility] 12-13-2015 influenza, injectabl e, quadrivalent, preservative free [facility] 12-13-2015 influenza, seasonal, injectable Dr. Betty Abarca Work Phone: [facility] 01-03-2015 influenza, injectabl e, quadrivalent, preservative free [facility] 01-03-2015 influenza, seasonal, injectable Dr. Betty Abarca Work Phone: [facility] 12-08-2013 influenza, injectabl e, quadrivalent, preservative free [facility] 12-08-2013 influenza, seasonal, injectable Dr. Betty Abarca Work Phone: [facility] 12-12-2008 tetanus toxoid, reduced diphtheria toxoid, and acellular pertussis vaccine, adsorbed Betty Abarca [facility] Work Phone: Comment on above: lot # [id number]- 02/11/[id number]- 0.5ML tolerted well [facility] Payers Date Payer Category Payer Self-pay [id number] 2022 Unknown [id number] 2021 Unknown [id number] 2001 Unknown [id number] 1965 Unknown [id number] 2.16.84 [id number] Unknown Unknown [id number] 2.16.8 [id number] Unknown [id number] 2.16.8 [id number] Unknown [id number] 2.16.8 [id number] Unknown [id number] 2.16.8 [id number] Unknown [id number] 2.16.8 [id number] Social History Date Type Detail Facility Alcohol Use Never smoker [facility] Work Phone: Comment on above: Occasional alcohol u se 1 QD 5 X a wk for 1 hr Single, heterosexual Physical therapist Tobacco use: Never smoker. [facility] Work Phone: Tobacco use: Tobacco use: [facility] Work Phone: Start: 01-28-2022 End: 04-30-2022 Tobacco smoking status NHIS Unknown if ever smoked [facility] Start: 1965 Sex Assigned At Male [facility] Start: 04-30-2022 Tobacco smoking stat us TXIS Never smoked tobacco (finding) [facility] Start: 05-28-2024 End: 07-06-2024 Sex Male (finding) [facility] Goals Date Patient Goal Desired Activity /State Functional Status Date Assessment Result Facility 05-26-2019 LP-IR Score LP-IR Score 45 [facility] Work Phone: Comment on above: INSULIN RESISTANCE Moy LTUZ <--Insulin Sensitive Insulin Resistant--> Percentile in Reference PopulationInsulin Resistance ScoreLP-IR Score Low 25th 50th 75th High <27 27 45 63 >63LP-IR Score is inaccurate if patient is non-fasting. .The LP-IR score is a laboratory developed index that has beenassociated with insulin resistance and diabetes risk and should beused as one component of a physician's clinical assessment. Test(s) 034009-DLC-F ; 090379-DXS-E; 950690-RDP-R; 361522-Jvyirjzzpbdeu; 092310-Lluvltcpctb, Total; 264705-GFV-C (Total);950026-Nmqez LDL-P; 296671-FBJ Size; 863540-LZ-FN Scorewas developed and its performance characteristics determinedby [facility]. It has not been cleared or approved by the Foodand Drug Administration.PATIENT WAS FASTINGPERFORMED BY: BN [facility] [id number] [facility] [id number] BY: MERNA [facility] [id number] [facility] [id number] Mental Status Date Assessment Result Facility 04-30-2022 Cognitive function Level Of Cons ciousness Awake;Alert;Appropriate;Follow s Commands [facility] Work Phone: 02-04-2022 Cognitive function Voice/Name [facility] Work Phone: Clinical Notes 04-30-2022 to 05-30-2024 Note Date & Type Note Facility 05-30-2024 Radiology Diagnostic study note [facility] Imaging Services [address] [place], [place] [id number] Thyroid MR#: [id number] Acct: [id number] Name: KEYLA BREAUX Rep #: [id number] : 1965 M 58 From: Judah Duffy MD PCP: Dr. Betty Abarca DO Status: RE G CLI Study:Thyroid Date of Exam: 05/28/24 Exam# [id number] Ordering Dr: Malorie Abarca DO PROCEDURE: THYROID 05/28/2024 REASON FOR EXAM: THYROMEGALY, IODINE-DEFICIENCY RELATED DIFFUSE (ENDEMIC) GOITER TECHNIQUE: Thyroid ultrasound FINDINGS: Right thyroid lobe measures 4.0 x 1.1 x 1.8 cm Left thyroid lobe measures 3.2 x 1.3 x 1 cm. Isthmus thickness is2.2 mm. The right and left lobes of the thyroid appear homogeneous and isoechoic. No nodule or focal lesion identified. No lymphadenopathy identified. US/Thyroid IMPRESSION: Thyroid ultrasound as above Reading Location: [facility] CC: Dr. Betyt Abarca DO ~ [employer]: Signed [facility] 02-21-2023 Discharge summary Note Date/Time April 30, 2022 12:55pm [facility] Medical Records Department [address] [place] [address] Emergency Department Summary 04/30/22 MR#: [id number] Acct: [id number] Name: KEYLA BREAUX Rep #:[id number] : 1965 56 From: Sohan Santos MD PCP: Dr. Betty Abarca, DO Status:RE G ER Location: ED HPI History of Present Illness Chief Complaint: Dizziness Narrative Narrative: Patient presents with 2-day history of vertiginous symptoms, he gets paroxysms of vertigo when he turns his head a certain way. These paroxysms lasts just a few seconds. No vision changes, he does not feel off balance, no fever or chills. No cough or congestion. He does not have a headache. [facility] Medical History Alcohol use Back pain Benign prostatic hyperplasia without lower urinary tract symptoms Chronic neck and back pain Colon polyp Essential (primary) hypertension Heartburn Hyperlipidemia, unspecified Non-smoker Raynauds syndrome Right orbital fracture Home Medications Flaxseed Oil Gipsy-3 Liquid 1 dose PO DAILY 02/05/16 [History Last Taken 03/08/15 08:00] ascorbic acid (vitamin C) 1,000 mg tablet 1,000 mg PO DAILY 02/05/16 [History Last Taken 03/08/15 08:00] multivitamin with folic acid 400 mcg tablet 1 tab PO DAILY 02/05/16 [History Last Taken 03/08/15 08:00] lisinopril 10 mg tablet 10 mg PO DAILY 07/18/20 [History Last Taken Unknown] meclizine 25 mg tablet 25 mg PO 4X/DAY PRN PRN Dizziness #20 tabs 04/30/22 [Rx Last Taken Unknown] Allergy/AdvReac Type Severity Reaction Status Date / Time No Known Allergies Allergy Verified 01/28/22 14:36 Family History Mother Hypertension PVD (peripheral vascular disease) Father Cancer of kidney Thyroid cancer Hypertension Surgical History History of Achilles tendon repair History of colonoscopy Hx of elbow surgery Hx of hernia repair Social History current occupational status: employed current occupation: Physical Therapist Smoking Status: Never smoker ROS ROS ED ROS Narrative Past medical history: Reviewed Medications: Reviewed Social history: Noncontributory Review of systems: All systems negative except as indicated General: No fever Eyes: No visual changes ENT: No upper airway congestion, normal voice Neck: No neck pain Cardiovascular: No chest pain Respiratory: No shortness of breath or cough Gastrointestinal: No abdominal pain, nausea vomiting or diarrhea Genitourinary: No dysuria Musculoskeletal: Denies myalgias no difficulty with ambulation Skin: No rash Neurological: No memory loss, confusion or any focal weakness. Vertigo as in HPI EXAM Physical Exam Narrative Exam Narrative: Physical exam General: Well nourished, Well developed, No Acute Distress Head: Normocephalic, Atraumatic Eyes: Conjunctiva not pale. Pupils are 3 mm and reactive. He has bilateral nystagmus slightly worse on the right. He also has rightward saccade. ENT: Moist mucous membranes Neck: Supple, Nontender, No lymphadenopathy Cardiovascular: Regular rate, Regular rhythm Respiratory: No distress, CTA bilaterally Abdomen: Soft, Nontender, Nondistended Back: Nontender, Normal Inspection. Negative for: CVA tenderness Extremities: Nontender, No edema Skin: Normal color, No rash Neurological: Alert, Normal Strength, Normal Sensation. Normal cerebellar. Normal Romberg. Psychological: Normal affect Const Vital Signs: 04/30/22 11:33 04/30/22 12:45 04/30/22 14:00 Temperature 98 F Temperature Source Temporal Pulse Rate 67 67 Respiratory Rate 14 15 Respiratory Effort Normal Respiratory Pattern Normal Blood Pressure 157/96 H 121/72 H Blood Pressure Mean 116 88 Pulse Ox 99 100 Oxygen Delivery Method Room Air Room Air [facility] MDM Lab Data Labs: Laboratory Results - last 24 hr 04/30/22 04/30/22 13:00 13:00 WBC 6.0 RBC 5.01 Hgb 16.2 Hct 48.0 MCV 95.8 H MCH 32.3 H MCHC 33.8 RDW Std Deviation 39.9 RDW Coeff of Pia 11.4 L Plt Count 236 MPV 9.1 Immature Gran % (Auto) 0.300 Neut % (Auto) 59.8 Lymph % (Auto) 24.7 [place] % (Auto) 9.6 Eos % (Auto) 4.6 Baso % (Auto) 1.0 Absolute Neuts (auto) 3.6 Absolute Lymphs (auto) 1.49 Nucleated RBC % 0 Sodium 138 Potassium 4.5 Chloride 106 Carbon Dioxide 27.0 Anion Gap 5 BUN 19 H Creatinine 1.08 Estim Creat Clear Calc 68.10 Est GFR (MDRD) Af Amer 91 Est GFR (MDRD) Non-Af 75 BUN/Creatinine Ratio 17.6 Glucose 108 H Calcium 9.7 Total Bilirubin 0.90 AST 23 ALT 45 Alkaline Phosphatase 83 Total Protein 7.6 Albumin 4.2 Globulin 3.4 Albumin/Globulin Ratio 1.2 Radiography Diagnostic Testing: Clinical Impression(s) from Imaging Studies Head/Neck CTA 04/30/22 12:51 IMPRESSION: Normal CTA Head and neck with contrast. Electronically Signed: Ryan Tavera MD at 14:45 EST , EKG Initial EKG: Comments: Sinus rhythm with a rate of 61. Normal LA interval. Normal QTcinterval. Nonspecific ST changes throughout but no acute ischemic events. Interpreted by emergency doctor. Treatment and Re-Evaluation Narrative: A. Problems addressed My worry is for this for a possible central etiology of the vertigo, however based on physical and CT results I believe this is likely BPPV. He was given meclizine with improvement. He has a physical therapist at this hospital and has access to vertebral rehab. He can follow-up with that. Otherwise if anything changes patient is to return. Patient did improve with meclizine and [facility] give him some meclizine for home. B. Amount and/or complexity of the data 1. CBC and CMP were unremarkable 2. Independent interpretation of test Telemetry: Sinus rhythm with a rate in the 60s without ectopy C. Risk of complications and/or morbidity Differential diagnosis: Stroke, vertebrobasilar insufficiency, intracranial mass, meningitis,or found on physical and/or blood work or CT. Discharge Plan Triage Chief Complaint: Dizziness ED Provider: Sohan Santos Dx/Rx/DC Orders Clinical Impression: Vertigo, Benign paroxysmal positional vertigo Instructions: BPPV Prescriptions: New meclizine 25 mg tablet 25 mg PO 4X/DAY PRN PRN (Reason: Dizziness) Qty: 20 0RF No Action lisinopril 10 mg tablet 10 mg PO DAILY ascorbic acid (vitamin C) 1,000 MG tablet 1,000 mg PO DAILY multivitamin with folic acid 1 TABLET tablet 1 tab PO DAILY Flaxseed Oil Gipsy-3 Liquid 1 dose PO DAILY Primary Care Provider: Betty Abarca Referrals: Betty Abarca, [Primary Care Provider] - 3-5 Days Disposition Disposition: Home, Self Care What to do if you have Problems For any increased pain, shortness of breath, bleeding, nausea or vomiting, chestpain, or any unexpected problems, contact your Primary Care Provider. Call [facility] ([phone]) or report to the closest Emergency Room. Call 911 if necessary. 04/30/22 1509 <Electronically signed by Sohan Santos MD> Cosigner Signature (if applicable): CC: Dr. Betty Abarca, ~ Signed [facility] Work Phone: Evaluation note* Diagnosis Onset Date Resolution Status Encounter for screening for malignant neoplasm of colo n acute [facility] Work Phone: Evaluation noteNo assessment information available [facility] Work Phone: Instructions* Name Dates Details How to access health informa [place] online Indication:Non-smoker Start:25-Oct-2019 Instruction Type:Patient Education How to access health informa tion online - Detail Indication:Non-smoker Start:25-Oct-2019 Instruction Type:Patient Education Patient Instructions Indication:Non-smoker Start:25-Oct-2019 Instruction Type:Provider Instructions for Treatment How to access health informa tion online Indication:Non-smoker Start:31-May-2019 Instruction Type:Patient Education How to access health informa tion online - Detail Indication:Non-smoker Start:31-May-2019 Instruction Type:Patient Education Patient Instructions Indication:Non-smoker Start:31-May-2019 Instruction Type:Provider Instructions for Treatment How to access health informa tion online Indication:BMI 28.0-28.9,adult Start:22-Apr-2019 Instruction Type:Patient Education How to access health informa tion online - Detail Indication:BMI 28.0-28.9,adult Start:22-Apr-2019 Instruction Type:Patient Education Patient Instructions Indication:BMI 28.0-28.9,adult Start:22-Apr-2019 Instruction Type:Provider Instructions for Treatment How to access health informa tion online Indication:BMI 29.0-29.9,adult Start:01-Apr-2019 Instruction Type:Patient Education How to access health informa tion online - Detail Indication:BMI 29.0-29.9,adult Start:01-Apr-2019 Instruction Type:Patient Education Patient Instructions Indication:BMI 29.0-29.9,adult Start:01-Apr-2019 Instruction Type:Provider Instructions for Treatment How to access health informa tion online Indication:Non-smoker Start:01-Mar-2019 Instruction Type:Patient Education How to access health informa tion online - Detail Indication:Non-smoker Start:01-Mar-2019 Instruction Type:Patient Education Patient Instructions Indication:Non-smoker Start:01-Mar-2019 Instruction Type:Provider Instructions for Treatment How to access health informa tion online - Detail Indication:Non-smoker Start:12-Feb-2019 Instruction Type:Patient Education Patient Instructions Indication:Non-smoker Start:12-Feb-2019 Instruction Type:Provider Instructions for Treatment How to access health informa tion online Indication:Non-smoker Start:07-May-2018 Instruction Type:Patient Education How to access health informa tion online - Detail Indication:Non-smoker Start:07-May-2018 Instruction Type:Patient Education Patient Instructions Indication:Non-smoker Start:07-May-2018 Instruction Type:Provider Instructions for Treatment How to access health informa tion online Indication:Non-smoker Start:24-Nov-2017 Instruction Type:Patient Education How to access health informa tion online - Detail Indication:Non-smoker Start:24-Nov-2017 Instruction Type:Patient Education Patient Instructions Indication:Non-smoker Start:24-Nov-2017 Instruction Type:Provider Instructions for Treatment How to access health informa tion online Indication:Non-smoker Start:28-Oct-2016 Instruction Type:Patient Education How to access health informa tion online - Detail Indication:Non-smoker Start:28-Oct-2016 Instruction Type:Patient Education How to access health informa tion online Indication:Sore throat Start:15-Feb-2016 Instruction Type:Patient Education How to access health informa tion online - Detail Indication:Sore throat Start:15-Feb-2016 Instruction Type:Patient Education Patient Instructions Indication:Sore throat Start:15-Feb-2016 Instruction Type:Provider Instructions for Treatment How to access health informa tion online Indication:Screening for prostate cancer Start:20-Nov-2015 Instruction Type:Patient Education How to access health informa tion online - Detail Indication:Screening for prostate cancer Start:20-Nov-2015 Instruction Type:Patient Education Patient Instructions Indication:Screening for prostate cancer Start:20-Nov-2015 Instruction Type:Provider Instructions for Treatment How to access health informa tion online Indication:Leukopenia Start:01-Dec-2014 Instruction Type:Patient Education How to access health informa tion online - Detail Indication:Leukopenia Start:01-Dec-2014 Instruction Type:Patient Education Patient Instructions Indication:Leukopenia Start:01-Dec-2014 Instruction Type:Provider Instructions for Treatment Patient Instructions Indication:BPH without urinary obstruction Start:02-Dec-2011 Instruction Type:Provider Instructions for Treatment [facility] Work Phone: Instructions* Name Dates Details How to access health informa tion online Indication:Non-smoker Start:25-Oct-2019 Instruction Type:Patient Education How to access health informa tion online - Detail Indication:Non-smoker Start:25-Oct-2019 Instruction Type:Patient Education Patient Instructions Indication:Non-smoker Start:25-Oct-2019 Instruction Type:Provider Instructions for Treatment How to access health informa tion online Indication:Non-smoker Start:31-May-2019 Instruction Type:Patient Education How to access health informa tion online - Detail Indication:Non-smoker Start:31-May-2019 Instruction Type:Patient Education Patient Instructions Indication:Non-smoker Start:31-May-2019 Instruction Type:Provider Instructions for Treatment How to access health informa tion online Indication:BMI 28.0-28.9,adult Start:22-Apr-2019 Instruction Type:Patient Education How to access health informa tion online - Detail Indication:BMI 28.0-28.9,adult Start:22-Apr-2019 Instruction Type:Patient Education Patient Instructions Indication:BMI 28.0-28.9,adult Start:22-Apr-2019 Instruction Type:Provider Instructions for Treatment How to access health informa tion online Indication:BMI 29.0-29.9,adult Start:01-Apr-2019 Instruction Type:Patient Education How to access health informa tion online - Detail Indication:BMI 29.0-29.9,adult Start:01-Apr-2019 Instruction Type:Patient Education Patient Instructions Indication:BMI 29.0-29.9,adult Start:01-Apr-2019 Instruction Type:Provider Instructions for Treatment How to access health informa tion online Indication:Non-smoker Start:01-Mar-2019 Instruction Type:Patient Education How to access health informa tion online - Detail Indication:Non-smoker Start:01-Mar-2019 Instruction Type:Patient Education Patient Instructions Indication:Non-smoker Start:01-Mar-2019 Instruction Type:Provider Instructions for Treatment How to access health informa tion online - Detail Indication:Non-smoker Start:12-Feb-2019 Instruction Type:Patient Education Patient Instructions Indication:Non-smoker Start:12-Feb-2019 Instruction Type:Provider Instructions for Treatment How to access health informa tion online Indication:Non-smoker Start:07-May-2018 Instruction Type:Patient Education How to access health informa tion online - Detail Indication:Non-smoker Start:07-May-2018 Instruction Type:Patient Education Patient Instructions Indication:Non-smoker Start:07-May-2018 Instruction Type:Provider Instructions for Treatment How to access health informa tion online Indication:Non-smoker Start:24-Nov-2017 Instruction Type:Patient Education How to access health informa tion online - Detail Indication:Non-smoker Start:24-Nov-2017 Instruction Type:Patient Education Patient Instructions Indication:Non-smoker Start:24-Nov-2017 Instruction Type:Provider Instructions for Treatment How to access health informa tion online Indication:Non-smoker Start:28-Oct-2016 Instruction Type:Patient Education How to access health informa tion online - Detail Indication:Non-smoker Start:28-Oct-2016 Instruction Type:Patient Education How to access health informa tion online Indication:Sore throat Start:15-Feb-2016 Instruction Type:Patient Education How to access health informa tion online - Detail Indication:Sore throat Start:15-Feb-2016 Instruction Type:Patient Education Patient Instructions Indication:Sore throat Start:15-Feb-2016 Instruction Type:Provider Instructions for Treatment How to access health informa tion online Indication:Screening for prostate cancer Start:20-Nov-2015 Instruction Type:Patient Education How to access health informa tion online - Detail Indication:Screening for prostate cancer Start:20-Nov-2015 Instruction Type:Patient Education Patient Instructions Indication:Screening for prostate cancer Start:20-Nov-2015 Instruction Type:Provider Instructions for Treatment How to access health informa tion online Indication:Leukopenia Start:01-Dec-2014 Instruction Type:Patient Education How to access health informa tion online - Detail Indication:Leukopenia Start:01-Dec-2014 Instruction Type:Patient Education Patient Instructions Indication:Leukopenia Start:01-Dec-2014 Instruction Type:Provider Instructions for Treatment Patient Instructions Indication:BPH without urinary obstruction Start:02-Dec-2011 Instruction Type:Provider Instructions for Treatment [facility] Work Phone: Instructions* Name Dates Details Patient Instructions Indication:Non-smoker Start:08-Dec-2020 Instruction Type:Provider Instructions for Treatment How to Access Health Informa tion Online using Patient Portal and [employer] Apps Indication:Non-smoker Start:08-Dec-2020 Instruction Type:Patient Education How to access health informa tion online Indication:Non-smoker Start:25-Oct-2019 Instruction Type:Patient Education How to access health informa tion online - Detail Indication:Non-smoker Start:25-Oct-2019 Instruction Type:Patient Education Patient Instructions Indication:Non-smoker Start:25-Oct-2019 Instruction Type:Provider Instructions for Treatment How to access health informa tion online Indication:Non-smoker Start:31-May-2019 Instruction Type:Patient Education How to access health informa tion online - Detail Indication:Non-smoker Start:31-May-2019 Instruction Type:Patient Education Patient Instructions Indication:Non-smoker Start:31-May-2019 Instruction Type:Provider Instructions for Treatment How to access health informa tion online Indication:BMI 28.0-28.9,adult Start:22-Apr-2019 Instruction Type:Patient Education How to access health informa tion online - Detail Indication:BMI 28.0-28.9,adult Start:22-Apr-2019 Instruction Type:Patient Education Patient Instructions Indication:BMI 28.0-28.9,adult Start:22-Apr-2019 Instruction Type:Provider Instructions for Treatment How to access health informa tion online Indication:BMI 29.0-29.9,adult Start:01-Apr-2019 Instruction Type:Patient Education How to access health informa tion online - Detail Indication:BMI 29.0-29.9,adult Start:01-Apr-2019 Instruction Type:Patient Education Patient Instructions Indication:BMI 29.0-29.9,adult Start:01-Apr-2019 Instruction Type:Provider Instructions for Treatment How to access health informa tion online Indication:Non-smoker Start:01-Mar-2019 Instruction Type:Patient Education How to access health informa tion online - Detail Indication:Non-smoker Start:01-Mar-2019 Instruction Type:Patient Education Patient Instructions Indication:Non-smoker Start:01-Mar-2019 Instruction Type:Provider Instructions for Treatment How to access health informa tion online - Detail Indication:Non-smoker Start:12-Feb-2019 Instruction Type:Patient Education Patient Instructions Indication:Non-smoker Start:12-Feb-2019 Instruction Type:Provider Instructions for Treatment How to access health informa tion online Indication:Non-smoker Start:07-May-2018 Instruction Type:Patient Education How to access health informa tion online - Detail Indication:Non-smoker Start:07-May-2018 Instruction Type:Patient Education Patient Instructions Indication:Non-smoker Start:07-May-2018 Instruction Type:Provider Instructions for Treatment How to access health informa tion online Indication:Non-smoker Start:24-Nov-2017 Instruction Type:Patient Education How to access health informa tion online - Detail Indication:Non-smoker Start:24-Nov-2017 Instruction Type:Patient Education Patient Instructions Indication:Non-smoker Start:24-Nov-2017 Instruction Type:Provider Instructions for Treatment How to access health informa tion online Indication:Non-smoker Start:28-Oct-2016 Instruction Type:Patient Education How to access health informa tion online - Detail Indication:Non-smoker Start:28-Oct-2016 Instruction Type:Patient Education How to access health informa tion online Indication:Sore throat Start:15-Feb-2016 Instruction Type:Patient Education How to access health informa tion online - Detail Indication:Sore throat Start:15-Feb-2016 Instruction Type:Patient Education Patient Instructions Indication:Sore throat Start:15-Feb-2016 Instruction Type:Provider Instructions for Treatment How to access health informa tion online Indication:Screening for prostate cancer Start:20-Nov-2015 Instruction Type:Patient Education How to access health informa tion online - Detail Indication:Screening for prostate cancer Start:20-Nov-2015 Instruction Type:Patient Education Patient Instructions Indication:Screening for prostate cancer Start:20-Nov-2015 Instruction Type:Provider Instructions for Treatment How to access health informa tion online Indication:Leukopenia Start:01-Dec-2014 Instruction Type:Patient Education How to access health informa tion online - Detail Indication:Leukopenia Start:01-Dec-2014 Instruction Type:Patient Education Patient Instructions Indication:Leukopenia Start:01-Dec-2014 Instruction Type:Provider Instructions for Treatment Patient Instructions Indication:BPH without urinary obstruction Start:02-Dec-2011 Instruction Type:Provider Instructions for Treatment [facility]; [facility] Work Phone: Instructions* Name Dates Details Patient Instructions Indication:Non-smoker Start:29-Nov-2021 Instruction Type:Provider Instructions for Treatment How to Access Health Informa tion Online using Patient Portal and [employer] Apps Indication:Non-smoker Start:29-Nov-2021 Instruction Type:Patient Education Patient Instructions Indication:Non-smoker Start:08-Dec-2020 Instruction Type:Provider Instructions for Treatment How to Access Health Informa tion Online using Patient Portal and [employer] Apps Indication:Non-smoker Start:08-Dec-2020 Instruction Type:Patient Education How to access health informa tion online Indication:Non-smoker Start:25-Oct-2019 Instruction Type:Patient Education How to access health informa tion online - Detail Indication:Non-smoker Start:25-Oct-2019 Instruction Type:Patient Education Patient Instructions Indication:Non-smoker Start:25-Oct-2019 Instruction Type:Provider Instructions for Treatment How to access health informa tion online Indication:Non-smoker Start:31-May-2019 Instruction Type:Patient Education How to access health informa tion online - Detail Indication:Non-smoker Start:31-May-2019 Instruction Type:Patient Education Patient Instructions Indication:Non-smoker Start:31-May-2019 Instruction Type:Provider Instructions for Treatment How to access health informa tion online Indication:BMI 28.0-28.9,adult Start:22-Apr-2019 Instruction Type:Patient Education How to access health informa tion online - Detail Indication:BMI 28.0-28.9,adult Start:22-Apr-2019 Instruction Type:Patient Education Patient Instructions Indication:BMI 28.0-28.9,adult Start:22-Apr-2019 Instruction Type:Provider Instructions for Treatment How to access health informa tion online Indication:BMI 29.0-29.9,adult Start:01-Apr-2019 Instruction Type:Patient Education How to access health informa tion online - Detail Indication:BMI 29.0-29.9,adult Start:01-Apr-2019 Instruction Type:Patient Education Patient Instructions Indication:BMI 29.0-29.9,adult Start:01-Apr-2019 Instruction Type:Provider Instructions for Treatment How to access health informa tion online Indication:Non-smoker Start:01-Mar-2019 Instruction Type:Patient Education How to access health informa tion online - Detail Indication:Non-smoker Start:01-Mar-2019 Instruction Type:Patient Education Patient Instructions Indication:Non-smoker Start:01-Mar-2019 Instruction Type:Provider Instructions for Treatment How to access health informa tion online - Detail Indication:Non-smoker Start:12-Feb-2019 Instruction Type:Patient Education Patient Instructions Indication:Non-smoker Start:12-Feb-2019 Instruction Type:Provider Instructions for Treatment How to access health informa tion online Indication:Non-smoker Start:07-May-2018 Instruction Type:Patient Education How to access health informa tion online - Detail Indication:Non-smoker Start:07-May-2018 Instruction Type:Patient Education Patient Instructions Indication:Non-smoker Start:07-May-2018 Instruction Type:Provider Instructions for Treatment How to access health informa tion online Indication:Non-smoker Start:24-Nov-2017 Instruction Type:Patient Education How to access health informa tion online - Detail Indication:Non-smoker Start:24-Nov-2017 Instruction Type:Patient Education Patient Instructions Indication:Non-smoker Start:24-Nov-2017 Instruction Type:Provider Instructions for Treatment How to access health informa tion online Indication:Non-smoker Start:28-Oct-2016 Instruction Type:Patient Education How to access health informa tion online - Detail Indication:Non-smoker Start:28-Oct-2016 Instruction Type:Patient Education How to access health informa tion online Indication:Sore throat Start:15-Feb-2016 Instruction Type:Patient Education How to access health informa tion online - Detail Indication:Sore throat Start:15-Feb-2016 Instruction Type:Patient Education Patient Instructions Indication:Sore throat Start:15-Feb-2016 Instruction Type:Provider Instructions for Treatment How to access health informa tion online Indication:Screening for prostate cancer Start:20-Nov-2015 Instruction Type:Patient Education How to access health informa tion online - Detail Indication:Screening for prostate cancer Start:20-Nov-2015 Instruction Type:Patient Education Patient Instructions Indication:Screening for prostate cancer Start:20-Nov-2015 Instruction Type:Provider Instructions for Treatment How to access health informa tion online Indication:Leukopenia Start:01-Dec-2014 Instruction Type:Patient Education How to access health informa tion online - Detail Indication:Leukopenia Start:01-Dec-2014 Instruction Type:Patient Education Patient Instructions Indication:Leukopenia Start:01-Dec-2014 Instruction Type:Provider Instructions for Treatment Patient Instructions Indication:BPH without urinary obstruction Start:02-Dec-2011 Instruction Type:Provider Instructions for Treatment [facility] Work Phone: Instructions* Name Dates Details Patient Instructions Indication:Non-smoker Start:29-Nov-2021 Instruction Type:Provider Instructions for Treatment How to Access Health Informa tion Online using Patient Portal and [employer] Apps Indication:Non-smoker Start:29-Nov-2021 Instruction Type:Patient Education Patient Instructions Indication:Non-smoker Start:08-Dec-2020 Instruction Type:Provider Instructions for Treatment How to Access Health Informa tion Online using Patient Portal and [employer] Apps Indication:Non-smoker Start:08-Dec-2020 Instruction Type:Patient Education How to access health informa tion online Indication:Non-smoker Start:25-Oct-2019 Instruction Type:Patient Education How to access health informa tion online - Detail Indication:Non-smoker Start:25-Oct-2019 Instruction Type:Patient Education Patient Instructions Indication:Non-smoker Start:25-Oct-2019 Instruction Type:Provider Instructions for Treatment How to access health informa tion online Indication:Non-smoker Start:31-May-2019 Instruction Type:Patient Education How to access health informa tion online - Detail Indication:Non-smoker Start:31-May-2019 Instruction Type:Patient Education Patient Instructions Indication:Non-smoker Start:31-May-2019 Instruction Type:Provider Instructions for Treatment How to access health informa tion online Indication:BMI 28.0-28.9,adult Start:22-Apr-2019 Instruction Type:Patient Education How to access health informa tion online - Detail Indication:BMI 28.0-28.9,adult Start:22-Apr-2019 Instruction Type:Patient Education Patient Instructions Indication:BMI 28.0-28.9,adult Start:22-Apr-2019 Instruction Type:Provider Instructions for Treatment How to access health informa tion online Indication:BMI 29.0-29.9,adult Start:01-Apr-2019 Instruction Type:Patient Education How to access health informa tion online - Detail Indication:BMI 29.0-29.9,adult Start:01-Apr-2019 Instruction Type:Patient Education Patient Instructions Indication:BMI 29.0-29.9,adult Start:01-Apr-2019 Instruction Type:Provider Instructions for Treatment How to access health informa tion online Indication:Non-smoker Start:01-Mar-2019 Instruction Type:Patient Education How to access health informa tion online - Detail Indication:Non-smoker Start:01-Mar-2019 Instruction Type:Patient Education Patient Instructions Indication:Non-smoker Start:01-Mar-2019 Instruction Type:Provider Instructions for Treatment How to access health informa tion online - Detail Indication:Non-smoker Start:12-Feb-2019 Instruction Type:Patient Education Patient Instructions Indication:Non-smoker Start:12-Feb-2019 Instruction Type:Provider Instructions for Treatment How to access health informa tion online Indication:Non-smoker Start:07-May-2018 Instruction Type:Patient Education How to access health informa tion online - Detail Indication:Non-smoker Start:07-May-2018 Instruction Type:Patient Education Patient Instructions Indication:Non-smoker Start:07-May-2018 Instruction Type:Provider Instructions for Treatment How to access health informa tion online Indication:Non-smoker Start:24-Nov-2017 Instruction Type:Patient Education How to access health informa tion online - Detail Indication:Non-smoker Start:24-Nov-2017 Instruction Type:Patient Education Patient Instructions Indication:Non-smoker Start:24-Nov-2017 Instruction Type:Provider Instructions for Treatment How to access health informa tion online Indication:Non-smoker Start:28-Oct-2016 Instruction Type:Patient Education How to access health informa tion online - Detail Indication:Non-smoker Start:28-Oct-2016 Instruction Type:Patient Education How to access health informa tion online Indication:Sore throat Start:15-Feb-2016 Instruction Type:Patient Education How to access health informa tion online - Detail Indication:Sore throat Start:15-Feb-2016 Instruction Type:Patient Education Patient Instructions Indication:Sore throat Start:15-Feb-2016 Instruction Type:Provider Instructions for Treatment How to access health informa tion online Indication:Screening for prostate cancer Start:20-Nov-2015 Instruction Type:Patient Education How to access health informa tion online - Detail Indication:Screening for prostate cancer Start:20-Nov-2015 Instruction Type:Patient Education Patient Instructions Indication:Screening for prostate cancer Start:20-Nov-2015 Instruction Type:Provider Instructions for Treatment How to access health informa tion online Indication:Leukopenia Start:01-Dec-2014 Instruction Type:Patient Education How to access health informa tion online - Detail Indication:Leukopenia Start:01-Dec-2014 Instruction Type:Patient Education Patient Instructions Indication:Leukopenia Start:01-Dec-2014 Instruction Type:Provider Instructions for Treatment Patient Instructions Indication:BPH without urinary obstruction Start:02-Dec-2011 Instruction Type:Provider Instructions for Treatment [facility]; [facility] Work Phone: Instructions* Name Dates Details Patient Instructions Indication:Non-smoker Start:29-Nov-2021 Instruction Type:Provider Instructions for Treatment How to Access Health Informa tion Online using Patient Portal and [employer]rd [employer] Apps Indication:Non-smoker Start:29-Nov-2021 Instruction Type:Patient Education Patient Instructions Indication:Non-smoker Start:08-Dec-2020 Instruction Type:Provider Instructions for Treatment How to Access Health Informa tion Online using Patient Portal and [employer]rd [employer] Apps Indication:Non-smoker Start:08-Dec-2020 Instruction Type:Patient Education How to access health informa tion online Indication:Non-smoker Start:25-Oct-2019 Instruction Type:Patient Education How to access health informa tion online - Detail Indication:Non-smoker Start:25-Oct-2019 Instruction Type:Patient Education Patient Instructions Indication:Non-smoker Start:25-Oct-2019 Instruction Type:Provider Instructions for Treatment How to access health informa tion online Indication:Non-smoker Start:31-May-2019 Instruction Type:Patient Education How to access health informa tion online - Detail Indication:Non-smoker Start:31-May-2019 Instruction Type:Patient Education Patient Instructions Indication:Non-smoker Start:31-May-2019 Instruction Type:Provider Instructions for Treatment How to access health informa tion online Indication:BMI 28.0-28.9,adult Start:22-Apr-2019 Instruction Type:Patient Education How to access health informa tion online - Detail Indication:BMI 28.0-28.9,adult Start:22-Apr-2019 Instruction Type:Patient Education Patient Instructions Indication:BMI 28.0-28.9,adult Start:22-Apr-2019 Instruction Type:Provider Instructions for Treatment How to access health informa tion online Indication:BMI 29.0-29.9,adult Start:01-Apr-2019 Instruction Type:Patient Education How to access health informa tion online - Detail Indication:BMI 29.0-29.9,adult Start:01-Apr-2019 Instruction Type:Patient Education Patient Instructions Indication:BMI 29.0-29.9,adult Start:01-Apr-2019 Instruction Type:Provider Instructions for Treatment How to access health informa tion online Indication:Non-smoker Start:01-Mar-2019 Instruction Type:Patient Education How to access health informa tion online - Detail Indication:Non-smoker Start:01-Mar-2019 Instruction Type:Patient Education Patient Instructions Indication:Non-smoker Start:01-Mar-2019 Instruction Type:Provider Instructions for Treatment How to access health informa tion online - Detail Indication:Non-smoker Start:12-Feb-2019 Instruction Type:Patient Education Patient Instructions Indication:Non-smoker Start:12-Feb-2019 Instruction Type:Provider Instructions for Treatment How to access health informa tion online Indication:Non-smoker Start:07-May-2018 Instruction Type:Patient Education How to access health informa tion online - Detail Indication:Non-smoker Start:07-May-2018 Instruction Type:Patient Education Patient Instructions Indication:Non-smoker Start:07-May-2018 Instruction Type:Provider Instructions for Treatment How to access health informa tion online Indication:Non-smoker Start:24-Nov-2017 Instruction Type:Patient Education How to access health informa tion online - Detail Indication:Non-smoker Start:24-Nov-2017 Instruction Type:Patient Education Patient Instructions Indication:Non-smoker Start:24-Nov-2017 Instruction Type:Provider Instructions for Treatment How to access health informa tion online Indication:Non-smoker Start:28-Oct-2016 Instruction Type:Patient Education How to access health informa tion online - Detail Indication:Non-smoker Start:28-Oct-2016 Instruction Type:Patient Education How to access health informa tion online Indication:Sore throat Start:15-Feb-2016 Instruction Type:Patient Education How to access health informa tion online - Detail Indication:Sore throat Start:15-Feb-2016 Instruction Type:Patient Education Patient Instructions Indication:Sore throat Start:15-Feb-2016 Instruction Type:Provider Instructions for Treatment How to access health informa tion online Indication:Screening for prostate cancer Start:20-Nov-2015 Instruction Type:Patient Education How to access health informa tion online - Detail Indication:Screening for prostate cancer Start:20-Nov-2015 Instruction Type:Patient Education Patient Instructions Indication:Screening for prostate cancer Start:20-Nov-2015 Instruction Type:Provider Instructions for Treatment How to access health informa tion online Indication:Leukopenia Start:01-Dec-2014 Instruction Type:Patient Education How to access health informa tion online - Detail Indication:Leukopenia Start:01-Dec-2014 Instruction Type:Patient Education Patient Instructions Indication:Leukopenia Start:01-Dec-2014 Instruction Type:Provider Instructions for Treatment Patient Instructions Indication:BPH without urinary obstruction Start:02-Dec-2011 Instruction Type:Provider Instructions for Treatment [facility]; [facility] Work Phone: Instructions* Name Dates Details How to Access Health Informa tion Online using Patient Portal and [employer] Indication:Body mass index 30.0-30.9, adult Start:16-May-2022 Instruction Type:Patient Education Patient Instructions Indication:Body mass index 30.0-30.9, adult Start:16-May-2022 Instruction Type:Provider Instructions for Treatment Patient Instructions Indication:Non-smoker Start:29-Nov-2021 Instruction Type:Provider Instructions for Treatment How to Access Health Informa tion Online using Patient Portal and [employer]rd [employer] Apps Indication:Non-smoker Start:29-Nov-2021 Instruction Type:Patient Education Patient Instructions Indication:Non-smoker Start:08-Dec-2020 Instruction Type:Provider Instructions for Treatment How to Access Health Informa tion Online using Patient Portal and [employer]rd [employer] Apps Indication:Non-smoker Start:08-Dec-2020 Instruction Type:Patient Education How to access health informa tion online Indication:Non-smoker Start:25-Oct-2019 Instruction Type:Patient Education How to access health informa tion online - Detail Indication:Non-smoker Start:25-Oct-2019 Instruction Type:Patient Education Patient Instructions Indication:Non-smoker Start:25-Oct-2019 Instruction Type:Provider Instructions for Treatment How to access health informa tion online Indication:Non-smoker Start:31-May-2019 Instruction Type:Patient Education How to access health informa tion online - Detail Indication:Non-smoker Start:31-May-2019 Instruction Type:Patient Education Patient Instructions Indication:Non-smoker Start:31-May-2019 Instruction Type:Provider Instructions for Treatment How to access health informa tion online Indication:BMI 28.0-28.9,adult Start:22-Apr-2019 Instruction Type:Patient Education How to access health informa tion online - Detail Indication:BMI 28.0-28.9,adult Start:22-Apr-2019 Instruction Type:Patient Education Patient Instructions Indication:BMI 28.0-28.9,adult Start:22-Apr-2019 Instruction Type:Provider Instructions for Treatment How to access health informa tion online Indication:BMI 29.0-29.9,adult Start:01-Apr-2019 Instruction Type:Patient Education How to access health informa tion online - Detail Indication:BMI 29.0-29.9,adult Start:01-Apr-2019 Instruction Type:Patient Education Patient Instructions Indication:BMI 29.0-29.9,adult Start:01-Apr-2019 Instruction Type:Provider Instructions for Treatment How to access health informa tion online Indication:Non-smoker Start:01-Mar-2019 Instruction Type:Patient Education How to access health informa tion online - Detail Indication:Non-smoker Start:01-Mar-2019 Instruction Type:Patient Education Patient Instructions Indication:Non-smoker Start:01-Mar-2019 Instruction Type:Provider Instructions for Treatment How to access health informa tion online - Detail Indication:Non-smoker Start:12-Feb-2019 Instruction Type:Patient Education Patient Instructions Indication:Non-smoker Start:12-Feb-2019 Instruction Type:Provider Instructions for Treatment How to access health informa tion online Indication:Non-smoker Start:07-May-2018 Instruction Type:Patient Education How to access health informa tion online - Detail Indication:Non-smoker Start:07-May-2018 Instruction Type:Patient Education Patient Instructions Indication:Non-smoker Start:07-May-2018 Instruction Type:Provider Instructions for Treatment How to access health informa tion online Indication:Non-smoker Start:24-Nov-2017 Instruction Type:Patient Education How to access health informa tion online - Detail Indication:Non-smoker Start:24-Nov-2017 Instruction Type:Patient Education Patient Instructions Indication:Non-smoker Start:24-Nov-2017 Instruction Type:Provider Instructions for Treatment How to access health informa tion online Indication:Non-smoker Start:28-Oct-2016 Instruction Type:Patient Education How to access health informa tion online - Detail Indication:Non-smoker Start:28-Oct-2016 Instruction Type:Patient Education How to access health informa tion online Indication:Sore throat Start:15-Feb-2016 Instruction Type:Patient Education How to access health informa tion online - Detail Indication:Sore throat Start:15-Feb-2016 Instruction Type:Patient Education Patient Instructions Indication:Sore throat Start:15-Feb-2016 Instruction Type:Provider Instructions for Treatment How to access health informa tion online Indication:Screening for prostate cancer Start:20-Nov-2015 Instruction Type:Patient Education How to access health informa tion online - Detail Indication:Screening for prostate cancer Start:20-Nov-2015 Instruction Type:Patient Education Patient Instructions Indication:Screening for prostate cancer Start:20-Nov-2015 Instruction Type:Provider Instructions for Treatment How to access health informa tion online Indication:Leukopenia Start:01-Dec-2014 Instruction Type:Patient Education How to access health informa tion online - Detail Indication:Leukopenia Start:01-Dec-2014 Instruction Type:Patient Education Patient Instructions Indication:Leukopenia Start:01-Dec-2014 Instruction Type:Provider Instructions for Treatment Patient Instructions Indication:BPH without urinary obstruction Start:02-Dec-2011 Instruction Type:Provider Instructions for Treatment [facility]; [facility] Work Phone: Instructions* Name Dates Details How to Access Health Informa tion Online using Patient Portal and [employer]rd [employer] Apps Indication:Body mass index 30.0-30.9, adult Start:16-May-2022 Instruction Type:Patient Education Patient Instructions Indication:Body mass index 30.0-30.9, adult Start:16-May-2022 Instruction Type:Provider Instructions for Treatment Patient Instructions Indication:Non-smoker Start:29-Nov-2021 Instruction Type:Provider Instructions for Treatment How to Access Health Informa tion Online using Patient Portal and [employer]rd [employer] Apps Indication:Non-smoker Start:29-Nov-2021 Instruction Type:Patient Education Patient Instructions Indication:Non-smoker Start:08-Dec-2020 Instruction Type:Provider Instructions for Treatment How to Access Health Informa tion Online using Patient Portal and [employer] Apps Indication:Non-smoker Start:08-Dec-2020 Instruction Type:Patient Education How to access health informa tion online Indication:Non-smoker Start:25-Oct-2019 Instruction Type:Patient Education How to access health informa tion online - Detail Indication:Non-smoker Start:25-Oct-2019 Instruction Type:Patient Education Patient Instructions Indication:Non-smoker Start:25-Oct-2019 Instruction Type:Provider Instructions for Treatment How to access health informa tion online Indication:Non-smoker Start:31-May-2019 Instruction Type:Patient Education How to access health informa tion online - Detail Indication:Non-smoker Start:31-May-2019 Instruction Type:Patient Education Patient Instructions Indication:Non-smoker Start:31-May-2019 Instruction Type:Provider Instructions for Treatment How to access health informa tion online Indication:BMI 28.0-28.9,adult Start:22-Apr-2019 Instruction Type:Patient Education How to access health informa tion online - Detail Indication:BMI 28.0-28.9,adult Start:22-Apr-2019 Instruction Type:Patient Education Patient Instructions Indication:BMI 28.0-28.9,adult Start:22-Apr-2019 Instruction Type:Provider Instructions for Treatment How to access health informa tion online Indication:BMI 29.0-29.9,adult Start:01-Apr-2019 Instruction Type:Patient Education How to access health informa tion online - Detail Indication:BMI 29.0-29.9,adult Start:01-Apr-2019 Instruction Type:Patient Education Patient Instructions Indication:BMI 29.0-29.9,adult Start:01-Apr-2019 Instruction Type:Provider Instructions for Treatment How to access health informa tion online Indication:Non-smoker Start:01-Mar-2019 Instruction Type:Patient Education How to access health informa tion online - Detail Indication:Non-smoker Start:01-Mar-2019 Instruction Type:Patient Education Patient Instructions Indication:Non-smoker Start:01-Mar-2019 Instruction Type:Provider Instructions for Treatment How to access health informa tion online - Detail Indication:Non-smoker Start:12-Feb-2019 Instruction Type:Patient Education Patient Instructions Indication:Non-smoker Start:12-Feb-2019 Instruction Type:Provider Instructions for Treatment How to access health informa tion online Indication:Non-smoker Start:07-May-2018 Instruction Type:Patient Education How to access health informa tion online - Detail Indication:Non-smoker Start:07-May-2018 Instruction Type:Patient Education Patient Instructions Indication:Non-smoker Start:07-May-2018 Instruction Type:Provider Instructions for Treatment How to access health informa tion online Indication:Non-smoker Start:24-Nov-2017 Instruction Type:Patient Education How to access health informa tion online - Detail Indication:Non-smoker Start:24-Nov-2017 Instruction Type:Patient Education Patient Instructions Indication:Non-smoker Start:24-Nov-2017 Instruction Type:Provider Instructions for Treatment How to access health informa tion online Indication:Non-smoker Start:28-Oct-2016 Instruction Type:Patient Education How to access health informa tion online - Detail Indication:Non-smoker Start:28-Oct-2016 Instruction Type:Patient Education How to access health informa tion online Indication:Sore throat Start:15-Feb-2016 Instruction Type:Patient Education How to access health informa tion online - Detail Indication:Sore throat Start:15-Feb-2016 Instruction Type:Patient Education Patient Instructions Indication:Sore throat Start:15-Feb-2016 Instruction Type:Provider Instructions for Treatment How to access health informa tion online Indication:Screening for prostate cancer Start:20-Nov-2015 Instruction Type:Patient Education How to access health informa tion online - Detail Indication:Screening for prostate cancer Start:20-Nov-2015 Instruction Type:Patient Education Patient Instructions Indication:Screening for prostate cancer Start:20-Nov-2015 Instruction Type:Provider Instructions for Treatment How to access health informa tion online Indication:Leukopenia Start:01-Dec-2014 Instruction Type:Patient Education How to access health informa tion online - Detail Indication:Leukopenia Start:01-Dec-2014 Instruction Type:Patient Education Patient Instructions Indication:Leukopenia Start:01-Dec-2014 Instruction Type:Provider Instructions for Treatment Patient Instructions Indication:BPH without urinary obstruction Start:02-Dec-2011 Instruction Type:Provider Instructions for Treatment [facility]; [facility] Work Phone: Instructions* Name Dates Details Patient Instructions Indication:Body mass index 30.0-30.9, adult Start:19-Sep-2022 Instruction Type:Provider Instructions for Treatment How to Access Health Informa tion Online using Patient Portal and [employer]rd [employer] Apps Indication:Body mass index 30.0-30.9, adult Start:19-Sep-2022 Instruction Type:Patient Education How to Access Health Informa tion Online using Patient Portal and [employer]rd [employer] Apps Indication:Body mass index 30.0-30.9, adult Start:16-May-2022 Instruction Type:Patient Education Patient Instructions Indication:Body mass index 30.0-30.9, adult Start:16-May-2022 Instruction Type:Provider Instructions for Treatment Patient Instructions Indication:Non-smoker Start:29-Nov-2021 Instruction Type:Provider Instructions for Treatment How to Access Health Informa tion Online using Patient Portal and [employer]rd [employer] Apps Indication:Non-smoker Start:29-Nov-2021 Instruction Type:Patient Education Patient Instructions Indication:Non-smoker Start:08-Dec-2020 Instruction Type:Provider Instructions for Treatment How to Access Health Informa tion Online using Patient Portal and [employer]rd [employer] Apps Indication:Non-smoker Start:08-Dec-2020 Instruction Type:Patient Education How to access health informa tion online Indication:Non-smoker Start:25-Oct-2019 Instruction Type:Patient Education How to access health informa tion online - Detail Indication:Non-smoker Start:25-Oct-2019 Instruction Type:Patient Education Patient Instructions Indication:Non-smoker Start:25-Oct-2019 Instruction Type:Provider Instructions for Treatment How to access health informa tion online Indication:Non-smoker Start:31-May-2019 Instruction Type:Patient Education How to access health informa tion online - Detail Indication:Non-smoker Start:31-May-2019 Instruction Type:Patient Education Patient Instructions Indication:Non-smoker Start:31-May-2019 Instruction Type:Provider Instructions for Treatment How to access health informa tion online Indication:BMI 28.0-28.9,adult Start:22-Apr-2019 Instruction Type:Patient Education How to access health informa tion online - Detail Indication:BMI 28.0-28.9,adult Start:22-Apr-2019 Instruction Type:Patient Education Patient Instructions Indication:BMI 28.0-28.9,adult Start:22-Apr-2019 Instruction Type:Provider Instructions for Treatment How to access health informa tion online Indication:BMI 29.0-29.9,adult Start:01-Apr-2019 Instruction Type:Patient Education How to access health informa tion online - Detail Indication:BMI 29.0-29.9,adult Start:01-Apr-2019 Instruction Type:Patient Education Patient Instructions Indication:BMI 29.0-29.9,adult Start:01-Apr-2019 Instruction Type:Provider Instructions for Treatment How to access health informa tion online Indication:Non-smoker Start:01-Mar-2019 Instruction Type:Patient Education How to access health informa tion online - Detail Indication:Non-smoker Start:01-Mar-2019 Instruction Type:Patient Education Patient Instructions Indication:Non-smoker Start:01-Mar-2019 Instruction Type:Provider Instructions for Treatment How to access health informa tion online - Detail Indication:Non-smoker Start:12-Feb-2019 Instruction Type:Patient Education Patient Instructions Indication:Non-smoker Start:12-Feb-2019 Instruction Type:Provider Instructions for Treatment How to access health informa tion online Indication:Non-smoker Start:07-May-2018 Instruction Type:Patient Education How to access health informa tion online - Detail Indication:Non-smoker Start:07-May-2018 Instruction Type:Patient Education Patient Instructions Indication:Non-smoker Start:07-May-2018 Instruction Type:Provider Instructions for Treatment How to access health informa tion online Indication:Non-smoker Start:24-Nov-2017 Instruction Type:Patient Education How to access health informa tion online - Detail Indication:Non-smoker Start:24-Nov-2017 Instruction Type:Patient Education Patient Instructions Indication:Non-smoker Start:24-Nov-2017 Instruction Type:Provider Instructions for Treatment How to access health informa tion online Indication:Non-smoker Start:28-Oct-2016 Instruction Type:Patient Education How to access health informa tion online - Detail Indication:Non-smoker Start:28-Oct-2016 Instruction Type:Patient Education How to access health informa tion online Indication:Sore throat Start:15-Feb-2016 Instruction Type:Patient Education How to access health informa tion online - Detail Indication:Sore throat Start:15-Feb-2016 Instruction Type:Patient Education Patient Instructions Indication:Sore throat Start:15-Feb-2016 Instruction Type:Provider Instructions for Treatment How to access health informa tion online Indication:Screening for prostate cancer Start:20-Nov-2015 Instruction Type:Patient Education How to access health informa tion online - Detail Indication:Screening for prostate cancer Start:20-Nov-2015 Instruction Type:Patient Education Patient Instructions Indication:Screening for prostate cancer Start:20-Nov-2015 Instruction Type:Provider Instructions for Treatment How to access health informa tion online Indication:Leukopenia Start:01-Dec-2014 Instruction Type:Patient Education How to access health informa tion online - Detail Indication:Leukopenia Start:01-Dec-2014 Instruction Type:Patient Education Patient Instructions Indication:Leukopenia Start:01-Dec-2014 Instruction Type:Provider Instructions for Treatment Patient Instructions Indication:BPH without urinary obstruction Start:02-Dec-2011 Instruction Type:Provider Instructions for [facility] Work Phone: Instructions* Name Dates Details Patient Instructions Indication:Encounter for well adult exam with abnormal findings Start:12-Dec-2022 Instruction Type:Provider Instructions for Treatment How to Access Health Informa tion Online using Patient Portal and [employer] Apps Indication:Encounter for well adult exam with abnormal findings Start:12-Dec-2022 Instruction Type:Patient Education Patient Instructions Indication:Body mass index 30.0-30.9, adult Start:19-Sep-2022 Instruction Type:Provider Instructions for Treatment How to Access Health Informa tion Online using Patient Portal and [employer] Apps Indication:Body mass index 30.0-30.9, adult Start:19-Sep-2022 Instruction Type:Patient Education How to Access Health Informa tion Online using Patient Portal and [employer] Apps Indication:Body mass index 30.0-30.9, adult Start:16-May-2022 Instruction Type:Patient Education Patient Instructions Indication:Body mass index 30.0-30.9, adult Start:16-May-2022 Instruction Type:Provider Instructions for Treatment Patient Instructions Indication:Non-smoker Start:29-Nov-2021 Instruction Type:Provider Instructions for Treatment How to Access Health Informa tion Online using Patient Portal and [employer]rd [employer] Apps Indication:Non-smoker Start:29-Nov-2021 Instruction Type:Patient Education Patient Instructions Indication:Non-smoker Start:08-Dec-2020 Instruction Type:Provider Instructions for Treatment How to Access Health Informa tion Online using Patient Portal and [employer] Apps Indication:Non-smoker Start:08-Dec-2020 Instruction Type:Patient Education How to access health informa tion online Indication:Non-smoker Start:25-Oct-2019 Instruction Type:Patient Education How to access health informa tion online - Detail Indication:Non-smoker Start:25-Oct-2019 Instruction Type:Patient Education Patient Instructions Indication:Non-smoker Start:25-Oct-2019 Instruction Type:Provider Instructions for Treatment How to access health informa tion online Indication:Non-smoker Start:31-May-2019 Instruction Type:Patient Education How to access health informa tion online - Detail Indication:Non-smoker Start:31-May-2019 Instruction Type:Patient Education Patient Instructions Indication:Non-smoker Start:31-May-2019 Instruction Type:Provider Instructions for Treatment How to access health informa tion online Indication:BMI 28.0-28.9,adult Start:22-Apr-2019 Instruction Type:Patient Education How to access health informa tion online - Detail Indication:BMI 28.0-28.9,adult Start:22-Apr-2019 Instruction Type:Patient Education Patient Instructions Indication:BMI 28.0-28.9,adult Start:22-Apr-2019 Instruction Type:Provider Instructions for Treatment How to access health informa tion online Indication:BMI 29.0-29.9,adult Start:01-Apr-2019 Instruction Type:Patient Education How to access health informa tion online - Detail Indication:BMI 29.0-29.9,adult Start:01-Apr-2019 Instruction Type:Patient Education Patient Instructions Indication:BMI 29.0-29.9,adult Start:01-Apr-2019 Instruction Type:Provider Instructions for Treatment How to access health informa tion online Indication:Non-smoker Start:01-Mar-2019 Instruction Type:Patient Education How to access health informa tion online - Detail Indication:Non-smoker Start:01-Mar-2019 Instruction Type:Patient Education Patient Instructions Indication:Non-smoker Start:01-Mar-2019 Instruction Type:Provider Instructions for Treatment How to access health informa tion online - Detail Indication:Non-smoker Start:12-Feb-2019 Instruction Type:Patient Education Patient Instructions Indication:Non-smoker Start:12-Feb-2019 Instruction Type:Provider Instructions for Treatment How to access health informa tion online Indication:Non-smoker Start:07-May-2018 Instruction Type:Patient Education How to access health informa tion online - Detail Indication:Non-smoker Start:07-May-2018 Instruction Type:Patient Education Patient Instructions Indication:Non-smoker Start:07-May-2018 Instruction Type:Provider Instructions for Treatment How to access health informa tion online Indication:Non-smoker Start:24-Nov-2017 Instruction Type:Patient Education How to access health informa tion online - Detail Indication:Non-smoker Start:24-Nov-2017 Instruction Type:Patient Education Patient Instructions Indication:Non-smoker Start:24-Nov-2017 Instruction Type:Provider Instructions for Treatment How to access health informa tion online Indication:Non-smoker Start:28-Oct-2016 Instruction Type:Patient Education How to access health informa tion online - Detail Indication:Non-smoker Start:28-Oct-2016 Instruction Type:Patient Education How to access health informa tion online Indication:Sore throat Start:15-Feb-2016 Instruction Type:Patient Education How to access health informa tion online - Detail Indication:Sore throat Start:15-Feb-2016 Instruction Type:Patient Education Patient Instructions Indication:Sore throat Start:15-Feb-2016 Instruction Type:Provider Instructions for Treatment How to access health informa tion online Indication:Screening for prostate cancer Start:20-Nov-2015 Instruction Type:Patient Education How to access health informa tion online - Detail Indication:Screening for prostate cancer Start:20-Nov-2015 Instruction Type:Patient Education Patient Instructions Indication:Screening for prostate cancer Start:20-Nov-2015 Instruction Type:Provider Instructions for Treatment How to access health informa tion online Indication:Leukopenia Start:01-Dec-2014 Instruction Type:Patient Education How to access health informa tion online - Detail Indication:Leukopenia Start:01-Dec-2014 Instruction Type:Patient Education Patient Instructions Indication:Leukopenia Start:01-Dec-2014 Instruction Type:Provider Instructions for Treatment Patient Instructions Indication:BPH without urinary obstruction Start:02-Dec-2011 Instruction Type:Provider Instructions for Treatment [facility] Work Phone: reason for referral (narrative)No reason for referral information availableWMagruder [facility] Work Phone: Family History No Family History Records FoundUnknown Family Member Name Dates Details Father Comments:thyroid cancer, HTN , kidney cancer, anxiety Status:Active First Degree Relatives Comments:Anxiety, HBP, High cholesterol, Kidney dx ([place]), Thyroid dx Status:Active maternal uncle PVD Status:Active Mother Comments:HTN, high cholester ol, PVD with stenting at 65 yo Status:Active Sister 1 Comments:healthy, overweight elevated BP Status:Active Unknown Family Member Name Dates Details Father Comments:thyroid cancer, HTN , kidney cancer, anxiety Status:Active First Degree Relatives Comments:Anxiety, HBP, High cholesterol, Kidney dx ([place]), Thyroid dx Status:Active maternal uncle PVD Status:Active Mother Comments:HTN, high cholester ol, PVD with stenting at 65 yo Status:Active Sister 1 Comments:healthy, overweight elevated BP Status:Active Unknown Family Member Name Dates Details Father Comments:thyroid cancer, HTN , kidney cancer, anxiety Status:Active First Degree Relatives Comments:Anxiety, HBP, High cholesterol, Kidney dx ([place]), Thyroid dx Status:Active maternal uncle PVD Status:Active Mother Comments:HTN, high cholester ol, PVD with stenting at 65 yo Status:Active Sister 1 Comments:healthy, overweight elevated BP Status:Active Unknown Family Member Name Dates Details Father Comments:thyroid cancer, HTN , kidney cancer, anxiety Status:Active First Degree Relatives Comments:Anxiety, HBP, High cholesterol, Kidney dx ([place]), Thyroid dx Status:Active maternal uncle PVD Status:Active Mother Comments:HTN, high cholester ol, PVD with stenting at 65 yo Status:Active Sister 1 Comments:healthy, overweight elevated BP Status:Active Unknown Family Member Name Dates Details Father Comments:thyroid cancer, HTN , kidney cancer, anxiety Status:Active First Degree Relatives Comments:Anxiety, HBP, High cholesterol, Kidney dx ([place]), Thyroid dx Status:Active maternal uncle PVD Status:Active Mother Comments:HTN, high cholester ol, PVD with stenting at 65 yo Status:Active Sister 1 Comments:healthy, overweight elevated BP Status:Active Unknown Family Member Name Dates Details Father Comments:thyroid cancer, HTN , kidney cancer, anxiety Status:Active First Degree Relatives Comments:Anxiety, HBP, High cholesterol, Kidney dx ([place]), Thyroid dx Status:Active maternal uncle PVD Status:Active Mother Comments:HTN, high cholester ol, PVD with stenting at 65 yo Status:Active Sister 1 Comments:healthy, overweight elevated BP Status:Active Unknown Family Member Name Dates Details Father Comments:thyroid cancer, HTN , kidney cancer, anxiety Status:Active First Degree Relatives Comments:Anxiety, HBP, High cholesterol, Kidney dx ([place]), Thyroid dx Status:Active maternal uncle PVD Status:Active Mother Comments:HTN, high cholester ol, PVD with stenting at 65 yo Status:Active Sister 1 Comments:healthy, overweight elevated BP Status:Active Unknown Family Member Name Dates Details Father Comments:thyroid cancer, HTN , kidney cancer, anxiety Status:Active First Degree Relatives Comments:Anxiety, HBP, High cholesterol, Kidney dx ([place]), Thyroid dx Status:Active maternal uncle PVD Status:Active Mother Comments:HTN, high cholester ol, PVD with stenting at 65 yo Status:Active Sister 1 Comments:healthy, overweight elevated BP Status:Active Unknown Family Member Name Dates Details Father Comments:thyroid cancer, HTN , kidney cancer, anxiety Status:Active First Degree Relatives Comments:Anxiety, HBP, High cholesterol, Kidney dx ([place]), Thyroid dx Status:Active maternal uncle PVD Status:Active Mother Comments:HTN, high cholester ol, PVD with stenting at 65 yo Status:Active Sister 1 Comments:healthy, overweight elevated BP Status:Active Unknown Family Member Name Dates Details Father Comments:thyroid cancer, HTN , kidney cancer, anxiety Status:Active First Degree Relatives Comments:Anxiety, HBP, High cholesterol, Kidney dx ([place]), Thyroid dx Status:Active maternal uncle PVD Status:Active Mother Comments:HTN, high cholester ol, PVD with stenting at 65 yo Status:Active Sister 1 Comments:healthy, overweight elevated BP Status:Active Unknown Family Member Name Dates Details Father Comments:thyroid cancer, HTN , kidney cancer, anxiety Status:Active First Degree Relatives Comments:Anxiety, HBP, High cholesterol, Kidney dx ([place]), Thyroid dx Status:Active maternal uncle PVD Status:Active Mother Comments:HTN, high cholester ol, PVD with stenting at 65 yo Status:Active Sister 1 Comments:healthy, overweight elevated BP Status:Active Relationship Condition Age at Onset Recorded Date/T yuki mother Hypertension Unknown Peripheral vascular disease Unknown father Malignant neoplasm of kidney Unknown Malignant neoplasm of thyroid gland Unkno wn Hypertension Unknown Unknown Family Member Name Dates Details Father Comments:thyroid cancer, HTN , kidney cancer, anxiety Status:Active First Degree Relatives Comments:Anxiety, HBP, High cholesterol, Kidney dx ([place]), Thyroid dx Status:Active maternal uncle PVD Status:Active Mother Comments:HTN, high cholester ol, PVD with stenting at 65 yo Status:Active Sister 1 Comments:healthy, overweight elevated BP Status:Active Unknown Family Member Name Dates Details Father Comments:thyroid cancer, HTN , kidney cancer, anxiety Status:Active First Degree Relatives Comments:Anxiety, HBP, High cholesterol, Kidney dx ([place]), Thyroid dx Status:Active maternal uncle PVD Status:Active Mother Comments:HTN, high cholester ol, PVD with stenting at 65 yo Status:Active Sister 1 Comments:healthy, overweight elevated BP Status:Active Unknown Family Member Name Dates Details Father Comments:thyroid cancer, HTN , kidney cancer, anxiety Status:Active First Degree Relatives Comments:Anxiety, HBP, High cholesterol, Kidney dx ([place]), Thyroid dx Status:Active maternal uncle PVD Status:Active Mother Comments:HTN, high cholester ol, PVD with stenting at 65 yo Status:Active Sister 1 Comments:healthy, overweight elevated BP Status:Active Unknown Family Member Name Dates Details Father Comments:thyroid cancer, HTN , kidney cancer, anxiety Status:Active First Degree Relatives Comments:Anxiety, HBP, High cholesterol, Kidney dx ([place]), Thyroid dx Status:Active maternal uncle PVD Status:Active Mother Comments:HTN, high cholester ol, PVD with stenting at 65 yo Status:Active Sister 1 Comments:healthy, overweight elevated BP Status:Active Unknown Family Member Name Dates Details Father Comments:thyroid cancer, HTN , kidney cancer, anxiety Status:Active First Degree Relatives Comments:Anxiety, HBP, High cholesterol, Kidney dx ([place]), Thyroid dx Status:Active maternal uncle PVD Status:Active Mother Comments:HTN, high cholester ol, PVD with stenting at 65 yo Status:Active Sister 1 Comments:healthy, overweight elevated BP Status:Active Instructions Name Dates Details Non-smoker : How to access h ealth information online Indication:Non-smoker Non-smoker : How to access h ealth information online - Detail Indication:Non-smoker Non-smoker : Patient Instruc tions Indication:Non-smoker Sore throat : How to access health information online Indication:Sore throat Sore throat : How to access health information online - Detail Indication:Sore throat Sore throat : Patient Instru ctions Indication:Sore throat Screening for prostate cance r : How to access health information online Indication:Screening for prostate cancer Screening for prostate cance r : How to access health information online - Detail Indication:Screening for prostate cancer Screening for prostate cance r : Patient Instructions Indication:Screening for prostate cancer Leukopenia : How to access h ealth information online Indication:Leukopenia Leukopenia : How to access h ealth information online - Detail Indication:Leukopenia Leukopenia : Patient Instruc tions Indication:Leukopenia BPH without urinary obstruct ion : Patient Instructions Indication:BPH without urinary obstruction Name Dates Details How to access health informa tion online Indication:Non-smoker Start:07-May-2018 Instruction Type:Patient Education How to access health informa tion online - Detail Indication:Non-smoker Start:07-May-2018 Instruction Type:Patient Education Patient Instructions Indication:Non-smoker Start:07-May-2018 Instruction Type:Provider Instructions for Treatment How to access health informa tion online Indication:Non-smoker Start:24-Nov-2017 Instruction Type:Patient Education How to access health informa tion online - Detail Indication:Non-smoker Start:24-Nov-2017 Instruction Type:Patient Education Patient Instructions Indication:Non-smoker Start:24-Nov-2017 Instruction Type:Provider Instructions for Treatment How to access health informa tion online Indication:Non-smoker Start:28-Oct-2016 Instruction Type:Patient Education How to access health informa tion online - Detail Indication:Non-smoker Start:28-Oct-2016 Instruction Type:Patient Education How to access health informa tion online Indication:Sore throat Start:15-Feb-2016 Instruction Type:Patient Education How to access health informa tion online - Detail Indication:Sore throat Start:15-Feb-2016 Instruction Type:Patient Education Patient Instructions Indication:Sore throat Start:15-Feb-2016 Instruction Type:Provider Instructions for Treatment How to access health informa tion online Indication:Screening for prostate cancer Start:20-Nov-2015 Instruction Type:Patient Education How to access health informa tion online - Detail Indication:Screening for prostate cancer Start:20-Nov-2015 Instruction Type:Patient Education Patient Instructions Indication:Screening for prostate cancer Start:20-Nov-2015 Instruction Type:Provider Instructions for Treatment How to access health informa tion online Indication:Leukopenia Start:01-Dec-2014 Instruction Type:Patient Education How to access health informa tion online - Detail Indication:Leukopenia Start:01-Dec-2014 Instruction Type:Patient Education Patient Instructions Indication:Leukopenia Start:01-Dec-2014 Instruction Type:Provider Instructions for Treatment Patient Instructions Indication:BPH without urinary obstruction Start:02-Dec-2011 Instruction Type:Provider Instructions for Treatment Name Dates Details How to access health informa tion online Indication:Non-smoker Start:25-Oct-2019 Instruction Type:Patient Education How to access health informa tion online - Detail Indication:Non-smoker Start:25-Oct-2019 Instruction Type:Patient Education Patient Instructions Indication:Non-smoker Start:25-Oct-2019 Instruction Type:Provider Instructions for Treatment How to access health informa tion online Indication:Non-smoker Start:31-May-2019 Instruction Type:Patient Education How to access health informa tion online - Detail Indication:Non-smoker Start:31-May-2019 Instruction Type:Patient Education Patient Instructions Indication:Non-smoker Start:31-May-2019 Instruction Type:Provider Instructions for Treatment How to access health informa tion online Indication:BMI 28.0-28.9,adult Start:22-Apr-2019 Instruction Type:Patient Education How to access health informa tion online - Detail Indication:BMI 28.0-28.9,adult Start:22-Apr-2019 Instruction Type:Patient Education Patient Instructions Indication:BMI 28.0-28.9,adult Start:22-Apr-2019 Instruction Type:Provider Instructions for Treatment How to access health informa tion online Indication:BMI 29.0-29.9,adult Start:01-Apr-2019 Instruction Type:Patient Education How to access health informa tion online - Detail Indication:BMI 29.0-29.9,adult Start:01-Apr-2019 Instruction Type:Patient Education Patient Instructions Indication:BMI 29.0-29.9,adult Start:01-Apr-2019 Instruction Type:Provider Instructions for Treatment How to access health informa tion online Indication:Non-smoker Start:01-Mar-2019 Instruction Type:Patient Education How to access health informa tion online - Detail Indication:Non-smoker Start:01-Mar-2019 Instruction Type:Patient Education Patient Instructions Indication:Non-smoker Start:01-Mar-2019 Instruction Type:Provider Instructions for Treatment How to access health informa tion online - Detail Indication:Non-smoker Start:12-Feb-2019 Instruction Type:Patient Education Patient Instructions Indication:Non-smoker Start:12-Feb-2019 Instruction Type:Provider Instructions for Treatment How to access health informa tion online Indication:Non-smoker Start:07-May-2018 Instruction Type:Patient Education How to access health informa tion online - Detail Indication:Non-smoker Start:07-May-2018 Instruction Type:Patient Education Patient Instructions Indication:Non-smoker Start:07-May-2018 Instruction Type:Provider Instructions for Treatment How to access health informa tion online Indication:Non-smoker Start:24-Nov-2017 Instruction Type:Patient Education How to access health informa tion online - Detail Indication:Non-smoker Start:24-Nov-2017 Instruction Type:Patient Education Patient Instructions Indication:Non-smoker Start:24-Nov-2017 Instruction Type:Provider Instructions for Treatment How to access health informa tion online Indication:Non-smoker Start:28-Oct-2016 Instruction Type:Patient Education How to access health informa tion online - Detail Indication:Non-smoker Start:28-Oct-2016 Instruction Type:Patient Education How to access health informa tion online Indication:Sore throat Start:15-Feb-2016 Instruction Type:Patient Education How to access health informa tion online - Detail Indication:Sore throat Start:15-Feb-2016 Instruction Type:Patient Education Patient Instructions Indication:Sore throat Start:15-Feb-2016 Instruction Type:Provider Instructions for Treatment How to access health informa tion online Indication:Screening for prostate cancer Start:20-Nov-2015 Instruction Type:Patient Education How to access health informa tion online - Detail Indication:Screening for prostate cancer Start:20-Nov-2015 Instruction Type:Patient Education Patient Instructions Indication:Screening for prostate cancer Start:20-Nov-2015 Instruction Type:Provider Instructions for Treatment How to access health informa tion online Indication:Leukopenia Start:01-Dec-2014 Instruction Type:Patient Education How to access health informa tion online - Detail Indication:Leukopenia Start:01-Dec-2014 Instruction Type:Patient Education Patient Instructions Indication:Leukopenia Start:01-Dec-2014 Instruction Type:Provider Instructions for Treatment Patient Instructions Indication:BPH without urinary obstruction Start:02-Dec-2011 Instruction Type:Provider Instructions for Treatment Name Dates Details How to access health informa tion online Indication:Non-smoker Start:25-Oct-2019 Instruction Type:Patient Education How to access health informa tion online - Detail Indication:Non-smoker Start:25-Oct-2019 Instruction Type:Patient Education Patient Instructions Indication:Non-smoker Start:25-Oct-2019 Instruction Type:Provider Instructions for Treatment How to access health informa tion online Indication:Non-smoker Start:31-May-2019 Instruction Type:Patient Education How to access health informa tion online - Detail Indication:Non-smoker Start:31-May-2019 Instruction Type:Patient Education Patient Instructions Indication:Non-smoker Start:31-May-2019 Instruction Type:Provider Instructions for Treatment How to access health informa tion online Indication:BMI 28.0-28.9,adult Start:22-Apr-2019 Instruction Type:Patient Education How to access health informa tion online - Detail Indication:BMI 28.0-28.9,adult Start:22-Apr-2019 Instruction Type:Patient Education Patient Instructions Indication:BMI 28.0-28.9,adult Start:22-Apr-2019 Instruction Type:Provider Instructions for Treatment How to access health informa tion online Indication:BMI 29.0-29.9,adult Start:01-Apr-2019 Instruction Type:Patient Education How to access health informa tion online - Detail Indication:BMI 29.0-29.9,adult Start:01-Apr-2019 Instruction Type:Patient Education Patient Instructions Indication:BMI 29.0-29.9,adult Start:01-Apr-2019 Instruction Type:Provider Instructions for Treatment How to access health informa tion online Indication:Non-smoker Start:01-Mar-2019 Instruction Type:Patient Education How to access health informa tion online - Detail Indication:Non-smoker Start:01-Mar-2019 Instruction Type:Patient Education Patient Instructions Indication:Non-smoker Start:01-Mar-2019 Instruction Type:Provider Instructions for Treatment How to access health informa tion online - Detail Indication:Non-smoker Start:12-Feb-2019 Instruction Type:Patient Education Patient Instructions Indication:Non-smoker Start:12-Feb-2019 Instruction Type:Provider Instructions for Treatment How to access health informa tion online Indication:Non-smoker Start:07-May-2018 Instruction Type:Patient Education How to access health informa tion online - Detail Indication:Non-smoker Start:07-May-2018 Instruction Type:Patient Education Patient Instructions Indication:Non-smoker Start:07-May-2018 Instruction Type:Provider Instructions for Treatment How to access health informa tion online Indication:Non-smoker Start:24-Nov-2017 Instruction Type:Patient Education How to access health informa tion online - Detail Indication:Non-smoker Start:24-Nov-2017 Instruction Type:Patient Education Patient Instructions Indication:Non-smoker Start:24-Nov-2017 Instruction Type:Provider Instructions for Treatment How to access health informa tion online Indication:Non-smoker Start:28-Oct-2016 Instruction Type:Patient Education How to access health informa tion online - Detail Indication:Non-smoker Start:28-Oct-2016 Instruction Type:Patient Education How to access health informa tion online Indication:Sore throat Start:15-Feb-2016 Instruction Type:Patient Education How to access health informa tion online - Detail Indication:Sore throat Start:15-Feb-2016 Instruction Type:Patient Education Patient Instructions Indication:Sore throat Start:15-Feb-2016 Instruction Type:Provider Instructions for Treatment How to access health informa tion online Indication:Screening for prostate cancer Start:20-Nov-2015 Instruction Type:Patient Education How to access health informa tion online - Detail Indication:Screening for prostate cancer Start:20-Nov-2015 Instruction Type:Patient Education Patient Instructions Indication:Screening for prostate cancer Start:20-Nov-2015 Instruction Type:Provider Instructions for Treatment How to access health informa tion online Indication:Leukopenia Start:01-Dec-2014 Instruction Type:Patient Education How to access health informa tion online - Detail Indication:Leukopenia Start:01-Dec-2014 Instruction Type:Patient Education Patient Instructions Indication:Leukopenia Start:01-Dec-2014 Instruction Type:Provider Instructions for Treatment Patient Instructions Indication:BPH without urinary obstruction Start:02-Dec-2011 Instruction Type:Provider Instructions for Treatment Name Dates Details Non-smoker : How to access h ealth information online Indication:Non-smoker Non-smoker : How to access h ealth information online - Detail Indication:Non-smoker Non-smoker : Patient Instruc tions Indication:Non-smoker Sore throat : How to access health information online Indication:Sore throat Sore throat : How to access health information online - Detail Indication:Sore throat Sore throat : Patient Instru ctions Indication:Sore throat Screening for prostate cance r : How to access health information online Indication:Screening for prostate cancer Screening for prostate cance r : How to access health information online - Detail Indication:Screening for prostate cancer Screening for prostate cance r : Patient Instructions Indication:Screening for prostate cancer Leukopenia : How to access h ealth information online Indication:Leukopenia Leukopenia : How to access h ealth information online - Detail Indication:Leukopenia Leukopenia : Patient Instruc tions Indication:Leukopenia BPH without urinary obstruct ion : Patient Instructions Indication:BPH without urinary obstruction Name Dates Details How to access health informa tion online Indication:Non-smoker Start:07-May-2018 Instruction Type:Patient Education How to access health informa tion online - Detail Indication:Non-smoker Start:07-May-2018 Instruction Type:Patient Education Patient Instructions Indication:Non-smoker Start:07-May-2018 Instruction Type:Provider Instructions for Treatment How to access health informa tion online Indication:Non-smoker Start:24-Nov-2017 Instruction Type:Patient Education How to access health informa tion online - Detail Indication:Non-smoker Start:24-Nov-2017 Instruction Type:Patient Education Patient Instructions Indication:Non-smoker Start:24-Nov-2017 Instruction Type:Provider Instructions for Treatment How to access health informa tion online Indication:Non-smoker Start:28-Oct-2016 Instruction Type:Patient Education How to access health informa tion online - Detail Indication:Non-smoker Start:28-Oct-2016 Instruction Type:Patient Education How to access health informa tion online Indication:Sore throat Start:15-Feb-2016 Instruction Type:Patient Education How to access health informa tion online - Detail Indication:Sore throat Start:15-Feb-2016 Instruction Type:Patient Education Patient Instructions Indication:Sore throat Start:15-Feb-2016 Instruction Type:Provider Instructions for Treatment How to access health informa tion online Indication:Screening for prostate cancer Start:20-Nov-2015 Instruction Type:Patient Education How to access health informa tion online - Detail Indication:Screening for prostate cancer Start:20-Nov-2015 Instruction Type:Patient Education Patient Instructions Indication:Screening for prostate cancer Start:20-Nov-2015 Instruction Type:Provider Instructions for Treatment How to access health informa tion online Indication:Leukopenia Start:01-Dec-2014 Instruction Type:Patient Education How to access health informa tion online - Detail Indication:Leukopenia Start:01-Dec-2014 Instruction Type:Patient Education Patient Instructions Indication:Leukopenia Start:01-Dec-2014 Instruction Type:Provider Instructions for Treatment Patient Instructions Indication:BPH without urinary obstruction Start:02-Dec-2011 Instruction Type:Provider Instructions for Treatment Advance Directives No Advanced Directives Records Found Name Dates Details Immunization Registry [place] - Effective on 03/01/2019. Expiration date unspecified Effective:01-Mar-2019 Name Dates Details Immunization Registry [place] - Effective on 03/01/2019. Expiration date unspecified Effective:01-Mar-2019 Name Dates Details Immunization Registry [place] - Effective on 03/01/2019. Expiration date unspecified Effective:01-Mar-2019 Name Dates Details Immunization Registry [place] - Effective on 03/01/2019. Expiration date unspecified Effective:01-Mar-2019 Advance Directive Response Recorded Date/ Time Advance Directives No February 08, 2016 6:30am Living Will No January 28, 2 022 2:36pm Power of Fan Runner No January 28, 2022 2:36pm Advance Directive Response Recorded Date/ Time Advance Directives No February 08, 2016 6:30am Living Will No April 30, 2 023 12:45pm Power of Fan Runner No April 30, 2022 12:45pm Name Dates Details Immunization Registry [place] - Effective on 03/01/2019. Expiration date unspecified Effective:01-Mar-2019 Name Dates Details Immunization Registry [place] - Effective on 03/01/2019. Expiration date unspecified Effective:01-Mar-2019 Name Dates Details Immunization Registry [place] - Effective on 03/01/2019. Expiration date unspecified Effective:01-Mar-2019 Advance Directive Response Recorded Date/ Time Advance Directives No February 08, 2016 7:30am Living Will No April 30, 2 023 1:45pm Power of Fan Runner No April 30, 2022 1:45pm Name Dates Details Immunization Registry [place] - Effective on 03/01/2019. Expiration date unspecified Effective:01-Mar-2019 Advance Directive Response Recorded Date/ Time Advance Directives No February 08, 2016 7:30am Summary Purpose Chief Complaint and Reason for Visit Chief Complaint [employer] Amb Documentation Reason for Visit Encounter for screen ing for malignant neoplasm of colon Chief Complaint DIZZINESS Reason for Visit Encounter for screen ing for malignant neoplasm of colon Chief Complaint Admit Date THYROMEGALY May 28, 2024 4:1 8pm Chief Complaint Admit Date THYROMEGALY May 28, 2024 4:1 8pm ABNORMAL TSH July 02, 2024 4:1 0pm Additional Source Comments (unrecognized sect ion and content) No Status Records FoundNo Status Records FoundNo Status Records Found INFORMATION SOURCE (unrecogn ized section and content) DATE CREATED AUTHOR 04/29/2021 [facility] Nataliia Madrigal DATE CREATED AUTHOR AUTHOR'S ORGANIZ ATION 05/17/2022 [facility] DATE CREATED AUTHOR AUTHOR'S ORGANIZ ATION [facility] Care Teams (unrecognized sec tion and content) Team Status: Active Member Role Status Dates Dr. Betty Abarca , DO Family Provider Active Dr. Betty Abarca , DO Primary Care Provider Active Team Status: Active Member Role Status Dates Dr. Betty Abarca DO Primary Care Provider, Referr ing Provider Active Dr. Artis Renee , DO Attending Provider, Other Prov ider Active Team Status: Inactive Member Role Status Dates Dr. Betty Abarca , DO Primary Care Provider, Referr ing Provider Active Dr. Artis Renee , DO Attending Provider Active Team Status: Inactive Member Role Status Dates Dr. Betty Abarca , DO Primary Care Pr ovider, Attending Provider, Referring Provider Active Team Status: Inactive Member Role Status Dates Dr. Betty Abarca , DO Primary Care Provider Active Dr. Sohan Santos MD Emergency Provider Active Team Status: Active Member Role Status Dates Dr. Betty Abarca DO Primary Care Provider Active Team Status: Inactive Member Role Status Dates Dr. Betty Abarca DO Primary Care Provider Active Start: May 19, 2024 End: May 19, 2024 Dr. Betty Abarca DO Attending Provider Active Start: May 19, 2024 End: May 19, 2024 Dr. Betty Abarca DO Referring Provider Active Start: May 19, 2024 End: May 19, 2024 Team Status: Active Member Role Status Dates Dr. Betty Abarca DO Primary Care Provider Active Start: May 28, 2024 Dr. Betty Abarca DO Attending Provider Active Start: May 28, 2024 Dr. Betty Abarca DO Referring Provider Active Start: May 28, 2024 Team Status: Inactive Member Role Status Dates Dr. Betty Abarca DO Primary Care Provider Active Start: May 28, 2024 End: May 28, 2024 Dr. Betty Abarca DO Attending Provider Active Start: May 28, 2024 End: May 28, 2024 Dr. Betty Abarca DO Referring Provider Active Start: May 28, 2024 End: May 28, 2024 Team Status: Inactive Member Role Status Dates Dr. Betty Abarca DO Primary Care Provider Active Start: July 02, 2024 End: July 02, 2024 Dr. Betty Abarca DO Attending Provider Active Start: July 02, 2024 End: July 02, 2024 Dr. Betty Abarca DO Referring Provider Active Start: July 02, 2024 End: July 02, 2024 Goals (unrecognized section and content) Goals may be documented in a n alternate sectionGoals may be documented in an alternate sectionGoals may be documented in an alternate sectionGoals may be documented in an alternate section FOR RECORDS PERTAINING TO PATIENTS WHO ARE OR HAVE BEEN ENROLLED IN A CHEMICAL DEPENDENCY/SUBSTANCEABUSE PROGRAM, SOME INFORMATION MAY BE OMITTED. This clinical summary was aggregated from multiple sources. Caution should be exercised in using it in the provision of clinical care. This summary normalizes information from multiple sources, and as a consequence, information in this document may materially change the coding, format and clinical context of patient data. In addition, data may be omitted in some cases. CLINICAL DECISIONS SHOULD BE BASED ON THE PRIMARY CLINICAL RECORDS. [facility] provides no warranty or guarantee of the accuracy or completeness of information in this document.
--- NOTE | 2024-08-23 17:06 | CA.SCORE ---
Calcium Scoring Date of Study:: 08/20/24 Indications Indications: CAD Coronary Calcium Scoring: High-resolution Computed Tomographic imaging of the chest was performed on [08/20/24 ], with particular attention paid to the coronary arteries. Images from the examination were analyzed for the presence and extent of coronary artery calcification , using coronary calcium quantification software. The patient tolerated the procedure well and there were no complications. The results of the coronary calcification analysis are provided below. Findings Coronary Artery Left Main (LM): 15.9 Left Anterior Descending (LAD): 0 Left Circumflex (LCX): 0 Right Coronary Artery (RCA): 206 Total Agatston Score: 221.9 Percentile Rankin% Calcium Scoring Interpretation: Different methods to categorize the overall amount of coronary plaque. Overall amount CAC SIS Visual of coronary plaque P1 Mild -100 <2 1-2 vessels with mild amount of plaque P2 Moderate 101-300 3-4 1-2 vessels with moderate amount, 3 vessels with mild amount of plaque P3 Severe 301-999 5-7 3 vessels with moderate amount, 1 vessel with severe amount of plaque P4 Extensive >1000 >8 2-3 vessels with severe amount of plaque Calcium Score: Moderate: 1-2 vessels w/moderate amt, 3 vessels w/mild amt of plaque Conclusion: Moderate single-vessel disease
== END | disposition home or self-care (01) ==
PROVIDERS: PCP Internal Medicine; Referring Provider Internal Medicine; Visit Provider Internal Medicine
DX: E78.5 Hyperlipidemia, unspecified (principal)
CPT/HCPCS: 75571; 76380

== ENCOUNTER → 2024-08-24 | Outpatient (CLI) | payer OTHER, SELFPAY ==
[2024-08-24 17:14] LABS: T4 Total, Thyroxin 7.8 ug/dL (4.5-12.1)
== END | disposition home or self-care (01) ==
PROVIDERS: PCP Internal Medicine; Referring Provider Internal Medicine; Visit Provider Internal Medicine
DX: E03.9 Hypothyroidism, unspecified (principal)
CPT/HCPCS: 36415; 84436; 84439; 84443

== ENCOUNTER → 2024-10-22 | Outpatient (CLI) | payer OTHER, SELFPAY | END | disposition home or self-care (01) | PROVIDERS: PCP Internal Medicine; Referring Provider Internal Medicine; Visit Provider Internal Medicine | DX: E03.9 Hypothyroidism, unspecified (principal); E78.5 Hyperlipidemia, unspecified | CPT/HCPCS: 36415; 83695; 84443 ==

== ENCOUNTER → 2024-11-25 | Outpatient (CLI) | payer OTHER, SELFPAY ==
[2024-11-25 10:09] LABS: Absolute Nucleated RBC Count 0.00 10^3/uL (0-5); Hematocrit 48.3 % (40-54); Hemoglobin 16.2 g/dL (13.0-16.5); Mean Corp Hgb Conc 33.5 g/dL (32-36); Mean Corpuscular Volume 96.8 fL (80-94); Mean Platelet Vol. 9.5 fl (6.2-12.0); NRBC Flagged by Analyzer 0 % (0-5); Platelet Count 310 K/mm3 (150-450); RBC Distribution Width CV 11.9 % (11.6-14.6); RBC Distribution Width SD 42.3 fl (35.1-43.9); Red Blood Count 4.99 M/mm3 (4.6-6.2); White Blood Count 5.7 K/mm3 (4.4-11.0)
[2024-11-25 10:12] LABS: Color, Urine Yellow (Yellow); Glucose, Dipstick Normal (Normal); Ketone-Dipstick Negative (Negative); Leukocyte Esterase-Dipstick Negative /ul (Negative); Nitrite-Dipstick Negative (Negative); Occult Blood-Urine Negative /ul (Negative); Protein-Dipstick 15 mg/dl (Negative); Specific Gravity, Urine 1.010 (1.002-1.030); Urine Bilirubin Dipstick Negative (Negative)
[2024-11-25 10:48] LABS: AST(SGOT) 40 U/L (<=37); Alanine Aminotransfer ALT/SGPT 53 U/L (<=46); Albumin, Serum 4.1 g/dL (3.5-5.0); Alkaline Phosphatase 63 U/L (40-129); Anion Gap 11 (5-15); BUN 15 mg/dL (4-19); BUN/Creat Ratio 14.0 RATIO (10-20); Bilirubin, Direct 0.43 mg/dL (0.00-0.30); Calcium,Total 9.2 mg/dL (7.6-11.0); Carbon Dioxide 23.7 mmol/L (21.0-32.0); Chloride 99 mmol/L (98-108); Cholesterol 251 mg/dL (<=200); Globulin 3.1 g/dL (2.2-4.2); Glucose 87 mg/dL (70-99); Low Density Lipoprotein Calc. 205 mg/dL; Potassium 4.8 mmol/L (3.3-5.1); Triglycerides 116 mg/dL; Very Low Density Lipoprotein 23 mg/dL (5-40); cholesterol:hdl ratio screen 10.82
[2024-11-25 11:34] LABS: LDH 203 U/L (87-241); Uric Acid 3.3 mg/dL (3.5-7.2)
== END | disposition home or self-care (01) ==
LOC: MTLAB 08:13
PROVIDERS: PCP Internal Medicine; Referring Provider Internal Medicine; Visit Provider Internal Medicine
DX: Z00.00 Encounter for general adult medical examination without abnormal findings (principal)

== ENCOUNTER → 2024-12-28 | Outpatient (CLI) | payer OTHER, SELFPAY ==
--- NOTE | 2024-12-28 09:28 | STE_ITS ---
Reason For Study Reason For Study: CAD Stress Results Protocol: Edgar Protocol Maximum Predicted HR: 160 bpm Target HR: 136 bpm % Maximum Predicted HR: 88 % DurationHeart Rate Stage (mm:ss) (bpm) BP Comment Baseline 67 122/84No Chest Pain Edgar Protocol Stage I 3:00 87 138/82No Chest Pain Edgar Protocol Stage II 3:00 99 150/80No Chest Pain Edgar Protocol Stage III 3:00 111 154/72No Chest Pain Edgar Protocol Stage IV 3:00 139 180/70No Chest Pain; Mild Dyspnea Edgar Protocol Stage V 0:30 141 / No Chest Pain; Moderate Dyspnea Recovery 77 126/70No Chest Pain; No Dyspnea Stress Duration: 12:30 mm:ss Maximum Stress HR: 141 bpm METS: 15 Baseline Echocardiogram Findings Stress Echo Wall motion Data Resting WM Intermediate WM Stress WM Resting Wall Motion Wall Motion Stress Normal resting wall motion. Estimated All wall segments hyperdynamic LVEF 50%. postexercise. Postexercise LVEF 70%. EKG Data Resting ECG normal sinus rhythm. No ischemic ECG changes during exercise or in recovery. Normal chronotropic response to exercise. ECHO/Stress Test Echo w/o Contrast Interpretation Summary Excellent functional capacity. No ischemic ECG changes with exercise or in recovery. Augmentation of all LV wall segments postexercise. No echo evidence of ischemia . No angina reported. Negative exercise stress echo. Ordering Physician: Brian Calero Referring Physician: Brian Calero Performed By: Tessy Weller RDCS
== END | disposition home or self-care (01) ==
LOC: CVS 09:25
PROVIDERS: PCP Internal Medicine; Referring Provider Internal Medicine Cardiovascular Disease; Visit Provider Internal Medicine Cardiovascular Disease
DX: I25.10 Atherosclerotic heart disease of native coronary artery without angina pectoris (principal)
CPT/HCPCS: 93017; 93350

== ENCOUNTER → 2025-02-15 | Outpatient (CLI) | payer OTHER, SELFPAY ==
[2025-02-15 13:13] LABS: AST(SGOT) 36 U/L (<=37); Alanine Aminotransfer ALT/SGPT 44 U/L (<=46); Albumin, Serum 4.6 g/dL (3.4-4.8); Alkaline Phosphatase 71 U/L (40-129); Bilirubin, Direct 0.44 mg/dL (0.00-0.30); Cholesterol 106 mg/dL (<=200); Globulin 2.7 g/dL (2.2-4.2); Low Density Lipoprotein Calc. 42 mg/dL; Triglycerides 48 mg/dL; Very Low Density Lipoprotein 10 mg/dL (5-40); cholesterol:hdl ratio screen 2.04
== END | disposition home or self-care (01) ==
LOC: MTLAB 11:13
PROVIDERS: PCP Internal Medicine; Referring Provider Internal Medicine; Visit Provider Internal Medicine
DX: Z51.81 Encounter for therapeutic drug level monitoring (principal)
CPT/HCPCS: 36415; 80061; 80076; 84443